=== PATIENT | female | born 1960 | race African-American/Black ===

== ENCOUNTER 2023-12-03 13:04 | Outpatient (OUT) | payer OTHER, SELFPAY ==
--- NOTE | 2023-12-03 | XR_ITS ---
The [address] [address] Patient Name: MARCOS GARCIA MRN: [id number] date: 1960 Sex: F Assigned Patient Location: Current Patient Location: Accession/Order Number: [id number] Exam Date: 12/03/2023 13:04 Report Date: 12/03/2023 14:42 At the request of: ADI MILLER Procedure: XR foot NASH min 3V EXAMINATION: XR foot NASH min 3V HISTORY: BILATERAL FOOT PAIN COMPARISON: No relevant comparison available. FINDINGS: RIGHT FINDINGS: BONES: No acute fracture or dislocation. Severe hallux valgus. Lateral subluxation of the second toe, overlapping the third toe. Persistent flexion stenosis. Mild plantar enthesopathic spurring of the calcaneus . First metatarsal-phalangeal joint osteoarthritis SOFT TISSUES: Negative. No visible soft tissue swelling. OTHER: Negative. LEFT FINDINGS: BONES: No acute fracture or dislocation. Severe hallux valgus. Persistent flexion of the toes. Mild plantar enthesopathic spurring of the calcaneus. First metatarsal-phalangeal joint osteoarthritis SOFT TISSUES: Negative. No visible soft tissue swelling. OTHER: Negative. XR/XR foot NASH min 3V IMPRESSION: Severe bilateral hallux valgus with first metatarsal-phalangeal joint osteoarthritis Lateral subluxation of the right second toe overlapping the third toe Electronically authenticated by: ELIEZER PENA Date: 12/03/2023 14:42
== END 2023-12-03 13:05 | disposition home or self-care (01) ==
PROVIDERS: Visit Provider Podiatrist Foot & Ankle Surgery
DX: M79.672 Pain in left foot (principal); M79.671 Pain in right foot; M20.12 Hallux valgus (acquired), left foot; M20.11 Hallux valgus (acquired), right foot; S93.101A Unspecified subluxation of right toe(s), initial encounter
CPT/HCPCS: 73630

== ENCOUNTER 2023-12-11 13:44 | Outpatient (OUT) | payer OTHER, SELFPAY ==
--- NOTE | 2023-12-11 13:45 | VEIN_ITS ---
The [address] [address] Patient Name: MARCOS GARCIA MRN: [id number] date: 1960 Sex: F Assigned Patient Location: Current Patient Location: Accession/Order Number: [id number] Exam Date: 12/11/2023 13:45 Report Date: 12/15/2023 07:09 At the request of: ADI MILLER Procedure: VC SEGMENTAL PRESSURES EXAM: VC SEGMENTAL PRESSURES HISTORY: R09.89 Indication: Claudication, right leg pain COMPARISON: None. FINDINGS: Segmental pressures presented as follows (right, left) in mmHg. Brachial: 135, 141 Upper thigh: 181, 170 Lower thigh: 179, 168 Calf: 169, 175 DPA: 143, 130 CHILD CARE COOK: 146, 144 1st Toe: 173, 179 MELYSSA: 1.04, 1.02 TBI: 1.23, 1.27 The ABIs are Normal The TBI's are normal PVR waveforms: Right leg: Thigh: Normal Above knee: Normal Below knee: Normal Right ankle: Normal Left leg: Thigh: Normal Above knee: Normal Below knee: Normal Right ankle: Normal VEIN/VC SEGMENTAL PRESSURES IMPRESSION: Normal exam Electronically authenticated by: ELIEZER PENA Date: 12/15/2023 07:09
== END 2023-12-11 13:45 | disposition home or self-care (01) ==
LOC: VC 13:44
PROVIDERS: Visit Provider Podiatrist Foot & Ankle Surgery
DX: I73.9 Peripheral vascular disease, unspecified (principal); R09.89 Other specified symptoms and signs involving the circulatory and respiratory systems
CPT/HCPCS: 93923

== ENCOUNTER 2023-12-24 08:45 | Outpatient (OUT) | payer OTHER, SELFPAY ==
--- NOTE | 2023-12-24 08:55 | ECG_ITS ---
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
--- NOTE | 2023-12-24 09:48 | PM.PRESUREVA ---
History of Present Illness History of Present Illness Chief complaint: hallux valgus right foot with hammer toes Narrative: Patient presents for preadmission testing accompanied by a friend. The patient states she has a long history of bilateral foot issues, the right is more severe than the left. She states she has several corns and calluses and warts on her feet as well as a deformity of her toes and a bunion. She states that she has tried different shoes, [id number] pain medication, and decreasing her activities with no relief of her symptoms. The patient states she did have a TIA in 2008 and experiences some left-sided weakness, although states there is no new numbness, tingling, or weakness that she has noticed. Review of Systems ROS Narrative REVIEW OF SYSTEMS: Negative except as stated in HPI, ten or more systems reviewed. Constitutional: No fever, chills, weakness ENT: No sore throat or epistaxis Cardiovascular: No edema, chest pain, palpitations, or activity intolerance Respiratory: No shortness of breath, cough, or wheezing Gastrointestinal: No abdominal pain, constipation, diarrhea, or vomiting Genitourinary: No dysuria or hematuria Neurological: No new numbness, tingling, weakness, or headache Psychiatric: No mood changes [facility] Medical History (Updated 12/24/23 @ 09:46 by Joanna Clifton NP) Dysarthria ?R47.1 - Dysarthria and anarthria (ICD-10) Alcohol use ?Z78.9 - Other specified health status (ICD-10) Arthritis ?M19.90 - Unspecified osteoarthritis, unspecified site (ICD-10) Back pain ?M54.9 - Dorsalgia, unspecified (ICD-10) Anemia ?D64.9 - Anemia, unspecified (ICD-10) Depression ?F32.A - Depression, unspecified (ICD-10) Left-sided weakness ?R53.1 - Weakness (ICD-10) Transient ischemic attack (2008) ?G45.9 - Transient cerebral ischemic attack, unspecified (ICD-10) Heartburn ?R12 - Heartburn (ICD-10) Hypercholesterolemia ?E78.00 - Pure hypercholesterolemia, unspecified (ICD-10) Hypertension ?I10 - Essential (primary) hypertension (ICD-10) Foot pain ?M79.673 - Pain in unspecified foot (ICD-10) Peripheral vascular disease ?I73.9 - Peripheral vascular disease, unspecified (ICD-10) Dislocation of metatarsophalangeal joint of right great toe ?S93.121A - Dislocation of metatarsophalangeal joint of right great toe, initial encounter (ICD-10) Toe contracture ?M20.5X9 - Other deformities of toe(s) (acquired), unspecified foot (ICD-10) 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 ?M25.871 - Other specified joint disorders, right ankle and foot (ICD-10) Hammertoe ?M20.40 - Other hammer toe(s) (acquired), unspecified foot (ICD-10) Hallux valgus ?M20.10 - Hallux valgus (acquired), unspecified foot (ICD-10) Surgical History (Updated 12/24/23 @ 09:19 by Joanna Clifton NP) History of colonoscopy ?Z98.890 - Other specified postprocedural states (ICD-10) Family History (Updated 12/24/23 @ 09:19 by Joanna Clifton NP) Other Dementia Family history of aneurysm Family history of hypertension Family history of myocardial infarction Family history of stroke Social History (Updated 12/24/23 @ 09:11 by Joanna Clifton NP) Within the past year, how often did you have a drink containing alcohol: 4 or more times a week Within the past year, how many standard drinks containing alcohol did you have on a typical day: 3 or 4 Smoking status: Current every day smoker What tobacco products do you use: cigarettes Cigarettes per day: 15 Years smoked: 45 Smoking pack-years: 33.75 Non-prescribed substance use: cannabis (any form) Highest level of school completed/degree received: high school graduate Meds Home Medications and Allergies Home Medications ?Medication ?Instructions ?Recorded ?Confirmed ?Type atorvastatin 20 mg tablet 20 mg PO DAILY 12/24/23 12/24/23 History ergocalciferol (vitamin D2) 1,250 1,250 mcg PO QWEEK 12/24/23 12/24/23 History mcg (50,000 unit) capsule labetalol 200 mg tablet 400 mg PO DAILY 12/24/23 12/24/23 History Allergies Allergy/AdvReac Type Severity Reaction Status Date / Time No Known Drug Allergies Allergy Verified 12/24/23 09:08 Exam Narrative Exam Narrative: Constitutional: Awake, alert, comfortable, well-appearing, nontoxic, interactive, vital signs as charted Head: Normocephalic, atraumatic Neck: Supple, normal appearance, normal range of motion, no meningeal signs, no lymphadenopathy Respiratory: No respiratory distress, breath sounds clear Cardiovascular: Regular rate and rhythm, strong and regular heart tones Musculoskeletal: Normal gait, no swelling or edema; obvious right hallux valgus and lesser toe contractures, skin lesions noted on the plantar aspect of the right forefoot, overlying the first MTP joint, and at the base of the fifth metatarsal; no active drainage or erythema Skin: No rashes or induration, no lesions, except as noted, only visible skin inspected Neuro: Normal sensation, left hand grasp slightly weaker than right, left leg strength slightly weaker than right against resistance testing, notable dysarthria, Psychiatric: Oriented ?3, normal affect Assessment and Plan Assessment and Plan (1) Hallux valgus: (2) Hammertoe: (3) 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 Rodriguez January 08, 2024.
[2023-12-24 10:03] LABS: Basophils Percent Auto 0.7 % (0.2-2.0); Eosinophils Absolute Auto 0.2 10^3/uL (0.0-0.7); Eosinophils Percent Auto 3.4 % (0.9-7.0); Hematocrit 36.2 % (36.0-48.0); Hemoglobin 11.9 g/dL (12.0-16.0); Immature Granulocytes Abs Auto 0.01 10^3/uL (0.00-0.03); Immature Granulocytes Pct Auto 0.2 % (0.0-0.5); Lymphocytes Absolute Auto 2.2 10^3/uL (1.2-3.8); Lymphocytes Percent Auto 49.7 % (20.5-60.0); Mean Corpuscular HGB Conc 32.9 g/dL (29.9-35.2); Mean Corpuscular Hemoglobin 32.2 pg (26.7-34.0); Mean Corpuscular Volume 98.1 fL (81.0-99.0); Mean Platelet Volume 9.5 fL (9.5-13.5); Monocytes Absolute Auto 0.4 10^3/uL (0.3-0.8); Monocytes Percent Auto 8.2 % (1.7-12.0); Neutrophils Absolute Auto 1.7 10^3/uL (1.4-6.5); Neutrophils Percent Auto 37.8 % (43.0-75.0); Platelet Count 205 10^3/uL (150-450); Red Blood Count 3.69 10^6/uL (4.20-5.40); Red Cell Distribution Width 12.1 % (11.0-15.0); White Blood Count 4.4 10^3/uL (4.0-11.0)
[2023-12-24 10:15] LABS: Anion Gap 11.8; BUN Creatinine Ratio 25.8; Calcium 9.3 mg/dL (8.5-10.1); Carbon Dioxide 28.7 mmol/L (21.0-32.0); Chloride 105 mmol/L (98-107); Estimated GFR (African America >60 (>=60); Estimated GFR (Non-African Ame >60 (>=60); Glucose 68 mg/dL (74-106); Potassium 3.5 mmol/L (3.5-5.1); Sodium 142 mmol/L (136-145)
== END 2023-12-24 08:46 | disposition home or self-care (01) ==
LOC: PST 08:48
PROVIDERS: Visit Provider Podiatrist Foot & Ankle Surgery
DX: Z01.810 Encounter for preprocedural cardiovascular examination (principal); M20.11 Hallux valgus (acquired), right foot; Z01.812 Encounter for preprocedural laboratory examination; M20.41 Other hammer toe(s) (acquired), right foot
CPT/HCPCS: 28899; 36415; 80048; 85025; 93005; G0463

== ENCOUNTER 2023-12-30 09:02 | Outpatient (RCR) | payer OTHER, SELFPAY | END 2024-04-06 23:59 | disposition home or self-care (01) | LOC: PT 09:02 | PROVIDERS: Visit Provider Podiatrist Foot & Ankle Surgery | DX: M20.41 Other hammer toe(s) (acquired), right foot (principal); M20.11 Hallux valgus (acquired), right foot | CPT/HCPCS: 97116; 97161 ==

== ENCOUNTER 2024-01-08 06:04 | Day surgery (SDC) | payer OTHER, SELFPAY ==
[2023-12-24 09:38] VITALS: BP 146/93; PULSE 68; TEMP 36.3; O2SAT 97; BMI 20.1
[2024-01-08] VITALS (10 sets, daily range): BP systolic 148–159; BP diastolic 93–103; PULSE 64–69; TEMP 36.3–36.7; O2SAT 98–100; BMI 19.9
--- NOTE | 2024-01-08 | FL_ITS ---
[address] [address] Patient Name: MARCOS GARCIA MRN: [id number] date: 1960 Sex: F Assigned Patient [facility] Current Patient Location: [facility] Accession/Order Number: [id number] Exam Date: 01/08/2024 11:52 Report Date: 01/13/2024 09:36 At the request of: ADI MILLER Procedure: FL fluoroscopy <1hr NON-READ EXAM: FL fluoroscopy <1hr NON-READ HISTORY: TECHNIQUE: FINDINGS: Please see Operative Report. Electronically authenticated by: RADIOLOGIST NO Date: 01/13/2024 09:36
--- OUTSIDE RECORDS SUMMARY | 2024-01-08 06:08 | XMS_ITS | CCD ---
Author Organization [facility] Inform ion Partnership [facility] Care Team Providers Care Consultant Technology Name Role Phone Rosanne Falcon E Primary Care Provider [facility], Services Primary Care Provider [phone] Terrie MOVIE OPERATOR-C Rosanne Liu Attending Provider MD Philip Taveras Attending Provider [phone] [facility] Services Primary Care Provider Spajimic, MOVIE OPERATOR-C Rosanne E Attending Provider [facility] Services Primary Care Provider Spasic, MOVIE OPERATOR-C Rosanne E Attending Provider Spasic, MOVIE OPERATOR-C Rosanne E Attending Provider Spasic, Rosanne E Admitting Unavailable Spasic, Rosanne E Attending Unavailable Spasic, Rosanne E Admitting Unavailable Spasic, Rosanne E Attending Unavailable NO FAMILY, PHYSICIAN Primary Care Unavailable Spasic, Rosanne E Admitting Unavailable Spasic, Rosanne E Attending Unavailable [facility], Services Primary Care U navailable Spasic, Rosanne E Admitting Unavailable Spasic, Rosanne E Attending Unavailable [facility], Services Primary Care U navailable Spasic, Rosanne E Admitting Unavailable Spasic, Rosanne E Attending Unavailable [facility], Services Primary Care Unavaila ble Medications Current Medications Medication Drug Class(es) Dates Sig (Normalized) Sig (Original) atorvastatin 20 mg oral tablet (8 sources) HMG-CoA Reductase Inhibitor Start: 02-20-2021 take 20 mg by mouth once daily Atorvastatin Active 20 MG PO Daily February 20, 2021 1:00am Comment on above: Take 20 mg by mouth once daily. diclofenac sodium 0.01 mg/mg topical gel (7 sources) Nonsteroidal Anti-inflammatory Drug Start: 12-05-2021 Diclofenac Sodium Active 1 EACH TOPICAL As Directed December 05, 2021 12:00am diclofenac (VOLT AREN) 1 % topical gel Apply to affected area four times daily. 0 Active Comment on above: Apply to affected ar ea four times daily. ergocalciferol 1.25 mg oral capsule (4 sources) Provitamin D2 Compound Start: 01-10-20 take 1250 ug by mouth every week Ergocalciferol (Vitamin D2) Active 1250 MCG PO every week January 09, 2022 12:00am takes on Mondays labetalol hydrochloride 200 mg oral tablet (8 sources) beta-Adrenergic Graciela Start: 08-03-19 take 400 mg by mouth twice daily Labetalol Active 400 MG PO Twice daily August 02, 2017 12:00am take 1 tablet by mouth twice uyen ly labetalol (TRANDATE) 200 mg tablet Take 200 mg by mouth twice daily. 0 Active Comment on above: Take 200 mg by mouth twice daily. Completed/Discontinued Medications Medication Drug Class(es) Dates Sig (Normalized) Sig (Original) amoxicillin 875 mg / clavulanate 125 mg oral tablet (7 sources) Penicillin-class Antibacterial Start: 08-02-2017 End: 12-05-2017 take 1 tablet by mouth twice daily Amoxicillin-Pot Clavulanate (Augmentin) 875-125 mg Tablet Discontinued 875 MG PO Twice daily August 02, 2017 12:00am December 05, 2017 12:18pm cholecalciferol 0.125 mg oral tablet (7 sources) Vitamin D Start: 12-05-2021 End: 01-09-2022 take 1 tablet by mouth once daily Cholecalciferol (Vitamin D3) (Vitamin D3) 125 mcg (5,000 unit) Tablet Discontinued 125 MCG PO Daily December 05, 2021 12:00am January 09, 2022 1:49pm take 1 tablet by mouth every wee k cholecalciferol (VITAMIN D-3) 5,000 unit tab Take 5,000 Units by mouth one time a week. 0 Active Comment on above: Take 5,000 Units by mouth one time a week. cyclobenzaprine hydrochloride 5 mg oral tablet (8 sources) Muscle Relaxant Start: 12-06-19 End: 12-06-19 take 5 mg by mouth once daily Cyclobenzaprine Discontinued 5 MG PO Daily December 05, 2017 12:00am December 05, 2021 1:48pm cyclobenzaprine HCl (CYCLOBENZAPRINE ORAL) Take 10 mg by mouth as directed. 0 Active Comment on above: Take 10 mg by mouth as directed. erythromycin 0.005 mg/mg ophthalmic ointment (1 source) Macrolide, Macrolide Antimicrobial erythromycin (ROMYCI N) 5 mg/gram (0.5 %) ophthalmic ointment four times daily. 0 Active Comment on above: four times daily. gentamicin 0.003 mg/mg ophthalmic ointment (1 source) gentamicin (GENT AK) 0.3 % (3 mg/gram) ophthalmic ointment Use in eyes twice daily. 0 Active Comment on above: Use in eyes twice da mackenzie. hydroCHLOROthiazide 12.5 mg oral tablet (7 sources) Thiazide Diuretic Start: 2017 End: 2017 take 12.5 mg by mouth once daily Hydrochlorothiazide Discontinued 12.5 MG PO Daily August 02, 2017 12:00am December 05, 2017 12:18pm ibuprofen 400 mg oral tablet (8 sources) Nonsteroidal Anti-inflammatory Drug Start: 2017 End: 2021 take 400 mg by mouth three times daily Ibuprofen Discontinued 400 MG PO Three times daily August 02, 2017 12:00am December 05, 2021 1:47pm take 1 tablet by zuleika th every six hours as needed ibuprofen (MOTRIN) 400 mg tablet Take 40 0 mg by mouth every 6 hours as needed. 0 Active Comment on above: Take 400 mg by mouth every 6 hours as needed. ondansetron 4 mg disintegrating oral tablet (7 sources) Serotonin-3 Receptor Antagonist Start: 8 End: 2 take 1 tablet by mouth every four hours Ondansetron (Zofran Odt) 4 mg Tablet,Disintegratin g Discontinued 4 MG PO Q4H August 02, 2017 12:00am December 05, 2021 1:47pm administer first dose 30 minutes before start of emetogenic chemotherapy Problems Problem Classification Problem Date Documented Da te Episodic/Chronic Essential hypertension (2 sources) Essential (primary) hypertension; Translations: [Essential (primary) hypertension] Onset: 01-16-2023 Chronic Nutritional deficiencies (1 source) Vitamin D deficiency, unspecified; Translations: [Vitamin D deficiency, unspecified] Onset: 07-31-2023 Chronic Other screening for suspected conditions (not mental disorders or infectious disease) (7 sources) Patient encounter status; Translations: [Encounter for screening for malignant neoplasm of colon] 12-05-2017 Episodic Pneumonia (except that caused by tuberculosis or sexually transmitted disease) (7 sources) Pneumonia; Translations: [Pneumonia, unspecified organism] 08-02-2017 Episodic Unclassified (1 source) Encounter for screening mammogram for malignant neoplasm of breast; Translations: [Encounter for screening mammogram for malignant neoplasm of breast] Onset: 04-11-2023 Unclassified (1 source) Otorrhea, left ear; Translations: [Otorrhea, left ear] Onset: 01-28-2023 Results Test Name Value Interpretation Reference Range Facility Complete Blood Count Auto Di ffon 01-02-2024 Basophils (Bld) [#/Vol] 0.1 10*3/uL Normal 0.0-0.2 [facility] Comment on above: Result Comment: PERF ORMED BY: [place] [id number] PATHOLOGIST HAT FORMING MACHINE FEEDER TRINI PINON M.D. Performed By: #### T SH3 wRFLX, [id number], DIFF CBC, CMP #### [facility] [address] Basophils/100 WBC (Bld) 1.5 % Normal . T amanda [facility] Comment on above: Performed By: #### T SH3 wRFLX, [id number], DIFF CBC, CMP #### [facility] [address] [place] [address] [place] Eosinophils (Bld) [#/Vol] 0.1 10*3/uL Normal 0.0-0.45 [facility] Comment on above: Performed By: #### T SH3 wRFLX, [id number], DIFF CBC, CMP #### [facility] [address] [place] [address] [place] Eosinophils/100 WBC (Bld) 2.8 % Normal . [facility] Comment on above: Performed By: #### T SH3 wRFLX, [id number], DIFF CBC, CMP #### [address] Erythrocyte distribution width (RBC) [Ratio] 13.8 % Normal 11.9-15.3 [facility] Comment on above: Performed By: #### T SH3 wRFLX, [id number], DIFF CBC, CMP #### [address] Hematocrit (Bld) [Volume fraction] 38.8 % Normal 34.0-46.4 [facility] Comment on above: Performed By: #### T SH3 wRFLX, [id number], DIFF CBC, CMP #### [address] Hemoglobin (Bld) [Mass/Vol] 13.0 g/dL Normal 11.8-15.4 [facility] Comment on above: Performed By: #### T SH3 wRFLX, [id number], DIFF CBC, CMP #### [address] Lymphocytes (Bld) [#/Vol] 2.1 10*3/uL Normal 1.00-4.8 [facility] Comment on above: Performed By: #### T SH3 wRFLX, [id number], DIFF CBC, CMP #### [address] Lymphocytes/100 WBC (Bld) 49.0 % Normal . [facility] Comment on above: Performed By: #### T SH3 wRFLX, [id number], DIFF CBC, CMP #### [address] MCH (RBC) [Entitic mass] 32.4 pg Normal 24.7-34.3 [facility] Comment on above: Performed By: #### T SH3 wRFLX, [id number], DIFF CBC, CMP #### [address] MCV (RBC) [Entitic vol] 96.5 fL Normal 80-100 [facility] Comment on above: Performed By: #### T SH3 wRFLX, [id number], DIFF CBC, CMP #### [address] Mean Corpuscular HGB Conc 33.6 g/dL Normal 32.0-35.0 [facility] Comment on above: Performed By: #### T SH3 wRFLX, [id number], DIFF CBC, CMP #### [address] Monocytes (Bld) [#/Vol] 0.2 10*3/uL Normal 0.0-0.8 [facility] Comment on above: Performed By: #### T SH3 wRFLX, [id number], DIFF CBC, CMP #### [address] Monocytes/100 WBC (Bld) 4.7 % Normal . T amanda [facility] Comment on above: Performed By: #### T SH3 wRFLX, [id number], DIFF CBC, CMP #### [address] Neutrophils (Bld) [#/Vol] 1.8 10*3/uL Normal 1.8-7.7 [facility] Comment on above: Performed By: #### T SH3 wRFLX, [id number], DIFF CBC, CMP #### [address] Neutrophils/100 WBC (Bld) 42.0 % Normal . [facility] Comment on above: Performed By: #### T SH3 wRFLX, [id number], DIFF CBC, CMP #### [address] NRBC% 0.2 /100{WBC} Normal 0-0.5 [facility] Comment on above: Performed By: #### T SH3 wRFLX, [id number], DIFF CBC, CMP #### [address] Platelet mean volume (Bld) [Entitic vol] 8.6 fL Normal 6.3-10.7 [facility] Comment on above: Performed By: #### T SH3 wRFLX, [id number], DIFF CBC, CMP #### [address] Platelets (Bld) [#/Vol] 241 10*3/uL Normal 150-450 [facility] Comment on above: Performed By: #### T SH3 wRFLX, [id number], DIFF CBC, CMP #### [address] RBC (Bld) [#/Vol] 4.02 10*6/uL Normal 3.60-5.00 [facility] Comment on above: Performed By: #### T SH3 wRFLX, [id number], DIFF CBC, CMP #### [address] WBC (Bld) [#/Vol] 4.3 10*3/uL Normal 3.8-11.6 [facility] Comment on above: Performed By: #### T SH3 wRFLX, [id number], DIFF CBC, CMP #### [address] Comprehensive Metabolic Pane harriet 01-02-2024 Albumin [Mass/Vol] 4.1 g/dL Normal 3.5-5.7 [facility] Comment on above: Performed By: #### T SH3 wRFLX, [id number], DIFF CBC, CMP #### [address] Albumin/Globulin [Mass ratio] 1.4 {ratio} Normal [facility] Comment on above: Performed By: #### T SH3 wRFLX, [id number], DIFF CBC, CMP #### [address] ALP [Catalytic activity/Vol] 100 U/L Normal 34-104 [facility] Comment on above: Performed By: #### T SH3 wRFLX, [id number], DIFF CBC, CMP #### [address] ALT [Catalytic activity/Vol] 13 U/L Normal 7-52 [facility] Comment on above: Performed By: #### T SH3 wRFLX, [id number], DIFF CBC, CMP #### [address] Anion gap [Moles/Vol] 7.4 mmol/L Normal 6.0-15.0 [facility] Comment on above: Performed By: #### T SH3 wRFLX, [id number], DIFF CBC, CMP #### [address] AST [Catalytic activity/Vol] 15 U/L Normal 13-39 [facility] Comment on above: Performed By: #### T SH3 wRFLX, [id number], DIFF CBC, CMP #### [address] Bilirubin [Mass/Vol] 0.7 mg/dL Normal 0.3-1.0 [facility] Comment on above: Performed By: #### T SH3 wRFLX, [id number], DIFF CBC, CMP #### [address] Calcium [Mass/Vol] 9.9 mg/dL Normal 8.6-10.3 [facility] Comment on above: Performed By: #### T SH3 wRFLX, [id number], DIFF CBC, CMP #### [place] [address] [place] Chloride [Moles/Vol] 105 mmol/L Normal 98-107 [facility] Comment on above: Performed By: #### T SH3 wRFLX, [id number], DIFF CBC, CMP #### [place] [address] [place] CO2 [Moles/Vol] 32.3 mmol/L High 21.0-31.0 [facility] Comment on above: Performed By: #### T SH3 wRFLX, [id number], DIFF CBC, CMP #### [place] [address] [place] Creatinine [Mass/Vol] 0.75 mg/dL Normal 0.60-1.20 [facility] Comment on above: Performed By: #### T SH3 wRFLX, [id number], DIFF CBC, CMP #### [facility] [address] [place] [address] [place] GFR/1.73 sq M.predicted MDRD (S/P/Bld) [Vol rate/Area] mL/min/{1.73_m2} Normal [facility] Comment on above: Performed By: #### T SH3 wRFLX, [id number], DIFF CBC, CMP #### [facility] [address] [place] [address] [place] Globulin (S) [Mass/Vol] 3.0 g/dL Normal [facility] Comment on above: Performed By: #### T SH3 wRFLX, [id number], DIFF CBC, CMP #### [facility] [address] Glucose [Mass/Vol] 81 mg/dL Normal 70-100 [facility] Comment on above: Result Comment: [facility] [place] Glucose Reference Range is dependent on time and content of last meal. Glucose of more than 200 mg/dL in a nonstressed, ambulatory subject supports the diagnosis of Diabetes Mellitus. ADA recommended reference range Performed By: #### T SH3 wRFLX, [id number], DIFF CBC, CMP #### [facility] [address] Potassium [Moles/Vol] 3.7 mmol/L Normal 3.5-5.1 [facility] Comment on above: Performed By: #### T SH3 wRFLX, [id number], DIFF CBC, CMP #### [facility] [address] [place] [address] [place] Protein [Mass/Vol] 7.1 g/dL Normal 6.4-8.9 [facility] Comment on above: Performed By: #### T SH3 wRFLX, [id number], DIFF CBC, CMP #### [facility] [address] [place] [address] [place] Sodium [Moles/Vol] 141 mmol/L Normal 136-145 [facility] Comment on above: Performed By: #### T SH3 wRFLX, [id number], DIFF CBC, CMP #### [facility] [address] Urea nitrogen [Mass/Vol] 19 mg/dL Normal 7-25 [facility] Comment on above: Performed By: #### T SH3 wRFLX, [id number], DIFF CBC, CMP #### [facility] [address] Lipid Panelon 01-02-2024 Cholesterol [Mass/Vol] 155 mg/dL Normal 140-200 [facility] Comment on above: Result Comment: Chol less than 200 mg/dl low risk Chol 201-239 mg/dl borderline risk Chol 240 mg/dl and greater high risk Performed By: #### T SH3 wRFLX, [id number], DIFF CBC, CMP #### [facility] [address] Cholesterol in HDL [Mass/Vol] 75 mg/dL Normal 23-92 [facility] Comment on above: Result Comment: HDL CHOL ATP-III CLASSIFICATION Cardiovascular Risk HDL > or equal to 60 mg/dL LOW HDL < 40 mg/dL HIGH Performed By: #### T SH3 wRFLX, [id number], DIFF CBC, CMP #### [facility] [address] Cholesterol.total/Choles terol in HDL [Mass ratio] 2.1 {ratio} Normal <5.0 [facility] Comment on above: Performed By: #### T SH3 wRFLX, [id number], DIFF CBC, CMP #### [facility] [address] [place] [id number] [facility] LDL Cholesterol,Calculated 69 mg/dL Normal 0-100 [facility] Comment on above: Result Comment: LDL ATP III CLASSIFICATION LDL less than 100 mg/dL Optimal LDL 100-129 mg/dL Near or above optimal LDL 130-159 mg/dL Borderline high LDL 160-189 mg/dL High LDL greater than 189 mg/dL Very high Performed By: #### T SH3 wRFLX, [id number], DIFF CBC, CMP #### [address] Triglyceride w/Reflex 55 mg/dL Normal 0-149 [facility] Comment on above: Result Comment: TRIG ATP III CLASSIFICATION TRIG less than 150 mg/dL Normal TRIG 150-199 mg/dL Borderline high TRIG 200-500 mg/dL High TRIG greater than 500 mg/dL Very high Standard traceable to the Center for Disease Conrtrol and Prevention (CDC) test method. Performed By: #### T SH3 wRFLX, [id number], DIFF CBC, CMP #### [address] VLDL CHOLESTEROL 11 mg/dL Normal [facility] Comment on above: Performed By: #### T SH3 wRFLX, [id number], DIFF CBC, CMP #### [address] Thyroid Stim Hormone w/Rflxo n 01-02-2024 Thyroid Stim Hormone w/Rflx 0.69 u[iU]/mL Normal 0.45-5.33 [facility] Comment on above: Performed By: #### T SH3 wRFLX, [id number], DIFF CBC, CMP #### [address] Vitamin D 25 Hydroxy Totalon 01-02-2024 Vitamin D 25 Hydroxy Total 52.7 ng/mL Normal 30-100 [facility] Comment on above: Result Comment: PARAS MIN D STATUS 25(OH)VITAMIN D RANGE (ng/mL) Deficient <20 Insufficient 20 to <30 Sufficient 30 to 100 Reference: Helen MF,Vaishali NC, Arturo FARRIS, et al. Evaluation,treatment, and prevention of vitamin D deficiency; an Endocrine Society clinical practice guideline. JCEM. 2010; 96(7):1911-30. PERFORMED BY: [place] [address] PATHOLOGIST HAT FORMING MACHINE FEEDER TRINI PINON M.D. Performed By: #### T SH3 wRFLX, [id number], DIFF CBC, CMP #### [place] [address] [place] Alanine aminotransferase [En zymatic activity/volume] in Serum or PlasmaOrdered By: Rosanne Falcon on 07-31-2023 ALT [Catalytic activity/Vol] 14 U/L Normal 7-52 [facility] Comment on above: Order Comment: Reaso n for Exam Hypertension Reason for Exam Vitamin D deficiency, unspecified Performed By: #### T SH3 wRFLX, CBC, LIPID, [id number], CMP #### [facility] [address] [place] [address] [place] Albumin [Mass/volume] in Ser um or Plasma by Bromocresol green (BCG) dye binding methoOrdered By: Rosanne Falcon on 07-31-2023 Albumin BCG dye [Mass/Vol] 3.9 g/dL 3.5-5.7 [facility] Alkaline phosphatase [Enzyma tic activity/volume] in Serum or PlasmaOrdered By: Rosanne Falcon on 07-31-2023 ALP [Catalytic activity/Vol] 82 U/L Normal 34-104 [facility] Comment on above: Order Comment: Reaso n for Exam Hypertension Reason for Exam Vitamin D deficiency, unspecified Performed By: #### T SH3 wRFLX, CBC, LIPID, [id number], CMP #### [facility] [address] [place] [id number] [place] Aspartate aminotransferase [ Enzymatic activity/volume] in Serum or PlasmaOrdered By: Rosanne Falcon on 07-31-2023 AST [Catalytic activity/Vol] 16 U/L Normal 13-39 [facility] Comment on above: Order Comment: Reaso n for Exam Hypertension Reason for Exam Vitamin D deficiency, unspecified Performed By: #### T SH3 wRFLX, CBC, LIPID, [id number], CMP #### [facility] [address] [place] [address] [place] Automated basophil %Ordered By: Rosanne Falcon on 07-31-2023 Basophils/100 WBC (Bld) 0.6 % Normal . [facility] Comment on above: Order Comment: Reaso n for Exam Hypertension Performed By: #### T SH3 wRFLX, CBC, LIPID, [id number], CMP #### [facility] [address] [place] [id number] [place] Automated basophil countOrde red By: Rosanne Falcon on 07-31-2023 Basophils (Bld) [#/Vol] 0.0 10*3/uL Normal 0.0-0.2 [facility] Comment on above: Order Comment: Reaso n for Exam Hypertension Result Comment: PERF ORMED BY: [place] [address] PATHOLOGIST HAT FORMING MACHINE FEEDER TRINI PINON M.D. Performed By: #### T SH3 wRFLX, CBC, LIPID, [id number], CMP #### [facility] [address] [place] [address] Automated blood monocyte cou ntOrdered By: Rosanne Falcon on 07-31-2023 Monocytes (Bld) [#/Vol] 0.3 10*3/uL Normal 0.0-0.8 [facility] Comment on above: Order Comment: Reaso n for Exam Hypertension Performed By: #### T SH3 wRFLX, CBC, LIPID, [id number], CMP #### [facility] [address] [place] [address] Automated eosinophil %Ordere d By: Rosanne Falcon on 07-31-2023 Eosinophils/100 WBC (Bld) 2.6 % Normal . [facility] Comment on above: Order Comment: Reaso n for Exam Hypertension Performed By: #### T SH3 wRFLX, CBC, LIPID, [id number], CMP #### [facility] [address] [place] [address] Automated eosinophil countOr dered By: Rosanne Falcon on 07-31-2023 Eosinophils (Bld) [#/Vol] 0.1 10*3/uL Normal 0.0-0.45 [facility] Comment on above: Order Comment: Reaso n for Exam Hypertension Performed By: #### T SH3 wRFLX, CBC, LIPID, [id number], CMP #### [facility] [address] [place] [address] [place] Automated monocyte %Ordered By: Rosanne Curtisc on 07-31-2023 Monocytes/100 WBC (Bld) 5.8 % Normal . [facility] Comment on above: Order Comment: Reaso n for Exam Hypertension Performed By: #### T SH3 wRFLX, CBC, LIPID, [id number], CMP #### [facility] [address] [place] [id number] [facility] Automated neutrophil %Ordere d By: Rosanne Falcon on 07-31-2023 Neutrophils/100 WBC (Bld) 46.3 % Normal . [facility] Comment on above: Order Comment: Reaso n for Exam Hypertension Performed By: #### T SH3 wRFLX, CBC, LIPID, [id number], CMP #### [facility] [address] [place] [id number] [facility] Bilirubin.total [Mass/volume ] in Serum or PlasmaOrdered By: Rosanne Falcon on 07-31-2023 Bilirubin [Mass/Vol] 0.4 mg/dL Normal 0.3-1.0 [facility] Comment on above: Order Comment: Reaso n for Exam Hypertension Reason for Exam Vitamin D deficiency, unspecified Performed By: #### T SH3 wRFLX, CBC, LIPID, [id number], CMP #### [facility] [address] [place] [id number] [facility] Calcium [Mass/volume] in Ser um or PlasmaOrdered By: Rosanne Falcon on 07-31-2023 Calcium [Mass/Vol] 9.8 mg/dL Normal 8.6-10.3 [facility] Comment on above: Order Comment: Reaso n for Exam Hypertension Reason for Exam Vitamin D deficiency, unspecified Performed By: #### T SH3 wRFLX, CBC, LIPID, [id number], CMP #### [facility] [address] [place] [id number] [facility] Carbon dioxide, total [Moles /volume] in Serum or PlasmaOrdered By: Rosanne Falcon on 07-31-2023 CO2 [Moles/Vol] 31.7 mmol/L High 21.0-31.0 [facility] Comment on above: Order Comment: Reaso n for Exam Hypertension Reason for Exam Vitamin D deficiency, unspecified Performed By: #### T SH3 wRFLX, CBC, LIPID, [id number], CMP #### [facility] [address] [place] [address] [place] Chloride [Moles/volume] in [place] or PlasmaOrdered By: Rosanne Falcon on 07-31-2023 Chloride [Moles/Vol] 103 mmol/L Normal 98-107 [facility] Comment on above: Order Comment: Reaso n for Exam Hypertension Reason for Exam Vitamin D deficiency, unspecified Performed By: #### T SH3 wRFLX, CBC, LIPID, [id number], CMP #### [facility] [address] [place] [address] [place] Cholesterol [Mass/volume] in Serum or PlasmaOrdered By: Rosanne Falcon on 07-31-2023 Cholesterol [Mass/Vol] 124 mg/dL Low 140-200 [facility] Comment on above: Chol less than 200 m g/dl low riskChol 201-239 mg/dl borderline riskChol 240 mg/dl and greater high risk Order Comment: Reaso n for Exam Hypertension Reason for Exam Vitamin D deficiency, unspecified Result Comment: Chol less than 200 mg/dl low risk Chol 201-239 mg/dl borderline risk Chol 240 mg/dl and greater high risk Performed By: #### T SH3 wRFLX, CBC, LIPID, [id number], CMP #### [facility] [address] [place] [address] [place] Cholesterol in LDL Calc [Mas s/Vol]Ordered By: Rosanne Falcon on 07-31-2023 Cholesterol in LDL [Mass/Vol] 63 mg/dL 0-100 [facility] Comment on above: LDL ATP III CLASSIFI CATIONLDL less than 100 mg/dL OptimalLDL 100-129 mg/dL Near or above optimalLDL 130-159 mg/dL Borderline highLDL 160-189 mg/dL HighLDL greater than 189 mg/dL Very high Cholesterol in VLDL Calc [Ma ss/Vol]Ordered By: Rosanne Falcon on 07-31-2023 Cholesterol in VLDL [Mass/Vol] 7 mg/dL [facility] Complete Blood Count Auto Di ffon 07-31-2023 Mean Corpuscular HGB Conc 34.3 g/dL Normal 32.0-35.0 [facility] Comment on above: Order Comment: Reaso n for Exam Hypertension Performed By: #### T SH3 wRFLX, CBC, LIPID, [id number], CMP #### [facility] [address] [place] [address] NRBC% 0.2 /100{WBC} Normal 0-0.5 [facility] Comment on above: Order Comment: Reaso n for Exam Hypertension Performed By: #### T SH3 wRFLX, CBC, LIPID, [id number], CMP #### [facility] [address] [place] [address] Comprehensive Metabolic Pane harriet 07-31-2023 Albumin [Mass/Vol] 3.9 g/dL Normal 3.5-5.7 [facility] Comment on above: Order Comment: Reaso n for Exam Hypertension Reason for Exam Vitamin D deficiency, unspecified Performed By: #### T SH3 wRFLX, CBC, LIPID, [id number], CMP #### [address] GFR/1.73 sq M.predicted MDRD (S/P/Bld) [Vol rate/Area] mL/min/{1.73_m2} Normal [facility] Comment on above: Order Comment: Reaso n for Exam Hypertension Reason for Exam Vitamin D deficiency, unspecified Performed By: #### T SH3 wRFLX, CBC, LIPID, [id number], CMP #### [address] Creatinine [Mass/volume] in Serum or PlasmaOrdered By: Rosanne Falcon on 07-31-2023 Creatinine [Mass/Vol] 0.74 mg/dL Normal 0.60-1.20 [facility] Comment on above: Order Comment: Reaso n for Exam Hypertension Reason for Exam Vitamin D deficiency, unspecified Performed By: #### T SH3 wRFLX, CBC, LIPID, [id number], CMP #### [facility] [address] [place] [address] Erythrocyte distribution wid th [Ratio] by Automated countOrdered By: Rosanne Falcon on 07-31-2023 Erythrocyte distribution width (RBC) [Ratio] 12.9 % Normal 11.9-15.3 [facility] Comment on above: Order Comment: Reaso n for Exam Hypertension Performed By: #### T SH3 wRFLX, CBC, LIPID, [id number], CMP #### [facility] [address] [id number] [place] Erythrocytes [#/volume] in B lood by Automated countOrdered By: Rosanne Falcon on 07-31-2023 RBC (Bld) [#/Vol] 3.75 10*6/uL Normal 3.60-5.00 [facility] Comment on above: Order Comment: Reaso n for Exam Hypertension Performed By: #### T SH3 wRFLX, CBC, LIPID, [id number], CMP #### [facility] [address] [id number] [place] Glucose [Mass/volume] in Ser um or PlasmaOrdered By: Rosanne Falcon on 07-31-2023 Glucose [Mass/Vol] 87 mg/dL Normal 70-100 [facility] Comment on above: ADA recommended refe rence rangeRandom Glucose Reference Range is dependent on time and content of last meal. Glucose of more than 200 mg/dL in a nonstressed, ambulatory subject supports the diagnosis of Diabetes Mellitus. Order Comment: Reaso n for Exam Hypertension Reason for Exam Vitamin D deficiency, unspecified Result Comment: [place] om Glucose Reference Range is dependent on time and content of last meal. Glucose of more than 200 mg/dL in a nonstressed, ambulatory subject supports the diagnosis of Diabetes Mellitus. ADA recommended reference range Performed By: #### T SH3 wRFLX, CBC, LIPID, [id number], CMP #### [facility] [address] [id number] [place] Hematocrit [Volume Fraction] of Blood by Automated countOrdered By: Rosanne Falcon on 07-31-2023 Hematocrit (Bld) [Volume fraction] 36.3 % Normal 34.0-46.4 [facility] Comment on above: Order Comment: Reaso n for Exam Hypertension Performed By: #### T SH3 wRFLX, CBC, LIPID, [id number], CMP #### [facility] [address] [id number] [place] Hemoglobin [Mass/volume] in BloodOrdered By: Rosanne Falcon on 07-31-2023 Hemoglobin (Bld) [Mass/Vol] 12.5 g/dL Normal 11.8-15.4 [facility] Comment on above: Order Comment: Reaso n for Exam Hypertension Performed By: #### T SH3 wRFLX, CBC, LIPID, [id number], CMP #### [facility] [address] Leukocytes [#/volume] correc [place] for nucleated erythrocytes in Blood by Automated counOrdered By: Rosanne Falcon on 07-31-2023 WBC corrected for nucl RBC Auto (Bld) [#/Vol] 4.4 10*3/uL 3.8-11.6 [facility] Leukocytes [#/volume] in Blo od by Automated countOrdered By: Rosanne Falcon on 07-31-2023 WBC (Bld) [#/Vol] 4.4 10*3/uL Normal 3.8-11.6 [facility] Comment on above: Order Comment: Reaso n for Exam Hypertension Performed By: #### T SH3 wRFLX, CBC, LIPID, [id number], CMP #### [facility] [address] [id number] [facility] Lipid Panelon 07-31-2023 LDL Cholesterol,Calculated 63 mg/dL Normal 0-100 [facility] Comment on above: Order Comment: Reaso n for Exam Hypertension Reason for Exam Vitamin D deficiency, unspecified Result Comment: LDL ATP III CLASSIFICATION LDL less than 100 mg/dL Optimal LDL 100-129 mg/dL Near or above optimal LDL 130-159 mg/dL Borderline high LDL 160-189 mg/dL High LDL greater than 189 mg/dL Very high Performed By: #### T SH3 wRFLX, CBC, LIPID, [id number], CMP #### [facility] [address] [id number] [facility] Triglyceride w/Reflex 39 mg/dL Normal 0-149 [facility] Comment on above: Order Comment: Reaso n for Exam Hypertension Reason for Exam Vitamin D deficiency, unspecified Result Comment: TRIG ATP III CLASSIFICATION TRIG less than 150 mg/dL Normal TRIG 150-199 mg/dL Borderline high TRIG 200-500 mg/dL High TRIG greater than 500 mg/dL Very high Standard traceable to the Center for Disease Conrtrol and Prevention (CDC) test method. Performed By: #### T SH3 wRFLX, CBC, LIPID, [id number], CMP #### [facility] [address] VLDL CHOLESTEROL 7 mg/dL Normal [facility] Comment on above: Order Comment: Reaso n for Exam Hypertension Reason for Exam Vitamin D deficiency, unspecified Performed By: #### T SH3 wRFLX, CBC, LIPID, [id number], CMP #### [facility] [address] Lymphocytes [#/volume] in Bl ood by Automated countOrdered By: Rosanne Falcon on 07-31-2023 Lymphocytes (Bld) [#/Vol] 1.9 10*3/uL Normal 1.00-4.8 [facility] Comment on above: Order Comment: Reaso n for Exam Hypertension Performed By: #### T SH3 wRFLX, CBC, LIPID, [id number], CMP #### [address] Lymphocytes/100 leukocytes i n Blood by Automated countOrdered By: Rosanne Falcon on 07-31-2023 Lymphocytes/100 WBC (Bld) 44.7 % Normal . [facility] Comment on above: Order Comment: Reaso n for Exam Hypertension Performed By: #### T SH3 wRFLX, CBC, LIPID, [id number], CMP #### [facility] [address] MCH [Entitic mass] by Automa [place] countOrdered By: Rosanne Falcon on 07-31-2023 MCH (RBC) [Entitic mass] 33.3 pg Normal 24.7-34.3 [facility] Comment on above: Order Comment: Reaso n for Exam Hypertension Performed By: #### T SH3 wRFLX, CBC, LIPID, [id number], CMP #### [address] MCHC Auto (RBC) [Mass/Vol]Or dered By: Rosanne Falcon on 07-31-2023 MCHC (RBC) [Mass/Vol] 34.3 g/dL 32.0-35.0 [facility] MCV [Entitic volume] by Auto mated countOrdered By: Rosanne Falcon on 07-31-2023 MCV (RBC) [Entitic vol] 96.9 fL Normal 80-100 [facility] Comment on above: Order Comment: Reaso n for Exam Hypertension Performed By: #### T SH3 wRFLX, CBC, LIPID, [id number], CMP #### [facility] [address] Neutrophils [#/volume] in Bl ood by Automated countOrdered By: Rosanne Falcon on 07-31-2023 Neutrophils (Bld) [#/Vol] 2.0 10*3/uL Normal 1.8-7.7 [facility] Comment on above: Order Comment: Reaso n for Exam Hypertension Performed By: #### T SH3 wRFLX, CBC, LIPID, [id number], CMP #### [facility] [address] No Panel InformationOrdered By: Rosanne Falcon on 07-31-2023 Estimated GFR (CKD-EPI) > 60.0 mL/Min [facility] Creatinine Clearance (Chem N/A [facility] Nucleated erythrocytes [Pres ence] in Blood by Automated countOrdered By: Rosanne Falcon on 07-31-2023 Nucleated RBC Auto Ql (Bld) 0.2 /100{WBC} 0-0.5 [facility] Platelet mean volume [Entiti c volume] in Blood by Automated countOrdered By: Rosanne Falcon on 07-31-2023 Platelet mean volume (Bld) [Entitic vol] 8.5 fL Normal 6.3-10.7 [facility] Comment on above: Order Comment: Reaso n for Exam Hypertension Performed By: #### T SH3 wRFLX, CBC, LIPID, [id number], CMP #### [facility] [address] [place] [address] [place] Platelets [#/volume] in Bloo d by Automated countOrdered By: Rosanne Falcon on 07-31-2023 Platelets (Bld) [#/Vol] 228 10*3/uL Normal 150-450 [facility] Comment on above: Order Comment: Reaso n for Exam Hypertension Performed By: #### T SH3 wRFLX, CBC, LIPID, [id number], CMP #### [facility] [address] [id number] [facility] Potassium [Moles/volume] in Serum or PlasmaOrdered By: Rosanne Falcon on 07-31-2023 Potassium [Moles/Vol] 4.2 mmol/L Normal 3.5-5.1 [facility] Comment on above: Order Comment: Reaso n for Exam Hypertension Reason for Exam Vitamin D deficiency, unspecified Performed By: #### T SH3 wRFLX, CBC, LIPID, [id number], CMP #### [facility] [address] [place] [address] [place] Protein [Mass/volume] in Ser um or PlasmaOrdered By: Rosanne Falcon on 07-31-2023 Protein [Mass/Vol] 6.8 g/dL Normal 6.4-8.9 [facility] Comment on above: Order Comment: Reaso n for Exam Hypertension Reason for Exam Vitamin D deficiency, unspecified Performed By: #### T SH3 wRFLX, CBC, LIPID, [id number], CMP #### [facility] [address] [id number] [facility] Serum globulin measurement b y calculation (mass/volume)Ordered By: Rosanne Falcon on 07-31-2023 Globulin (S) [Mass/Vol] 2.9 g/dL Normal [facility] Comment on above: Order Comment: Reaso n for Exam Hypertension Reason for Exam Vitamin D deficiency, unspecified Performed By: #### T SH3 wRFLX, CBC, LIPID, [id number], CMP #### [facility] [address] [place] [address] [place] Serum or plasma albumin/glob ulin mass ratioOrdered By: Rosanne Falcon on 07-31-2023 Albumin/Globulin [Mass ratio] 1.3 {ratio} Normal [facility] Comment on above: Order Comment: Reaso n for Exam Hypertension Reason for Exam Vitamin D deficiency, unspecified Performed By: #### T SH3 wRFLX, CBC, LIPID, [id number], CMP #### [facility] [address] Serum or plasma anion gap de terminationOrdered By: Rosanne Falcon on 07-31-2023 Anion gap [Moles/Vol] 10.5 mmol/L Normal 6.0-15.0 [facility] Comment on above: Order Comment: Reaso n for Exam Hypertension Reason for Exam Vitamin D deficiency, unspecified Performed By: #### T SH3 wRFLX, CBC, LIPID, [id number], CMP #### [facility] [address] Serum or plasma high density lipoprotein (HDL) cholesterol measurementOrdered By: Rosanne Falcon on 07-31-2023 Cholesterol in HDL [Mass/Vol] 53 mg/dL Normal 23-92 [facility] Comment on above: HDL CHOL ATP-III CLA SSIFICATION Cardiovascular RiskHDL > or equal to 60 mg/dL LOWHDL < 40 mg/dL HIGH Order Comment: Reaso n for Exam Hypertension Reason for Exam Vitamin D deficiency, unspecified Result Comment: HDL CHOL ATP-III CLASSIFICATION Cardiovascular Risk HDL > or equal to 60 mg/dL LOW HDL < 40 mg/dL HIGH Performed By: #### T SH3 wRFLX, CBC, LIPID, [id number], CMP #### [facility] [address] Serum or plasma total choles terol/high density lipoprotein (HDL) cholesterol mass ratOrdered By: Rosanne Falcon on 07-31-2023 Cholesterol.total/Choles terol in HDL [Mass ratio] 2.3 {ratio} Normal <5.0 [facility] Comment on above: Order Comment: Reaso n for Exam Hypertension Reason for Exam Vitamin D deficiency, unspecified Performed By: #### T SH3 wRFLX, CBC, LIPID, [id number], CMP #### [facility] [address] Sodium [Moles/volume] in Ser um or PlasmaOrdered By: Rosanne Falcon on 07-31-2023 Sodium [Moles/Vol] 141 mmol/L Normal 136-145 [facility] Comment on above: Order Comment: Reaso n for Exam Hypertension Reason for Exam Vitamin D deficiency, unspecified Performed By: #### T SH3 wRFLX, CBC, LIPID, [id number], CMP #### [facility] [address] Thyroid Stim Hormone w/Rflxo n 07-31-2023 Thyroid Stim Hormone w/Rflx 0.74 u[iU]/mL Normal 0.45-5.33 [facility] Comment on above: Order Comment: Reaso n for Exam Hypertension Reason for Exam Vitamin D deficiency, unspecified Performed By: #### T SH3 wRFLX, CBC, LIPID, [id number], CMP #### [facility] [address] Thyrotropin [Units/volume] i n Serum or PlasmaOrdered By: Rosanne Falcon on 07-31-2023 TSH Qn 0.74 m[IU]/L 0.45-5.33 [facility] Triglyceride [Mass/volume] i n Serum or PlasmaOrdered By: Rosanne Falcon on 07-31-2023 Triglyceride [Mass/Vol] 39 mg/dL 0-149 [facility] Comment on above: TRIG ATP III CLASSIF ICATIONTRIG less than 150 mg/dL NormalTRIG 150-199 mg/dL Borderline highTRIG 200-500 mg/dL High TRIG greater than 500 mg/dL Very highStandard traceable to the Center for Disease Conrtrol and Prevention (CDC) test method. Urea nitrogen [Mass/volume] in Serum or PlasmaOrdered By: Rosanne Falcon on 07-31-2023 Urea nitrogen [Mass/Vol] 17 mg/dL Normal 7-25 [facility] Comment on above: Order Comment: Reaso n for Exam Hypertension Reason for Exam Vitamin D deficiency, unspecified Performed By: #### T SH3 wRFLX, CBC, LIPID, [id number], CMP #### [facility] [address] [id number] [facility] Vitamin D 25 Hydroxy Totalon 07-31-2023 Vitamin D 25 Hydroxy Total 69.7 ng/mL Normal 30-100 [facility] Comment on above: Order Comment: Reaso n for Exam Hypertension Reason for Exam Vitamin D deficiency, unspecified Result Comment: PARAS MIN D STATUS 25(OH)VITAMIN D RANGE (ng/mL) Deficient <20 Insufficient 20 to <30 Sufficient 30 to 100 Reference: Vaishali Riddle, Arturo FARRIS, et al. Evaluation,treatment, and prevention of vitamin D deficiency; an Endocrine Society clinical practice guideline. JCEM. 2010; 96(7):1911-30. PERFORMED BY: [place] [address] PATHOLOGIST H[employer] MACHINE FEEDER TRINI PINON M.D. Performed By: #### T SH3 wRFLX, [id number], DIFF CBC, CMP #### [address] Vitamin D+Metabolites [Mass/ volume] in Serum or PlasmaOrdered By: Rosanne Falcon on 07-31-2023 Vitamin D+Metabolites [Mass/Vol] 69.7 ng/mL 30-100 [facility] Comment on above: VITAMIN D STATUS 25( [place])VITAMIN D RANGE (ng/mL) Deficient <20 Insufficient 20 to <30Sufficient 30 to 100Reference: Vaishali Riddle, Arturo FARRIS, et al. Evaluation,treatment, and prevention of vitamin D deficiency; an Endocrine Society clinical practice guideline. JCEM. 2010; 96(7):1911-30. MM screening mammo BI w/CADo n 04-11-2023 MM screening mammo BI w/CAD [facility] [place] [address] [place], [place] [id number] Mammography Report Signed Patient: Radha Patterson MR#: [id number] : 1960 Acct:[id number] Age/Sex: 62 / F ADM Date: 04/11/23 Loc: MD Room: Type: [facility] Attending Dr: Rosanne ZAFAR Copies to: [facility] CHARISMA Hilton Ordering Provider: CHARISMA Hilton Date of Service: 04/11/23 MM/MM screening mammo BI w/CAD: Screening mammogram for breast cancer CLINICAL DATA: Screening for malignancy. BILATERAL SCREENING MAMMOGRAMS - FULL FIELD DIGITAL WITH TOMOSYNTHESIS AND CAD Tomosynthesis craniocaudal and mediolateral oblique views of both breasts were obtained using low- dose digital technique. Comparison is made to prior studies from December 18, 2017 through April 12, 2022. This examination was reviewed with the aid of CAD. There are scattered fibroglandular densities, with similar asymmetry. Benign calcifications are present. A biopsy marking clip is visualized in the lateral retroareolar region on the left. There are no definite developing masses, typically malignant calcifications or architectural distortion. There has been no significant interval change. MM/MM screening mammo BI w/CAD IMPRESSION: NO MAMMOGRAPHIC EVIDENCE OF MALIGNANCY. ROUTINE FOLLOW-UP IS RECOMMENDED IN ONE YEAR. RESULT CODE: 2 Benign Findings(s) DENSITY CODE: 2 (approximately 25-50% glandular) FOLLOW UP: 1YR The false-negative rate of mammography is approximately 10-percent. Management of a palpable abnormality must be based on clinical grounds. Patient was entered into a reminder system with a target due date for the next mammogram. Impression dictated by: Sisi Smith M.D.04/11/2023 2:22 PM Dictation Location: [facility] Transcribed By: [facility] 04/11/23 1422 Dictated By: Sisi Smith MD 04/11/23 1416 Signed By: 04/11/23 1422 Normal [facility] Superficial Wound Cultureon 01-28-2023 Superficial Wound Culture Reason for Exam Drainage from ear, left Ear, Right No Growth 2 Days PERFORMED BY: [place] [address] PATHOLOGIST HAT FORM[employer] MACHINE FEEDER TRINI PINON M.D. Normal [facility] Comment on above: Performed By: #### C USUP #### [address] Alanine aminotransferase [En zymatic activity/volume] in Serum or PlasmaOrdered By: Rosanne Falcon on 01-16-2023 ALT [Catalytic activity/Vol] 28 U/L Normal [facility] Comment on above: Order Comment: Reaso n for Exam Hypertension Reason for Exam Vitamin D deficiency, unspecified Performed By: #### T SH3 wRFLX, [id number], DIFF CBC, CMP #### [facility] [address] Albumin [Mass/volume] in Ser um or Plasma by Bromocresol green (BCG) dye binding methoOrdered By: Rosanne Falcon on 01-16-2023 Albumin BCG dye [Mass/Vol] 4.3 g/dL 3.5-5.7 [facility] Alkaline phosphatase [Enzyma tic activity/volume] in Serum or PlasmaOrdered By: Rosanne Falcon on 01-16-2023 ALP [Catalytic activity/Vol] 88 U/L Normal 34-104 [facility] Comment on above: Order Comment: Reaso n for Exam Hypertension Reason for Exam Vitamin D deficiency, unspecified Performed By: #### T SH3 wRFLX, [id number], DIFF CBC, CMP #### [facility] [address] [place] [address] [place] Aspartate aminotransferase [ Enzymatic activity/volume] in Serum or PlasmaOrdered By: Rosanne Falcon on 01-16-2023 AST [Catalytic activity/Vol] 19 U/L Normal 13-39 [facility] Comment on above: Order Comment: Reaso n for Exam Hypertension Reason for Exam Vitamin D deficiency, unspecified Performed By: #### T SH3 wRFLX, [id number], DIFF CBC, CMP #### [facility] [address] [place] [address] [place] Basophils Auto (Bld) [#/Vol] Ordered By: Rosanne Falcon on 01-16-2023 Basophils (Bld) [#/Vol] N/A [facility] Basophils/100 WBC Auto (Bld) Ordered By: Rosanne Falcon on 01-16-2023 Basophils/100 WBC (Bld) N/A [facility] Basophils/100 leukocytes in Blood by Manual countOrdered By: Rosanne Falcon on 01-16-2023 Basophils/100 WBC (Bld) 3 % High 0-2 [facility] Comment on above: Order Comment: Reaso n for Exam Hypertension Performed By: #### T SH3 wRFLX, [id number], DIFF CBC, CMP #### [facility] [address] [place] [address] [place] Bilirubin.total [Mass/volume ] in Serum or PlasmaOrdered By: Rosanne Falcon on 01-16-2023 Bilirubin [Mass/Vol] 0.6 mg/dL Normal 0.3-1.0 [facility] Comment on above: Order Comment: Reaso n for Exam Hypertension Reason for Exam Vitamin D deficiency, unspecified Performed By: #### T SH3 wRFLX, [id number], DIFF CBC, CMP #### [facility] [address] [place] [address] [place] Calcium [Mass/volume] in Ser um or PlasmaOrdered By: Rosanne Falcon on 01-16-2023 Calcium [Mass/Vol] 9.5 mg/dL Normal 8.6-10.3 [facility] Comment on above: Order Comment: Reaso n for Exam Hypertension Reason for Exam Vitamin D deficiency, unspecified Performed By: #### T SH3 wRFLX, [id number], DIFF CBC, CMP #### [facility] [address] [place] [address] [place] Carbon dioxide, total [Moles /volume] in Serum or PlasmaOrdered By: Rosanne Falcon on 01-16-2023 CO2 [Moles/Vol] 27.6 mmol/L Normal 21.0-31.0 [facility] Comment on above: Order Comment: Reaso n for Exam Hypertension Reason for Exam Vitamin D deficiency, unspecified Performed By: #### T SH3 wRFLX, [id number], DIFF CBC, CMP #### [facility] [address] [place] [address] [place] Chloride [Moles/volume] in [place] or PlasmaOrdered By: Rosanne Falcon on 01-16-2023 Chloride [Moles/Vol] 102 mmol/L Normal 98-107 [facility] Comment on above: Order Comment: Reaso n for Exam Hypertension Reason for Exam Vitamin D deficiency, unspecified Performed By: #### T SH3 wRFLX, [id number], DIFF CBC, CMP #### [facility] [address] [id number] [facility] Comprehensive Metabolic Pane harriet 01-16-2023 Albumin [Mass/Vol] 4.3 g/dL Normal 3.5-5.7 [facility] Comment on above: Order Comment: Reaso n for Exam Hypertension Reason for Exam Vitamin D deficiency, unspecified Performed By: #### T SH3 wRFLX, [id number], DIFF CBC, CMP #### [facility] [address] [id number] [place] GFR/1.73 sq M.predicted MDRD (S/P/Bld) [Vol rate/Area] mL/min/{1.73_m2} Normal [facility] Comment on above: Order Comment: Reaso n for Exam Hypertension Reason for Exam Vitamin D deficiency, unspecified Performed By: #### T SH3 wRFLX, [id number], DIFF CBC, CMP #### [facility] [address] [id number] [facility] Creatinine [Mass/volume] in Serum or PlasmaOrdered By: Rosanne Falcon on 01-16-2023 Creatinine [Mass/Vol] 0.95 mg/dL Normal 0.60-1.20 [facility] Comment on above: Order Comment: Reaso n for Exam Hypertension Reason for Exam Vitamin D deficiency, unspecified Performed By: #### T SH3 wRFLX, [id number], DIFF CBC, CMP #### [facility] [address] [id number] [place] Diff and CBCon 01-16-2023 Eosinophils % (Auto) Normal . [facility] Comment on above: Order Comment: Reaso n for Exam Hypertension Result Comment: Abso lute eosinophilia is commonly due to reactive causes, such as allergic reactions, drug therapy, or infections. Eosinophilia may also be due to malignancies including chronic myeloproliferative disorders. If eosinophilia remains persistent and unexplained for greater than 3 months, recommend additional hematologic work-up/hematology consultation, and/or FISH studies for PDGFRA, PDGFRB, and FGFR1 translocations as clinically indicated. Performed By: #### T SH3 wRFLX, [id number], DIFF CBC, CMP #### [facility] [address] [id number] [place] Mean Corpuscular HGB Conc 33.9 g/dL Normal 32.0-35.0 [facility] Comment on above: Order Comment: Reaso n for Exam Hypertension Performed By: #### T SH3 wRFLX, [id number], DIFF CBC, CMP #### [facility] [address] [place] [address] [place] Platelet Estimate Normal Normal Normal [facility] Comment on above: Order Comment: Reaso n for Exam Hypertension Performed By: #### T SH3 wRFLX, [id number], DIFF CBC, CMP #### [facility] [address] Platelet Morphology Normal Normal Normal [facility] Comment on above: Order Comment: Reaso n for Exam Hypertension Result Comment: PERF ORMED BY: [place] [id number] PATHOLOGIST HAT FORMING MACHINE FEEDER TRINI PINON M.D. Performed By: #### T SH3 wRFLX, [id number], DIFF CBC, CMP #### [facility] [address] Reactive Lymphocytes 3 % Normal 0-12 [facility] Comment on above: Order Comment: Reaso n for Exam Hypertension Performed By: #### T SH3 wRFLX, [id number], DIFF CBC, CMP #### [facility] [address] [place] [id number] [place] Eosinophils Auto (Bld) [#/Vo l]Ordered By: Rosanne Falcon on 01-16-2023 Eosinophils (Bld) [#/Vol] N/A [facility] Eosinophils/100 WBC Auto (Bl d)Ordered By: Rosanne Falcon on 01-16-2023 Eosinophils/100 WBC (Bld) See comment . [facility] Comment on above: Absolute eosinophili a is commonly due to reactive causes, such as allergic reactions, drug therapy, or infections. Eosinophilia may also be due to malignancies including chronic myeloproliferative disorders. If eosinophilia remains persistent and unexplained for greater than 3 months, recommend additional hematologic work-up/hematology consultation, and/or FISH studies for PDGFRA, PDGFRB, and FGFR1 translocations as clinically indicated. Eosinophils/100 leukocytes i n Blood by Manual countOrdered By: Rosanne Falcon on 01-16-2023 Eosinophils/100 WBC (Bld) 5 % High 1-3 [facility] Comment on above: Order Comment: Reaso n for Exam Hypertension Performed By: #### T SH3 wRFLX, [id number], DIFF CBC, CMP #### [facility] [address] Erythrocyte distribution wid th [Ratio] by Automated countOrdered By: Rosanne Falcon on 01-16-2023 Erythrocyte distribution width (RBC) [Ratio] 13.1 % Normal 11.9-15.3 [facility] Comment on above: Order Comment: Reaso n for Exam Hypertension Performed By: #### T SH3 wRFLX, [id number], DIFF CBC, CMP #### [facility] [address] [place] [address] [place] Erythrocytes [#/volume] in B lood by Automated countOrdered By: Rosanne Falcon on 01-16-2023 RBC (Bld) [#/Vol] 3.82 10*6/uL Normal 3.60-5.00 [facility] Comment on above: Order Comment: Reaso n for Exam Hypertension Performed By: #### T SH3 wRFLX, [id number], DIFF CBC, CMP #### [facility] [address] Glucose [Mass/volume] in Ser um or PlasmaOrdered By: Rosanne Falcon on 01-16-2023 Glucose [Mass/Vol] 93 mg/dL Normal 70-100 [facility] Comment on above: ADA recommended refe rence rangeRandom Glucose Reference Range is dependent on time and content of last meal. Glucose of more than 200 mg/dL in a nonstressed, ambulatory subject supports the diagnosis of Diabetes Mellitus. Order Comment: Reaso n for Exam Hypertension Reason for Exam Vitamin D deficiency, unspecified Result Comment: [place] om Glucose Reference Range is dependent on time and content of last meal. Glucose of more than 200 mg/dL in a nonstressed, ambulatory subject supports the diagnosis of Diabetes Mellitus. ADA recommended reference range Performed By: #### T SH3 wRFLX, [id number], DIFF CBC, CMP #### [facility] [address] Hematocrit [Volume Fraction] of Blood by Automated countOrdered By: Rosanne Falcon on 01-16-2023 Hematocrit (Bld) [Volume fraction] 37.6 % Normal 34.0-46.4 [facility] Comment on above: Order Comment: Reaso n for Exam Hypertension Performed By: #### T SH3 wRFLX, [id number], DIFF CBC, CMP #### [facility] [address] Hemoglobin [Mass/volume] in BloodOrdered By: Rosanne Falcon on 01-16-2023 Hemoglobin (Bld) [Mass/Vol] 12.8 g/dL Normal 11.8-15.4 [facility] Comment on above: Order Comment: Reaso n for Exam Hypertension Performed By: #### T SH3 wRFLX, [id number], DIFF CBC, CMP #### [facility] [address] Leukocytes [#/volume] correc [place] for nucleated erythrocytes in Blood by Automated counOrdered By: Rosanne Falcon on 01-16-2023 WBC corrected for nucl RBC Auto (Bld) [#/Vol] 3.4 10*3/uL 3.8-11.6 [facility] Leukocytes [#/volume] in Blo od by Automated countOrdered By: Rosanne Falcon on 01-16-2023 WBC (Bld) [#/Vol] 3.4 10*3/uL Low 3.8-11.6 [facility] Comment on above: Order Comment: Reaso n for Exam Hypertension Performed By: #### T SH3 wRFLX, [id number], DIFF CBC, CMP #### [facility] [address] [place] [address] [place] Lymphocytes Auto (Bld) [#/Vo l]Ordered By: Rosanne Curtisc on 01-16-2023 Lymphocytes (Bld) [#/Vol] N/A [facility] Lymphocytes/100 WBC Auto (Bl d)Ordered By: Rosanne Curtisc on 01-16-2023 Lymphocytes/100 WBC (Bld) N/A [facility] Lymphocytes/100 leukocytes i n Blood by Manual countOrdered By: Rosanne Falcon on 01-16-2023 Lymphocytes/100 WBC (Bld) 49 % High 18-42 [facility] Comment on above: Order Comment: Reaso n for Exam Hypertension Performed By: #### T SH3 wRFLX, [id number], DIFF CBC, CMP #### [facility] [address] MCH [Entitic mass] by Automa [place] countOrdered By: Rosanne Falcon on 01-16-2023 MCH (RBC) [Entitic mass] 33.4 pg Normal 24.7-34.3 [facility] Comment on above: Order Comment: Reaso n for Exam Hypertension Performed By: #### T SH3 wRFLX, [id number], DIFF CBC, CMP #### [facility] [address] MCHC Auto (RBC) [Mass/Vol]Or dered By: Rosanne Falcon on 01-16-2023 MCHC (RBC) [Mass/Vol] 33.9 g/dL 32.0-35.0 [facility] MCV [Entitic volume] by Auto mated countOrdered By: Rosanne Falcon on 01-16-2023 MCV (RBC) [Entitic vol] 98.5 fL Normal 80-100 [facility] Comment on above: Order Comment: Reaso n for Exam Hypertension Performed By: #### T SH3 wRFLX, [id number], DIFF CBC, CMP #### [facility] [address] Manual blood segmented neutr ophils/100 leukocytesOrdered By: Rosanne Falcon on 01-16-2023 Segmented neutrophils/100 WBC (Bld) 37 % Low 50-70 [facility] Comment on above: Order Comment: Reaso n for Exam Hypertension Performed By: #### T SH3 wRFLX, [id number], DIFF CBC, CMP #### [facility] [address] Monocytes Auto (Bld) [#/Vol] Ordered By: Rosanne Falcon on 01-16-2023 Monocytes (Bld) [#/Vol] N/A [facility] Monocytes/100 WBC Auto (Bld) Ordered By: Rosanne Falcon on 01-16-2023 Monocytes/100 WBC (Bld) N/A [facility] Monocytes/100 leukocytes in Blood by Manual countOrdered By: Rosanne Falcon on 01-16-2023 Monocytes/100 WBC (Bld) 3 % Normal 2-11 [facility] Comment on above: Order Comment: Reaso n for Exam Hypertension Performed By: #### T SH3 wRFLX, [id number], DIFF CBC, CMP #### [facility] [address] Neutrophils Auto (Bld) [#/Vo l]Ordered By: Rosanne Falcon on 01-16-2023 Neutrophils (Bld) [#/Vol] N/A [facility] Neutrophils/100 WBC Auto (Bl d)Ordered By: Rosanne Falcon on 01-16-2023 Neutrophils/100 WBC (Bld) N/A [facility] No Panel InformationOrdered By: Rosanne Falcon on 01-16-2023 Estimated GFR (CKD-EPI) > 60.0 mL/Min [facility] Creatinine Clearance (Chem N/A [facility] Nucleated erythrocytes [Pres ence] in Blood by Automated countOrdered By: Rosanne Falcon on 01-16-2023 Nucleated RBC Auto Ql (Bld) N/A [facility] Platelet adequacy [Presence] in Blood by Light microscopyOrdered By: Rosanne Falcon on 01-16-2023 Platelets LM Ql (Bld) Normal Normal [facility] Platelet mean volume [Entiti c volume] in Blood by Automated countOrdered By: Rosanne Falcon on 01-16-2023 Platelet mean volume (Bld) [Entitic vol] 8.7 fL Normal 6.3-10.7 [facility] Comment on above: Order Comment: Reaso n for Exam Hypertension Performed By: #### T SH3 wRFLX, [id number], DIFF CBC, CMP #### [facility] [address] [place] [id number] [facility] Platelet morphology finding [Identifier] in BloodOrdered By: Rosanne Falcon on 01-16-2023 Platelet morphology finding Nom (Bld) Normal Normal [facility] Platelets [#/volume] in Bloo d by Automated countOrdered By: Rosanne Falcon on 01-16-2023 Platelets (Bld) [#/Vol] 180 10*3/uL Normal 150-450 [facility] Comment on above: Order Comment: Reaso n for Exam Hypertension Performed By: #### T SH3 wRFLX, [id number], DIFF CBC, CMP #### [facility] [address] [place] [address] [place] Potassium [Moles/volume] in Serum or PlasmaOrdered By: Rosanne Falcon on 01-16-2023 Potassium [Moles/Vol] 4.3 mmol/L Normal 3.5-5.1 [facility] Comment on above: Order Comment: Reaso n for Exam Hypertension Reason for Exam Vitamin D deficiency, unspecified Performed By: #### T SH3 wRFLX, [id number], DIFF CBC, CMP #### [facility] [address] [place] [id number] [place] Protein [Mass/volume] in Ser um or PlasmaOrdered By: Rosanne Falcon on 01-16-2023 Protein [Mass/Vol] 7.4 g/dL Normal 6.4-8.9 [facility] Comment on above: Order Comment: Reaso n for Exam Hypertension Reason for Exam Vitamin D deficiency, unspecified Performed By: #### T SH3 wRFLX, [id number], DIFF CBC, CMP #### [facility] [address] [place] [address] [place] RBC morphologyOrdered By: Kayleen Falcon on 01-16-2023 RBC morphology finding Nom (Bld) Normal Normal Normal [facility] Comment on above: Order Comment: Reaso n for Exam Hypertension Performed By: #### T SH3 wRFLX, [id number], DIFF CBC, CMP #### [facility] [address] [place] [id number] [place] Serum globulin measurement b y calculation (mass/volume)Ordered By: Rosanne Falcon on 01-16-2023 Globulin (S) [Mass/Vol] 3.1 g/dL Normal [facility] Comment on above: Order Comment: Reaso n for Exam Hypertension Reason for Exam Vitamin D deficiency, unspecified Performed By: #### T SH3 wRFLX, [id number], DIFF CBC, CMP #### [facility] [address] Serum or plasma albumin/glob ulin mass ratioOrdered By: Rosanne Falcon on 01-16-2023 Albumin/Globulin [Mass ratio] 1.4 {ratio} Normal [facility] Comment on above: Order Comment: Reaso n for Exam Hypertension Reason for Exam Vitamin D deficiency, unspecified Performed By: #### T SH3 wRFLX, [id number], DIFF CBC, CMP #### [facility] [address] Serum or plasma anion gap de terminationOrdered By: Rosanne Falcon on 01-16-2023 Anion gap [Moles/Vol] 11.7 mmol/L Normal 6.0-15.0 [facility] Comment on above: Order Comment: Reaso n for Exam Hypertension Reason for Exam Vitamin D deficiency, unspecified Performed By: #### T SH3 wRFLX, [id number], DIFF CBC, CMP #### [facility] [address] [place] [address] Sodium [Moles/volume] in Ser um or PlasmaOrdered By: Rosanne Falcon on 01-16-2023 Sodium [Moles/Vol] 137 mmol/L Normal 136-145 [facility] Comment on above: Order Comment: Reaso n for Exam Hypertension Reason for Exam Vitamin D deficiency, unspecified Performed By: #### T SH3 wRFLX, [id number], DIFF CBC, CMP #### [facility] [address] Thyroid Stim Hormone w/Rflxo n 01-16-2023 Thyroid Stim Hormone w/Rflx 3.01 u[iU]/mL Normal 0.45-5.33 [facility] Comment on above: Order Comment: Reaso n for Exam Hypertension Reason for Exam Vitamin D deficiency, unspecified Performed By: #### T SH3 wRFLX, [id number], DIFF CBC, CMP #### [facility] [address] [place] [id number] [facility] Thyrotropin [Units/volume] i n Serum or PlasmaOrdered By: Rosanne Falcon on 01-16-2023 TSH Qn 3.01 m[IU]/L 0.45-5.33 [facility] Urea nitrogen [Mass/volume] in Serum or PlasmaOrdered By: Rosanne Falcon on 01-16-2023 Urea nitrogen [Mass/Vol] 12 mg/dL Normal 7-25 [facility] Comment on above: Order Comment: Reaso n for Exam Hypertension Reason for Exam Vitamin D deficiency, unspecified Performed By: #### T SH3 wRFLX, [id number], DIFF CBC, CMP #### [facility] [address] [place] [address] [place] Variant lymphocytes/100 WBC Manual cnt (Bld)Ordered By: Rosanne Falcon on 01-16-2023 Variant lymphocytes/100 WBC (Bld) 3 % 0-12 [facility] Vitamin D 25 Hydroxy Totalon 01-16-2023 Vitamin D 25 Hydroxy Total 32.5 ng/mL Normal 30-100 [facility] Comment on above: Order Comment: Reaso n for Exam Hypertension Reason for Exam Vitamin D deficiency, unspecified Result Comment: PARAS MIN D STATUS 25([place])VITAMIN D RANGE (ng/mL) Deficient <20 Insufficient 20 to <30 Sufficient 30 to 100 Reference: Helen MF,Vaishali NC, Arturo FARRIS, et al. Evaluation,treatment, and prevention of vitamin D deficiency; an Endocrine Society clinical practice guideline. JCEM. 2010; 96(7):1911-30. PERFORMED BY: [place] [address] PATHOLOGIST HAT FORMING MACHINE FEEDER TRINI PINON M.D. Performed By: #### T SH3 wRFLX, [id number], DIFF CBC, CMP #### [facility] [address] [place] [id number] [facility] Vitamin D+Metabolites [Mass/ volume] in Serum or PlasmaOrdered By: Rosanne Falcon on 01-16-2023 Vitamin D+Metabolites [Mass/Vol] 32.5 ng/mL 30-100 [facility] Comment on above: VITAMIN D STATUS 25( [place])VITAMIN D RANGE (ng/mL) Deficient <20 Insufficient 20 to <30Sufficient 30 to 100Reference: Helen MF,Vaishali NC, Arturo FARRIS, et al. Evaluation,treatment, and prevention of vitamin D deficiency; an Endocrine Society clinical practice guideline. JCEM. 2010; 96(7):1911-30. Albumin [Mass/volume] in Ser um or PlasmaOrdered By: Rosanne Falcon on 05-14-2022 Albumin [Mass/Vol] 3.8 g/dL 3.2-5.5 [facility] Basophils Auto (Bld) [#/Vol] Ordered By: Rosanne Falcon on 05-14-2022 Basophils (Bld) [#/Vol] 0.0 10*3/uL 0.0-0.2 [facility] Basophils/100 WBC Auto (Bld) Ordered By: Rosanne Falcon on 05-14-2022 Basophils/100 WBC (Bld) 0.8 % . [facility] CT biopsyOrdered By: Rosanne moore on 05-14-2022 Transferrin [Mass/Vol] 216 mg/dL 180-380 [facility] Creatinine and Glomerular fi ltration rate.predicted panel (S/P/Bld)Ordered By: Rosanne Falcon on 05-14-2022 Creatinine [Mass/Vol] 0.82 mg/dL 0.44-1.03 [facility] Eosinophils Auto (Bld) [#/Vo l]Ordered By: Rosanne Falcon on 05-14-2022 Eosinophils (Bld) [#/Vol] 0.2 10*3/uL 0.0-0.45 [facility] Eosinophils/100 WBC Auto (Bl d)Ordered By: Rosanne Falcon on 05-14-2022 Eosinophils/100 WBC (Bld) 4.0 % . [facility] Erythrocyte distribution wid th Auto (RBC) [Ratio]Ordered By: Rosanne Falcon on 05-14-2022 Erythrocyte distribution width (RBC) [Ratio] 12.9 % 11.9-15.3 [facility] Estimated glomerular filtrat ion rate (GFR) non- AmericanOrdered By: Rosanne Falcon on 05-14-2022 GFR/1.73 sq M.predicted among non-blacks MDRD (S/P/Bld) [Vol rate/Area] > 60 mL/Min [facility] Globulin Calc (S) [Mass/Vol] Ordered By: Rosanne Falocn on 05-14-2022 Globulin (S) [Mass/Vol] 3.4 g/dL [facility] Hematocrit Auto (Bld) [Volum e fraction]Ordered By: Rosanne Falcon on 05-14-2022 Hematocrit (Bld) [Volume fraction] 37.1 % 34.0-46.4 [facility] Hemoglobin [Mass/volume] in BloodOrdered By: Rosanne Falcon on 05-14-2022 Hemoglobin (Bld) [Mass/Vol] 12.5 g/dL 11.8-15.4 [facility] Iron [Mass/volume] in Serum or PlasmaOrdered By: Rosanne Falcon on 05-14-2022 Iron [Mass/Vol] 79 ug/dL 40-150 [facility] Iron binding capacity [Mass/ volume] in Serum or PlasmaOrdered By: Rosanne Falcon on 05-14-2022 Iron binding capacity [Mass/Vol] 302 ug/dL 255-450 [facility] Iron saturation [Mass Fracti on] in Serum or PlasmaOrdered By: Rosanne Falcon on 05-14-2022 Iron saturation [Mass fraction] 26.2 % 20-50 [facility] Leukocytes [#/volume] correc [place] for nucleated erythrocytes in Blood by Automated counOrdered By: Rosanne Falcon on 05-14-2022 WBC corrected for nucl RBC Auto (Bld) [#/Vol] 4.4 10*3/uL 3.8-11.6 [facility] Lymphocytes Auto (Bld) [#/Vo l]Ordered By: Rosanne Falcon on 05-14-2022 Lymphocytes (Bld) [#/Vol] 2.2 10*3/uL 1.00-4.8 [facility] Lymphocytes/100 WBC Auto (Bl d)Ordered By: Rosanne Falcon on 05-14-2022 Lymphocytes/100 WBC (Bld) 49.3 % . [facility] MCH Auto (RBC) [Entitic mass ]Ordered By: Rosanne Falcon on 05-14-2022 MCH (RBC) [Entitic mass] 33.0 pg 24.7-34.3 [facility] MCHC Auto (RBC) [Mass/Vol]Or dered By: Rosanne Falcon on 05-14-2022 MCHC (RBC) [Mass/Vol] 33.6 g/dL 32.0-35.0 [facility] MCV Auto (RBC) [Entitic vol] Ordered By: Rosanne Falcon on 05-14-2022 MCV (RBC) [Entitic vol] 98.2 fL 80-100 [facility] Monocytes Auto (Bld) [#/Vol] Ordered By: Rosanne Falcon on 05-14-2022 Monocytes (Bld) [#/Vol] 0.3 10*3/uL 0.0-0.8 [facility] Monocytes/100 WBC Auto (Bld) Ordered By: Rosanne Falcon on 05-14-2022 Monocytes/100 WBC (Bld) 7.0 % . [facility] Neutrophils Auto (Bld) [#/Vo l]Ordered By: Rosanne Falcon on 05-14-2022 Neutrophils (Bld) [#/Vol] 1.7 10*3/uL 1.8-7.7 [facility] Neutrophils/100 WBC Auto (Bl d)Ordered By: Rosanne Falcon on 05-14-2022 Neutrophils/100 WBC (Bld) 38.9 % . [facility] No Panel InformationOrdered By: Rosanne Falcon on 05-14-2022 25-Hydroxy Vitamin D Total 74.8 ng/mL 30-100 [facility] Comment on above: VITAMIN D STATUS 25( [place])VITAMIN D RANGE (ng/mL) Deficient <20 Insufficient 20 to <30Sufficient 30 to 100Reference: Helen MF,Vaishali GRIGGS, Arturo FARRIS, et al. Evaluation,treatment, and prevention of vitamin D deficiency; an Endocrine Society clinical practice guideline. JCEM. 2010; 96(7):1911-30. Estimated GFR () > 60 mL/Min [facility] Comment on above: GFR estimated refere nce range: According to KDOQI guidelines, <60 ml/min/1.73m2 is sufficient to diagnose a patient with chronic kidney disease. Pharmacy Creatinine Clearance (Chem N/A [facility] Nucleated erythrocytes [Pres ence] in Blood by Automated countOrdered By: Rosanne Falcon on 05-14-2022 Nucleated RBC Auto Ql (Bld) 0.1 /100{WBC} 0-0.5 [facility] Platelet mean volume Auto (B ld) [Entitic vol]Ordered By: Rosanne Falcon on 05-14-2022 Platelet mean volume (Bld) [Entitic vol] 8.2 fL 6.3-10.7 [facility] Platelets Auto (Bld) [#/Vol] Ordered By: Rosanne Falcon on 05-14-2022 Platelets (Bld) [#/Vol] 231 10*3/uL 150-450 [facility] Protein [Mass/volume] in Ser um or PlasmaOrdered By: Rosanne Falcon on 05-14-2022 Protein [Mass/Vol] 7.2 g/dL 6.1-7.9 [facility] RBC Auto (Bld) [#/Vol]Ordere d By: Rosanne Falcon on 05-14-2022 RBC (Bld) [#/Vol] 3.78 10*6/uL 3.60-5.00 [facility] Serum or plasma alanine andersen otransferase measurement without P-5'-P (enzymatic activiOrdered By: Rosanne Falcon on 05-14-2022 ALT No additional P-5'-P [Catalytic activity/Vol] 15 U/L 10-60 [facility] Serum or plasma albumin/glob ulin mass ratioOrdered By: Rosanne Falcon on 05-14-2022 Albumin/Globulin [Mass ratio] 1.1 {ratio} [facility] Serum or plasma alkaline lori sphatase measurement (enzymatic activity/volume)Ordered By: Rosanne Falcon on 05-14-2022 ALP [Catalytic activity/Vol] 78 U/L 32-92 [facility] Serum or plasma anion gap de terminationOrdered By: Rosanne Falcon on 05-14-2022 Anion gap [Moles/Vol] 10.6 mmol/L 6.0-15.0 [facility] Serum or plasma aspartate am inotransferase measurement (enzymatic activity/volume)Ordered By: Rosanne Falcon on 05-14-2022 AST [Catalytic activity/Vol] 19 U/L 10-42 [facility] Serum or plasma calcium tristian urement (mass/volume)Ordered By: Rosanne Falcon on 05-14-2022 Calcium [Mass/Vol] 9.9 mg/dL 8.2-10.2 [facility] Serum or plasma chloride ceferino surement (moles/volume)Ordered By: Rosanne Falcon on 05-14-2022 Chloride [Moles/Vol] 101 mmol/L 95-114 [facility] Serum or plasma glucose tristian urement (mass/volume)Ordered By: Rosanne Falcon on 05-14-2022 Glucose [Mass/Vol] 74 mg/dL 70-100 [facility] Comment on above: ADA recommended refe rence rangeRandom Glucose Reference Range is dependent on time and content of last meal. Glucose of more than 200 mg/dL in a nonstressed, ambulatory subject supports the diagnosis of Diabetes Mellitus. Serum or plasma potassium me asurement (moles/volume)Ordered By: Rosanne Falcon on 05-14-2022 Potassium [Moles/Vol] 3.7 mmol/L 3.5-5.1 [facility] Serum or plasma sodium measu rement (moles/volume)Ordered By: Rosanne Falcon on 05-14-2022 Sodium [Moles/Vol] 138 mmol/L 136-146 [facility] Serum or plasma total biliru bin measurement (mass/volume)Ordered By: Rosanne Falcon on 05-14-2022 Bilirubin [Mass/Vol] 0.5 mg/dL 0.3-1.2 [facility] Serum or plasma total carbon dioxide measurement (moles/volume)Ordered By: Rosanne Falcon on 05-14-2022 CO2 [Moles/Vol] 30.1 mmol/L 22.0-30.0 [facility] Serum or plasma urea nitroge n measurement (mass/volume)Ordered By: Rosanne Falcon on 05-14-2022 Urea nitrogen [Mass/Vol] 12 mg/dL 9-23 [facility] WBC Auto (Bld) [#/Vol]Ordere d By: Rosanne Falcon on 05-14-2022 WBC (Bld) [#/Vol] 4.4 10*3/uL 3.8-11.6 [facility] Amphetamine Screen Ql (U)Ord ered By: Philip Taveras on 01-09-2022 Amphetamines Ql (U) Negative Negative [facility] Barbiturates [Presence] in U rineOrdered By: Philip Taveras on 01-09-2022 Barbiturates Ql (U) Negative Negative [facility] Benzodiazepines [Presence] i n UrineOrdered By: Philip Taveras on 01-09-2022 Benzodiazepines Ql (U) Negative Negative [facility] Cannabinoids [Presence] in U rine by Screen methodOrdered By: Philip Taveras on 01-09-2022 Cannabinoids Screen Ql (U) Positive Negative [facility] Comment on above: These are unconfirme d results and should not be used for legal purposes. Drug Cut-Off Concentration: AMPH 1000 ng/mL PATRICE 200 ng/mL BRUNO 200 ng/mL COCM 300 ng/mL OP 300 ng/mL PCP 25 ng/mL THC 20 ng/mL Laboratory - Drug toxicology Ordered By: Philip Taveras on 01-09-2022 Opiates Ql (U) Negative Negative [facility] Phencyclidine Screen Ql (U)O rdered By: Philip Taveras on 01-09-2022 Phencyclidine Ql (U) Negative Negative [facility] Urine cocaine detectionOrder ed By: Philip Taveras on 01-09-2022 Cocaine Ql (U) Positive Negative [facility] COVID-19 SOFIAOrdered By: Kayleen Taveras on 01-07-2022 SARS-CoV+SARS-CoV-2 (COVID-19) Ag IA.rapid Ql (Resp) Negative Negative [facility] Comment on above: This is a duplicate [place] SARS Antigen (CHRISTINA) result to be used for statistical tracking purpose only. No Panel InformationOrdered By: Philip Taveras on 01-07-2022 SARS Antigen (LFIA) [facility] COVID-19 Positive/NegativeOr dered By: Philip Taveras on 12-04-2021 SARS-CoV-2 (COVID-19) N gene RICKY+probe Ql (Resp) Negative Negative [facility] Comment on above: Testing for SARS-CoV -2 by RT-PCR This test was developed and its performance characteristics determined by [employer] ([employer]) and validated at the [facility]. This test has not been FDA cleared or approved. This test has been authorized by FDA under an Emergency Use Authorization (EUA). This test has been validated in accordance with the FDA's Guidance Document (Policy for Diagnostics Testing in Laboratories Certified to Perform High Complexity Testing under CLIA prior to Emergency Use Authorization for Coronavirus Disease-2019 during the Public Health Emergency) issued on July 08, 2019. This test is only authorized for the duration of time the declaration that circumstances exist justifying the authorization of the emergency use of in vitro diagnostic tests for detection of SARS-CoV-2 virus and/or diagnosis of COVID-19 infection under section 564(b)(1) of the Act, 21 U.S.C. 360bbb-3(b)(1), unless the authorization is terminated or revoked sooner. Testing for SARS-CoV -2 by RT-PCRThis test was developed and its performance characteristics determined by [employer] ([employer]) and validated at the [facility]. This test has not been FDA cleared or approved. This test has been authorized by FDA under an Emergency Use Authorization (EUA). This test has been validated in accordance with the FDA's Guidance Document (Policy for Diagnostics Testing in Laboratories Certified to Perform High Complexity Testing under CLIA prior to Emergency Use Authorization for Coronavirus Disease-2019 during the Public Health Emergency) issued on July 08, 2019. This test is only authorized for the duration of time the declaration that circumstances exist justifying the authorization of the emergency use of in vitro diagnostic tests for detection of SARS-CoV-2 virus and/or diagnosis of COVID-19 infection under section 564(b)(1) of the Act, 21 U.S.C. 360bbb-3(b)(1), unless the authorization is terminated or revoked sooner. Albumin [Mass/volume] in Ser um or PlasmaOrdered By: Rosanne Falcon on 10-26-2021 Albumin [Mass/Vol] 3.7 g/dL 3.2-5.5 [facility] Basophils Auto (Bld) [#/Vol] Ordered By: Rosanne Falcon on 10-26-2021 Basophils (Bld) [#/Vol] 0.0 10*3/uL 0.0-0.2 [facility] Basophils/100 WBC Auto (Bld) Ordered By: Rosanne Falcon on 10-26-2021 Basophils/100 WBC (Bld) 0.6 % . [facility] Blood acanthocytes detection by light microscopyOrdered By: Rosanne Falcon on 10-26-2021 Acanthocytes LM Ql (Bld) Few [facility] Blood hemoglobin measurement (mass/volume)Ordered By: Rosanne Falcon on 10-26-2021 Hemoglobin (Bld) [Mass/Vol] 13.5 g/dL 11.8-15.4 [facility] Blood leukocytes automated c ount (number/volume)Ordered By: Rosanne Falcon on 10-26-2021 WBC (Bld) [#/Vol] 4.4 10*3/uL 4.5-11.0 [facility] CT biopsyOrdered By: Rosanne moore on 10-26-2021 Transferrin [Mass/Vol] 234 mg/dL 180-380 [facility] Cholesterol [Mass/volume] in Serum or PlasmaOrdered By: Rosanne Falcon on 10-26-2021 Cholesterol [Mass/Vol] 152 mg/dL 140-200 [facility] Comment on above: Chol less than 200 m g/dl low risk Chol 201-239 mg/dl borderline risk Chol 240 mg/dl and greater high risk Chol less than 200 m g/dl low riskChol 201-239 mg/dl borderline riskChol 240 mg/dl and greater high risk Cholesterol in LDL Calc [Mas s/Vol]Ordered By: Rosanne Falcon on 10-26-2021 Cholesterol in LDL [Mass/Vol] 73 mg/dL 0-100 [facility] Comment on above: LDL ATP III CLASSIFI CATION LDL less than 100 mg/dL Optimal LDL 100-129 mg/dL Near or above optimal LDL 130-159 mg/dL Borderline high LDL 160-189 mg/dL High LDL greater than 189 mg/dL Very high LDL ATP III CLASSIFI CATIONLDL less than 100 mg/dL OptimalLDL 100-129 mg/dL Near or above optimalLDL 130-159 mg/dL Borderline highLDL 160-189 mg/dL HighLDL greater than 189 mg/dL Very high Cholesterol in VLDL Calc [Ma ss/Vol]Ordered By: Rosanne Falcon on 10-26-2021 Cholesterol in VLDL [Mass/Vol] 8 mg/dL [facility] Creatine kinase [Enzymatic a ctivity/volume] in Serum or PlasmaOrdered By: Rosanne Falcon on 10-26-2021 CK [Catalytic activity/Vol] 111 U/L 22 [facility] Creatinine and Glomerular fi ltration rate.predicted panel (S/P/Bld)Ordered By: Rosanne Falcon on 10-26-2021 Creatinine [Mass/Vol] 0.86 mg/dL 0.44-1.03 [facility] Eosinophils Auto (Bld) [#/Vo l]Ordered By: Rosanne Falcon on 10-26-2021 Eosinophils (Bld) [#/Vol] 0.2 10*3/uL 0.0-0.45 [facility] Eosinophils/100 WBC Auto (Bl d)Ordered By: Rosanne Falcon on 10-26-2021 Eosinophils/100 WBC (Bld) 3.7 % . [facility] Erythrocyte distribution wid th Auto (RBC) [Ratio]Ordered By: Rosanne Falcon on 10-26-2021 Erythrocyte distribution width (RBC) [Ratio] 13.1 % 11.9-15.3 [facility] Estimated glomerular filtrat ion rate (GFR) non- AmericanOrdered By: Rosanne Falcon on 10-26-2021 GFR/1.73 sq M.predicted among non-blacks MDRD (S/P/Bld) [Vol rate/Area] > 60 mL/Min [facility] Globulin Calc (S) [Mass/Vol] Ordered By: Rosanne Falcon on 10-26-2021 Globulin (S) [Mass/Vol] 3.0 g/dL [facility] Glucose mean value [Mass/vol ume] in Blood Estimated from glycated hemoglobinOrdered By: Rosanne Falcon on 10-26-2021 Average glucose Estimated from glycated hemoglobin (Bld) [Mass/Vol] 105 mg/dL [facility] HIV 1 and HIV-2 antibody ass ay with HIV-1 p24 antigen detectionOrdered By: Rosanne Falcon on 10-26-2021 HIV 1+2 Ab+HIV1 p24 Ag IA Ql Non-Reactive Non Reactive [facility] Comment on above: HIV Negative HIV-1/HIV-2 antibodies and HIV-1 p24 antigen were NOT detected. There is no laboratory evidence of HIV infection. Performed at: [facility] [place] [address] [place] Gat[employer]r: Lopze Mcwilliams PhD, Phone: [phone] HIV NegativeHIV-1/HI V-2 antibodies and HIV-1 p24 antigen were NOTdetected. There is no laboratory evidence of HIV infection.Performed at: [facility] [employer] [id number] Director: Lopez Mcwilliams PhD, Phone: [phone] Hematocrit Auto (Bld) [Volum e fraction]Ordered By: Rosanne Falcon on 10-26-2021 Hematocrit (Bld) [Volume fraction] 39.8 % 34.0-46.4 [facility] Hemoglobin A1c percentageOrd ered By: Rosanne Falcon on 10-26-2021 HbA1c (Bld) [Mass fraction] 5.3 % 4.3-5.6 [facility] Comment on above: Increased risk for d iabetes: 5.7 - 6.4 diabetes: >6.4 glycemic control for adults with diabetes: <7.0 Increased risk for d iabetes: 5.7 - 6.4diabetes: >6.4glycemic control for adults with diabetes: <7.0 Hepatitis B virus surface Ag [Presence] in Serum or Plasma by ImmunoassayOrdered By: Rosanne Falcon on 10-26-2021 HBV surface Ag IA Ql Negative Negative [facility] Hepatitis C virus RNA [Units /volume] (viral load) in Serum or Plasma by RICKY with probOrdered By: Rosanne Falcon on 10-26-2021 HCV RNA RICKY+probe Qn N/A [facility] Hepatitis C virus RNA [log u nits/volume] (viral load) in Serum or Plasma by RICKY withOrdered By: Rosanne Falcon on 10-26-2021 HCV RNA RICKY+probe [Log units/Vol] N/A [facility] Iron [Mass/volume] in Serum or PlasmaOrdered By: Rosanne Falcon on 10-26-2021 Iron [Mass/Vol] 63 ug/dL 40-150 [facility] Iron binding capacity [Mass/ volume] in Serum or PlasmaOrdered By: Rosanne Falcon on 10-26-2021 Iron binding capacity [Mass/Vol] 328 ug/dL 255-450 [facility] Iron saturation [Mass Fracti on] in Serum or PlasmaOrdered By: Rosanne Falcon on 10-26-2021 Iron saturation [Mass fraction] 19.0 % 20-50 [facility] Laboratory - Hematology and Cell countsOrdered By: Rosanne Falcon on 10-26-2021 Nucleated RBC/100 WBC (Bld) [Ratio] 0.2 % 0-0.5 [facility] Lymphocytes Auto (Bld) [#/Vo l]Ordered By: Rosanne Falcon on 10-26-2021 Lymphocytes (Bld) [#/Vol] 3.0 10*3/uL 1.00-4.8 [facility] Lymphocytes/100 WBC Auto (Bl d)Ordered By: Rosanne Falcon on 10-26-2021 Lymphocytes/100 WBC (Bld) 66.6 % . [facility] MCH Auto (RBC) [Entitic mass ]Ordered By: Rosanne Falcon on 10-26-2021 MCH (RBC) [Entitic mass] 33.6 pg 24.7-34.3 [facility] MCHC Auto (RBC) [Mass/Vol]Or dered By: Rosanne Falcon on 10-26-2021 MCHC (RBC) [Mass/Vol] 34.0 g/dL 32.0-35.0 [facility] MCV Auto (RBC) [Entitic vol] Ordered By: Rosanne Falcon on 10-26-2021 MCV (RBC) [Entitic vol] 98.8 fL 80-100 [facility] Monocytes Auto (Bld) [#/Vol] Ordered By: Rosanne Falcon on 10-26-2021 Monocytes (Bld) [#/Vol] 0.2 10*3/uL 0.0-0.8 [facility] Monocytes/100 WBC Auto (Bld) Ordered By: Rosanne Falcon on 10-26-2021 Monocytes/100 WBC (Bld) 4.6 % . [facility] Neutrophils Auto (Bld) [#/Vo l]Ordered By: Rosanne Falcon on 10-26-2021 Neutrophils (Bld) [#/Vol] 1.1 10*3/uL 1.8-7.7 [facility] Neutrophils/100 WBC Auto (Bl d)Ordered By: Rosanne Falcon on 10-26-2021 Neutrophils/100 WBC (Bld) 24.5 % . [facility] No Panel InformationOrdered By: Rosanne Falcon on 10-26-2021 25-Hydroxy Vitamin D Total 58.9 ng/mL 30-100 [facility] Comment on above: VITAMIN D STATUS 25( [place])VITAMIN D RANGE (ng/mL) Deficient <20 Insufficient 20 to <30 Sufficient 30 to 100 Reference: Vaishali Riddle, Arturo FARRIS, et al. Evaluation,treatment, and prevention of vitamin D deficiency; an Endocrine Society clinical practice guideline. JCEM. 2010; 96(7):1911-30. VITAMIN D STATUS 25( [place])VITAMIN D RANGE (ng/mL) Deficient <20 Insufficient 20 to <30Sufficient 30 to 100Reference: Vaishali Riddle, Arturo FARRIS, et al. Evaluation,treatment, and prevention of vitamin D deficiency; an Endocrine Society clinical practice guideline. JCEM. 2010; 96(7):1911-30. Estimated GFR () > 60 mL/Min [facility] Comment on above: GFR estimated refere nce range: According to KDOQI guidelines, <60 ml/min/1.73m2 is sufficient to diagnose a patient with chronic kidney disease. Hepatitis A IgM Antibody Negative Negative [facility] Hepatitis B Core IgM Antibody Negative Negative [facility] Hepatitis C Interpretation See comment . [facility] Comment on above: Negative Not infected with HCV, unless recent infection is suspected or other evidence exists to indicate HCV infection. Performed at: [employer] [id number] [employer] Gat[employer]r: Lopez Mcwilliams PhD, Phone: [phone] NegativeNot infected with HCV, unless recent infection issuspected or other evidence exists to indicate HCVinfection.Performed at: [employer] [id number] Director: Lopez Mcwilliams PhD, Phone: [phone] Hepatitis C RNA Quantitative N/A [facility] Creatinine Clearance (Chem N/A [facility] Platelet Estimate Normal Normal [facility] Platelet Morphology Comment Normal Normal [facility] Platelet mean volume Auto (B ld) [Entitic vol]Ordered By: Rosanne Falcon on 10-26-2021 Platelet mean volume (Bld) [Entitic vol] 8.6 fL 6.3-10.7 [facility] Platelets Auto (Bld) [#/Vol] Ordered By: Rosanne Falcon on 10-26-2021 Platelets (Bld) [#/Vol] 230 10*3/uL 150-450 [facility] Protein [Mass/volume] in Ser um or PlasmaOrdered By: Rosanne Falcon on 10-26-2021 Protein [Mass/Vol] 6.7 g/dL 6.1-7.9 [facility] RBC Auto (Bld) [#/Vol]Ordere d By: Rosanne Falcon on 10-26-2021 RBC (Bld) [#/Vol] 4.03 10*6/uL 3.60-5.00 [facility] RBC morphologyOrdered By: Kayleen Falcon on 07-22-2022 RBC morphology finding Nom (Bld) Normal [facility] Serum or plasma C reactive p rotein measurement (mass/volume)Ordered By: Rosanne Falcon on 10-26-2021 CRP [Mass/Vol] 0.6 mg/dL 0.0-1.0 [facility] Serum or plasma alanine andersen otransferase measurement without P-5'-P (enzymatic activiOrdered By: Rosanne Falcon on 10-26-2021 ALT No additional P-5'-P [Catalytic activity/Vol] 15 U/L 10-60 [facility] Serum or plasma albumin/glob ulin mass ratioOrdered By: Rosanne Falcon on 10-26-2021 Albumin/Globulin [Mass ratio] 1.2 {ratio} [facility] Serum or plasma alkaline lori sphatase measurement (enzymatic activity/volume)Ordered By: Rosanne Falcon on 10-26-2021 ALP [Catalytic activity/Vol] 63 U/L 32-92 [facility] Serum or plasma aspartate am inotransferase measurement (enzymatic activity/volume)Ordered By: Rosanne Falcon on 10-26-2021 AST [Catalytic activity/Vol] 18 U/L 10-42 [facility] Serum or plasma calcium tristian urement (mass/volume)Ordered By: Rosanne Falcon on 10-26-2021 Calcium [Mass/Vol] 10.2 mg/dL 8.2-10.2 [facility] Serum or plasma chloride ceferino surement (moles/volume)Ordered By: Rosanne Falcon on 10-26-2021 Chloride [Moles/Vol] 100 mmol/L 95-114 [facility] Serum or plasma glucose tristian urement (mass/volume)Ordered By: Rosanne Falcon on 10-26-2021 Glucose [Mass/Vol] 103 mg/dL 70-100 [facility] Comment on above: ADA recommended refe rence range Random Glucose Reference Range is dependent on time and content of last meal. Glucose of more than 200 mg/dL in a nonstressed, ambulatory subject supports the diagnosis of Diabetes Mellitus. ADA recommended refe rence rangeRandom Glucose Reference Range is dependent on time and content of last meal. Glucose of more than 200 mg/dL in a nonstressed, ambulatory subject supports the diagnosis of Diabetes Mellitus. Serum or plasma hepatitis C virus antibody signal/cutoff ratio by immunoassay (relatiOrdered By: Rosanne Falcon on 10-26-2021 HCV Ab Signal/Cutoff IA [Rel units/Vol] <0.1 s/co ratio 0.0-0.9 [facility] Serum or plasma high density lipoprotein (HDL) cholesterol measurementOrdered By: Rosanne Falcon on 10-26-2021 Cholesterol in HDL [Mass/Vol] 71 mg/dL 35-85 [facility] Comment on above: HDL CHOL ATP-III CLA SSIFICATION Cardiovascular Risk HDL > or equal to 60 mg/dL LOW HDL < 40 mg/dL HIGH HDL CHOL ATP-III CLA SSIFICATION Cardiovascular RiskHDL > or equal to 60 mg/dL LOWHDL < 40 mg/dL HIGH Serum or plasma potassium me asurement (moles/volume)Ordered By: Rosanne Falcon on 10-26-2021 Potassium [Moles/Vol] 3.9 mmol/L 3.5-5.1 [facility] Serum or plasma prealbumin m easurement (mass/volume)Ordered By: Rosanne Falcon on 10-26-2021 Prealbumin [Mass/Vol] 20.0 mg/dL 18.0-38.0 [facility] Serum or plasma sodium measu rement (moles/volume)Ordered By: Rosanne Falcon on 10-26-2021 Sodium [Moles/Vol] 138 mmol/L 136-146 [facility] Serum or plasma total biliru bin measurement (mass/volume)Ordered By: Rosanne Falcon on 10-26-2021 Bilirubin [Mass/Vol] 0.8 mg/dL 0.3-1.2 [facility] Serum or plasma total carbon dioxide measurement (moles/volume)Ordered By: Rosanne Falcon on 10-26-2021 CO2 [Moles/Vol] 28.0 mmol/L 22.0-30.0 [facility] Serum or plasma total choles terol/high density lipoprotein (HDL) cholesterol mass ratOrdered By: Rosanne Falcon on 10-26-2021 Cholesterol.total/Choles terol in HDL [Mass ratio] 2.1 {ratio} <5.0 [facility] Serum or plasma urea nitroge n measurement (mass/volume)Ordered By: Rosanne Falcon on 10-26-2021 Urea nitrogen [Mass/Vol] 13 mg/dL 9- [facility] TSH DL <= 0.005 mIU/L QnOrde red By: Rosanne Falcon on 10-26-2021 TSH Qn 1.12 m[IU]/L 0.45-5.33 [facility] Thyroxine (T4) free [Mass/vo lume] in Serum or PlasmaOrdered By: Rosanne Falcon on 10-26-2021 Free T4 [Mass/Vol] 1.06 ng/dL 0.61-1.12 [facility] Triglyceride [Mass/volume] i n Serum or PlasmaOrdered By: Rosanne Falcon on 10-26-2021 Triglyceride [Mass/Vol] 42 mg/dL 35-149 [facility] Comment on above: TRIG ATP III CLASSIF ICATION TRIG less than 150 mg/dL Normal TRIG 150-199 mg/dL Borderline high TRIG 200-500 mg/dL High TRIG greater than 500 mg/dL Very high Standard traceable to the Center for Disease Conrtrol and Prevention (CDC) test method. TRIG ATP III CLASSIF ICATIONTRIG less than 150 mg/dL NormalTRIG 150-199 mg/dL Borderline highTRIG 200-500 mg/dL High TRIG greater than 500 mg/dL Very highStandard traceable to the Center for Disease Conrtrol and Prevention (CDC) test method. Urine culture routineOrdered By: Rosanne Falcon on 10-25-2021 Bacteria identified Cx Nom (U) Escherichia coli [facility] Amphetamine Screen Ql (U)Ord ered By: Rosanne Falcon on 10-23-2021 Amphetamines Ql (U) Negative Negative [facility] Barbiturates [Presence] in U rineOrdered By: Rosanne Falcon on 10-23-2021 Barbiturates Ql (U) Negative Negative [facility] Benzodiazepines [Presence] i n UrineOrdered By: Rosanne Falcon on 10-23-2021 Benzodiazepines Ql (U) Negative [facility] Cannabinoids [Presence] in U rine by Screen methodOrdered By: Rosanne Falcon on 10-23-2021 Cannabinoids Screen Ql (U) Positive Negative [facility] Comment on above: These are unconfirme d results and should not be used for legal purposes. Drug Cut-Off Concentration: AMPH 1000 ng/mL PATRICE 200 ng/mL BRUNO 200 ng/mL COCM 300 ng/mL OP 300 ng/mL PCP 25 ng/mL THC 20 ng/mL These are unconfirme d results and should not be used for legal purposes. Drug Cut-Off Concentration: AMPH 1000 ng/mL PATRICE 200 ng/mL BRUNO 200 ng/mL COCM 300 ng/mL OP 300 ng/mL PCP 25 ng/mL THC 20 ng/mL Laboratory - Drug toxicology Ordered By: Rosanne Falcon on 10-23-2021 Opiates Ql (U) Negative Negative [facility] Phencyclidine Screen Ql (U)O rdered By: Rosanne Falcon on 10-23-2021 Phencyclidine Ql (U) Negative Negative [facility] Urine cocaine detectionOrder ed By: Rosanne Falcon on 10-23-2021 Cocaine Ql (U) Positive Negative [facility] CNOVSPon 04-17-2021 CNOVSP Visit (SP) Office ([place]) RADHA PATTERSON ([id number]) 1960 F Date Time Provider Department 04/17/21 11:00 AM MARCELLO GONZALEZ During your visit today, we recorded the following information about you: Temperature Pulse Respiration Blood pressure 97.2 degrees 73/minute 16/minute 115/83 Weight Height 61.1 kg 1.729 m Marcello Gonzalez MD 04/17/2021 11:43 AM Signed PATIENT NAME: Radha Patterson CLINIC NO.: [id number] ATTENDING PHYSICIAN: Marcello Gonzalez MD DATE OF SERVICE: April 17, 2021 Deadeya Falcon, [facility] thank you for referring Miss Radha Patterson for an opinion regarding leukopenia. CHIEF COMPLAINT: I am not sure what is going on HPI: Radha Patterson is a 60 year old year old female with PMH sig for HTN,elevated lipids, Arthritis and also CVA 2009 referred here for leukopenia. She states that she was always told that she has low counts. Denies any h/o repeated infections and or any autoimmune diseases. She denies any abdominal pain and or diarrhea. She also denies any urinary symptoms, She does have 2-4 vodka drinks a week, but denies any h/o liver disease, Current Outpatient Medications Medication Sig - cyclobenzaprine HCl (CYCLOBENZAPRINE ORAL) Take 10 mg by mouth as directed. - atorvastatin (LIPITOR) 20 mg tablet Take 20 mg by mouth once daily. - cholecalciferol (VITAMIN D-3) 5,000 unit tab Take 5,000 Units by mouth one time a week. - ibuprofen (MOTRIN) 400 mg tablet Take 400 mg by mouth every 6 hours as needed. - gentamicin (GENTAK) 0.3 % (3 mg/gram) ophthalmic ointment Use in eyes twice daily. - erythromycin (ROMYCIN) 5 mg/gram (0.5 %) ophthalmic ointment four times daily. - diclofenac (VOLTAREN) 1 % topical gel Apply to affected area four times daily. - labetalol (TRANDATE) 200 mg tablet Take 200 mg by mouth twice daily. No current facility-administered medications for this visit. ALLERGIES No Known Allergies PAST MEDICAL HISTORY Diagnosis Date - Arthritis - CVA (cerebral vascular accident) (HCC) - Dyslipidemia - Hyperlipidemia - Hypertension - Leukopenia - Stroke (HCC) - Vitamin D deficiency No past surgical history on file. FAMILY HISTORY Problem Relation Age of Onset - Heart disease Father - Hypertension Father Social History Tobacco Use - Smoking status: Current Every Day Smoker Types: Cigarettes - Smokeless tobacco: Never Used Substance Use Topics - Alcohol use: Yes - Drug use: Yes Types: Cocaine REVIEW OF SYSTEMS GENERAL: No weight loss, malaise or fevers. No night sweats. HEENT: Negative for headaches, No changes in hearing or vision, no nose bleeds or other nasal problems. RESPIRATORY: Negative for cough, wheezing and shortness of breath CARDIOVASCULAR: Negative for chest pain, leg swelling and palpitations GI: Negative for abdominal discomfort, blood in stools or black stools and change in bowel habits : Negative for dysuria, frequency and incontinence MUSCULOSKELETAL: Negative for joint pain or swelling, back pain, and muscle pain. SKIN: Negative for lesions, rash, and itching. HEMATOLOGY/LYMPHOLOGY Negative for prolonged bleeding, bruising easily, and swollen nodes. NEURO: Negative for numbness or tingling of hands/feet. No weakness. PHYSICAL EXAMINATION: BP 115/83 Pulse 73 Temp 36.2 ?C (97.2 ?F) (Temporal) Resp 16 Ht 172.9 cm (5' 8.07 ) Wt 61.1 kg (134 lb 12.8 oz) SpO2 97% BMI 20.45 kg/m? Wt 61.1 kg (134 lb 12.8 oz) BMI 20.45 kg/m2 Last 3 Encounter Wt Readings: Date: Wt: 04/17/2021 61.1 kg (134 lb 12.8 oz) General appearance:ECOG PERFORMANCE STATUS: 0- Fully active, able to carry on all pre-disease performance w/o restriction. Patient in NAD. Skin: Skin color, texture, turgor normal. No rashes or lesions. Eyes: Anicteric sclera. Pupils are equally round and reactive to light. Extraocular movements are intact. Breast: No palpable breast masses. No nipple change or discharge. Lymph Nodes: No cervical, supraclavicular, axillary or inguinal adenopathy. Oropharynx: Lips, mucosa, and tongue normal. Back: No pain to percussion. Negative SLR test Lungs clear to auscultation, No wheezing or rhonchi Heart: RRR without murmur, gallop, or rubs. Abdomen soft, non-tender. No masses, organomegaly Extremities: No deformities. No edema Neuro: Gait and speech normal. Reflexes normal and symmetric. Muscular strength intact. Sensation grossly intact. Rectal: Deferred : Deferred LABS: No results found for: GLUC, K, NA, CHLOR, CO2, CREAT, BUN, ANION, CA, TPROT, ALB, TBILI, ALKPHOS, AST, ALT No results found for: WBC, RBC, HB, HCT, MCV, MCH, MCHC, RDWCV, PLT, MPV, MPV, NEUT, ABSNEUT, LYMPHP, ABSLYMPH, MONOP, ABSMONO, EOSINP, ABSEOSIN, BASOP, ABSBASO PATH: IMAGING: ASSESSMENT AND PLAN: Radha Patterson is a 60 year old year old female PMH HTN, CVA 2009 and elevated lipid w (more content not included)... Normal [facility] Vital Signs Date Time Vital Sign Value Performing Clinician Faci lity 01-09-2022 12:59-0400 Body height 175.26 cm Services [employer] Work Phone: [facility] 01-09-2022 12:59-0400 Body temperature 98 [degF] Services [facility] [employer] Work Phone: [facility] 01-09-2022 12:59-0400 Body weight 58.96 kg Services [facility] Work Phone: [facility] 01-09-2022 12:59-0400 Diastolic blood pressure 104 mm[Hg] Services [facility] Work Phone: [facility] 01-09-2022 12:59-0400 Heart rate 61 /min Services [facility] [employer] Work Phone: [facility] 01-09-2022 12:59-0400 Respiratory rate 16 /min Services [facility] Work Phone: [facility] 01-09-2022 12:59-0400 SaO2% (BldA) [Mass fraction] 99 % Services [facility] Work Phone: [facility] 01-09-2022 12:59-0400 Systolic blood pressure 148 mm[Hg] Services [facility] Work Phone: [facility] Encounters Encounter Date Encounter Type Care Provider Facility Start: 01-02-2024 End: 01-02-2024 ambulatory Rosanne E Spasic Facility:[facility] Start: 07-31-2023 End: 07-31-2023 ambulatory Rosanne E Spasic [facility] Work Phone: Start: 07-31-2023 End: 07-31-2023 Departed Referred 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 Start: 01-16-2023 End: 01-16-2023 ambulatory Rosanne E Spasic Facility:[facility] Start: 01-16-2023 End: 01-16-2023 Departed Referred Services [facility] Work Phone: [facility] Start: 05-14-2022 End: 05-14-2022 ambulatory Services [facility] Work Phone: [facility] Work Phone: Start: 05-14-2022 End: 05-14-2022 Departed Referred Services [facility] Work Phone: [facility] Start: 04-12-2022 End: 04-12-2022 Patient encounter procedure [facility]: Start: 01-09-2022 End: 01-09-2022 Admission to same day surgery center [facility] Start: 01-09-2022 End: 01-09-2022 ambulatory Services [facility] Work Phone: [facility] Work Phone: Start: 01-07-2022 End: 01-07-2022 ambulatory Services [facility] Work Phone: [facility] Work Phone: Start: 01-07-2022 End: 01-07-2022 Patient encounter procedure Services [facility] Work Phone: [facility] Start: 12-04-2021 End: 12-04-2021 Patient encounter procedure Services [facility] Work Phone: [facility] Start: 10-26-2021 End: 10-26-2021 Departed Referred Services [facility] Start: 10-23-2021 End: 10-23-2021 Departed Referred Services [facility] Work Phone: [facility] Services Start: 04-16-2021 Chart abstracting Marcello luis MD Work Phone: Hematology/Oncology Procedures Date Procedure Procedure Detail Performing Clinician Start: 04-12-2022 Screening mammograph y of bilateral breasts Services [facility] Work Phone: SARS Antigen (LFIA) Services [facility] Work Phone: Urine culture Services [facility] Work Phone: Plan of Treatment Date Care Activity Detail Author Start: 01-28-2023 Superficial Wound Culture Superficial Wound Culture [facility] Start: 01-09-2022 [facility] Start: 01-09-2022 Colonoscopy DH Colonoscopy Diagnostic (Not Applicable) [facility] Start: 12-06-2020 Influenza vaccination INFLUENZA (#1) [facility] Start: 2009 SHINGRIX VACCINE (1 of 2) SHINGRIX VACCINE (1 of 2) [facility] Start: 2004 COLOGUARD (FIT-DNA) COLOGUARD (FIT-DNA) [facility] Start: 2004 Colonoscopy COLONOSCOPY [facility] Start: 2004 COLORECTAL CANCER SCREENING COLORECTAL CANCER SCREENING [facility] Start: [address] COLONOGRAPHY [facility] Start: 2004 DIABETES SCREEN DIABETES SCREEN [facility] Start: 2004 FECAL OCCULT BLOOD FECAL OCCULT BLOOD [facility] Start: 2004 LIPID SCREEN LIPID SCREEN [facility] Start: 2004 SIGMOIDOSCOPY SIGMOIDOSCOPY [facility] Start: 1999 Mammography MAMMOGRAM [facility] Start: 1989 HPV TESTING HPV TESTING [facility] Start: 1980 PAP TESTING PAP TESTING [facility] Start: 1978 Urine microalbumin profile DTAP,TDAP,TD (1 - Tdap) [facility] Start: 1977 HEPATITIS C SCREENING HEPATITIS C SCREENING [facility] Start: 1977 HIV SCREENING HIV SCREENING [facility] Start: 1971 Adult depression screening assessment DEPRESSION SCREENING [facility] Start: 1964 COVID-19 VACCINE (1) [facility] Atopobium vaginae DN A [Presence] in Vaginal fluid by RICKY with probe detection [facility] Bacteria identified in Unspecified specimen by Aerobe culture [facility] Bacterial vaginosis associated bacterium 2 DNA [Presence] in Vaginal fluid by RICKY with probe detection [facility] Chlamydia trachomati s rRNA [Presence] in Cervix by RICKY with probe detection [facility] Hepatitis A virus antibody, IgM type [facility] Work Phone: Hepatitis B core ant ibody measurement, IgM type [facility] Work Phone: Hepatitis B virus correa rface Ag [Presence] in Serum or Plasma by Immunoassay [facility] Work Phone: Hepatitis C virus Ab Signal/Cutoff in Serum or Plasma by Immunoassay [facility] Work Phone: Hepatitis C virus RN A [log units/volume] (viral load) in Serum or Plasma by RICKY with probe detection [facility] Work Phone: Hepatitis C virus RN A [Units/volume] (viral load) in Serum or Plasma by RICKY with probe detection [facility] Work Phone: HIV 1+2 Ab+HIV1 p24 Ag [Presence] in Serum or Plasma by Immunoassay [facility] Work Phone: Human papilloma viru s 16+18+31+33+35+39+45+51+5 2+56+58+59+66+68 DNA [Presence] in Cervix by Probe with signal amplification [facility] Human papilloma viru s 16+18+31+33+35+39+45+51+5 2+56+58+59+68 DNA [Presence] in Cervix by Probe with signal amplification [facility] Megasphaera sp type 1 DNA [Presence] in Vaginal fluid by RICKY with probe detection [facility] Neisseria gonorrhoea e rRNA [Presence] in Cervix by RICKY with probe [facility] Payers Date Payer Category Payer Medicaid [id number] 2023 Self-pay [id number] 2017 Medicaid [place] [id number] 2017-Present [phone] [address] [place] [address] Medicaid [id number] Unknown [id number] Unknown [id number] Unknown [id number] Unknown [id number] Unknown [id number] Social History Date Type Detail Facility Start: [facility]-16-2021 [facility] Start: 04-16-2021 Alcohol intake Current drinke r of alcohol (finding) [facility] Start: 1960 Sex Assigned At Not on file [facility] Start: 08-02-2017 Tobacco smoking stat [facility] Current some day smoker [facility] Start: 1960 Sex Assigned At Female F [facility] Start: 01-09-2022 End: 01-09-2022 Tobacco smoking status [facility]IS Smoker (finding) [facility] Goals Date Patient Goal Desired Activity /State Progress note 04-17-2021 Note Date & Type Note Facility 04-17-2021 Note HNO ID: [id number] Author: Marcello Gonzalez MD Service: ? Author Type: Physician Type: Progress Notes Filed: 04/17/2021 11:43 AM Note Text: PATIENT NAME: Rdaha Patterson CLINIC NO.: [id number] ATTENDING PHYSICIAN: Marcello Gonzalez MD DATE OF SERVICE: April 17, [address] Rosanne Falcon, [facility] thank you for referring Miss Radha Patterson for an opinion regarding leukopenia. CHIEF COMPLAINT: I am not sure what is going on HPI: Radha Patterson is a 60 year old year old female with PMH sig for HTN,elevated lipids, Arthritis and also CVA 2009 referred here for leukopenia. She states that she was always told that she has low counts. Denies any h/o repeated infections and or any autoimmune diseases. She denies any abdominal pain and or diarrhea. She also denies any urinary symptoms, She does have 2-4 vodka drinks a week, but denies any h/o liver disease, Current Outpatient Medications Medication Sig - cyclobenzaprine HCl (CYCLOBENZAPRINE ORAL) Take 10 mg by mouth as directed. - atorvastatin (LIPITOR) 20 mg tablet Take 20 mg by mouth once daily. - cholecalciferol (VITAMIN D-3) 5,000 unit tab Take 5,000 Units by mouth one time a week. - ibuprofen (MOTRIN) 400 mg tablet Take 400 mg by mouth every 6 hours as needed. - gentamicin (GENTAK) 0.3 % (3 mg/gram) ophthalmic ointment Use in eyes twice daily. - erythromycin (ROMYCIN) 5 mg/gram (0.5 %) ophthalmic ointment four times daily. - diclofenac (VOLTAREN) 1 % topical gel Apply to affected area four times daily. - labetalol (TRANDATE) 200 mg tablet Take 200 mg by mouth twice daily. No current facility-administered medications for this visit. ALLERGIES No Known Allergies PAST MEDICAL HISTORY Diagnosis Date - Arthritis - CVA (cerebral vascular accident) (HCC) - Dyslipidemia - Hyperlipidemia - Hypertension - Leukopenia - Stroke (HCC) - Vitamin D deficiency No past surgical history on file. FAMILY HISTORY Problem Relation Age of Onset - Heart disease Father - Hypertension Father Social History Tobacco Use - Smoking status: Current Every Day Smoker Types: Cigarettes - Smokeless tobacco: Never Used Substance Use Topics - Alcohol use: Yes - Drug use: Yes Types: Cocaine REVIEW OF SYSTEMS GENERAL: No weight loss, malaise or fevers. No night sweats. HEENT: Negative for headaches, No changes in hearing or vision, no nose bleeds or other nasal problems. RESPIRATORY: Negative for cough, wheezing and shortness of breath CARDIOVASCULAR: Negative for chest pain, leg swelling and palpitations GI: Negative for abdominal discomfort, blood in stools or black stools and change in bowel habits : Negative for dysuria, frequency and incontinence MUSCULOSKELETAL: Negative for joint pain or swelling, back pain, and muscle pain. SKIN: Negative for lesions, rash, and itching. HEMATOLOGY/LYMPHOLOGY Negative for prolonged bleeding, bruising easily, and swollen nodes. NEURO: Negative for numbness or tingling of hands/feet. No weakness. PHYSICAL EXAMINATION: BP 115/83 Pulse 73 Temp 36.2 ?C (97.2 ?F) (Temporal) Resp 16 Ht 172.9 cm (5' 8.07 ) Wt 61.1 kg (134 lb 12.8 oz) SpO2 97% BMI 20.45 kg/m? Wt 61.1 kg (134 lb 12.8 oz) BMI 20.45 kg/m2 Last 3 Encounter Wt Readings: Date: Wt: 04/17/2021 61.1 kg (134 lb 12.8 oz) General appearance:ECOG PERFORMANCE STATUS: 0- Fully active, able to carry on all pre-disease performance w/o restriction. Patient in NAD. Skin: Skin color, texture, turgor normal. No rashes or lesions. Eyes: Anicteric sclera. Pupils are equally round and reactive to light. Extraocular movements are intact. Breast: No palpable breast masses. No nipple change or discharge. Lymph Nodes: No cervical, supraclavicular, axillary or inguinal adenopathy. Oropharynx: Lips, mucosa, and tongue normal. Back: No pain to percussion. Negative SLR test Lungs clear to auscultation, No wheezing or rhonchi Heart: RRR without murmur, gallop, or rubs. Abdomen soft, non-tender. No masses, organomegaly Extremities: No deformities. No edema Neuro: Gait and speech normal. Reflexes normal and symmetric. Muscular strength intact. Sensation grossly intact. Rectal: Deferred : Deferred LABS: No results found for: GLUC, K, NA, CHLOR, CO2, CREAT, BUN, ANION, CA, TPROT, ALB, TBILI, ALKPHOS, AST, ALT No results found for: WBC, RBC, HB, HCT, MCV, MCH, MCHC, RDWCV, PLT, MPV, MPV, NEUT, ABSNEUT, LYMPHP, ABSLYMPH, MONOP, ABSMONO, EOSINP, ABSEOSIN, BASOP, ABSBASO PATH: IMAGING: ASSESSMENT AND PLAN: Radha Patterson is a 60 year old year old female PMH HTN, CVA 2008 and elevated lipid with leukopenia and mild neutropenia. She has no splenomegaly and remainder of her CBC is within normal limits. 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 I would suggest Hep C screening if not already done as well. She can see us on a prn basis Dear Dr. Vásquez (more content not included)... [facility] Evaluation note Note Date & Type Note Facility Evaluation note No assessment information [facility] Work Phone: Summary Purpose Family History No Family History Records Found Relationship Condition Age at Onset Recorded Date/T agusto father Heart disease Unknown father Hypertension Unknown Advance Directives No Advanced Directives Records Found Advance Directive Response Recorded Date/ Time Advance Directives No May 6:02pm Advance Directive Response Recorded Date/ Time Advance Directives No May 5:02pm Chief Complaint and Reason for Visit Chief Complaint R63.4 R82.90 Chief Complaint R63.4 R82.90 R63.4 M19.90 I10 E55.9 Hx Colon Polyps Chief Complaint R63.4 R82.90 R63.4 M19.90 I10 E55.9 Hx Colon Polyps Hx Colon Polyps Chief Complaint R63.4 R82.90 R63.4 M19.90 I10 E55.9 Hx Colon Polyps Hx Colon Polyps Hx Colon Polyps Chief Complaint Screening Chief Complaint E55.9 I10 Drainage from ear, left Chief Complaint Hypertension Vitamin D deficiency, unspecified Additional Source Comments Source Comments (unrecognize d section and content) In the event this informatio n is protected by the Federal Confidentiality of Alcohol and Drug Abuse Patient Records regulations: The Federal rules restrict any use of the information to criminally investigate or prosecute any alcohol or drug abuse patient.[facility] Care Teams (unrecognized sec tion and content) Team Status: Inactive Member Role Status Dates CHARISMA Hilton Attending Provider Active Team Status: Inactive Member Role Status Dates Services [facility] Primary Care Provider Active CHARISMA Hilton Attending Provider Active Consultant Technology Relationship Specialty Start Date End Date Rosanne Falcon [address] [place] [address] PCP - General Family Practice 04/11/21 Team Status: Active Member Role Status Dates Services Family [facility] Primary Care Provider Active Team Status: Inactive Member Role Status Dates Services [facility] Primary Care Provider Active Philip Taveras MD Attending Provider Active Team Status: Inactive Member Role Status Dates CHARISMA Hilton Attending Provider Active Start: July 31, 2023 End: July 31, 2023 INFORMATION SOURCE (unrecogn ized section and content) DATE CREATED AUTHOR 06/28/2021 [facility] DATE CREATED AUTHOR AUTHOR'S ORGANIZ ATION 01/04/2024 [facility] Goals (unrecognized section and content) Goals may be documented in a n alternate sectionGoals may be documented in an alternate sectionGoals may be documented in an alternate sectionGoals may be documented in an alternate sectionGoals may be documented in an alternate sectionGoals may be documented in an alternate section FOR RECORDS PERTAINING TO PATIENTS WHO ARE OR HAVE BEEN ENROLLED IN A CHEMICAL DEPENDENCY/SUBSTANCEABUSE PROGRAM, SOME INFORMATION MAY BE OMITTED. This clinical summary was aggregated from multiple sources. Caution should be exercised in using it in the provision of clinical care. This summary normalizes information from multiple sources, and as a consequence, information in this document may materially change the coding, format and clinical context of patient data. In addition, data may be omitted in some cases. CLINICAL DECISIONS SHOULD BE BASED ON THE PRIMARY CLINICAL RECORDS. [facility]. provides no warranty or guarantee of the accuracy or completeness of information in this document.
[2024-01-08 06:57] LABS: Basophils Percent Auto 0.7 % (0.2-2.0); Eosinophils Absolute Auto 0.1 10^3/uL (0.0-0.7); Eosinophils Percent Auto 3.2 % (0.9-7.0); Hemoglobin 12.3 g/dL (12.0-16.0); Lymphocytes Absolute Auto 2.3 10^3/uL (1.2-3.8); Mean Corpuscular HGB Conc 33.2 g/dL (29.9-35.2); Mean Corpuscular Hemoglobin 32.5 pg (26.7-34.0); Mean Corpuscular Volume 97.9 fL (81.0-99.0); Mean Platelet Volume 10.7 fL (9.5-13.5); Monocytes Absolute Auto 0.3 10^3/uL (0.3-0.8); Neutrophils Absolute Auto 1.6 10^3/uL (1.4-6.5); Neutrophils Percent Auto 37.1 % (43.0-75.0); Platelet Count 202 10^3/uL (150-450); Red Blood Count 3.78 10^6/uL (4.20-5.40); Red Cell Distribution Width 12.6 % (11.0-15.0); White Blood Count 4.3 10^3/uL (4.0-11.0)
[2024-01-08 07:01] LABS: Glucometer 59 mg/dL (74-106)
[2024-01-08] MEDS: LACTATED RINGER'S SOLUTION 1,000 ML 50 ML IV (07:01)
[2024-01-08] MEDS: DEXTROSE 50 %-WATER 25 GM/50 ML SYRINGE IV (07:29)
[2024-01-08 07:49] LABS: Glucometer 134 mg/dL (74-106)
[2024-01-08] MEDS: CEFAZOLIN SODIUM 2 GM/50 ML D5W PREMIX IV (07:49)
--- NOTE | 2024-01-08 08:03 | PC.NURSE ---
0735- Final timeout completed. Patient placed on monitor and 02 at 2l/min via nc. 0737- Patient positioned on left side. Right leg draped in sterile technique per Dr. Chow. 0740- Right popliteal block initiated. 0744- Right popliteal block completed. patient tolerated it well. See posted vital signs. Right leg propped in pillow. Patient remains on monitor and 02.
[2024-01-08 08:46] LABS: Glucometer 107 mg/dL (74-106)
--- NOTE | 2024-01-08 09:40 | P.ORON_ITS ---
Brief Operative Note Date of procedure: 01/08/24 Pre-op diagnosis general: Right valgus, predislocation syndrome second metatar jos phalangeal joint, second hammertoe and extensor tendon contracture Post-op diagnosis: same as pre-op Procedure: Procedure performed: Right first metatarsal phalangeal joint fusion, second metatarsal osteotomy, second toe PIPJ arthroplasty and extensor tendon lengthening, application of short leg splint Indication for procedure: Patient is a pleasant 63-year-old female with history of CVA who presented to me relating to longstanding deformity and pain associate with her right foot. Predominantly her pain has been plantar aspect of the second metatarsal head associated with the dislocated second toe which crosses over her great toe which would severely in valgus contracture. She also had contractures of toes 3 4 and 5. She attempted shoe modification, activity modification and OTC pain medicine without help and therefore wished to undergo surgical correction. I outlined the potential risks, benefits and goals and all her questions were answered to satisfaction Intraoperative findings: Severe valgus deformity of the great toe with prominence of the medial eminence. Bone quality was poor and consistent with osteopenia/osteoporosis. Skin was thin and atrophic. Dorsal dislocation of the second toe which is nonreducible. Very prominent second metatarsal head at the plantar aspect associated with thick callus. There is contracture at the second PIPJ and associated second extensor tendon. Due to the degree of deformity and concern of peripheral vascular disease decision was made to only correct the first and second toes during this procedure. In addition the second toe was not pinned due to high concern for adequate arterial supply. Procedure in detail: Patient was identified in pre op and consent was reviewed. Correct side and site were identified and marked. Regional anesthesia was performed by the anesthesia team. Pre-op antibiotics were started. Patient was brought to OR suite and place on table in a supine position. General anesthesia was administered. Calf tourniquet applied. Operative extremity was prepped and draped in usual sterile fashion. Formal time-out was performed and the foot/ankle were exsanguinated and tourniquet inflated. Incision created over dorsal aspect of the 1st MPJ. Bleeders coagulated. EHL protected throughout the procedure. Capsulotomy performed and McGlammry elevator inserted into 1st MPJ. Guide Pin place in 1st metatarsal head. Conical reamers used on 1st metatarsal head to remove cartilage and subchondral bone. Guide pin removed. Conical reamers used on proximal phalanx in a similar manner. 2.0 mm drill used to on each side of the joint. The site was irrigated. 1 cc of bone allograft was packed into the fusion site in the great toe was pinned in a reduced position with multiple guidepins and position was checked on fluoroscopy. A 3.[address] over the fusion site and temporarily fixed. Then pilot plant research technician holes were drilled for locking 3.5 mm screws which were measured and placed according to the manufactor's standard directions. Again position was checked under fluoroscopy as well as on the table. Temporary fixation was removed and additional screws were placed. A stab incision over the guide pin at the medial aspect of the hallux was used followed by blunt dissection with a hemostat. Proper screw length was determined A 3.5 mm cannulated headed screw was inserted. Again position was checked on the table and under fluoroscopy. The surgical site was irrigated with copious amounts of sterile saline. A dorsal incision over the 2nd digit and extended over the 2nd metatarsal was undertaken. They show sharp and blunt dissection gained access to the proximal phalanx head and middle phalanx base which was exposed and then removed with the sagittal saw. The extensor tendon transected at the level of the PIPJ and was reflected exposing the 2nd metatarsal phalangeal joint. A McGlammry elevator was utilized to expose the 2nd metatarsal head and a sagittal saw was used to create an osteotomy parallel to the weightbearing surface of the foot. The metatarsal head was then translated proximally and temporarily fixated with a K wire and the elevator was removed. Position was checked under fluoroscopy followed by a 2.0 mm snap off screw which was placed from a dorsal plantar direction. A rongeur was used to remove the dorsal cortical shelf. Temporary fixation was removed. Surgical site was irrigated with copious amounts of sterile saline. Due to residual contracture at the PIPJ the capsule around the PIPJ was released sharply. The proximal phalanx head was then removed utilizing a sagittal saw and was passed the back table. Alignment of the second toe improved greatly however the extensor tendon was not able to be reapproximated therefore needed to be lengthened which is done so in a Z-type fashion taking the medial stump of the tendon and reapproximating it to the distal stump at the level of the PIPJ. Surgical site was irrigated and the tourniquet was deflated noting a sluggish return of capillary refill. Once the toes pinked up deep fascia was closed and the skin was closed in layers and decision was made to postpone any further procedure on this foot. A dry sterile dressing consisting of Xeroform on the incisions followed by 4 x 4 gauze, ABDs, and Kerlix were applied. Multiple layers of cast padding were then applied to ensure all bony prominences were well-padded. A plaster posterior splint was then applied which was held in place by Saud wraps. Capillary refill time to all digits was evaluated and had appropriate response. Postoperative plan: Discharge home under friend's care Nonweightbearing right lower extremity Prescriptions were sent to the pharmacy utilizing my office EMR Follow-up within 1 week in my office. Implants: Medline Anesthesia: regional and General-LMA Surgeon: Doiran Rodriguez Estimated blood loss (mL): 10 Pathology: none sent Condition: stable
--- NOTE | 2024-01-08 09:55 | XR_ITS ---
The [address] [address] Patient Name: MARCOS GARCIA MRN: [id number] date: 1960 Sex: F Assigned Patient Location: [facility] Current Patient Location: [facility] Accession/Order Number: [id number] Exam Date: 01/08/2024 10:15 Report Date: 01/09/2024 06:06 At the request of: ADI MILLRE Procedure: XR foot RT min 3V PROCEDURE: XR foot RT min 3V HISTORY: hallux valgus, 2nd hammertoe COMPARISON: XR foot bilateral 12/03/2023 FINDINGS: BONES:Mechanical fusion the first metatarsophalangeal joint via dorsal plate and screws. Single screw within second metatarsal head. Notably improved alignment of the toes. SOFT TISSUES:Mild dorsal soft tissue swelling. Images were obtained to cast material which limits evaluation. EFFUSION:None visible. OTHER: Negative. XR/XR foot RT min 3V IMPRESSION: 1. Surgical changes as detailed above. No appreciable acute abnormality. Electronically authenticated by: ANAIS BOND Date: 01/09/2024 06:06
[2024-01-08 10:04] LABS: Glucometer 87 mg/dL (74-106)
== END 2024-01-08 11:16 | disposition home or self-care (01) ==
PROVIDERS: Anesthesiology; Visit Provider Podiatrist Foot & Ankle Surgery
PROC: (CPT 1480; principal; 2024-01-08 07:30)
DX: M20.11 Hallux valgus (acquired), right foot (principal); M25.871 Other specified joint disorders, right ankle and foot; M20.41 Other hammer toe(s) (acquired), right foot; M20.5X2 Other deformities of toe(s) (acquired), left foot; E78.5 Hyperlipidemia, unspecified; I10 Essential (primary) hypertension; I73.9 Peripheral vascular disease, unspecified; Z86.73 Personal history of transient ischemic attack (TIA), and cerebral infarction without residual deficits; K21.9 Gastro-esophageal reflux disease without esophagitis; M19.90 Unspecified osteoarthritis, unspecified site; F32.A Depression, unspecified; F12.90 Cannabis use, unspecified, uncomplicated; F17.210 Nicotine dependence, cigarettes, uncomplicated
CPT/HCPCS: 28285; 28308; 28750; 36415; 64445; 73630; 76000; 82948; 85025; C1713; J0690; J1100; J1885; J2250; J2371; J2405; J2704; J2795; J3010

== ENCOUNTER 2024-01-28 11:59 | Outpatient (OUT) | payer OTHER, SELFPAY ==
--- NOTE | 2024-01-28 | XR_ITS ---
The [address] [address] Patient Name: MARCOS GARCIA MRN: [id number] date: 1960 Sex: F Assigned Patient Location: [facility] Current Patient Location: Accession/Order Number: [id number] Exam Date: 01/28/2024 12:02 Report Date: 02/01/2024 07:34 At the request of: ADI MILLER Procedure: XR foot RT min 3V PROCEDURE: XR foot RT min 3V HISTORY: RIGHT FOOT PAIN COMPARISON: XR foot right 01/08/2024 FINDINGS: BONES:Mechanical fusion of the first metatarsophalangeal joint via dorsal plate and screws. Single screw repair of head of second metatarsal. Resection of head of second proximal phalanx. SOFT TISSUES:Mild soft tissue swelling. Cast material has been removed. EFFUSION:None visible. OTHER: Negative. XR/XR foot RT min 3V IMPRESSION: 1. Stable surgical changes without evidence of hardware failure or change in alignment. Electronically authenticated by: ANAIS BOND Date: 02/01/2024 07:34
--- OUTSIDE RECORDS SUMMARY | 2024-01-28 12:12 | XMS_ITS | CCD ---
Author Organization [facility] Inform ion Partnership [facility] Care Team Providers Care Product Specialist Name Role Phone Rosanne Falcon Primary Care Provider [facility], Services Primary Care Provider [phone] Terrie HAND DRAWER IN HELPERPadminiC Rosanne Liu Attending Provider MD Philip Taveras Attending Provider [phone] [facility], Services Primary Care Provider Terrie HAND DRAWER IN HELPER-C Rosanne Liu Attending Provider [facility], Services Primary Care Provider Spasic, HAND DRAWER IN HELPER-C Rosanne E Attending Provider Spasic HAND DRAWER IN HELPER-C Rosanne E Attending Provider Spasic Rosanne E Attending Unavailable Spasic, Rosanne E Admitting Unavailable [facility], Services Primary Care Unavaila ble Spasic, Rosanne E Attending Unavailable Spasic, Rosanne E Admitting Unavailable Spasic, Rosanne E Attending Unavailable [facility], Services Primary Care U navailable Spasic, Rosanne E Admitting Unavailable Spasic, Rosanne E Attending Unavailable Spasic, Rosanne E Admitting Unavailable [facility], Services Primary Care U navailable Spasic, Rosanne E Attending Unavailable Spasic, Rosanne E Admitting Unavailable NO FAMILY, PHYSICIAN Primary Care Unavailable Medications Current Medications Medication Drug Class(es) Dates [...] unspecified; Translations: [Vitamin D deficiency, unspecified] Onset: 01-16-2023 Chronic Other screening for suspected conditions (not [...] (Bld) [#/Vol] 0.1 10*3/uL Normal 0.0-0.2 [facility] Comment on above: Result Comment: PERF ORMED BY: [place] [address] PATHOLOGIST GANG SUPERVISOR TRINI PINON M.D. Performed By: #### T SH3 wRFLX, [id number], DIFF CBC, CMP #### [facility] [address] Basophils/100 WBC (Bld) 1.5 % Normal . T amanda [facility] Comment on above: Performed By: #### T SH3 wRFLX, [id number], DIFF CBC, CMP #### [facility] [address] [place] [address] [place] Eosinophils (Bld) [#/Vol] 0.1 10*3/uL Normal 0.0-0.45 [facility] Comment on above: Performed By: #### T SH3 wRFLX, [id number], DIFF CBC, CMP #### [facility] [address] [place] [address] [place] Eosinophils/100 WBC (Bld) 2.8 % Normal . [facility] Comment on above: Performed By: #### T SH3 wRFLX, [id number], DIFF CBC, CMP #### [address] Erythrocyte distribution width (RBC) [Ratio] 13.8 % Normal 11.9-15.3 [facility] Comment on above: Performed By: #### T SH3 wRFLX, [id number], DIFF CBC, CMP #### [address] Hematocrit (Bld) [Volume fraction] 38.8 % Normal 34.0-46.4 [facility] Comment on above: Performed By: #### T SH3 wRFLX, [id number], DIFF CBC, CMP #### [address] Hemoglobin (Bld) [Mass/Vol] 13.0 g/dL Normal 11.8-15.4 [facility] Comment on above: Performed By: #### T SH3 wRFLX, [id number], DIFF CBC, CMP #### [address] Lymphocytes (Bld) [#/Vol] 2.1 10*3/uL Normal 1.00-4.8 [facility] Comment on above: Performed By: #### T SH3 wRFLX, [id number], DIFF CBC, CMP #### [address] Lymphocytes/100 WBC (Bld) 49.0 % Normal . [facility] Comment on above: Performed By: #### T SH3 wRFLX, [id number], DIFF CBC, CMP #### [address] MCH (RBC) [Entitic mass] 32.4 pg Normal 24.7-34.3 [facility] Comment on above: Performed By: #### T SH3 wRFLX, [id number], DIFF CBC, CMP #### [address] MCV (RBC) [Entitic vol] 96.5 fL Normal 80-100 T he [facility] Comment on above: Performed By: #### T SH3 wRFLX, [id number], DIFF CBC, CMP #### [address] Mean Corpuscular HGB Conc 33.6 g/dL Normal 32.0-35.0 [facility] Comment on above: Performed By: #### T SH3 wRFLX, [id number], DIFF CBC, CMP #### [address] Monocytes (Bld) [#/Vol] 0.2 10*3/uL Normal 0.0-0.8 [facility] Comment on above: Performed By: #### T SH3 wRFLX, [id number], DIFF CBC, CMP #### [address] Monocytes/100 WBC (Bld) 4.7 % Normal . T amanda [facility] Comment on above: Performed By: #### T SH3 wRFLX, [id number], DIFF CBC, CMP #### [address] Neutrophils (Bld) [#/Vol] 1.8 10*3/uL Normal 1.8-7.7 [facility] Comment on above: Performed By: #### T SH3 wRFLX, [id number], DIFF CBC, CMP #### [address] Neutrophils/100 WBC (Bld) 42.0 % Normal . [facility] Comment on above: Performed By: #### T SH3 wRFLX, [id number], DIFF CBC, CMP #### [address] NRBC% 0.2 /100{WBC} Normal 0-0.5 [facility] Comment on above: Performed By: #### T SH3 wRFLX, [id number], DIFF CBC, CMP #### [address] Platelet mean volume (Bld) [Entitic vol] 8.6 fL Normal 6.3-10.7 [facility] Comment on above: Performed By: #### T SH3 wRFLX, [id number], DIFF CBC, CMP #### [address] Platelets (Bld) [#/Vol] 241 10*3/uL Normal 150-450 [facility] Comment on above: Performed By: #### T SH3 wRFLX, [id number], DIFF CBC, CMP #### [address] RBC (Bld) [#/Vol] 4.02 10*6/uL Normal 3.60-5.00 [facility] Comment on above: Performed By: #### T SH3 wRFLX, [id number], DIFF CBC, CMP #### [address] WBC (Bld) [#/Vol] 4.3 10*3/uL Normal 3.8-11.6 [facility] Comment on above: Performed By: #### T SH3 wRFLX, [id number], DIFF CBC, CMP #### [address] Comprehensive Metabolic Pane harriet 01-02-2024 Albumin [Mass/Vol] 4.1 g/dL Normal 3.5-5.7 [facility] Comment on above: Performed By: #### T SH3 wRFLX, [id number], DIFF CBC, CMP #### [address] Albumin/Globulin [Mass ratio] 1.4 {ratio} Normal [facility] Comment on above: Performed By: #### T SH3 wRFLX, [id number], DIFF CBC, CMP #### [address] ALP [Catalytic activity/Vol] 100 U/L Normal 34-104 [facility] Comment on above: Performed By: #### T SH3 wRFLX, [id number], DIFF CBC, CMP #### [address] ALT [Catalytic activity/Vol] 13 U/L Normal 7-52 [facility] Comment on above: Performed By: #### T SH3 wRFLX, [id number], DIFF CBC, CMP #### [address] Anion gap [Moles/Vol] 7.4 mmol/L Normal 6.0-15.0 [facility] Comment on above: Performed By: #### T SH3 wRFLX, [id number], DIFF CBC, CMP #### [address] AST [Catalytic activity/Vol] 15 U/L Normal 13-39 [facility] Comment on above: Performed By: #### T SH3 wRFLX, [id number], DIFF CBC, CMP #### [address] Bilirubin [Mass/Vol] 0.7 mg/dL Normal 0.3-1.0 [facility] Comment on above: Performed By: #### T SH3 wRFLX, [id number], DIFF CBC, CMP #### [address] Calcium [Mass/Vol] 9.9 mg/dL Normal 8.6-10.3 [facility] Comment on above: Performed By: #### T SH3 wRFLX, [id number], DIFF CBC, CMP #### [place] [address] [place] Chloride [Moles/Vol] 105 mmol/L Normal 98-107 [facility] Comment on above: Performed By: #### T SH3 wRFLX, [id number], DIFF CBC, CMP #### [place] [address] [place] CO2 [Moles/Vol] 32.3 mmol/L High 21.0-31.0 [facility] Comment on above: Performed By: #### T SH3 wRFLX, [id number], DIFF CBC, CMP #### [place] [address] [place] Creatinine [Mass/Vol] 0.75 mg/dL Normal 0.60-1.20 [facility] Comment on above: Performed By: #### T SH3 wRFLX, [id number], DIFF CBC, CMP #### [facility] [address] [place] [address] [place] GFR/1.73 sq M.predicted MDRD (S/P/Bld) [Vol rate/Area] mL/min/{1.73_m2} Normal [facility] Comment on above: Performed By: #### T SH3 wRFLX, [id number], DIFF CBC, CMP #### [facility] [address] [place] [address] [place] Globulin (S) [Mass/Vol] 3.0 g/dL Normal [facility] Comment on above: Performed By: #### T SH3 wRFLX, [id number], DIFF CBC, CMP #### [facility] [address] Glucose [Mass/Vol] 81 mg/dL Normal 70-100 [facility] Comment on above: Result Comment: [facility] Glucose Reference Range is dependent on time and content of last meal. Glucose of more than 200 mg/dL in a nonstressed, ambulatory subject supports the diagnosis of Diabetes Mellitus. ADA recommended reference range Performed By: #### T SH3 wRFLX, [id number], DIFF CBC, CMP #### [facility] [address] Potassium [Moles/Vol] 3.7 mmol/L Normal 3.5-5.1 [facility] Comment on above: Performed By: #### T SH3 wRFLX, [id number], DIFF CBC, CMP #### [facility] [address] [place] [address] [place] Protein [Mass/Vol] 7.1 g/dL Normal 6.4-8.9 [facility] Comment on above: Performed By: #### T SH3 wRFLX, [id number], DIFF CBC, CMP #### [facility] [address] [place] [address] [place] Sodium [Moles/Vol] 141 mmol/L Normal 136-145 [facility] Comment on above: Performed By: #### T SH3 wRFLX, [id number], DIFF CBC, CMP #### [facility] [address] Urea nitrogen [Mass/Vol] 19 mg/dL Normal 7-25 [facility] Comment on above: Performed By: #### T SH3 wRFLX, [id number], DIFF CBC, CMP #### [facility] [address] Lipid Panelon 01-02-2024 Cholesterol [Mass/Vol] 155 mg/dL Normal 140-200 Th e [facility] Comment on above: Result Comment: Chol less than 200 mg/dl low risk Chol 201-239 mg/dl borderline risk Chol 240 mg/dl and greater high risk Performed By: #### T SH3 wRFLX, [id number], DIFF CBC, CMP #### [facility] [address] Cholesterol in HDL [Mass/Vol] 75 mg/dL Normal 23-92 [facility] Comment on above: Result Comment: HDL CHOL ATP-III CLASSIFICATION Cardiovascular Risk HDL > or equal to 60 mg/dL LOW HDL < 40 mg/dL HIGH Performed By: #### T SH3 wRFLX, [id number], DIFF CBC, CMP #### [facility] [address] Cholesterol.total/Choles terol in HDL [Mass ratio] 2.1 {ratio} Normal <5.0 [facility] Comment on above: Performed By: #### T SH3 wRFLX, [id number], DIFF CBC, CMP #### [facility] [address] [place] [id number] [facility] LDL Cholesterol,Calculated 69 mg/dL Normal 0-100 [facility] Comment on above: Result Comment: LDL ATP III CLASSIFICATION LDL less than 100 mg/dL Optimal LDL 100-129 mg/dL Near or above optimal LDL 130-159 mg/dL Borderline high LDL 160-189 mg/dL High LDL greater than 189 mg/dL Very high Performed By: #### T SH3 wRFLX, [id number], DIFF CBC, CMP #### [address] Triglyceride w/Reflex 55 mg/dL Normal 0-149 [facility] Comment on above: Result Comment: TRIG ATP III CLASSIFICATION TRIG less than 150 mg/dL Normal TRIG 150-199 mg/dL Borderline high TRIG 200-500 mg/dL High TRIG greater than 500 mg/dL Very high Standard traceable to the Center for Disease Conrtrol and Prevention (CDC) test method. Performed By: #### T SH3 wRFLX, [id number], DIFF CBC, CMP #### [address] VLDL CHOLESTEROL 11 mg/dL Normal [facility] Comment on above: Performed By: #### T SH3 wRFLX, [id number], DIFF CBC, CMP #### [address] Thyroid Stim Hormone w/Rflxo n 01-02-2024 Thyroid Stim Hormone w/Rflx 0.69 u[iU]/mL Normal 0.45-5.33 [facility] Comment on above: Performed By: #### T SH3 wRFLX, [id number], DIFF CBC, CMP #### [address] Vitamin D 25 Hydroxy Totalon 01-02-2024 Vitamin D 25 Hydroxy Total 52.7 ng/mL Normal 30-100 [facility] Comment on above: Result Comment: PARAS MIN D STATUS 25(OH)VITAMIN D RANGE (ng/mL) Deficient <20 Insufficient 20 to <30 Sufficient 30 to 100 Reference: Helen MF,Vaishali NC, Arturo FARRIS, et al. Evaluation,treatment, and prevention of vitamin D deficiency; an Endocrine Society clinical practice guideline. JCEM. 2010; 96(7):1911-30. PERFORMED BY: [place] [address] PATHOLOGIST GANG SUPERVISOR TRINI PINON M.D. Performed By: #### T SH3 wRFLX, [id number], DIFF CBC, CMP #### [place] [address] [place] Alanine aminotransferase [En zymatic activity/volume] in Serum or PlasmaOrdered By: Rosanne Falcon on 07-31-2023 ALT [Catalytic activity/Vol] 14 U/L Normal 7-52 [facility] Comment on above: Order Comment: Reaso n for Exam Hypertension Reason for Exam Vitamin D deficiency, unspecified Performed By: #### T SH3 wRFLX, CBC, LIPID, [id number], CMP #### [facility] [address] [place] [address] [place] Albumin [Mass/volume] in Ser um or Plasma by Bromocresol green (BCG) dye binding methoOrdered By: Rosanne Falcon on 07-31-2023 Albumin BCG dye [Mass/Vol] 3.9 g/dL 3.5-5.7 [facility] Alkaline phosphatase [Enzyma tic activity/volume] in Serum or PlasmaOrdered By: Rosanne Falcon on 07-31-2023 ALP [Catalytic activity/Vol] 82 U/L Normal 34-104 [facility] Comment on above: Order Comment: Reaso n for Exam Hypertension Reason for Exam Vitamin D deficiency, unspecified Performed By: #### T SH3 wRFLX, CBC, LIPID, [id number], CMP #### [facility] [address] [place] [id number] [place] Aspartate aminotransferase [ Enzymatic activity/volume] in Serum or PlasmaOrdered By: Rosanne Falcon on 07-31-2023 AST [Catalytic activity/Vol] 16 U/L Normal 13-39 [facility] Comment on above: Order Comment: Reaso n for Exam Hypertension Reason for Exam Vitamin D deficiency, unspecified Performed By: #### T SH3 wRFLX, CBC, LIPID, [id number], CMP #### [facility] [address] [place] [address] [place] Automated basophil %Ordered By: Rosanne Falcon on 07-31-2023 Basophils/100 WBC (Bld) 0.6 % Normal . [facility] Comment on above: Order Comment: Reaso n for Exam Hypertension Performed By: #### T SH3 wRFLX, CBC, LIPID, [id number], CMP #### [facility] [address] [place] [id number] [place] Automated basophil countOrde red By: Rosanne Falcon on 07-31-2023 Basophils (Bld) [#/Vol] 0.0 10*3/uL Normal 0.0-0.2 [facility] Comment on above: Order Comment: Reaso n for Exam Hypertension Result Comment: PERF ORMED BY: [place] [address] PATHOLOGIST GANG SUPERVISOR TRINI PINON M.D. Performed By: #### T SH3 wRFLX, CBC, LIPID, [id number], CMP #### [facility] [address] [place] [address] Automated blood monocyte cou ntOrdered By: Rosanne Falcon on 07-31-2023 Monocytes (Bld) [#/Vol] 0.3 10*3/uL Normal 0.0-0.8 [facility] Comment on above: Order Comment: Reaso n for Exam Hypertension Performed By: #### T SH3 wRFLX, CBC, LIPID, [id number], CMP #### [facility] [address] [place] [address] Automated eosinophil %Ordere d By: Rosanne Falcon on 07-31-2023 Eosinophils/100 WBC (Bld) 2.6 % Normal . [facility] Comment on above: Order Comment: Reaso n for Exam Hypertension Performed By: #### T SH3 wRFLX, CBC, LIPID, [id number], CMP #### [facility] [address] [place] [address] Automated eosinophil countOr dered By: Rosanne Falcon on 07-31-2023 Eosinophils (Bld) [#/Vol] 0.1 10*3/uL Normal 0.0-0.45 [facility] Comment on above: Order Comment: Reaso n for Exam Hypertension Performed By: #### T SH3 wRFLX, CBC, LIPID, [id number], CMP #### [facility] [address] [place] [address] [place] Automated monocyte %Ordered By: Rosanne Curtisc on 07-31-2023 Monocytes/100 WBC (Bld) 5.8 % Normal . [facility] Comment on above: Order Comment: Reaso n for Exam Hypertension Performed By: #### T SH3 wRFLX, CBC, LIPID, [id number], CMP #### [facility] [address] [place] [id number] [facility] Automated neutrophil %Ordere d By: Rosanne Falcon on 07-31-2023 Neutrophils/100 WBC (Bld) 46.3 % Normal . [facility] Comment on above: Order Comment: Reaso n for Exam Hypertension Performed By: #### T SH3 wRFLX, CBC, LIPID, [id number], CMP #### [facility] [address] [place] [id number] [facility] Bilirubin.total [Mass/volume ] in Serum or PlasmaOrdered By: Rosanne Falcon on 07-31-2023 Bilirubin [Mass/Vol] 0.4 mg/dL Normal 0.3-1.[address] [facility] Comment on above: Order Comment: Reaso n for Exam Hypertension Reason for Exam Vitamin D deficiency, unspecified Performed By: #### T SH3 wRFLX, CBC, LIPID, [id number], CMP #### [facility] [address] [place] [id number] [facility] Calcium [Mass/volume] in Ser um or PlasmaOrdered By: Rosanne Falcon on 07-31-2023 Calcium [Mass/Vol] 9.8 mg/dL Normal 8.6-10.3 [facility] Comment on above: Order Comment: Reaso n for Exam Hypertension Reason for Exam Vitamin D deficiency, unspecified Performed By: #### T SH3 wRFLX, CBC, LIPID, [id number], CMP #### [facility] [address] [place] [id number] [facility] Carbon dioxide, total [Moles /volume] in Serum or PlasmaOrdered By: Rosanne Falcon on 07-31-2023 CO2 [Moles/Vol] 31.7 mmol/L High 21.0-31.0 [facility] Comment on above: Order Comment: Reaso n for Exam Hypertension Reason for Exam Vitamin D deficiency, unspecified Performed By: #### T SH3 wRFLX, CBC, LIPID, [id number], CMP #### [facility] [address] [place] [address] [place] Chloride [Moles/volume] in S l[place] or PlasmaOrdered By: Rosanne Falcon on 07-31-2023 Chloride [Moles/Vol] 103 mmol/L Normal 98-[address] [facility] Comment on above: Order Comment: Reaso n for Exam Hypertension Reason for Exam Vitamin D deficiency, unspecified Performed By: #### T SH3 wRFLX, CBC, LIPID, [id number], CMP #### [facility] [address] [place] [address] [place] Cholesterol [Mass/volume] in Serum or PlasmaOrdered By: Rosanne Falcon on 07-31-2023 Cholesterol [Mass/Vol] 124 mg/dL Low 140-200 [facility] Comment on above: Chol less than 200 [...] By: #### T SH3 wRFLX, CBC, LIPID, [id number], CMP #### [facility] [address] [place] [address] [place] Cholesterol in LDL Calc [Mas s/Vol]Ordered By: Rosanne Falcon on 07-31-2023 Cholesterol in LDL [Mass/Vol] 63 mg/dL 0-100 [facility] Comment on above: LDL ATP III CLASSIFI CATIONLDL less than 100 mg/dL OptimalLDL 100-129 mg/dL Near or above optimalLDL 130-159 mg/dL Borderline highLDL 160-189 mg/dL HighLDL greater than 189 mg/dL Very high Cholesterol in VLDL Calc [Ma ss/Vol]Ordered By: Rosanne Falcon on 07-31-2023 Cholesterol in VLDL [Mass/Vol] 7 mg/dL [facility] Complete Blood Count Auto Di ffon 07-31-2023 Mean Corpuscular HGB Conc 34.3 g/dL Normal 32.0-35.0 [facility] Comment on above: Order Comment: Reaso n for Exam Hypertension Performed By: #### T SH3 wRFLX, CBC, LIPID, [id number], CMP #### [facility] [address] [place] [address] NRBC% 0.2 /100{WBC} Normal 0-0.5 [facility] Comment on above: Order Comment: Reaso n for Exam Hypertension Performed By: #### T SH3 wRFLX, CBC, LIPID, [id number], CMP #### [facility] [address] [place] [address] Comprehensive Metabolic Pane harriet 07-31-2023 Albumin [Mass/Vol] 3.9 g/dL Normal 3.5-5.7 [facility] Comment on above: Order Comment: Reaso n for Exam Hypertension Reason for Exam Vitamin D deficiency, unspecified Performed By: #### T SH3 wRFLX, CBC, LIPID, [id number], CMP #### [address] GFR/1.73 sq M.predicted MDRD (S/P/Bld) [Vol rate/Area] mL/min/{1.73_m2} Normal [facility] Comment on above: Order Comment: Reaso n for Exam Hypertension Reason for Exam Vitamin D deficiency, unspecified Performed By: #### T SH3 wRFLX, CBC, LIPID, [id number], CMP #### [address] Creatinine [Mass/volume] in Serum or PlasmaOrdered By: Rosanne Falcon on 07-31-2023 Creatinine [Mass/Vol] 0.74 mg/dL Normal 0.60-1.[address] [facility] Comment on above: Order Comment: Reaso n for Exam Hypertension Reason for Exam Vitamin D deficiency, unspecified Performed By: #### T SH3 wRFLX, CBC, LIPID, [id number], CMP #### [facility] [address] [place] [address] Erythrocyte distribution wid th [Ratio] by Automated countOrdered By: Rosanne Falcon on 07-31-2023 Erythrocyte distribution width (RBC) [Ratio] 12.9 % Normal 11.9-15.3 [facility] Comment on above: Order Comment: Reaso n for Exam Hypertension Performed By: #### T SH3 wRFLX, CBC, LIPID, [id number], CMP #### [facility] [address] [place] [id number] [place] Erythrocytes [#/volume] in B lood by Automated countOrdered By: Rosanne Falcon on 07-31-2023 RBC (Bld) [#/Vol] 3.75 10*6/uL Normal 3.60-5.00 [facility] Comment on above: Order Comment: Reaso n for Exam Hypertension Performed By: #### T SH3 wRFLX, CBC, LIPID, [id number], CMP #### [facility] [address] [place] [id number] [place] Glucose [Mass/volume] in Ser um or PlasmaOrdered By: Rosanne Falcon on 07-31-2023 Glucose [Mass/Vol] 87 mg/dL Normal 70-100 [facility] Comment on above: ADA recommended refe rence rangeRandom Glucose Reference Range is dependent on time and content of last meal. Glucose of more than 200 mg/dL in a nonstressed, ambulatory subject supports the diagnosis of Diabetes Mellitus. Order Comment: Reaso n for Exam Hypertension Reason for Exam Vitamin D deficiency, unspecified Result Comment: [place] [facility] Glucose Reference Range is dependent on time and content of last meal. Glucose of more than 200 mg/dL in a nonstressed, ambulatory subject supports the diagnosis of Diabetes Mellitus. ADA recommended reference range Performed By: #### T SH3 wRFLX, CBC, LIPID, [id number], CMP #### [facility] [address] [place] [id number] [place] Hematocrit [Volume Fraction] of Blood by Automated countOrdered By: Rosanne Falcon on 07-31-2023 Hematocrit (Bld) [Volume fraction] 36.3 % Normal 34.0-46.4 [facility] Comment on above: Order Comment: Reaso n for Exam Hypertension Performed By: #### T SH3 wRFLX, CBC, LIPID, [id number], CMP #### [facility] [address] [place] [id number] [place] Hemoglobin [Mass/volume] in BloodOrdered By: Rosanne Falcon on 07-31-2023 Hemoglobin (Bld) [Mass/Vol] 12.5 g/dL Normal 11.8-15.4 [facility] Comment on above: Order Comment: Reaso n for Exam Hypertension Performed By: #### T SH3 wRFLX, CBC, LIPID, [id number], CMP #### [facility] [address] Leukocytes [#/volume] correc [place] for nucleated erythrocytes in Blood by Automated counOrdered By: Rosanne Falcon on 07-31-2023 WBC corrected for nucl RBC Auto (Bld) [#/Vol] 4.4 10*3/uL 3.8-11.6 [facility] Leukocytes [#/volume] in Blo od by Automated countOrdered By: Rosanne Falcon on 07-31-2023 WBC (Bld) [#/Vol] 4.4 10*3/uL Normal 3.8-11.6 [facility] Comment on above: Order Comment: Reaso n for Exam Hypertension Performed By: #### T SH3 wRFLX, CBC, LIPID, [id number], CMP #### [facility] [address] [place] [id number] [facility] Lipid Panelon 07-31-2023 LDL Cholesterol,Calculated 63 mg/dL Normal 0-100 [facility] Comment on above: Order Comment: Reaso n for Exam Hypertension Reason for Exam Vitamin D deficiency, unspecified Result Comment: LDL ATP III CLASSIFICATION LDL less than 100 mg/dL Optimal LDL 100-129 mg/dL Near or above optimal LDL 130-159 mg/dL Borderline high LDL 160-189 mg/dL High LDL greater than 189 mg/dL Very high Performed By: #### T SH3 wRFLX, CBC, LIPID, [id number], CMP #### [facility] [address] [place] [id number] [facility] Triglyceride w/Reflex 39 mg/dL Normal 0-149 [facility] Comment on above: Order [...] By: #### T SH3 wRFLX, CBC, LIPID, [id number], CMP #### [facility] [address] VLDL CHOLESTEROL 7 mg/dL Normal [facility] Comment on above: Order Comment: Reaso n for Exam Hypertension Reason for Exam Vitamin D deficiency, unspecified Performed By: #### T SH3 wRFLX, CBC, LIPID, [id number], CMP #### [facility] [address] Lymphocytes [#/volume] in Bl ood by Automated countOrdered By: Rosanne Falcon on 07-31-2023 Lymphocytes (Bld) [#/Vol] 1.9 10*3/uL Normal 1.00-4.8 [facility] Comment on above: Order Comment: Reaso n for Exam Hypertension Performed By: #### T SH3 wRFLX, CBC, LIPID, [id number], CMP #### [address] Lymphocytes/100 leukocytes i n Blood by Automated countOrdered By: Rosanne Falcon on 07-31-2023 Lymphocytes/100 WBC (Bld) 44.7 % Normal . [facility] Comment on above: Order Comment: Reaso n for Exam Hypertension Performed By: #### T SH3 wRFLX, CBC, LIPID, [id number], CMP #### [facility] [address] MCH [Entitic mass] by Automa [place] countOrdered By: Rosanne Falcon on 07-31-2023 MCH (RBC) [Entitic mass] 33.3 pg Normal 24.7-34.3 [facility] Comment on above: Order Comment: Reaso n for Exam Hypertension Performed By: #### T SH3 wRFLX, CBC, LIPID, [id number], CMP #### [address] MCHC Auto (RBC) [Mass/Vol]Or dered By: Rosanne Falcon on 07-31-2023 MCHC (RBC) [Mass/Vol] 34.3 g/dL 32.0-35.[address] [facility] MCV [Entitic volume] by Auto mated countOrdered By: Rosanne Falcon on 07-31-2023 MCV (RBC) [Entitic vol] 96.9 fL Normal 80-100 [facility] Comment on above: Order Comment: Reaso n for Exam Hypertension Performed By: #### T SH3 wRFLX, CBC, LIPID, [id number], CMP #### [facility] [address] Neutrophils [#/volume] in Bl ood by Automated countOrdered By: Rosanne Falcon on 07-31-2023 Neutrophils (Bld) [#/Vol] 2.0 10*3/uL Normal 1.8-7.7 [facility] Comment on above: Order Comment: Reaso n for Exam Hypertension Performed By: #### T SH3 wRFLX, CBC, LIPID, [id number], CMP #### [facility] [address] No Panel InformationOrdered By: Rosanne Falcon on 07-31-2023 Estimated GFR (CKD-EPI) > 60.0 mL/Min [facility] Creatinine Clearance (Chem N/A [facility] Nucleated erythrocytes [Pres ence] in Blood by Automated countOrdered By: Rosanne Falcon on 07-31-2023 Nucleated RBC Auto Ql (Bld) 0.2 /100{WBC} 0-0.5 [facility] Platelet mean volume [Entiti c volume] in Blood by Automated countOrdered By: Rosanne Falcon on 07-31-2023 Platelet mean volume (Bld) [Entitic vol] 8.5 fL Normal 6.3-10.7 [facility] Comment on above: Order Comment: Reaso n for Exam Hypertension Performed By: #### T SH3 wRFLX, CBC, LIPID, [id number], CMP #### [facility] [address] [place] [address] [place] Platelets [#/volume] in Bloo d by Automated countOrdered By: Rosanne Falcon on 07-31-2023 Platelets (Bld) [#/Vol] 228 10*3/uL Normal 150-450 [facility] Comment on above: Order Comment: Reaso n for Exam Hypertension Performed By: #### T SH3 wRFLX, CBC, LIPID, [id number], CMP #### [facility] [address] [place] [id number] [facility] Potassium [Moles/volume] in Serum or PlasmaOrdered By: Rosanne Falcon on 07-31-2023 Potassium [Moles/Vol] 4.2 mmol/L Normal 3.5-5.[address] [facility] Comment on above: Order Comment: Reaso n for Exam Hypertension Reason for Exam Vitamin D deficiency, unspecified Performed By: #### T SH3 wRFLX, CBC, LIPID, [id number], CMP #### [facility] [address] [place] [address] [place] Protein [Mass/volume] in Ser um or PlasmaOrdered By: Rosanne Falcon on 07-31-2023 Protein [Mass/Vol] 6.8 g/dL Normal 6.4-8.9 [facility] Comment on above: Order Comment: Reaso n for Exam Hypertension Reason for Exam Vitamin D deficiency, unspecified Performed By: #### T SH3 wRFLX, CBC, LIPID, [id number], CMP #### [facility] [address] [place] [id number] [facility] Serum globulin measurement b y calculation (mass/volume)Ordered By: Rosanne Falcon on 07-31-2023 Globulin (S) [Mass/Vol] 2.9 g/dL Normal [facility] Comment on above: Order Comment: Reaso n for Exam Hypertension Reason for Exam Vitamin D deficiency, unspecified Performed By: #### T SH3 wRFLX, CBC, LIPID, [id number], CMP #### [facility] [address] [place] [address] [place] Serum or plasma albumin/glob ulin mass ratioOrdered By: Rosanne Falcon on 07-31-2023 Albumin/Globulin [Mass ratio] 1.3 {ratio} Normal [facility] Comment on above: Order Comment: Reaso n for Exam Hypertension Reason for Exam Vitamin D deficiency, unspecified Performed By: #### T SH3 wRFLX, CBC, LIPID, [id number], CMP #### [facility] [address] Serum or plasma anion gap de terminationOrdered By: Rosanne Falocn on 07-31-2023 Anion gap [Moles/Vol] 10.5 mmol/L Normal 6.0-15.0 [facility] Comment on above: Order Comment: Reaso n for Exam Hypertension Reason for Exam Vitamin D deficiency, unspecified Performed By: #### T SH3 wRFLX, CBC, LIPID, [id number], CMP #### [facility] [address] Serum or plasma high density lipoprotein (HDL) cholesterol measurementOrdered By: Rosanne Falcon on 07-31-2023 Cholesterol in HDL [Mass/Vol] 53 mg/dL Normal 23-92 [facility] Comment on above: HDL CHOL ATP-III [...] By: #### T SH3 wRFLX, CBC, LIPID, [id number], CMP #### [facility] [address] Serum or plasma total choles terol/high density lipoprotein (HDL) cholesterol mass ratOrdered By: Rosanne Falcon on 07-31-2023 Cholesterol.total/Choles terol in HDL [Mass ratio] 2.3 {ratio} Normal <5.0 [facility] Comment on above: Order Comment: Reaso n for Exam Hypertension Reason for Exam Vitamin D deficiency, unspecified Performed By: #### T SH3 wRFLX, CBC, LIPID, [id number], CMP #### [facility] [address] Sodium [Moles/volume] in Ser um or PlasmaOrdered By: Rosanne Falcon on 07-31-2023 Sodium [Moles/Vol] 141 mmol/L Normal 136-145 [facility] Comment on above: Order Comment: Reaso n for Exam Hypertension Reason for Exam Vitamin D deficiency, unspecified Performed By: #### T SH3 wRFLX, CBC, LIPID, [id number], CMP #### [facility] [address] Thyroid Stim Hormone w/Rflxo n 07-31-2023 Thyroid Stim Hormone w/Rflx 0.74 u[iU]/mL Normal 0.45-5.33 [facility] Comment on above: Order Comment: Reaso n for Exam Hypertension Reason for Exam Vitamin D deficiency, unspecified Performed By: #### T SH3 wRFLX, CBC, LIPID, [id number], CMP #### [facility] [address] Thyrotropin [Units/volume] i n Serum or PlasmaOrdered By: Rosanne Falcon on 07-31-2023 TSH Qn 0.74 m[IU]/L 0.45-5.33 [facility] Triglyceride [Mass/volume] i n Serum or PlasmaOrdered By: Rosanne Falcon on 07-31-2023 Triglyceride [Mass/Vol] 39 mg/dL 0-149 [facility] Comment on above: TRIG ATP III CLASSIF ICATIONTRIG less than 150 mg/dL NormalTRIG 150-199 mg/dL Borderline highTRIG 200-500 mg/dL High TRIG greater than 500 mg/dL Very highStandard traceable to the Center for Disease Conrtrol and Prevention (CDC) test method. Urea nitrogen [Mass/volume] in Serum or PlasmaOrdered By: Rosanne Falcon on 07-31-2023 Urea nitrogen [Mass/Vol] 17 mg/dL Normal 7-25 [facility] Comment on above: Order Comment: Reaso n for Exam Hypertension Reason for Exam Vitamin D deficiency, unspecified Performed By: #### T SH3 wRFLX, CBC, LIPID, [id number], CMP #### [facility] [address] [place] [id number] [facility] Vitamin D 25 Hydroxy Totalon 07-31-2023 Vitamin D 25 Hydroxy Total 69.7 ng/mL Normal 30-100 [facility] Comment on above: Order [...] practice guideline. JCEM. 2010; 96(7):1911-30. PERFORMED BY: [place] [address] PATHOLOGIST GANG SUPERVISOR TRINI PINON M.D. Performed By: #### T SH3 wRFLX, [id number], DIFF CBC, CMP #### [address] Vitamin D+Metabolites [Mass/ volume] in Serum or PlasmaOrdered By: Rosanne Falcon on 07-31-2023 Vitamin D+Metabolites [Mass/Vol] 69.7 ng/mL 30-100 [facility] Comment on above: VITAMIN D STATUS 25( [place])VITAMIN D RANGE (ng/mL) Deficient <20 Insufficient 20 to <30Sufficient 30 to 100Reference: Vaishali Riddle, Arturo FARRIS, et al. Evaluation,treatment, and prevention of vitamin D deficiency; an Endocrine Society clinical practice guideline. JCEM. 2010; 96(7):1911-30. MM screening mammo BI w/CADo n 04-11-2023 MM screening mammo BI w/CAD [facility] Main [place] [address] [place], [place] [id number] Mammography Report Signed Patient: Radha Patterson MR#: [id number] : 1960 Acct:[id number] Age/Sex: 62 / F ADM Date: 04/11/23 Loc: [place] Room: Type: [facility] Attending Dr: Rosanne ZAFAR Copies to: [facility] CHARISMA Hilton Ordering Provider: CHARISMA Hilton [...] Sisi Smith M.D.04/11/2023 2:22 PM Dictation Location: [facility] Transcribed By: [facility] 04/11/23 1422 Dictated By: Sisi Smith MD 04/11/23 1416 Signed By: 04/11/23 1422 Normal [facility] Superficial Wound Cultureon 01-28-2023 Superficial Wound Culture Reason for Exam Drainage from ear, left Ear, Right No Growth 2 Days PERFORMED BY: [place] [address] PATHOLOGIST GANG SUPERVISOR TRINI PINON M.D. Normal [facility] Comment on above: Performed By: #### C USUP #### [address] Alanine aminotransferase [En zymatic activity/volume] in Serum or PlasmaOrdered By: Rosanne Falcon on 01-16-2023 ALT [Catalytic activity/Vol] 28 U/L Normal [facility] Comment on above: Order Comment: Reaso n for Exam Hypertension Reason for Exam Vitamin D deficiency, unspecified Performed By: #### T SH3 wRFLX, [id number], DIFF CBC, CMP #### [facility] [address] Albumin [Mass/volume] in Ser um or Plasma by Bromocresol green (BCG) dye binding methoOrdered By: Rosanne Falcon on 01-16-2023 Albumin BCG dye [Mass/Vol] 4.3 g/dL 3.5-5.7 [facility] Alkaline phosphatase [Enzyma tic activity/volume] in Serum or PlasmaOrdered By: Rosanne Falcon on 01-16-2023 ALP [Catalytic activity/Vol] 88 U/L Normal 34-104 [facility] Comment on above: Order Comment: Reaso n for Exam Hypertension Reason for Exam Vitamin D deficiency, unspecified Performed By: #### T SH3 wRFLX, [id number], DIFF CBC, CMP #### [facility] [address] [place] [address] [place] Aspartate aminotransferase [ Enzymatic activity/volume] in Serum or PlasmaOrdered By: Rosanne Falcon on 01-16-2023 AST [Catalytic activity/Vol] 19 U/L Normal 13-39 [facility] Comment on above: Order Comment: Reaso n for Exam Hypertension Reason for Exam Vitamin D deficiency, unspecified Performed By: #### T SH3 wRFLX, [id number], DIFF CBC, CMP #### [facility] [address] [place] [address] [place] Basophils Auto (Bld) [#/Vol] Ordered By: Rosanne Falcon on 01-16-2023 Basophils (Bld) [#/Vol] N/A F [facility] Basophils/100 WBC Auto (Bld) Ordered By: Rosanne Falcon on 01-16-2023 Basophils/100 WBC (Bld) N/A F [facility] Basophils/100 leukocytes in Blood by Manual countOrdered By: Rosanne Falcon on 01-16-2023 Basophils/100 WBC (Bld) 3 % High 0-2 F [facility] Comment on above: Order Comment: Reaso n for Exam Hypertension Performed By: #### T SH3 wRFLX, [id number], DIFF CBC, CMP #### [facility] [address] [place] [address] [place] Bilirubin.total [Mass/volume ] in Serum or PlasmaOrdered By: Rosanne Falcon on 01-16-2023 Bilirubin [Mass/Vol] 0.6 mg/dL Normal 0.3-1.[address] [facility] Comment on above: Order Comment: Reaso n for Exam Hypertension Reason for Exam Vitamin D deficiency, unspecified Performed By: #### T SH3 wRFLX, [id number], DIFF CBC, CMP #### [facility] [address] [place] [address] [place] Calcium [Mass/volume] in Ser um or PlasmaOrdered By: Rosanne Falcon on 01-16-2023 Calcium [Mass/Vol] 9.5 mg/dL Normal 8.6-10.3 [facility] Comment on above: Order Comment: Reaso n for Exam Hypertension Reason for Exam Vitamin D deficiency, unspecified Performed By: #### T SH3 wRFLX, [id number], DIFF CBC, CMP #### [facility] [address] [place] [address] [place] Carbon dioxide, total [Moles /volume] in Serum or PlasmaOrdered By: Rosanne Falcon on 01-16-2023 CO2 [Moles/Vol] 27.6 mmol/L Normal 21.0-31.0 [facility] Comment on above: Order Comment: Reaso n for Exam Hypertension Reason for Exam Vitamin D deficiency, unspecified Performed By: #### T SH3 wRFLX, [id number], DIFF CBC, CMP #### [facility] [address] [place] [address] [place] Chloride [Moles/volume] in [place] or PlasmaOrdered By: Rosanne Falcon on 01-16-2023 Chloride [Moles/Vol] 102 mmol/L Normal 98-[address] [facility] Comment on above: Order Comment: Reaso n for Exam Hypertension Reason for Exam Vitamin D deficiency, unspecified Performed By: #### T SH3 wRFLX, [id number], DIFF CBC, CMP #### [facility] [address] [place] [id number] [facility] Comprehensive Metabolic Pane harriet 01-16-2023 Albumin [Mass/Vol] 4.3 g/dL Normal 3.5-5.7 [facility] Comment on above: Order Comment: Reaso n for Exam Hypertension Reason for Exam Vitamin D deficiency, unspecified Performed By: #### T SH3 wRFLX, [id number], DIFF CBC, CMP #### [facility] [address] [place] [id number] [place] GFR/1.73 sq M.predicted MDRD (S/P/Bld) [Vol rate/Area] mL/min/{1.73_m2} Normal [facility] Comment on above: Order Comment: Reaso n for Exam Hypertension Reason for Exam Vitamin D deficiency, unspecified Performed By: #### T SH3 wRFLX, [id number], DIFF CBC, CMP #### [facility] [address] [place] [id number] [facility] Creatinine [Mass/volume] in Serum or PlasmaOrdered By: Rosanne Falcon on 01-16-2023 Creatinine [Mass/Vol] 0.95 mg/dL Normal 0.60-1.[address] [facility] Comment on above: Order Comment: Reaso n for Exam Hypertension Reason for Exam Vitamin D deficiency, unspecified Performed By: #### T SH3 wRFLX, [id number], DIFF CBC, CMP #### [facility] [address] [place] [id number] [place] Diff and CBCon 01-16-2023 Eosinophils % (Auto) Normal . [facility] Comment on above: Order [...] indicated. Performed By: #### T SH3 wRFLX, [id number], DIFF CBC, CMP #### [facility] [address] [place] [id number] [place] Mean Corpuscular HGB Conc 33.9 g/dL Normal 32.0-35.0 [facility] Comment on above: Order Comment: Reaso n for Exam Hypertension Performed By: #### T SH3 wRFLX, [id number], DIFF CBC, CMP #### [facility] [address] [place] [address] [place] Platelet Estimate Normal Normal Normal [facility] Comment on above: Order Comment: Reaso n for Exam Hypertension Performed By: #### T SH3 wRFLX, [id number], DIFF CBC, CMP #### [facility] [address] Platelet Morphology Normal Normal Normal [facility] Comment on above: Order Comment: Reaso n for Exam Hypertension Result Comment: PERF ORMED BY: [place] [address] PATHOLOGIST GANG SUPERVISOR TRINI PINON M.D. Performed By: #### T SH3 wRFLX, [id number], DIFF CBC, CMP #### [facility] [address] Reactive Lymphocytes 3 % Normal 0-12 [facility] Comment on above: Order Comment: Reaso n for Exam Hypertension Performed By: #### T SH3 wRFLX, [id number], DIFF CBC, CMP #### [facility] [address] [place] [id number] [place] Eosinophils Auto (Bld) [#/Vo l]Ordered By: Rosanne Falcon on 01-16-2023 Eosinophils (Bld) [#/Vol] N/A [facility] Eosinophils/100 WBC Auto (Bl d)Ordered By: Rosanne Falcon on 01-16-2023 Eosinophils/100 WBC (Bld) See comment . [facility] Comment on above: Absolute eosinophili a [...] Eosinophils/100 WBC (Bld) 5 % High 1-3 [facility] Comment on above: Order Comment: Reaso n for Exam Hypertension Performed By: #### T SH3 wRFLX, [id number], DIFF CBC, CMP #### [facility] [address] Erythrocyte distribution wid th [Ratio] by Automated countOrdered By: Rosanne Falcon on 01-16-2023 Erythrocyte distribution width (RBC) [Ratio] 13.1 % Normal 11.9-15.3 [facility] Comment on above: Order Comment: Reaso n for Exam Hypertension Performed By: #### T SH3 wRFLX, [id number], DIFF CBC, CMP #### [facility] [address] [place] [address] [place] Erythrocytes [#/volume] in B lood by Automated countOrdered By: Rosanne Falcon on 01-16-2023 RBC (Bld) [#/Vol] 3.82 10*6/uL Normal 3.60-5.00 [facility] Comment on above: Order Comment: Reaso n for Exam Hypertension Performed By: #### T SH3 wRFLX, [id number], DIFF CBC, CMP #### [facility] [address] Glucose [Mass/volume] in Ser um or PlasmaOrdered By: Rosanne Falcon on 01-16-2023 Glucose [Mass/Vol] 93 mg/dL Normal 70-100 [facility] Comment on above: ADA recommended refe rence rangeRandom Glucose Reference Range is dependent on time and content of last meal. Glucose of more than 200 mg/dL in a nonstressed, ambulatory subject supports the diagnosis of Diabetes Mellitus. Order Comment: Reaso n for Exam Hypertension Reason for Exam Vitamin D deficiency, unspecified Result Comment: [place] om Glucose Reference Range is dependent on time and content of last meal. Glucose of more than 200 mg/dL in a nonstressed, ambulatory subject supports the diagnosis of Diabetes Mellitus. ADA recommended reference range Performed By: #### T SH3 wRFLX, [id number], DIFF CBC, CMP #### [facility] [address] Hematocrit [Volume Fraction] of Blood by Automated countOrdered By: Rosanne Falcon on 01-16-2023 Hematocrit (Bld) [Volume fraction] 37.6 % Normal 34.0-46.4 [facility] Comment on above: Order Comment: Reaso n for Exam Hypertension Performed By: #### T SH3 wRFLX, [id number], DIFF CBC, CMP #### [facility] [address] Hemoglobin [Mass/volume] in BloodOrdered By: Rosanne Falcon on 01-16-2023 Hemoglobin (Bld) [Mass/Vol] 12.8 g/dL Normal 11.8-15.4 [facility] Comment on above: Order Comment: Reaso n for Exam Hypertension Performed By: #### T SH3 wRFLX, [id number], DIFF CBC, CMP #### [facility] [address] Leukocytes [#/volume] correc [place] for nucleated erythrocytes in Blood by Automated counOrdered By: Rosanne Falcon on 01-16-2023 WBC corrected for nucl RBC Auto (Bld) [#/Vol] 3.4 10*3/uL 3.8-11.6 [facility] Leukocytes [#/volume] in Blo od by Automated countOrdered By: Rosanne Falcon on 01-16-2023 WBC (Bld) [#/Vol] 3.4 10*3/uL Low 3.8-11.6 [facility] Comment on above: Order Comment: Reaso n for Exam Hypertension Performed By: #### T SH3 wRFLX, [id number], DIFF CBC, CMP #### [facility] [address] [place] [address] [place] Lymphocytes Auto (Bld) [#/Vo l]Ordered By: Rosanne Curtisc on 01-16-2023 Lymphocytes (Bld) [#/Vol] N/A [facility] Lymphocytes/100 WBC Auto (Bl d)Ordered By: Rosanne Curtisc on 01-16-2023 Lymphocytes/100 WBC (Bld) N/A [facility] Lymphocytes/100 leukocytes i n Blood by Manual countOrdered By: Rosanne Falcon on 01-16-2023 Lymphocytes/100 WBC (Bld) 49 % High 18-42 [facility] Comment on above: Order Comment: Reaso n for Exam Hypertension Performed By: #### T SH3 wRFLX, [id number], DIFF CBC, CMP #### [facility] [address] MCH [Entitic mass] by Automa [place] countOrdered By: Rosanne Falcon on 01-16-2023 MCH (RBC) [Entitic mass] 33.4 pg Normal 24.7-34.3 [facility] Comment on above: Order Comment: Reaso n for Exam Hypertension Performed By: #### T SH3 wRFLX, [id number], DIFF CBC, CMP #### [facility] [address] MCHC Auto (RBC) [Mass/Vol]Or dered By: Rosanne Falcon on 01-16-2023 MCHC (RBC) [Mass/Vol] 33.9 g/dL 32.0-35.[address] [facility] MCV [Entitic volume] by Auto mated countOrdered By: Rosanne Falcon on 01-16-2023 MCV (RBC) [Entitic vol] 98.5 fL Normal 80-100 [facility] Comment on above: Order Comment: Reaso n for Exam Hypertension Performed By: #### T SH3 wRFLX, [id number], DIFF CBC, CMP #### [facility] [address] Manual blood segmented neutr ophils/100 leukocytesOrdered By: Rosanne Falcon on 01-16-2023 Segmented neutrophils/100 WBC (Bld) 37 % Low 50-70 [facility] Comment on above: Order Comment: Reaso n for Exam Hypertension Performed By: #### T SH3 wRFLX, [id number], DIFF CBC, CMP #### [facility] [address] Monocytes Auto (Bld) [#/Vol] Ordered By: Rosanne Falcon on 01-16-2023 Monocytes (Bld) [#/Vol] N/A [facility] Monocytes/100 WBC Auto (Bld) Ordered By: oRsanne Falcon on 01-16-2023 Monocytes/100 WBC (Bld) N/A [facility] Monocytes/100 leukocytes in Blood by Manual countOrdered By: Rosanne Falcon on 01-16-2023 Monocytes/100 WBC (Bld) 3 % Normal 2-11 [facility] Comment on above: Order Comment: Reaso n for Exam Hypertension Performed By: #### T SH3 wRFLX, [id number], DIFF CBC, CMP #### [facility] [address] Neutrophils Auto (Bld) [#/Vo l]Ordered By: Rosanne Falcon on 01-16-2023 Neutrophils (Bld) [#/Vol] N/A [facility] Neutrophils/100 WBC Auto (Bl d)Ordered By: Rosanne Falcon on 01-16-2023 Neutrophils/100 WBC (Bld) N/A [facility] No Panel InformationOrdered By: Rosanne Falcon on 01-16-2023 Estimated GFR (CKD-EPI) > 60.0 mL/Min [facility] Creatinine Clearance (Chem N/A [facility] Nucleated erythrocytes [Pres ence] in Blood by Automated countOrdered By: Rosanne Falcon on 01-16-2023 Nucleated RBC Auto Ql (Bld) N/A [facility] Platelet adequacy [Presence] in Blood by Light microscopyOrdered By: Rosanne Falcon on 01-16-2023 Platelets LM Ql (Bld) Normal Normal [facility] Platelet mean volume [Entiti c volume] in Blood by Automated countOrdered By: Rosanne Falcon on 01-16-2023 Platelet mean volume (Bld) [Entitic vol] 8.7 fL Normal 6.3-10.7 [facility] Comment on above: Order Comment: Reaso n for Exam Hypertension Performed By: #### T SH3 wRFLX, [id number], DIFF CBC, CMP #### [facility] [address] [id number] [facility] Platelet morphology finding [Identifier] in BloodOrdered By: Rosanne Falcon on 01-16-2023 Platelet morphology finding Nom (Bld) Normal Normal [facility] Platelets [#/volume] in Bloo d by Automated countOrdered By: Rosanne Falcon on 01-16-2023 Platelets (Bld) [#/Vol] 180 10*3/uL Normal 150-450 [facility] Comment on above: Order Comment: Reaso n for Exam Hypertension Performed By: #### T SH3 wRFLX, [id number], DIFF CBC, CMP #### [facility] [address] [place] [address] [place] Potassium [Moles/volume] in Serum or PlasmaOrdered By: Rosanne Falcon on 01-16-2023 Potassium [Moles/Vol] 4.3 mmol/L Normal 3.5-5.[address] [facility] Comment on above: Order Comment: Reaso n for Exam Hypertension Reason for Exam Vitamin D deficiency, unspecified Performed By: #### T SH3 wRFLX, [id number], DIFF CBC, CMP #### [facility] [address] [id number] [place] Protein [Mass/volume] in Ser um or PlasmaOrdered By: Rosanne Falcon on 01-16-2023 Protein [Mass/Vol] 7.4 g/dL Normal 6.4-8.9 [facility] Comment on above: Order Comment: Reaso n for Exam Hypertension Reason for Exam Vitamin D deficiency, unspecified Performed By: #### T SH3 wRFLX, [id number], DIFF CBC, CMP #### [facility] [address] [place] [address] [place] RBC morphologyOrdered By: Kayleen Falcon on 01-16-2023 RBC morphology finding Nom (Bld) Normal Normal Normal [facility] Comment on above: Order Comment: Reaso n for Exam Hypertension Performed By: #### T SH3 wRFLX, [id number], DIFF CBC, CMP #### [facility] [address] [id number] [place] Serum globulin measurement b y calculation (mass/volume)Ordered By: Rosanne Falcon on 01-16-2023 Globulin (S) [Mass/Vol] 3.1 g/dL Normal [facility] Comment on above: Order Comment: Reaso n for Exam Hypertension Reason for Exam Vitamin D deficiency, unspecified Performed By: #### T SH3 wRFLX, [id number], DIFF CBC, CMP #### [facility] [address] Serum or plasma albumin/glob ulin mass ratioOrdered By: Rosanne Falcon on 01-16-2023 Albumin/Globulin [Mass ratio] 1.4 {ratio} Normal [facility] Comment on above: Order Comment: Reaso n for Exam Hypertension Reason for Exam Vitamin D deficiency, unspecified Performed By: #### T SH3 wRFLX, [id number], DIFF CBC, CMP #### [facility] [address] Serum or plasma anion gap de terminationOrdered By: Rosanne Falcon on 01-16-2023 Anion gap [Moles/Vol] 11.7 mmol/L Normal 6.0-15.0 [facility] Comment on above: Order Comment: Reaso n for Exam Hypertension Reason for Exam Vitamin D deficiency, unspecified Performed By: #### T SH3 wRFLX, [id number], DIFF CBC, CMP #### [facility] [address] [place] [address] Sodium [Moles/volume] in Ser um or PlasmaOrdered By: Rosanne Falcon on 01-16-2023 Sodium [Moles/Vol] 137 mmol/L Normal 136-145 [facility] Comment on above: Order Comment: Reaso n for Exam Hypertension Reason for Exam Vitamin D deficiency, unspecified Performed By: #### T SH3 wRFLX, [id number], DIFF CBC, CMP #### [facility] [address] Thyroid Stim Hormone w/Rflxo n 01-16-2023 Thyroid Stim Hormone w/Rflx 3.01 u[iU]/mL Normal 0.45-5.33 [facility] Comment on above: Order Comment: Reaso n for Exam Hypertension Reason for Exam Vitamin D deficiency, unspecified Performed By: #### T SH3 wRFLX, [id number], DIFF CBC, CMP #### [facility] [address] [id number] [facility] Thyrotropin [Units/volume] i n Serum or PlasmaOrdered By: Rosanne Falcon on 01-16-2023 TSH Qn 3.01 m[IU]/L 0.45-5.33 [facility] Urea nitrogen [Mass/volume] in Serum or PlasmaOrdered By: Rosanne Falcon on 01-16-2023 Urea nitrogen [Mass/Vol] 12 mg/dL Normal 7-25 [facility] Comment on above: Order Comment: Reaso n for Exam Hypertension Reason for Exam Vitamin D deficiency, unspecified Performed By: #### T SH3 wRFLX, [id number], DIFF CBC, CMP #### [facility] [address] [place] [address] [place] Variant lymphocytes/100 WBC Manual cnt (Bld)Ordered By: Rosanne Falcon on 01-16-2023 Variant lymphocytes/100 WBC (Bld) 3 % 0-12 [facility] Vitamin D 25 Hydroxy Totalon 01-16-2023 Vitamin D 25 Hydroxy Total 32.5 ng/mL Normal 30-100 [facility] Comment on above: Order [...] practice guideline. JCEM. 2010; 96(7):1911-30. PERFORMED BY: [place] [address] PATHOLOGIST [employer]PER[employer] TRINI PINON M.D. Performed By: #### T SH3 wRFLX, [id number], DIFF CBC, CMP #### [facility] [address] [id number] [facility] Vitamin D+Metabolites [Mass/ volume] in Serum or PlasmaOrdered By: Rosanne Falcon on 01-16-2023 Vitamin D+Metabolites [Mass/Vol] 32.5 ng/mL 30-100 [facility] Comment on above: VITAMIN D STATUS 25( [place])VITAMIN D RANGE (ng/mL) Deficient <20 Insufficient 20 to <30Sufficient 30 to 100Reference: Helen MF,Vaishali NC, Arturo FARRIS, et al. Evaluation,treatment, and prevention of vitamin D deficiency; an Endocrine Society clinical practice guideline. JCEM. 2010; 96(7):1911-30. Albumin [Mass/volume] in Ser um or PlasmaOrdered By: Rosanne Falcon on 05-14-2022 Albumin [Mass/Vol] 3.8 g/dL 3.2-5.5 [facility] Basophils Auto (Bld) [#/Vol] Ordered By: Rosanne Falcon on 05-14-2022 Basophils (Bld) [#/Vol] 0.0 10*3/uL 0.0-0.2 [facility] Basophils/100 WBC Auto (Bld) Ordered By: Rosanne Falcon on 05-14-2022 Basophils/100 WBC (Bld) 0.8 % . F [facility] CT biopsyOrdered By: Rosanne moore on 05-14-2022 Transferrin [Mass/Vol] 216 mg/dL 180-380 [facility] Creatinine and Glomerular fi ltration rate.predicted panel (S/P/Bld)Ordered By: Rosanne Falcon on 05-14-2022 Creatinine [Mass/Vol] 0.82 mg/dL 0.44-1.[address] [facility] Eosinophils Auto (Bld) [#/Vo l]Ordered By: Rosanne Falcon on 05-14-2022 Eosinophils (Bld) [#/Vol] 0.2 10*3/uL 0.0-0.45 [facility] Eosinophils/100 WBC Auto (Bl d)Ordered By: Rosanne Falcon on 05-14-2022 Eosinophils/100 WBC (Bld) 4.0 % . [facility] Erythrocyte distribution wid th Auto (RBC) [Ratio]Ordered By: Rosanne Falcon on 05-14-2022 Erythrocyte distribution width (RBC) [Ratio] 12.9 % 11.9-15.3 [facility] Estimated glomerular filtrat ion rate (GFR) non- AmericanOrdered By: Rosanne Falcon on 05-14-2022 GFR/1.73 sq M.predicted among non-blacks MDRD (S/P/Bld) [Vol rate/Area] > 60 mL/Min [facility] Globulin Calc (S) [Mass/Vol] Ordered By: Rosanne Falcon on 05-14-2022 Globulin (S) [Mass/Vol] 3.4 g/dL F [facility] Hematocrit Auto (Bld) [Volum e fraction]Ordered By: Rosanne Falcon on 05-14-2022 Hematocrit (Bld) [Volume fraction] 37.1 % 34.0-46.4 [facility] Hemoglobin [Mass/volume] in BloodOrdered By: Rosanne Falcon on 05-14-2022 Hemoglobin (Bld) [Mass/Vol] 12.5 g/dL 11.8-15.4 [facility] Iron [Mass/volume] in Serum or PlasmaOrdered By: Rosanne Falcon on 05-14-2022 Iron [Mass/Vol] 79 ug/dL 40-150 [facility] Iron binding capacity [Mass/ volume] in Serum or PlasmaOrdered By: Rosanne Falcon on 05-14-2022 Iron binding capacity [Mass/Vol] 302 ug/dL 255-450 [facility] Iron saturation [Mass Fracti on] in Serum or PlasmaOrdered By: Rosanne Falcon on 05-14-2022 Iron saturation [Mass fraction] 26.2 % 20-50 [facility] Leukocytes [#/volume] correc [place] for nucleated erythrocytes in Blood by Automated counOrdered By: Rosanne Falcon on 05-14-2022 WBC corrected for nucl RBC Auto (Bld) [#/Vol] 4.4 10*3/uL 3.8-11.6 [facility] Lymphocytes Auto (Bld) [#/Vo l]Ordered By: Rosanne Falcon on 05-14-2022 Lymphocytes (Bld) [#/Vol] 2.2 10*3/uL 1.00-4.8 [facility] Lymphocytes/100 WBC Auto (Bl d)Ordered By: Rosanne Falcon on 05-14-2022 Lymphocytes/100 WBC (Bld) 49.3 % . [facility] MCH Auto (RBC) [Entitic mass ]Ordered By: Rosanne Falcon on 05-14-2022 MCH (RBC) [Entitic mass] 33.0 pg 24.7-34.3 [facility] MCHC Auto (RBC) [Mass/Vol]Or dered By: Rosanne Falcon on 05-14-2022 MCHC (RBC) [Mass/Vol] 33.6 g/dL 32.0-35.0 [facility] MCV Auto (RBC) [Entitic vol] Ordered By: Rosanne Falcon on 05-14-2022 MCV (RBC) [Entitic vol] 98.2 fL 80-100 F [facility] Monocytes Auto (Bld) [#/Vol] Ordered By: Rosanne Falcon on 05-14-2022 Monocytes (Bld) [#/Vol] 0.3 10*3/uL 0.0-0.8 [facility] Monocytes/100 WBC Auto (Bld) Ordered By: Rosanne Falcon on 05-14-2022 Monocytes/100 WBC (Bld) 7.0 % . F [facility] Neutrophils Auto (Bld) [#/Vo l]Ordered By: Rosanne Falcon on 05-14-2022 Neutrophils (Bld) [#/Vol] 1.7 10*3/uL 1.8-7.7 [facility] Neutrophils/100 WBC Auto (Bl d)Ordered By: Rosanne Falcon on 05-14-2022 Neutrophils/100 WBC (Bld) 38.9 % . [facility] No Panel InformationOrdered By: Rosanne Falcon on 05-14-2022 25-Hydroxy Vitamin D Total 74.8 ng/mL 30-100 [facility] Comment on above: VITAMIN D STATUS 25( [place])VITAMIN D RANGE (ng/mL) Deficient <20 Insufficient 20 to <30Sufficient 30 to 100Reference: Helen MF,Vaishali GRIGGS, Arturo FARRIS, et al. Evaluation,treatment, and prevention of vitamin D deficiency; an Endocrine Society clinical practice guideline. JCEM. 2010; 96(7):1911-30. Estimated GFR () > 60 mL/Min [facility] Comment on above: GFR estimated refere nce range: According to KDOQI guidelines, <60 ml/min/1.73m2 is sufficient to diagnose a patient with chronic kidney disease. Pharmacy Creatinine Clearance (Chem N/A [facility] Nucleated erythrocytes [Pres ence] in Blood by Automated countOrdered By: Rosanne Falcon on 05-14-2022 Nucleated RBC Auto Ql (Bld) 0.1 /100{WBC} 0-0.5 [facility] Platelet mean volume Auto (B ld) [Entitic vol]Ordered By: Rosanne Falcon on 05-14-2022 Platelet mean volume (Bld) [Entitic vol] 8.2 fL 6.3-10.7 [facility] Platelets Auto (Bld) [#/Vol] Ordered By: Rosanne Falcon on 05-14-2022 Platelets (Bld) [#/Vol] 231 10*3/uL 150-450 [facility] Protein [Mass/volume] in Ser um or PlasmaOrdered By: Rosanne Falcon on 05-14-2022 Protein [Mass/Vol] 7.2 g/dL 6.1-7.9 [facility] RBC Auto (Bld) [#/Vol]Ordere d By: Rosanne Falcon on 05-14-2022 RBC (Bld) [#/Vol] 3.78 10*6/uL 3.60-5.00 [facility] Serum or plasma alanine andersen otransferase measurement without P-5'-P (enzymatic activiOrdered By: Rosanne Falcon on 05-14-2022 ALT No additional P-5'-P [Catalytic activity/Vol] 15 U/L 10-60 [facility] Serum or plasma albumin/glob ulin mass ratioOrdered By: Rosanne Falcon on 05-14-2022 Albumin/Globulin [Mass ratio] 1.1 {ratio} [facility] Serum or plasma alkaline lori sphatase measurement (enzymatic activity/volume)Ordered By: Rosanne Falcon on 05-14-2022 ALP [Catalytic activity/Vol] 78 U/L 32-92 [facility] Serum or plasma anion gap de terminationOrdered By: Rosanne Falcon on 05-14-2022 Anion gap [Moles/Vol] 10.6 mmol/L 6.0-15.0 [facility] Serum or plasma aspartate am inotransferase measurement (enzymatic activity/volume)Ordered By: Rosanne Falcon on 05-14-2022 AST [Catalytic activity/Vol] 19 U/L 10-42 [facility] Serum or plasma calcium tristian urement (mass/volume)Ordered By: Rosanne Falcon on 05-14-2022 Calcium [Mass/Vol] 9.9 mg/dL 8.2-10.2 [facility] Serum or plasma chloride ceferino surement (moles/volume)Ordered By: Rosanne Falcon on 05-14-2022 Chloride [Moles/Vol] 101 mmol/L 95-[address] [facility] Serum or plasma glucose tristian urement (mass/volume)Ordered By: Rosanne Falcon on 05-14-2022 Glucose [Mass/Vol] 74 mg/dL 70-100 [facility] Comment on above: ADA recommended refe rence rangeRandom Glucose Reference Range is dependent on time and content of last meal. Glucose of more than 200 mg/dL in a nonstressed, ambulatory subject supports the diagnosis of Diabetes Mellitus. Serum or plasma potassium me asurement (moles/volume)Ordered By: Rosanne Falcon on 05-14-2022 Potassium [Moles/Vol] 3.7 mmol/L 3.5-5.[address] [facility] Serum or plasma sodium measu rement (moles/volume)Ordered By: Rosanne Falcon on 05-14-2022 Sodium [Moles/Vol] 138 mmol/L 136-146 [facility] Serum or plasma total biliru bin measurement (mass/volume)Ordered By: Rosanne Falcon on 05-14-2022 Bilirubin [Mass/Vol] 0.5 mg/dL 0.3-1.[address] [facility] Serum or plasma total carbon dioxide measurement (moles/volume)Ordered By: Rosanne Falcon on 05-14-2022 CO2 [Moles/Vol] 30.1 mmol/L 22.0-30.0 [facility] Serum or plasma urea nitroge n measurement (mass/volume)Ordered By: Rosanne Falcon on 05-14-2022 Urea nitrogen [Mass/Vol] 12 mg/dL 9-23 [facility] WBC Auto (Bld) [#/Vol]Ordere d By: Rosanne Falcon on 05-14-2022 WBC (Bld) [#/Vol] 4.4 10*3/uL 3.8-11.6 [facility] Amphetamine Screen Ql (U)Ord ered By: Philip Taveras on 01-09-2022 Amphetamines Ql (U) Negative Negative [facility] Barbiturates [Presence] in U rineOrdered By: Philip Taveras on 01-09-2022 Barbiturates Ql (U) Negative Negative [facility] Benzodiazepines [Presence] i n UrineOrdered By: Philip Taveras on 01-09-2022 Benzodiazepines Ql (U) Negative Negative [facility] Cannabinoids [Presence] in U rine by Screen methodOrdered By: Philip Taveras on 01-09-2022 Cannabinoids Screen Ql (U) Positive Negative [facility] Comment on above: These are unconfirme d results and should not be used for legal purposes. Drug Cut-Off Concentration: AMPH 1000 ng/mL PATRICE 200 ng/mL BRUNO 200 ng/mL COCM 300 ng/mL OP 300 ng/mL PCP 25 ng/mL THC 20 ng/mL Laboratory - Drug toxicology Ordered By: Philip Taveras on 01-09-2022 Opiates Ql (U) Negative Negative [facility] Phencyclidine Screen Ql (U)O rdered By: Philip Taveras on 01-09-2022 Phencyclidine Ql (U) Negative Negative [facility] Urine cocaine detectionOrder ed By: Philip Taveras on 01-09-2022 Cocaine Ql (U) Positive Negative [facility] COVID-19 SOFIAOrdered By: Kayleen Taveras on 01-07-2022 SARS-CoV+SARS-CoV-2 (COVID-19) Ag IA.rapid Ql (Resp) Negative Negative [facility] Comment on above: This is a duplicate Joy SARS Antigen (CHRISTINA) result to be used for statistical tracking purpose only. No Panel InformationOrdered By: Philip Taveras on 01-07-2022 SARS Antigen (LFIA) [facility] COVID-19 Positive/NegativeOr dered By: Philip Taveras on 12-04-2021 SARS-CoV-2 (COVID-19) N gene RICKY+probe Ql (Resp) Negative Negative [facility] Comment on above: Testing for SARS-CoV -2 by RT-PCR This test was developed and its performance characteristics determined by [employer] ([employer]) and validated at the [facility]. This test has not been FDA [...] developed and its performance characteristics determined by [employer] (BD) and validated at the [facility]. This test has not been FDA [...] on 10-26-2021 Albumin [Mass/Vol] 3.7 g/dL 3.2-5.5 [facility] Basophils Auto (Bld) [#/Vol] Ordered By: Rosanne Falcon on 10-26-2021 Basophils (Bld) [#/Vol] 0.0 10*3/uL 0.0-0.2 [facility] Basophils/100 WBC Auto (Bld) Ordered By: Rosanne Falcon on 10-26-2021 Basophils/100 WBC (Bld) 0.6 % . F [facility] Blood acanthocytes detection by light microscopyOrdered By: Rosanne Falcon on 10-26-2021 Acanthocytes LM Ql (Bld) Few [facility] Blood hemoglobin measurement (mass/volume)Ordered By: Rosanne Falcon on 10-26-2021 Hemoglobin (Bld) [Mass/Vol] 13.5 g/dL 11.8-15.4 [facility] Blood leukocytes automated c ount (number/volume)Ordered By: Rosanne Falcon on 10-26-2021 WBC (Bld) [#/Vol] 4.4 10*3/uL 4.5-11.[address] [facility] [address] biopsyOrdered By: Rosanne moore on 10-26-2021 Transferrin [Mass/Vol] 234 mg/dL 180-380 [facility] Cholesterol [Mass/volume] in Serum or PlasmaOrdered By: Rosanne Falcon on 10-26-2021 Cholesterol [Mass/Vol] 152 mg/dL 140-200 [facility] Comment on above: Chol less than 200 m g/dl low risk Chol 201-239 mg/dl borderline risk Chol 240 mg/dl and greater high risk Chol less than 200 m g/dl low riskChol 201-239 mg/dl borderline riskChol 240 mg/dl and greater high risk Cholesterol in LDL Calc [Mas s/Vol]Ordered By: Rosanne Falcon on 10-26-2021 Cholesterol in LDL [Mass/Vol] 73 mg/dL 0-100 [facility] Comment on above: LDL ATP III [...] 10-26-2021 Cholesterol in VLDL [Mass/Vol] 8 mg/dL [facility] Creatine kinase [Enzymatic a ctivity/volume] in Serum or PlasmaOrdered By: Rosanne Falcon on 10-26-2021 CK [Catalytic activity/Vol] 111 U/L 22 [facility] Creatinine and Glomerular fi ltration rate.predicted panel (S/P/Bld)Ordered By: Rosanne Falcon on 10-26-2021 Creatinine [Mass/Vol] 0.86 mg/dL 0.44-1.[address] [facility] Eosinophils Auto (Bld) [#/Vo l]Ordered By: Rosanne Falcon on 10-26-2021 Eosinophils (Bld) [#/Vol] 0.2 10*3/uL 0.0-0.45 [facility] Eosinophils/100 WBC Auto (Bl d)Ordered By: Rosanne Falcon on 10-26-2021 Eosinophils/100 WBC (Bld) 3.7 % . [facility] Erythrocyte distribution wid th Auto (RBC) [Ratio]Ordered By: Rosanne Falcon on 10-26-2021 Erythrocyte distribution width (RBC) [Ratio] 13.1 % 11.9-15.3 [facility] Estimated glomerular filtrat ion rate (GFR) non- AmericanOrdered By: Rosanne Falcon on 10-26-2021 GFR/1.73 sq M.predicted among non-blacks MDRD (S/P/Bld) [Vol rate/Area] > 60 mL/Min [facility] Globulin Calc (S) [Mass/Vol] Ordered By: Rosanne Falcon on 10-26-2021 Globulin (S) [Mass/Vol] 3.0 g/dL F [facility] Glucose mean value [Mass/vol ume] in Blood Estimated from glycated hemoglobinOrdered By: Rosanne Falcon on 10-26-2021 Average glucose Estimated from glycated hemoglobin (Bld) [Mass/Vol] 105 mg/dL [facility] HIV 1 and HIV-2 antibody ass ay with HIV-1 p24 antigen detectionOrdered By: Rosanne Falcon on 10-26-2021 HIV 1+2 Ab+HIV1 p24 Ag IA Ql Non-Reactive Non Reactive [facility] Comment on above: HIV Negative HIV-1/HIV-2 antibodies and HIV-1 p24 antigen were NOT detected. There is no laboratory evidence of HIV infection. Performed at: [facility] [place] [address] Medical Secretary Teacher: Lopez Mcwilliams PhD, Phone: [phone] HIV NegativeHIV-1/HI V-2 antibodies and HIV-1 p24 antigen were NOTdetected. There is no laboratory evidence of HIV infection.Performed at: [facility] [address] [id number] Director: Lopez Mcwilliams PhD, Phone: [phone] Hematocrit Auto (Bld) [Volum e fraction]Ordered By: Rosanne Falcon on 10-26-2021 Hematocrit (Bld) [Volume fraction] 39.8 % 34.0-46.4 [facility] Hemoglobin A1c percentageOrd ered By: Rosanne Falcon on 10-26-2021 HbA1c (Bld) [Mass fraction] 5.3 % 4.3-5.6 [facility] Comment on above: Increased risk for d iabetes: 5.7 - 6.4 diabetes: >6.4 glycemic control for adults with diabetes: <7.0 Increased risk for d iabetes: 5.7 - 6.4diabetes: >6.4glycemic control for adults with diabetes: <7.0 Hepatitis B virus surface Ag [Presence] in Serum or Plasma by ImmunoassayOrdered By: Rosanne Falcon on 10-26-2021 HBV surface Ag IA Ql Negative Negative [facility] Hepatitis C virus RNA [Units /volume] (viral load) in Serum or Plasma by RICKY with probOrdered By: Rosanne Falcon on 10-26-2021 HCV RNA RICKY+probe Qn N/A [facility] Hepatitis C virus RNA [log u nits/volume] (viral load) in Serum or Plasma by RICKY withOrdered By: Rosanne Falcon on 10-26-2021 HCV RNA RICKY+probe [Log units/Vol] N/A [facility] Iron [Mass/volume] in Serum or PlasmaOrdered By: Rosanne Falcon on 10-26-2021 Iron [Mass/Vol] 63 ug/dL 40-150 [facility] Iron binding capacity [Mass/ volume] in Serum or PlasmaOrdered By: Rosanne Falcon on 10-26-2021 Iron binding capacity [Mass/Vol] 328 ug/dL 255-450 [facility] Iron saturation [Mass Fracti on] in Serum or PlasmaOrdered By: Rosanne Falcon on 10-26-2021 Iron saturation [Mass fraction] 19.0 % 20-50 [facility] Laboratory - Hematology and Cell countsOrdered By: Rosanne Falcon on 10-26-2021 Nucleated RBC/100 WBC (Bld) [Ratio] 0.2 % 0-0.5 [facility] Lymphocytes Auto (Bld) [#/Vo l]Ordered By: Rosanne Falcon on 10-26-2021 Lymphocytes (Bld) [#/Vol] 3.0 10*3/uL 1.00-4.8 [facility] Lymphocytes/100 WBC Auto (Bl d)Ordered By: Rosanne Falcon on 10-26-2021 Lymphocytes/100 WBC (Bld) 66.6 % . [facility] MCH Auto (RBC) [Entitic mass ]Ordered By: Rosanne Falcon on 10-26-2021 MCH (RBC) [Entitic mass] 33.6 pg 24.7-34.3 [facility] MCHC Auto (RBC) [Mass/Vol]Or dered By: Rosanne Falcon on 10-26-2021 MCHC (RBC) [Mass/Vol] 34.0 g/dL 32.0-35.[address] [facility] MCV Auto (RBC) [Entitic vol] Ordered By: Rosanne Falcon on 10-26-2021 MCV (RBC) [Entitic vol] 98.8 fL 80-100 F [facility] Monocytes Auto (Bld) [#/Vol] Ordered By: Rosanne Falcon on 10-26-2021 Monocytes (Bld) [#/Vol] 0.2 10*3/uL 0.0-0.8 [facility] Monocytes/100 WBC Auto (Bld) Ordered By: Rosanne Falcon on 10-26-2021 Monocytes/100 WBC (Bld) 4.6 % . F [facility] Neutrophils Auto (Bld) [#/Vo l]Ordered By: Rosanne Falcon on 10-26-2021 Neutrophils (Bld) [#/Vol] 1.1 10*3/uL 1.8-7.7 [facility] Neutrophils/100 WBC Auto (Bl d)Ordered By: Rosanne Falcon on 10-26-2021 Neutrophils/100 WBC (Bld) 24.5 % . [facility] No Panel InformationOrdered By: Rosanne Falcon on 10-26-2021 25-Hydroxy Vitamin D Total 58.9 ng/mL 30-100 [facility] Comment on above: VITAMIN D STATUS [...] 96(7):1911-30. Estimated GFR () > 60 mL/Min [facility] Comment on above: GFR estimated refere nce range: According to KDOQI guidelines, <60 ml/min/1.73m2 is sufficient to diagnose a patient with chronic kidney disease. Hepatitis A IgM Antibody Negative Negative [facility] Hepatitis B Core IgM Antibody Negative Negative [facility] Hepatitis C Interpretation See comment . [facility] Comment on above: Negative Not infected with HCV, unless recent infection is suspected or other evidence exists to indicate HCV infection. Performed at: [facility] [id number] Medical Secretary Teacher: Lopez Mcwilliams PhD, Phone: [phone] NegativeNot infected with HCV, unless recent infection issuspected or other evidence exists to indicate HCVinfection.Performed at: [facility] [id number] Director: Lopez Mcwilliams PhD, Phone: [phone] Hepatitis C RNA Quantitative N/A [facility] Creatinine Clearance (Chem N/A [facility] Platelet Estimate Normal Normal [facility] Platelet Morphology Comment Normal Normal [facility] Platelet mean volume Auto (B ld) [Entitic vol]Ordered By: Rosanne Falcon on 10-26-2021 Platelet mean volume (Bld) [Entitic vol] 8.6 fL 6.3-10.7 [facility] Platelets Auto (Bld) [#/Vol] Ordered By: Rosanne Falcon on 10-26-2021 Platelets (Bld) [#/Vol] 230 10*3/uL 150-450 [facility] Protein [Mass/volume] in Ser um or PlasmaOrdered By: Rosanne Falcon on 10-26-2021 Protein [Mass/Vol] 6.7 g/dL 6.1-7.9 [facility] RBC Auto (Bld) [#/Vol]Ordere d By: Rosanne Falcon on 10-26-2021 RBC (Bld) [#/Vol] 4.03 10*6/uL 3.60-5.00 [facility] RBC morphologyOrdered By: Kayleen Falcon on 07-22-2022 RBC morphology finding Nom (Bld) Normal [facility] Serum or plasma C reactive p rotein measurement (mass/volume)Ordered By: Rosanne Falcon on 10-26-2021 CRP [Mass/Vol] 0.6 mg/dL 0.0-1.0 [facility] Serum or plasma alanine andersen otransferase measurement without P-5'-P (enzymatic activiOrdered By: Rosanne Falcon on 10-26-2021 ALT No additional P-5'-P [Catalytic activity/Vol] 15 U/L 10-60 [facility] Serum or plasma albumin/glob ulin mass ratioOrdered By: Rosanne Falcon on 10-26-2021 Albumin/Globulin [Mass ratio] 1.2 {ratio} [facility] Serum or plasma alkaline lori sphatase measurement (enzymatic activity/volume)Ordered By: Rosanne Falcon on 10-26-2021 ALP [Catalytic activity/Vol] 63 U/L 32-92 [facility] Serum or plasma aspartate am inotransferase measurement (enzymatic activity/volume)Ordered By: Rosanne Falcon on 10-26-2021 AST [Catalytic activity/Vol] 18 U/L 10-42 [facility] Serum or plasma calcium tristian urement (mass/volume)Ordered By: Rosanne Falcon on 10-26-2021 Calcium [Mass/Vol] 10.2 mg/dL 8.2-10.2 [facility] Serum or plasma chloride ceferino surement (moles/volume)Ordered By: Rosanne Falcon on 10-26-2021 Chloride [Moles/Vol] 100 mmol/L 95-[address] [facility] Serum or plasma glucose tristian urement (mass/volume)Ordered By: Rosanne Falcon on 10-26-2021 Glucose [Mass/Vol] 103 mg/dL 70-100 [facility] Comment on above: ADA recommended refe rence [...] IA [Rel units/Vol] <0.1 s/co ratio 0.0-0.9 [facility] Serum or plasma high density lipoprotein (HDL) cholesterol measurementOrdered By: Rosanne Falcon on 10-26-2021 Cholesterol in HDL [Mass/Vol] 71 mg/dL 35-85 [facility] Comment on above: HDL CHOL ATP-III CLA SSIFICATION Cardiovascular Risk HDL > or equal to 60 mg/dL LOW HDL < 40 mg/dL HIGH HDL CHOL ATP-III CLA SSIFICATION Cardiovascular RiskHDL > or equal to 60 mg/dL LOWHDL < 40 mg/dL HIGH Serum or plasma potassium me asurement (moles/volume)Ordered By: Rosanne Falcon on 10-26-2021 Potassium [Moles/Vol] 3.9 mmol/L 3.5-5.[address] [facility] Serum or plasma prealbumin m easurement (mass/volume)Ordered By: Rosanne Falcon on 10-26-2021 Prealbumin [Mass/Vol] 20.0 mg/dL 18.0-38.[address] [facility] Serum or plasma sodium measu rement (moles/volume)Ordered By: Rosanne Falcon on 10-26-2021 Sodium [Moles/Vol] 138 mmol/L 136-146 [facility] Serum or plasma total biliru bin measurement (mass/volume)Ordered By: Rosanne Falcon on 10-26-2021 Bilirubin [Mass/Vol] 0.8 mg/dL 0.3-1.[address] [facility] Serum or plasma total carbon dioxide measurement (moles/volume)Ordered By: Rosanne Falcon on 10-26-2021 CO2 [Moles/Vol] 28.0 mmol/L 22.0-30.0 [facility] Serum or plasma total choles terol/high density lipoprotein (HDL) cholesterol mass ratOrdered By: Rosanne Falcon on 10-26-2021 Cholesterol.total/Choles terol in HDL [Mass ratio] 2.1 {ratio} <5.0 [facility] Serum or plasma urea nitroge n measurement (mass/volume)Ordered By: Rosanne Falcon on 10-26-2021 Urea nitrogen [Mass/Vol] 13 mg/dL 9- [facility] TSH DL <= 0.005 mIU/L QnOrde red By: Rosanne Falcon on 10-26-2021 TSH Qn 1.12 m[IU]/L 0.45-5.33 [facility] Thyroxine (T4) free [Mass/vo lume] in Serum or PlasmaOrdered By: Rosanne Falcon on 10-26-2021 Free T4 [Mass/Vol] 1.06 ng/dL 0.61-1.12 [facility] Triglyceride [Mass/volume] i n Serum or PlasmaOrdered By: Rosanne Falcon on 10-26-2021 Triglyceride [Mass/Vol] 42 mg/dL 35-149 [facility] Comment on above: TRIG ATP III [...] Bacteria identified Cx Nom (U) Escherichia coli [facility] Amphetamine Screen Ql (U)Ord ered By: Rosanne Falcon on 10-23-2021 Amphetamines Ql (U) Negative Negative [facility] Barbiturates [Presence] in U rineOrdered By: Rosanne Falcon on 10-23-2021 Barbiturates Ql (U) Negative Negative [facility] Benzodiazepines [Presence] i n UrineOrdered By: Rosanne Falcon on 10-23-2021 Benzodiazepines Ql (U) Negative [facility] Cannabinoids [Presence] in U rine by Screen methodOrdered By: Rosanne Falcon on 10-23-2021 Cannabinoids Screen Ql (U) Positive Negative [facility] Comment on above: These are unconfirme [...] on 10-23-2021 Opiates Ql (U) Negative Negative [facility] Phencyclidine Screen Ql (U)O rdered By: Rosanne Falcon on 10-23-2021 Phencyclidine Ql (U) Negative Negative [facility] Urine cocaine detectionOrder ed By: Rosanne Falcon on 10-23-2021 Cocaine Ql (U) Positive Negative [facility] CNOVSPon 04-17-2021 CNOVSP Visit (SP) Office ([place]) RADHA PATTERSON ([id number]) 1960 F Date Time Provider Department 04/17/21 11:00 AM MARCELLO GONZALEZ During your visit today, we recorded the following information about you: Temperature Pulse Respiration Blood pressure 97.2 degrees 73/minute 16/minute 115/83 Weight Height 61.1 kg 1.729 m Marcello Gonzalez MD 04/17/2021 11:43 AM Signed PATIENT NAME: Radha Patterson CLINIC NO.: [id number] ATTENDING PHYSICIAN: Marcello Gonzalez MD DATE OF SERVICE: April 17, 2021 Deadeya Falcon, [facility] thank you for referring Miss Radha Patterson [...] lipid w (more content not included)... Normal [facility] Vital Signs Date Time Vital Sign Value Performing Clinician Faci lity 01-09-2022 12:59-0400 Body height 175.26 cm Services [facility] Work Phone: [facility] 01-09-2022 12:59-0400 Body temperature 98 [degF] Services [facility] Work Phone: [facility] 01-09-2022 12:59-0400 Body weight 58.96 kg Services [facility] Work Phone: [facility] 01-09-2022 12:59-0400 Diastolic blood pressure 104 mm[Hg] Services [facility] Work Phone: [facility] 01-09-2022 12:59-0400 Heart rate 61 /min Services [facility] Work Phone: [facility] 01-09-2022 12:59-0400 Respiratory rate 16 /min Services [facility] Work Phone: [facility] 01-09-2022 12:59-0400 SaO2% (BldA) [Mass fraction] 99 % Services [facility] Work Phone: [facility] 01-09-2022 12:59-0400 Systolic blood pressure 148 mm[Hg] Services [facility] Work Phone: [facility] Encounters Encounter Date Encounter Type Care Provider Facility Start: 01-02-2024 End: 01-02-2024 ambulatory Rosanne E Spasic Facility:[facility] Start: 07-31-2023 End: 07-31-2023 ambulatory Rosanne E Spasic [facility] Work Phone: Start: 07-31-2023 End: 07-31-2023 Departed Referred [employer] Rosanne Falcon Work Phone: [facility] Start: 04-11-2023 End: 04-11-2023 ambulatory Rosanne E Spasic Facility:[facility] Start: 01-28-2023 End: 01-28-2023 ambulatory [facility] Phone: [facility] Work Phone: Start: 01-28-2023 End: 01-28-2023 Departed Referred [facility] Work Phone: [facility] Start: 01-16-2023 End: 01-16-2023 ambulatory [facility] Facility:[facility] Start: 01-16-2023 End: 01-16-2023 Departed Referred [facility] Work Phone: [facility] Start: 05-14-2022 End: 05-14-2022 ambulatory [facility] Work Phone: [facility] Work Phone: Start: 05-14-2022 End: 05-14-2022 Departed Referred [facility] Work Phone: [facility] Start: 04-12-2022 End: 04-12-2022 [facility] encounter [facility]: Start: 01-09-2022 End: 01-09-2022 Admission to same day surgery center [facility] Start: 01-09-2022 End: 01-09-2022 ambulatory [facility] Work Phone: [facility] Work Phone: Start: 01-07-2022 End: 01-07-2022 ambulatory [facility] Work Phone: [facility] Work Phone: Start: 01-07-2022 End: 01-07-2022 Patient encounter procedure [facility] Work Phone: [facility] Start: 12-04-2021 End: 12-04-2021 Patient encounter procedure [facility] Work Phone: [facility] Start: 10-26-2021 End: 10-26-2021 Departed Referred Services [facility] Work Phone: [facility] Start: 10-23-2021 End: 10-23-2021 Departed Referred [facility] Work Phone: [facility] Start: 04-16-2021 Chart abstracting Marcello luis MD Work Phone: Hematology/Oncology Procedures Date Procedure Procedure Detail Performing Clinician Start: 04-12-2022 Screening mammograph y of bilateral breasts [facility] Work Phone: SARS Antigen (LFIA) [facility] Work Phone: Urine culture [facility] Work Phone: Plan of Treatment Date Care Activity Detail Author Start: 01-28-2023 Superficial Wound Culture Superficial Wound Culture [facility] Start: 01-09-2022 [facility] Start: 01-09-2022 Colonoscopy DH Colonoscopy Diagnostic (Not Applicable) [facility] Start: 12-06-2020 Influenza vaccination INFLUENZA (#1) [facility] Start: 2009 SHINGRIX VACCINE (1 of 2) SHINGRIX VACCINE (1 of 2) [facility] Start: 2004 COLOGUARD (FIT-DNA) COLOGUARD (FIT-DNA) [facility] Start: 2004 Colonoscopy COLONOSCOPY [facility] Start: 2004 COLORECTAL CANCER SCREENING COLORECTAL CANCER SCREENING [facility] Start: [address] COLONOGRAPHY [facility] Start: 2004 DIABETES SCREEN DIABETES SCREEN [facility] Start: 2004 FECAL OCCULT BLOOD FECAL OCCULT BLOOD [facility] Start: 2004 LIPID SCREEN LIPID SCREEN [facility] Start: 2004 SIGMOIDOSCOPY SIGMOIDOSCOPY [facility] Start: 1999 Mammography MAMMOGRAM [facility] Start: 1989 HPV TESTING HPV TESTING [facility] Start: 1980 PAP TESTING PAP TESTING [facility] Start: 1978 Urine microalbumin profile DTAP,TDAP,TD (1 - Tdap) [facility] Start: 1977 HEPATITIS C SCREENING HEPATITIS C SCREENING [facility] Start: 1977 HIV SCREENING HIV SCREENING [facility] Start: 1971 Adult depression screening assessment DEPRESSION SCREENING [facility] Start: 1964 COVID-19 VACCINE (1) [facility] Atopobium vaginae DN A [Presence] in Vaginal fluid by RICKY with probe detection [facility] Bacteria identified in Unspecified specimen by Aerobe culture [facility] Bacterial vaginosis associated bacterium 2 DNA [Presence] in Vaginal fluid by RICKY with probe detection [facility] Chlamydia trachomati s rRNA [Presence] in Cervix by RICKY with probe detection [facility] Hepatitis A virus antibody, IgM type [facility] Work Phone: Hepatitis B core ant ibody measurement, IgM type [facility] Work Phone: Hepatitis B virus correa rface Ag [Presence] in Serum or Plasma by Immunoassay [facility] Work Phone: Hepatitis C virus Ab Signal/Cutoff in Serum or Plasma by Immunoassay [facility] Work Phone: Hepatitis C virus RN A [log units/volume] (viral load) in Serum or Plasma by RICKY with probe detection [facility] Work Phone: Hepatitis C virus RN A [Units/volume] (viral load) in Serum or Plasma by RICKY with probe detection [facility] Work Phone: HIV 1+2 Ab+HIV1 p24 Ag [Presence] in Serum or Plasma by Immunoassay [facility] Work Phone: Human papilloma viru s 16+18+31+33+35+39+45+51+5 2+56+58+59+66+68 DNA [Presence] in Cervix by Probe with signal amplification [facility] Human papilloma viru s 16+18+31+33+35+39+45+51+5 2+56+58+59+68 DNA [Presence] in Cervix by Probe with signal amplification [facility] Megasphaera sp type 1 DNA [Presence] in Vaginal fluid by RICKY with probe detection [facility] Neisseria gonorrhoea e rRNA [Presence] in Cervix by RICKY with probe detection [facility] Payers Date Payer Category Payer Medicaid [id number] 2023 Self-pay [id number] 2017 Medicaid [place] [employer] [id number] 2017-Present [phone] [address] [place], [place] [address] Medicaid [id number] Unknown [id number] Unknown [id number] Unknown [id number] Unknown [id number] Unknown [id number] Social History Date Type Detail Facility Start: [facility] Start: 04-16-2021 Alcohol intake Current drinke r of alcohol (finding) [facility] Start: 1960 Sex Assigned At Not on file [facility] Start: 08-02-2017 Tobacco smoking stat [facility] Current some day smoker [facility] Start: 1960 Sex Assigned At Female F [facility] Start: 01-09-2022 End: 01-09-2022 Tobacco smoking status [facility] Smoker (finding) [facility] Goals Date Patient Goal Desired Activity /State Progress note 04-17-2021 Note Date & Type Note Facility 04-17-2021 Note HNO ID: [id number] Author: Marcello Gonzalez MD Service: ? Author Type: Physician Type: Progress Notes Filed: 04/17/2021 11:43 AM Note Text: PATIENT NAME: Radha Patterson CLINIC NO.: [id number] ATTENDING PHYSICIAN: Marcello Gonzalez MD DATE OF SERVICE: April 17, [address] Rosanne Falcon, [facility] thank you for referring Miss Radha Patterson [...] Dear Dr. Vásquez (more content not included)... [facility] Evaluation note Note Date & Type Note Facility Evaluation note No assessment information [facility] Work Phone: Summary Purpose Family [...] or prosecute any alcohol or drug abuse patient.[facility] Care Teams (unrecognized sec tion and content) Team Status: Inactive Member Role Status Dates CHARISMA Hilton Attending Provider Active Team Status: Inactive Member Role Status Dates Services [facility] Primary Care Provider Active CHARISMA Hilton Attending Provider Active Product Specialist Relationship Specialty Start Date End Date Rosanne Falcon [address] [facility] [place] [address] PCP - General Family Practice 04/11/21 Team Status: Active Member Role Status Dates Services [facility] Primary Care Provider Active Team Status: Inactive Member Role Status Dates Services [facility] Primary Care Provider Active Philip Taveras MD Attending Provider Active Team Status: Inactive Member Role Status Dates CHARISMA Hilton Attending Provider Active Start: July 31, 2023 End: July 31, 2023 INFORMATION SOURCE (unrecogn ized section and content) DATE CREATED AUTHOR 06/28/2021 [facility] DATE CREATED AUTHOR AUTHOR'S ORGANIZ ATION 01/13/2024 [facility] Goals (unrecognized section and content) [...] BE BASED ON THE PRIMARY CLINICAL RECORDS. [facility] [employer] [facility]. provides no warranty or guarantee of the accuracy or completeness of information in this document.
== END 2024-01-28 12:00 | disposition home or self-care (01) ==
LOC: RAD 12:00
PROVIDERS: Visit Provider Podiatrist Foot & Ankle Surgery
DX: M79.671 Pain in right foot (principal); M24.674 Ankylosis, right foot; Z98.890 Other specified postprocedural states
CPT/HCPCS: 73630

== ENCOUNTER 2024-02-24 11:39 | Outpatient (OUT) | payer OTHER, SELFPAY ==
--- NOTE | 2024-02-24 | XR_ITS ---
The [address] [address] Patient Name: MARCOS GARCIA MRN: [id number] date: 1960 Sex: F Assigned Patient Location: Current Patient Location: Accession/Order Number: [id number] Exam Date: 02/24/2024 11:40 Report Date: 02/26/2024 06:23 At the request of: ADI MILLER Procedure: XR foot RT min 3V PROCEDURE: XR foot RT min 3V HISTORY: RIGHT FOOT PAIN COMPARISON: XR foot right 01/28/2024 FINDINGS: BONES:Mechanical fusion the first metatarsophalangeal joint. Single screw within head of second metatarsal. Resection of head of second proximal phalanx. No fracture, dislocation, bone lesion. SOFT TISSUES:Mild dorsal soft tissue swelling. EFFUSION:None visible. OTHER: Negative. XR/XR foot RT min 3V IMPRESSION: 1. Stable surgical changes without evidence of hardware failure or change in alignment. 2. No appreciable acute abnormality. Electronically authenticated by: ANAIS BOND Date: 02/26/2024 06:23
== END 2024-02-24 11:40 | disposition home or self-care (01) ==
LOC: EC 11:39
PROVIDERS: Visit Provider Podiatrist Foot & Ankle Surgery
DX: M79.671 Pain in right foot (principal); M24.674 Ankylosis, right foot
CPT/HCPCS: 73630

== ENCOUNTER 2024-04-08 13:22 | Outpatient (OUT) | payer OTHER, SELFPAY ==
--- NOTE | 2024-04-08 | XR_ITS ---
The [address] [address] Patient Name: MARCOS GARCIA MRN: [id number] date: 1960 Sex: F Assigned Patient Location: Current Patient Location: Accession/Order Number: [id number] Exam Date: 04/08/2024 13:25 Report Date: 04/09/2024 07:38 At the request of: DAVION VELASQUEZ Procedure: XR foot RT min 3V PROCEDURE: XR foot RT min 3V COMPARISON: 02/24/2024 HISTORY: RIGHT FOOT PAIN FINDINGS: BONES:No acute fracture or dislocation. Stable metatarsal-phalangeal joint fusion with a dorsal plate and screws, no significant bone formation or bony bridging. Osteotomy and screw placement at of the second metatarsal. SOFT TISSUES:Negative. No visible soft tissue swelling. EFFUSION:None visible. OTHER: Negative. XR/XR foot RT min 3V IMPRESSION: Stable postsurgical changes. Electronically authenticated by: ELIEZER PENA Date: 04/09/2024 07:38
--- OUTSIDE RECORDS SUMMARY | 2024-04-08 13:43 | XMS_ITS | CCD ---
Author Organization [facility] Inform ion Partnership [facility] Care Team Providers Care Wage And Hour Investigator Name Role Phone Rosanne Falcon Primary Care Provider [facility], Services Primary Care Provider Terrie ELECTRICAL TECH/PROJECT MANAGERPadminiC Rosanne Liu Attending Provider MD Philip Taveras Attending Provider [facility], [facility] Primary Care Provider Terrie ELECTRICAL TECH/PROJECT MANAGER-C Rosanne Liu Attending Provider [facility], Services Primary Care Provider Spasic, ELECTRICAL TECH/PROJECT MANAGER-C Rosanne E Attending Provider Spasic ELECTRICAL TECH/PROJECT MANAGER-C Rosanne E Attending Provider Spasic Rosanne E Attending Unavailable Spasic, Rosanne E Admitting Unavailable [facility], Services Primary Care Unavaila ble [...] (Bld) [#/Vol] 0.1 10*3/uL Normal 0.0-0.2 [facility] Comment on above: Result Comment: PERF ORMED BY: [place] [address] PATHOLOGIST MECHATRONICS ENGINEER TRINI PINON M.D. Performed By: #### T SH3 wRFLX, [id number], DIFF CBC, CMP #### [facility] [address] Basophils/100 WBC (Bld) 1.5 % Normal . T amanda [facility] Comment on above: Performed By: #### T SH3 wRFLX, [id number], DIFF CBC, CMP #### [facility] [address] [place] [address] [place] Eosinophils (Bld) [#/Vol] 0.1 10*3/uL Normal 0.0-0.45 [facility] Comment on above: Performed By: #### T SH3 wRFLX, [id number], DIFF CBC, CMP #### [facility] [address] [place] [address] [place] Eosinophils/100 WBC (Bld) 2.8 % Normal . [facility] Comment on above: Performed By: #### T SH3 wRFLX, [id number], DIFF CBC, CMP #### [address] Erythrocyte distribution width (RBC) [Ratio] 13.8 % Normal 11.9-15.3 [facility] Comment on above: Performed By: #### T SH3 wRFLX, [id number], DIFF CBC, CMP #### [address] Hematocrit (Bld) [Volume fraction] 38.8 % Normal 34.0-46.4 [facility] Comment on above: Performed By: #### T SH3 wRFLX, [id number], DIFF CBC, CMP #### [address] Hemoglobin (Bld) [Mass/Vol] 13.0 g/dL Normal 11.8-15.4 [facility] Comment on above: Performed By: #### T SH3 wRFLX, [id number], DIFF CBC, CMP #### [address] Lymphocytes (Bld) [#/Vol] 2.1 10*3/uL Normal 1.00-4.8 [facility] Comment on above: Performed By: #### T SH3 wRFLX, [id number], DIFF CBC, CMP #### [address] Lymphocytes/100 WBC (Bld) 49.0 % Normal . [facility] Comment on above: Performed By: #### T SH3 wRFLX, [id number], DIFF CBC, CMP #### [address] MCH (RBC) [Entitic mass] 32.4 pg Normal 24.7-34.3 [facility] Comment on above: Performed By: #### T SH3 wRFLX, [id number], DIFF CBC, CMP #### [address] MCV (RBC) [Entitic vol] 96.5 fL Normal 80-100 T he [facility] Comment on above: Performed By: #### T SH3 wRFLX, [id number], DIFF CBC, CMP #### [address] Mean Corpuscular HGB Conc 33.6 g/dL Normal 32.0-35.0 [facility] Comment on above: Performed By: #### T SH3 wRFLX, [id number], DIFF CBC, CMP #### [address] Monocytes (Bld) [#/Vol] 0.2 10*3/uL Normal 0.0-0.8 [facility] Comment on above: Performed By: #### T SH3 wRFLX, [id number], DIFF CBC, CMP #### [address] Monocytes/100 WBC (Bld) 4.7 % Normal . T amanda [facility] Comment on above: Performed By: #### T SH3 wRFLX, [id number], DIFF CBC, CMP #### [address] Neutrophils (Bld) [#/Vol] 1.8 10*3/uL Normal 1.8-7.7 [facility] Comment on above: Performed By: #### T SH3 wRFLX, [id number], DIFF CBC, CMP #### [address] Neutrophils/100 WBC (Bld) 42.0 % Normal . [facility] Comment on above: Performed By: #### T SH3 wRFLX, [id number], DIFF CBC, CMP #### [address] NRBC% 0.2 /100{WBC} Normal 0-0.5 [facility] Comment on above: Performed By: #### T SH3 wRFLX, [id number], DIFF CBC, CMP #### [address] Platelet mean volume (Bld) [Entitic vol] 8.6 fL Normal 6.3-10.7 [facility] Comment on above: Performed By: #### T SH3 wRFLX, [id number], DIFF CBC, CMP #### [address] Platelets (Bld) [#/Vol] 241 10*3/uL Normal 150-450 [facility] Comment on above: Performed By: #### T SH3 wRFLX, [id number], DIFF CBC, CMP #### [address] RBC (Bld) [#/Vol] 4.02 10*6/uL Normal 3.60-5.00 [facility] Comment on above: Performed By: #### T SH3 wRFLX, [id number], DIFF CBC, CMP #### [address] WBC (Bld) [#/Vol] 4.3 10*3/uL Normal 3.8-11.6 [facility] Comment on above: Performed By: #### T SH3 wRFLX, [id number], DIFF CBC, CMP #### [address] Comprehensive Metabolic Pane harriet 01-02-2024 Albumin [Mass/Vol] 4.1 g/dL Normal 3.5-5.7 [facility] Comment on above: Performed By: #### T SH3 wRFLX, [id number], DIFF CBC, CMP #### [address] Albumin/Globulin [Mass ratio] 1.4 {ratio} Normal [facility] Comment on above: Performed By: #### T SH3 wRFLX, [id number], DIFF CBC, CMP #### [address] ALP [Catalytic activity/Vol] 100 U/L Normal 34-104 [facility] Comment on above: Performed By: #### T SH3 wRFLX, [id number], DIFF CBC, CMP #### [address] ALT [Catalytic activity/Vol] 13 U/L Normal 7-52 [facility] Comment on above: Performed By: #### T SH3 wRFLX, [id number], DIFF CBC, CMP #### [address] Anion gap [Moles/Vol] 7.4 mmol/L Normal 6.0-15.0 [facility] Comment on above: Performed By: #### T SH3 wRFLX, [id number], DIFF CBC, CMP #### [address] AST [Catalytic activity/Vol] 15 U/L Normal 13-39 [facility] Comment on above: Performed By: #### T SH3 wRFLX, [id number], DIFF CBC, CMP #### [address] Bilirubin [Mass/Vol] 0.7 mg/dL Normal 0.3-1.0 [facility] Comment on above: Performed By: #### T SH3 wRFLX, [id number], DIFF CBC, CMP #### [address] Calcium [Mass/Vol] 9.9 mg/dL Normal 8.6-10.3 [facility] Comment on above: Performed By: #### T SH3 wRFLX, [id number], DIFF CBC, CMP #### [place] [address] [place] Chloride [Moles/Vol] 105 mmol/L Normal 98-107 [facility] Comment on above: Performed By: #### T SH3 wRFLX, [id number], DIFF CBC, CMP #### [place] [address] [place] CO2 [Moles/Vol] 32.3 mmol/L High 21.0-31.0 [facility] Comment on above: Performed By: #### T SH3 wRFLX, [id number], DIFF CBC, CMP #### [place] [address] [place] Creatinine [Mass/Vol] 0.75 mg/dL Normal 0.60-1.20 [facility] Comment on above: Performed By: #### T SH3 wRFLX, [id number], DIFF CBC, CMP #### [facility] [address] [place] [address] [place] GFR/1.73 sq M.predicted MDRD (S/P/Bld) [Vol rate/Area] mL/min/{1.73_m2} Normal [facility] Comment on above: Performed By: #### T SH3 wRFLX, [id number], DIFF CBC, CMP #### [facility] [address] [place] [address] [place] Globulin (S) [Mass/Vol] 3.0 g/dL Normal T [facility] Comment on above: Performed By: #### T SH3 wRFLX, [id number], DIFF CBC, CMP #### [facility] [address] Glucose [Mass/Vol] 81 mg/dL Normal 70-100 [facility] Comment on above: Result Comment: [facility] Glucose Reference Range is dependent on time and content of last meal. Glucose of more than 200 mg/dL in a nonstressed, ambulatory subject supports the diagnosis of Diabetes Mellitus. ADA recommended reference range Performed By: #### T SH3 wRFLX, [id number], DIFF CBC, CMP #### [facility] [address] Potassium [Moles/Vol] 3.7 mmol/L Normal 3.5-5.1 [facility] Comment on above: Performed By: #### T SH3 wRFLX, [id number], DIFF CBC, CMP #### [facility] [address] [place] [address] [place] Protein [Mass/Vol] 7.1 g/dL Normal 6.4-8.9 [facility] Comment on above: Performed By: #### T SH3 wRFLX, [id number], DIFF CBC, CMP #### [facility] [address] [place] [address] [place] Sodium [Moles/Vol] 141 mmol/L Normal 136-145 [facility] Comment on above: Performed By: #### T SH3 wRFLX, [id number], DIFF CBC, CMP #### [facility] [address] Urea nitrogen [Mass/Vol] 19 mg/dL Normal 7-25 [facility] Comment on above: Performed By: #### T SH3 wRFLX, [id number], DIFF CBC, CMP #### [facility] [address] Lipid Panelon 01-02-2024 Cholesterol [Mass/Vol] 155 mg/dL Normal 140-200 Th e [facility] Comment on above: Result Comment: Chol less than 200 mg/dl low risk Chol 201-239 mg/dl borderline risk Chol 240 mg/dl and greater high risk Performed By: #### T SH3 wRFLX, [id number], DIFF CBC, CMP #### [facility] [address] Cholesterol in HDL [Mass/Vol] 75 mg/dL Normal 23-92 [facility] Comment on above: Result Comment: HDL CHOL ATP-III CLASSIFICATION Cardiovascular Risk HDL > or equal to 60 mg/dL LOW HDL < 40 mg/dL HIGH Performed By: #### T SH3 wRFLX, [id number], DIFF CBC, CMP #### [facility] [address] Cholesterol.total/Choles terol in HDL [Mass ratio] 2.1 {ratio} Normal <5.0 [facility] Comment on above: Performed By: #### T SH3 wRFLX, [id number], DIFF CBC, CMP #### [facility] [address] [place] [id number] [facility] LDL Cholesterol,Calculated 69 mg/dL Normal 0-100 [facility] Comment on above: Result Comment: LDL ATP III CLASSIFICATION LDL less than 100 mg/dL Optimal LDL 100-129 mg/dL Near or above optimal LDL 130-159 mg/dL Borderline high LDL 160-189 mg/dL High LDL greater than 189 mg/dL Very high Performed By: #### T SH3 wRFLX, [id number], DIFF CBC, CMP #### [address] Triglyceride w/Reflex 55 mg/dL Normal 0-149 [facility] Comment on above: Result Comment: TRIG ATP III CLASSIFICATION TRIG less than 150 mg/dL Normal TRIG 150-199 mg/dL Borderline high TRIG 200-500 mg/dL High TRIG greater than 500 mg/dL Very high Standard traceable to the Center for Disease Conrtrol and Prevention (CDC) test method. Performed By: #### T SH3 wRFLX, [id number], DIFF CBC, CMP #### [address] VLDL CHOLESTEROL 11 mg/dL Normal [facility] Comment on above: Performed By: #### T SH3 wRFLX, [id number], DIFF CBC, CMP #### [address] Thyroid Stim Hormone w/Rflxo n 01-02-2024 Thyroid Stim Hormone w/Rflx 0.69 u[iU]/mL Normal 0.45-5.33 [facility] Comment on above: Performed By: #### T SH3 wRFLX, [id number], DIFF CBC, CMP #### [address] Vitamin D 25 Hydroxy Totalon 01-02-2024 Vitamin D 25 Hydroxy Total 52.7 ng/mL Normal 30-100 [facility] Comment on above: Result Comment: PARAS MIN D STATUS 25(OH)VITAMIN D RANGE (ng/mL) Deficient <20 Insufficient 20 to <30 Sufficient 30 to 100 Reference: Helen MF,Vaishali NC, Arturo FARRIS, et al. Evaluation,treatment, and prevention of vitamin D deficiency; an Endocrine Society clinical practice guideline. JCEM. 2010; 96(7):1911-30. PERFORMED BY: [place] [address] PATHOLOGIST MECHATRONICS ENGINEER TRINI PINON M.D. Performed By: #### T SH3 wRFLX, [id number], DIFF CBC, CMP #### [place] [address] [place] Alanine aminotransferase [En zymatic activity/volume] in Serum or PlasmaOrdered By: Rosanne Falcon on 07-31-2023 ALT [Catalytic activity/Vol] 14 U/L Normal 7-52 [facility] Comment on above: Order Comment: Reaso n for Exam Hypertension Reason for Exam Vitamin D deficiency, unspecified Performed By: #### T SH3 wRFLX, CBC, LIPID, [id number], CMP #### [facility] [address] [place] [address] [place] Albumin [Mass/volume] in Ser um or Plasma by Bromocresol green (BCG) dye binding methoOrdered By: Rosanne Falcon on 07-31-2023 Albumin BCG dye [Mass/Vol] 3.9 g/dL 3.5-5.7 [facility] Alkaline phosphatase [Enzyma tic activity/volume] in Serum or PlasmaOrdered By: Rosanne Falcon on 07-31-2023 ALP [Catalytic activity/Vol] 82 U/L Normal 34-104 [facility] Comment on above: Order Comment: Reaso n for Exam Hypertension Reason for Exam Vitamin D deficiency, unspecified Performed By: #### T SH3 wRFLX, CBC, LIPID, [id number], CMP #### [facility] [address] [place] [id number] [place] Aspartate aminotransferase [ Enzymatic activity/volume] in Serum or PlasmaOrdered By: Rosanne Falcon on 07-31-2023 AST [Catalytic activity/Vol] 16 U/L Normal 13-39 [facility] Comment on above: Order Comment: Reaso n for Exam Hypertension Reason for Exam Vitamin D deficiency, unspecified Performed By: #### T SH3 wRFLX, CBC, LIPID, [id number], CMP #### [facility] [address] [place] [address] [place] Automated basophil %Ordered By: Rosanne Falcon on 07-31-2023 Basophils/100 WBC (Bld) 0.6 % Normal . [facility] Comment on above: Order Comment: Reaso n for Exam Hypertension Performed By: #### T SH3 wRFLX, CBC, LIPID, [id number], CMP #### [facility] [address] [place] [id number] [place] Automated basophil countOrde red By: Rosanne Falcon on 07-31-2023 Basophils (Bld) [#/Vol] 0.0 10*3/uL Normal 0.0-0.2 [facility] Comment on above: Order Comment: Reaso n for Exam Hypertension Result Comment: PERF ORMED BY: [place] [address] PATHOLOGIST MECHATRONICS ENGINEER TRINI PINON M.D. Performed By: #### T SH3 wRFLX, CBC, LIPID, [id number], CMP #### [facility] [address] [place] [address] Automated blood monocyte cou ntOrdered By: Rosanne Falcon on 07-31-2023 Monocytes (Bld) [#/Vol] 0.3 10*3/uL Normal 0.0-0.8 [facility] Comment on above: Order Comment: Reaso n for Exam Hypertension Performed By: #### T SH3 wRFLX, CBC, LIPID, [id number], CMP #### [facility] [address] [place] [address] Automated eosinophil %Ordere d By: Rosanne Falcon on 07-31-2023 Eosinophils/100 WBC (Bld) 2.6 % Normal . [facility] Comment on above: Order Comment: Reaso n for Exam Hypertension Performed By: #### T SH3 wRFLX, CBC, LIPID, [id number], CMP #### [facility] [address] [place] [address] Automated eosinophil countOr dered By: Rosanne Falcon on 07-31-2023 Eosinophils (Bld) [#/Vol] 0.1 10*3/uL Normal 0.0-0.45 [facility] Comment on above: Order Comment: Reaso n for Exam Hypertension Performed By: #### T SH3 wRFLX, CBC, LIPID, [id number], CMP #### [facility] [address] [place] [address] [place] Automated monocyte %Ordered By: Rosanne Curtisc on 07-31-2023 Monocytes/100 WBC (Bld) 5.8 % Normal . [facility] Comment on above: Order Comment: Reaso n for Exam Hypertension Performed By: #### T SH3 wRFLX, CBC, LIPID, [id number], CMP #### [facility] [address] [place] [id number] [facility] Automated neutrophil %Ordere d By: Rosanne Falcon on 07-31-2023 Neutrophils/100 WBC (Bld) 46.3 % Normal . [facility] Comment on above: Order Comment: Reaso n for Exam Hypertension Performed By: #### T SH3 wRFLX, CBC, LIPID, [id number], CMP #### [facility] [address] [place] [id number] [facility] Bilirubin.total [Mass/volume ] in Serum or PlasmaOrdered By: Rosanne Falcon on 07-31-2023 Bilirubin [Mass/Vol] 0.4 mg/dL Normal 0.3-1.0 [facility] Comment on above: Order Comment: Reaso n for Exam Hypertension Reason for Exam Vitamin D deficiency, unspecified Performed By: #### T SH3 wRFLX, CBC, LIPID, [id number], CMP #### [facility] [address] [place] [id number] [facility] Calcium [Mass/volume] in Ser um or PlasmaOrdered By: Rosanne Falcon on 07-31-2023 Calcium [Mass/Vol] 9.8 mg/dL Normal 8.6-10.3 [facility] Comment on above: Order Comment: Reaso n for Exam Hypertension Reason for Exam Vitamin D deficiency, unspecified Performed By: #### T SH3 wRFLX, CBC, LIPID, [id number], CMP #### [facility] [address] [place] [id number] [facility] Carbon dioxide, total [Moles /volume] in Serum or PlasmaOrdered By: Rosanne Falcon on 07-31-2023 CO2 [Moles/Vol] 31.7 mmol/L High 21.0-31.0 [facility] Comment on above: Order Comment: Reaso n for Exam Hypertension Reason for Exam Vitamin D deficiency, unspecified Performed By: #### T SH3 wRFLX, CBC, LIPID, [id number], CMP #### [facility] [address] [place] [address] [place] Chloride [Moles/volume] in [place] or PlasmaOrdered By: Rosanne Falcon on 07-31-2023 Chloride [Moles/Vol] 103 mmol/L Normal 98-107 [facility] Comment on above: Order Comment: Reaso n for Exam Hypertension Reason for Exam Vitamin D deficiency, unspecified Performed By: #### T SH3 wRFLX, CBC, LIPID, [id number], CMP #### [facility] [address] [place] [address] [place] Cholesterol [Mass/volume] in Serum or PlasmaOrdered By: Rosanne Falcon on 07-31-2023 Cholesterol [Mass/Vol] 124 mg/dL Low 140-200 [facility] Comment on above: Chol less than [...] By: #### T SH3 wRFLX, CBC, LIPID, [id number], CMP #### [facility] [address] [place] [address] [place] Cholesterol in LDL Calc [Mas s/Vol]Ordered By: Rosanne Falcon on 07-31-2023 Cholesterol in LDL [Mass/Vol] 63 mg/dL 0-100 [facility] Comment on above: LDL ATP III CLASSIFI CATIONLDL less than 100 mg/dL OptimalLDL 100-129 mg/dL Near or above optimalLDL 130-159 mg/dL Borderline highLDL 160-189 mg/dL HighLDL greater than 189 mg/dL Very high Cholesterol in VLDL Calc [Ma ss/Vol]Ordered By: Rosanne Falcon on 07-31-2023 Cholesterol in VLDL [Mass/Vol] 7 mg/dL [facility] Complete Blood Count Auto Di ffon 07-31-2023 Mean Corpuscular HGB Conc 34.3 g/dL Normal 32.0-35.0 [facility] Comment on above: Order Comment: Reaso n for Exam Hypertension Performed By: #### T SH3 wRFLX, CBC, LIPID, [id number], CMP #### [facility] [address] [place] [address] NRBC% 0.2 /100{WBC} Normal 0-0.5 [facility] Comment on above: Order Comment: Reaso n for Exam Hypertension Performed By: #### T SH3 wRFLX, CBC, LIPID, [id number], CMP #### [facility] [address] [place] [address] Comprehensive Metabolic Pane harriet 07-31-2023 Albumin [Mass/Vol] 3.9 g/dL Normal 3.5-5.7 [facility] Comment on above: Order Comment: Reaso n for Exam Hypertension Reason for Exam Vitamin D deficiency, unspecified Performed By: #### T SH3 wRFLX, CBC, LIPID, [id number], CMP #### [address] GFR/1.73 sq M.predicted MDRD (S/P/Bld) [Vol rate/Area] mL/min/{1.73_m2} Normal [facility] Comment on above: Order Comment: Reaso n for Exam Hypertension Reason for Exam Vitamin D deficiency, unspecified Performed By: #### T SH3 wRFLX, CBC, LIPID, [id number], CMP #### [address] Creatinine [Mass/volume] in Serum or PlasmaOrdered By: Rosanne Falcon on 07-31-2023 Creatinine [Mass/Vol] 0.74 mg/dL Normal 0.60-1.20 [facility] Comment on above: Order Comment: Reaso n for Exam Hypertension Reason for Exam Vitamin D deficiency, unspecified Performed By: #### T SH3 wRFLX, CBC, LIPID, [id number], CMP #### [facility] [address] [place] [address] Erythrocyte distribution wid th [Ratio] by Automated countOrdered By: Rosanne Falcon on 07-31-2023 Erythrocyte distribution width (RBC) [Ratio] 12.9 % Normal 11.9-15.3 [facility] Comment on above: Order Comment: Reaso n for Exam Hypertension Performed By: #### T SH3 wRFLX, CBC, LIPID, [id number], CMP #### [facility] [address] [place] [id number] [place] Erythrocytes [#/volume] in B lood by Automated countOrdered By: Rosanne Falcon on 07-31-2023 RBC (Bld) [#/Vol] 3.75 10*6/uL Normal 3.60-5.00 [facility] Comment on above: Order Comment: Reaso n for Exam Hypertension Performed By: #### T SH3 wRFLX, CBC, LIPID, [id number], CMP #### [facility] [address] [place] [id number] [place] Glucose [Mass/volume] in Ser um or PlasmaOrdered By: Rosanne Falcon on 07-31-2023 Glucose [Mass/Vol] 87 mg/dL Normal 70-100 [facility] Comment on above: ADA recommended refe rence rangeRandom Glucose Reference Range is dependent on time and content of last meal. Glucose of more than 200 mg/dL in a nonstressed, ambulatory subject supports the diagnosis of Diabetes Mellitus. Order Comment: Reaso n for Exam Hypertension Reason for Exam Vitamin D deficiency, unspecified Result Comment: [place] [facility] Glucose Reference Range is dependent on time and content of last meal. Glucose of more than 200 mg/dL in a nonstressed, ambulatory subject supports the diagnosis of Diabetes Mellitus. ADA recommended reference range Performed By: #### T SH3 wRFLX, CBC, LIPID, [id number], CMP #### [facility] [address] [place] [id number] [place] Hematocrit [Volume Fraction] of Blood by Automated countOrdered By: Rosanne Falcon on 07-31-2023 Hematocrit (Bld) [Volume fraction] 36.3 % Normal 34.0-46.4 [facility] Comment on above: Order Comment: Reaso n for Exam Hypertension Performed By: #### T SH3 wRFLX, CBC, LIPID, [id number], CMP #### [facility] [address] [place] [phone] [place] Hemoglobin [Mass/volume] in BloodOrdered By: Rosanne Falcon on 07-31-2023 Hemoglobin (Bld) [Mass/Vol] 12.5 g/dL Normal 11.8-15.4 [facility] Comment on above: Order Comment: Reaso n for Exam Hypertension Performed By: #### T SH3 wRFLX, CBC, LIPID, [id number], CMP #### [facility] [address] Leukocytes [#/volume] correc [place] for nucleated erythrocytes in Blood by Automated counOrdered By: Rosanne Falcon on 07-31-2023 WBC corrected for nucl RBC Auto (Bld) [#/Vol] 4.4 10*3/uL 3.8-11.6 [facility] Leukocytes [#/volume] in Blo od by Automated countOrdered By: Rosanne Falcon on 07-31-2023 WBC (Bld) [#/Vol] 4.4 10*3/uL Normal 3.8-11.6 [facility] Comment on above: Order Comment: Reaso n for Exam Hypertension Performed By: #### T SH3 wRFLX, CBC, LIPID, [id number], CMP #### [facility] [address] [place] [id number] [facility] Lipid Panelon 07-31-2023 LDL Cholesterol,Calculated 63 mg/dL Normal 0-100 [facility] Comment on above: [...] By: #### T SH3 wRFLX, CBC, LIPID, [id number], CMP #### [facility] [address] [place] [id number] [facility] Triglyceride w/Reflex 39 mg/dL Normal 0-149 [facility] Comment on above: [...] By: #### T SH3 wRFLX, CBC, LIPID, [id number], CMP #### [facility] [address] VLDL CHOLESTEROL 7 mg/dL Normal [facility] Comment on above: Order Comment: Reaso n for Exam Hypertension Reason for Exam Vitamin D deficiency, unspecified Performed By: #### T SH3 wRFLX, CBC, LIPID, [id number], CMP #### [facility] [address] Lymphocytes [#/volume] in Bl ood by Automated countOrdered By: Rosanne Falcon on 07-31-2023 Lymphocytes (Bld) [#/Vol] 1.9 10*3/uL Normal 1.00-4.8 [facility] Comment on above: Order Comment: Reaso n for Exam Hypertension Performed By: #### T SH3 wRFLX, CBC, LIPID, [id number], CMP #### [address] Lymphocytes/100 leukocytes i n Blood by Automated countOrdered By: Rosanne Falcon on 07-31-2023 Lymphocytes/100 WBC (Bld) 44.7 % Normal . [facility] Comment on above: Order Comment: Reaso n for Exam Hypertension Performed By: #### T SH3 wRFLX, CBC, LIPID, [id number], CMP #### [facility] [address] MCH [Entitic mass] by [place] countOrdered By: Rosanne Falcon on 07-31-2023 MCH (RBC) [Entitic mass] 33.3 pg Normal 24.7-34.3 [facility] Comment on above: Order Comment: Reaso n for Exam Hypertension Performed By: #### T SH3 wRFLX, CBC, LIPID, [id number], CMP #### [address] MCHC Auto (RBC) [Mass/Vol]Or dered By: Rosanne Falcon on 07-31-2023 MCHC (RBC) [Mass/Vol] 34.3 g/dL 32.0-35.0 [facility] MCV [Entitic volume] by Auto mated countOrdered By: Rosanne Falcon on 07-31-2023 MCV (RBC) [Entitic vol] 96.9 fL Normal 80-100 [facility] Comment on above: Order Comment: Reaso n for Exam Hypertension Performed By: #### T SH3 wRFLX, CBC, LIPID, [id number], CMP #### [facility] [address] Neutrophils [#/volume] in Bl ood by Automated countOrdered By: Rosanne Falcon on 07-31-2023 Neutrophils (Bld) [#/Vol] 2.0 10*3/uL Normal 1.8-7.7 [facility] Comment on above: Order Comment: Reaso n for Exam Hypertension Performed By: #### T SH3 wRFLX, CBC, LIPID, [id number], CMP #### [facility] [address] No Panel InformationOrdered By: Rosanne Falcon on 07-31-2023 Estimated GFR (CKD-EPI) > 60.0 mL/Min [facility] Creatinine Clearance (Chem N/A [facility] Nucleated erythrocytes [Pres ence] in Blood by Automated countOrdered By: Rosanne Falcon on 07-31-2023 Nucleated RBC Auto Ql (Bld) 0.2 /100{WBC} 0-0.5 [facility] Platelet mean volume [Entiti c volume] in Blood by Automated countOrdered By: Rosanne Falcon on 07-31-2023 Platelet mean volume (Bld) [Entitic vol] 8.5 fL Normal 6.3-10.7 [facility] Comment on above: Order Comment: Reaso n for Exam Hypertension Performed By: #### T SH3 wRFLX, CBC, LIPID, [id number], CMP #### [facility] [address] [place] [address] [place] Platelets [#/volume] in Bloo d by Automated countOrdered By: Rosanne Falcon on 07-31-2023 Platelets (Bld) [#/Vol] 228 10*3/uL Normal 150-450 [facility] Comment on above: Order Comment: Reaso n for Exam Hypertension Performed By: #### T SH3 wRFLX, CBC, LIPID, [id number], CMP #### [facility] [address] [place] [id number] [facility] Potassium [Moles/volume] in Serum or PlasmaOrdered By: Rosanne Falcon on 07-31-2023 Potassium [Moles/Vol] 4.2 mmol/L Normal 3.5-5.1 [facility] Comment on above: Order Comment: Reaso n for Exam Hypertension Reason for Exam Vitamin D deficiency, unspecified Performed By: #### T SH3 wRFLX, CBC, LIPID, [id number], CMP #### [facility] [address] [place] [address] [place] Protein [Mass/volume] in Ser um or PlasmaOrdered By: Rosanne Falcon on 07-31-2023 Protein [Mass/Vol] 6.8 g/dL Normal 6.4-8.9 [facility] Comment on above: Order Comment: Reaso n for Exam Hypertension Reason for Exam Vitamin D deficiency, unspecified Performed By: #### T SH3 wRFLX, CBC, LIPID, [id number], CMP #### [facility] [address] [place] [id number] [facility] Serum globulin measurement b y calculation (mass/volume)Ordered By: Rosanne Falcon on 07-31-2023 Globulin (S) [Mass/Vol] 2.9 g/dL Normal [facility] Comment on above: Order Comment: Reaso n for Exam Hypertension Reason for Exam Vitamin D deficiency, unspecified Performed By: #### T SH3 wRFLX, CBC, LIPID, [id number], CMP #### [facility] [address] [place] [address] [place] Serum or plasma albumin/glob ulin mass ratioOrdered By: Rosanne Falcon on 07-31-2023 Albumin/Globulin [Mass ratio] 1.3 {ratio} Normal [facility] Comment on above: Order Comment: Reaso n for Exam Hypertension Reason for Exam Vitamin D deficiency, unspecified Performed By: #### T SH3 wRFLX, CBC, LIPID, [id number], CMP #### [facility] [address] Serum or plasma anion gap de terminationOrdered By: Rosanne Falcon on 07-31-2023 Anion gap [Moles/Vol] 10.5 mmol/L Normal 6.0-15.0 [facility] Comment on above: Order Comment: Reaso n for Exam Hypertension Reason for Exam Vitamin D deficiency, unspecified Performed By: #### T SH3 wRFLX, CBC, LIPID, [id number], CMP #### [facility] [address] Serum or plasma high density lipoprotein (HDL) cholesterol measurementOrdered By: Rosanne Falcon on 07-31-2023 Cholesterol in HDL [Mass/Vol] 53 mg/dL Normal 23-92 [facility] Comment on above: HDL CHOL ATP-III CLA [...] By: #### T SH3 wRFLX, CBC, LIPID, [id number], CMP #### [facility] [address] Serum or plasma total choles terol/high density lipoprotein (HDL) cholesterol mass ratOrdered By: Rosanne Falcon on 07-31-2023 Cholesterol.total/Choles terol in HDL [Mass ratio] 2.3 {ratio} Normal <5.0 [facility] Comment on above: Order Comment: Reaso n for Exam Hypertension Reason for Exam Vitamin D deficiency, unspecified Performed By: #### T SH3 wRFLX, CBC, LIPID, [id number], CMP #### [facility] [address] Sodium [Moles/volume] in Ser um or PlasmaOrdered By: Rosanne Falcon on 07-31-2023 Sodium [Moles/Vol] 141 mmol/L Normal 136-145 [facility] Comment on above: Order Comment: Reaso n for Exam Hypertension Reason for Exam Vitamin D deficiency, unspecified Performed By: #### T SH3 wRFLX, CBC, LIPID, [id number], CMP #### [facility] [address] Thyroid Stim Hormone w/Rflxo n 07-31-2023 Thyroid Stim Hormone w/Rflx 0.74 u[iU]/mL Normal 0.45-5.33 [facility] Comment on above: Order Comment: Reaso n for Exam Hypertension Reason for Exam Vitamin D deficiency, unspecified Performed By: #### T SH3 wRFLX, CBC, LIPID, [id number], CMP #### [facility] [address] Thyrotropin [Units/volume] i n Serum or PlasmaOrdered By: Rosanne Falcon on 07-31-2023 TSH Qn 0.74 m[IU]/L 0.45-5.33 [facility] Triglyceride [Mass/volume] i n Serum or PlasmaOrdered By: Rosanne Falcon on 07-31-2023 Triglyceride [Mass/Vol] 39 mg/dL 0-149 [facility] Comment on above: TRIG ATP III CLASSIF ICATIONTRIG less than 150 mg/dL NormalTRIG 150-199 mg/dL Borderline highTRIG 200-500 mg/dL High TRIG greater than 500 mg/dL Very highStandard traceable to the Center for Disease Conrtrol and Prevention (CDC) test method. Urea nitrogen [Mass/volume] in Serum or PlasmaOrdered By: Rosanne Falcon on 07-31-2023 Urea nitrogen [Mass/Vol] 17 mg/dL Normal 7-25 [facility] Comment on above: Order Comment: Reaso n for Exam Hypertension Reason for Exam Vitamin D deficiency, unspecified Performed By: #### T SH3 wRFLX, CBC, LIPID, [id number], CMP #### [facility] [address] [place] [id number] [facility] Vitamin D 25 Hydroxy Totalon 07-31-2023 Vitamin D 25 Hydroxy Total 69.7 ng/mL Normal 30-100 [facility] Comment on above: [...] practice guideline. JCEM. 2010; 96(7):1911-30. PERFORMED BY: [place] [address] PATHOLOGIST MECHATRONICS ENGINEER TRINI PINON M.D. Performed By: #### T SH3 wRFLX, [id number], DIFF CBC, CMP #### [address] Vitamin D+Metabolites [Mass/ volume] in Serum or PlasmaOrdered By: Rosanne Falcon on 07-31-2023 Vitamin D+Metabolites [Mass/Vol] 69.7 ng/mL 30-100 [facility] Comment on above: VITAMIN D STATUS 25( [place])VITAMIN D RANGE (ng/mL) Deficient <20 Insufficient 20 to <30Sufficient 30 to 100Reference: Vaishali Riddle, Arturo FARRIS, et al. Evaluation,treatment, and prevention of vitamin D deficiency; an Endocrine Society clinical practice guideline. JCEM. 2010; 96(7):1911-30. MM screening mammo BI w/CADo n 04-11-2023 MM screening mammo BI w/CAD [facility] [place] [address] [place], [place] [id number] Mammography Report Signed Patient: Radha Patterson MR#: [id number] : 1960 Acct:[id number] Age/Sex: 62 / F ADM Date: 04/11/23 Loc: [place] Room: Type: [facility] Attending Dr: Rosanne ZAFAR Copies to: [facility] CHARISMA Hilton Ordering Provider: CHARISMA Hilton [...] Sisi Smith M.D.04/11/2023 2:22 PM Dictation Location: [facility] Transcribed By: [facility] 04/11/23 1422 Dictated By: Sisi Smith MD 04/11/23 1416 Signed By: 04/11/23 1422 Normal [facility] Superficial Wound Cultureon 01-28-2023 Superficial Wound Culture Reason for Exam Drainage from ear, left Ear, Right No Growth 2 Days PERFORMED BY: [place] [address] PATHOLOGIST MECHATRONICS ENGINEER TRINI PINON M.D. Normal [facility] Comment on above: Performed By: #### C USUP #### [address] Alanine aminotransferase [En zymatic activity/volume] in Serum or PlasmaOrdered By: Rosanne Falcon on 01-16-2023 ALT [Catalytic activity/Vol] 28 U/L Normal [facility] Comment on above: Order Comment: Reaso n for Exam Hypertension Reason for Exam Vitamin D deficiency, unspecified Performed By: #### T SH3 wRFLX, [id number], DIFF CBC, CMP #### [facility] [address] Albumin [Mass/volume] in Ser um or Plasma by Bromocresol green (BCG) dye binding methoOrdered By: Rosanne Falcon on 01-16-2023 Albumin BCG dye [Mass/Vol] 4.3 g/dL 3.5-5.7 [facility] Alkaline phosphatase [Enzyma tic activity/volume] in Serum or PlasmaOrdered By: Rosanne Falcon on 01-16-2023 ALP [Catalytic activity/Vol] 88 U/L Normal 34-104 [facility] Comment on above: Order Comment: Reaso n for Exam Hypertension Reason for Exam Vitamin D deficiency, unspecified Performed By: #### T SH3 wRFLX, [id number], DIFF CBC, CMP #### [facility] [address] [place] [address] [place] Aspartate aminotransferase [ Enzymatic activity/volume] in Serum or PlasmaOrdered By: Rosanne Falcon on 01-16-2023 AST [Catalytic activity/Vol] 19 U/L Normal 13-39 [facility] Comment on above: Order Comment: Reaso n for Exam Hypertension Reason for Exam Vitamin D deficiency, unspecified Performed By: #### T SH3 wRFLX, [id number], DIFF CBC, CMP #### [facility] [address] [place] [address] [place] Basophils Auto (Bld) [#/Vol] Ordered By: Rosanne Falcon on 01-16-2023 Basophils (Bld) [#/Vol] N/A [facility] Basophils/100 WBC Auto (Bld) Ordered By: Rosanne Falcon on 01-16-2023 Basophils/100 WBC (Bld) N/A [facility] Basophils/100 leukocytes in Blood by Manual countOrdered By: Rosanne Falcon on 01-16-2023 Basophils/100 WBC (Bld) 3 % High 0-2 [facility] Comment on above: Order Comment: Reaso n for Exam Hypertension Performed By: #### T SH3 wRFLX, [id number], DIFF CBC, CMP #### [facility] [address] [place] [address] [place] Bilirubin.total [Mass/volume ] in Serum or PlasmaOrdered By: Rosanne Falcon on 01-16-2023 Bilirubin [Mass/Vol] 0.6 mg/dL Normal 0.3-1.0 [facility] Comment on above: Order Comment: Reaso n for Exam Hypertension Reason for Exam Vitamin D deficiency, unspecified Performed By: #### T SH3 wRFLX, [id number], DIFF CBC, CMP #### [facility] [address] [place] [address] [place] Calcium [Mass/volume] in Ser um or PlasmaOrdered By: Rosanne Falcon on 01-16-2023 Calcium [Mass/Vol] 9.5 mg/dL Normal 8.6-10.3 [facility] Comment on above: Order Comment: Reaso n for Exam Hypertension Reason for Exam Vitamin D deficiency, unspecified Performed By: #### T SH3 wRFLX, [id number], DIFF CBC, CMP #### [facility] [address] [place] [address] [place] Carbon dioxide, total [Moles /volume] in Serum or PlasmaOrdered By: Rosanne Falcon on 01-16-2023 CO2 [Moles/Vol] 27.6 mmol/L Normal 21.0-31.0 [facility] Comment on above: Order Comment: Reaso n for Exam Hypertension Reason for Exam Vitamin D deficiency, unspecified Performed By: #### T SH3 wRFLX, [id number], DIFF CBC, CMP #### [facility] [address] [place] [address] [place] Chloride [Moles/volume] in [place] or PlasmaOrdered By: Rosanne Falcon on 01-16-2023 Chloride [Moles/Vol] 102 mmol/L Normal 98-107 [facility] Comment on above: Order Comment: Reaso n for Exam Hypertension Reason for Exam Vitamin D deficiency, unspecified Performed By: #### T SH3 wRFLX, [id number], DIFF CBC, CMP #### [facility] [address] [place] [id number] [facility] Comprehensive Metabolic Pane harriet 01-16-2023 Albumin [Mass/Vol] 4.3 g/dL Normal 3.5-5.7 [facility] Comment on above: Order Comment: Reaso n for Exam Hypertension Reason for Exam Vitamin D deficiency, unspecified Performed By: #### T SH3 wRFLX, [id number], DIFF CBC, CMP #### [facility] [address] [place] [phone] [place] GFR/1.73 sq M.predicted MDRD (S/P/Bld) [Vol rate/Area] mL/min/{1.73_m2} Normal [facility] Comment on above: Order Comment: Reaso n for Exam Hypertension Reason for Exam Vitamin D deficiency, unspecified Performed By: #### T SH3 wRFLX, [id number], DIFF CBC, CMP #### [facility] [address] [place] [id number] [facility] Creatinine [Mass/volume] in Serum or PlasmaOrdered By: Rosanne Falcon on 01-16-2023 Creatinine [Mass/Vol] 0.95 mg/dL Normal 0.60-1.20 [facility] Comment on above: Order Comment: Reaso n for Exam Hypertension Reason for Exam Vitamin D deficiency, unspecified Performed By: #### T SH3 wRFLX, [id number], DIFF CBC, CMP #### [facility] [address] [place] [id number] [place] Diff and CBCon 01-16-2023 Eosinophils % (Auto) Normal . [facility] Comment on above: [...] indicated. Performed By: #### T SH3 wRFLX, [id number], DIFF CBC, CMP #### [facility] [address] [place] [phone] [place] Mean Corpuscular HGB Conc 33.9 g/dL Normal 32.0-35.0 [facility] Comment on above: Order Comment: Reaso n for Exam Hypertension Performed By: #### T SH3 wRFLX, [id number], DIFF CBC, CMP #### [facility] [address] [place] [address] [place] Platelet Estimate Normal Normal Normal [facility] Comment on above: Order Comment: Reaso n for Exam Hypertension Performed By: #### T SH3 wRFLX, [id number], DIFF CBC, CMP #### [facility] [address] Platelet Morphology Normal Normal Normal [facility] Comment on above: Order Comment: Reaso n for Exam Hypertension Result Comment: PERF ORMED BY: [place] [address] PATHOLOGIST MECHATRONICS ENGINEER TRINI PINON M.D. Performed By: #### T SH3 wRFLX, [id number], DIFF CBC, CMP #### [facility] [address] Reactive Lymphocytes 3 % Normal 0-12 [facility] Comment on above: Order Comment: Reaso n for Exam Hypertension Performed By: #### T SH3 wRFLX, [id number], DIFF CBC, CMP #### [facility] [address] [place] [phone] [place] Eosinophils Auto (Bld) [#/Vo l]Ordered By: Rosanne Falcon on 01-16-2023 Eosinophils (Bld) [#/Vol] N/A [facility] Eosinophils/100 WBC Auto (Bl d)Ordered By: Rosanne Falcon on 01-16-2023 Eosinophils/100 WBC (Bld) See comment . [facility] Comment on above: Absolute eosinophili a is [...] Eosinophils/100 WBC (Bld) 5 % High 1-3 [facility] Comment on above: Order Comment: Reaso n for Exam Hypertension Performed By: #### T SH3 wRFLX, [id number], DIFF CBC, CMP #### [facility] [address] Erythrocyte distribution wid th [Ratio] by Automated countOrdered By: Rosanne Falcon on 01-16-2023 Erythrocyte distribution width (RBC) [Ratio] 13.1 % Normal 11.9-15.3 [facility] Comment on above: Order Comment: Reaso n for Exam Hypertension Performed By: #### T SH3 wRFLX, [id number], DIFF CBC, CMP #### [facility] [address] [place] [address] [place] Erythrocytes [#/volume] in B lood by Automated countOrdered By: Rosanne Falcon on 01-16-2023 RBC (Bld) [#/Vol] 3.82 10*6/uL Normal 3.60-5.00 [facility] Comment on above: Order Comment: Reaso n for Exam Hypertension Performed By: #### T SH3 wRFLX, [id number], DIFF CBC, CMP #### [facility] [address] Glucose [Mass/volume] in Ser um or PlasmaOrdered By: Rosanne Falcon on 01-16-2023 Glucose [Mass/Vol] 93 mg/dL Normal 70-100 [facility] Comment on above: ADA recommended refe rence rangeRandom Glucose Reference Range is dependent on time and content of last meal. Glucose of more than 200 mg/dL in a nonstressed, ambulatory subject supports the diagnosis of Diabetes Mellitus. Order Comment: Reaso n for Exam Hypertension Reason for Exam Vitamin D deficiency, unspecified Result Comment: [place] om Glucose Reference Range is dependent on time and content of last meal. Glucose of more than 200 mg/dL in a nonstressed, ambulatory subject supports the diagnosis of Diabetes Mellitus. ADA recommended reference range Performed By: #### T SH3 wRFLX, [id number], DIFF CBC, CMP #### [facility] [address] Hematocrit [Volume Fraction] of Blood by Automated countOrdered By: Rosanne Falcon on 01-16-2023 Hematocrit (Bld) [Volume fraction] 37.6 % Normal 34.0-46.4 [facility] Comment on above: Order Comment: Reaso n for Exam Hypertension Performed By: #### T SH3 wRFLX, [id number], DIFF CBC, CMP #### [facility] [address] Hemoglobin [Mass/volume] in BloodOrdered By: Rosanne Falcon on 01-16-2023 Hemoglobin (Bld) [Mass/Vol] 12.8 g/dL Normal 11.8-15.4 [facility] Comment on above: Order Comment: Reaso n for Exam Hypertension Performed By: #### T SH3 wRFLX, [id number], DIFF CBC, CMP #### [facility] [address] Leukocytes [#/volume] correc [place] for nucleated erythrocytes in Blood by Automated counOrdered By: Rosanne Falcon on 01-16-2023 WBC corrected for nucl RBC Auto (Bld) [#/Vol] 3.4 10*3/uL 3.8-11.6 [facility] Leukocytes [#/volume] in Blo od by Automated countOrdered By: Rosanne Falcon on 01-16-2023 WBC (Bld) [#/Vol] 3.4 10*3/uL Low 3.8-11.6 [facility] Comment on above: Order Comment: Reaso n for Exam Hypertension Performed By: #### T SH3 wRFLX, [id number], DIFF CBC, CMP #### [facility] [address] [place] [address] [place] Lymphocytes Auto (Bld) [#/Vo l]Ordered By: Rosanne Curtisc on 01-16-2023 Lymphocytes (Bld) [#/Vol] N/A [facility] Lymphocytes/100 WBC Auto (Bl d)Ordered By: Rosanne Curtisc on 01-16-2023 Lymphocytes/100 WBC (Bld) N/A [facility] Lymphocytes/100 leukocytes i n Blood by Manual countOrdered By: Rosanne Falcon on 01-16-2023 Lymphocytes/100 WBC (Bld) 49 % High 18-42 [facility] Comment on above: Order Comment: Reaso n for Exam Hypertension Performed By: #### T SH3 wRFLX, [id number], DIFF CBC, CMP #### [facility] [address] MCH [Entitic mass] by [place] countOrdered By: Rosanne Falcon on 01-16-2023 MCH (RBC) [Entitic mass] 33.4 pg Normal 24.7-34.3 [facility] Comment on above: Order Comment: Reaso n for Exam Hypertension Performed By: #### T SH3 wRFLX, [id number], DIFF CBC, CMP #### [facility] [address] MCHC Auto (RBC) [Mass/Vol]Or dered By: Rosanne Falcon on 01-16-2023 MCHC (RBC) [Mass/Vol] 33.9 g/dL 32.0-35.0 [facility] MCV [Entitic volume] by Auto mated countOrdered By: Rosanne Falcon on 01-16-2023 MCV (RBC) [Entitic vol] 98.5 fL Normal 80-100 [facility] Comment on above: Order Comment: Reaso n for Exam Hypertension Performed By: #### T SH3 wRFLX, [id number], DIFF CBC, CMP #### [facility] [address] Manual blood segmented neutr ophils/100 leukocytesOrdered By: Rosanne Falcon on 01-16-2023 Segmented neutrophils/100 WBC (Bld) 37 % Low 50-70 [facility] Comment on above: Order Comment: Reaso n for Exam Hypertension Performed By: #### T SH3 wRFLX, [id number], DIFF CBC, CMP #### [facility] [address] Monocytes Auto (Bld) [#/Vol] Ordered By: Rosanne Falcon on 01-16-2023 Monocytes (Bld) [#/Vol] N/A [facility] Monocytes/100 WBC Auto (Bld) Ordered By: Rosanne Falcon on 01-16-2023 Monocytes/100 WBC (Bld) N/A [facility] Monocytes/100 leukocytes in Blood by Manual countOrdered By: Rosanne Falcon on 01-16-2023 Monocytes/100 WBC (Bld) 3 % Normal 2-11 [facility] Comment on above: Order Comment: Reaso n for Exam Hypertension Performed By: #### T SH3 wRFLX, [id number], DIFF CBC, CMP #### [facility] [address] Neutrophils Auto (Bld) [#/Vo l]Ordered By: Rosanne Falcon on 01-16-2023 Neutrophils (Bld) [#/Vol] N/A [facility] Neutrophils/100 WBC Auto (Bl d)Ordered By: Rosanne Falcon on 01-16-2023 Neutrophils/100 WBC (Bld) N/A [facility] No Panel InformationOrdered By: Rosanne Falcon on 01-16-2023 Estimated GFR (CKD-EPI) > 60.0 mL/Min [facility] Creatinine Clearance (Chem N/A [facility] Nucleated erythrocytes [Pres ence] in Blood by Automated countOrdered By: Rosanne Falcon on 01-16-2023 Nucleated RBC Auto Ql (Bld) N/A [facility] Platelet adequacy [Presence] in Blood by Light microscopyOrdered By: Rosanne Falcon on 01-16-2023 Platelets LM Ql (Bld) Normal Normal [facility] Platelet mean volume [Entiti c volume] in Blood by Automated countOrdered By: Rosanne Falcon on 01-16-2023 Platelet mean volume (Bld) [Entitic vol] 8.7 fL Normal 6.3-10.7 [facility] Comment on above: Order Comment: Reaso n for Exam Hypertension Performed By: #### T SH3 wRFLX, [id number], DIFF CBC, CMP #### [facility] [address] [place] [id number] [facility] Platelet morphology finding [Identifier] in BloodOrdered By: Rosanne Falcon on 01-16-2023 Platelet morphology finding Nom (Bld) Normal Normal [facility] Platelets [#/volume] in Bloo d by Automated countOrdered By: Rosanne Falcon on 01-16-2023 Platelets (Bld) [#/Vol] 180 10*3/uL Normal 150-450 [facility] Comment on above: Order Comment: Reaso n for Exam Hypertension Performed By: #### T SH3 wRFLX, [id number], DIFF CBC, CMP #### [facility] [address] [place] [address] [place] Potassium [Moles/volume] in Serum or PlasmaOrdered By: Rosanne Falcon on 01-16-2023 Potassium [Moles/Vol] 4.3 mmol/L Normal 3.5-5.1 [facility] Comment on above: Order Comment: Reaso n for Exam Hypertension Reason for Exam Vitamin D deficiency, unspecified Performed By: #### T SH3 wRFLX, [id number], DIFF CBC, CMP #### [facility] [address] [place] [id number] [place] Protein [Mass/volume] in Ser um or PlasmaOrdered By: Rosanne Falcon on 01-16-2023 Protein [Mass/Vol] 7.4 g/dL Normal 6.4-8.9 [facility] Comment on above: Order Comment: Reaso n for Exam Hypertension Reason for Exam Vitamin D deficiency, unspecified Performed By: #### T SH3 wRFLX, [id number], DIFF CBC, CMP #### [facility] [address] [place] [address] [place] RBC morphologyOrdered By: Kayleen Falcon on 01-16-2023 RBC morphology finding Nom (Bld) Normal Normal Normal [facility] Comment on above: Order Comment: Reaso n for Exam Hypertension Performed By: #### T SH3 wRFLX, [id number], DIFF CBC, CMP #### [facility] [address] [id number] [place] Serum globulin measurement b y calculation (mass/volume)Ordered By: Rosanne Falcon on 01-16-2023 Globulin (S) [Mass/Vol] 3.1 g/dL Normal [facility] Comment on above: Order Comment: Reaso n for Exam Hypertension Reason for Exam Vitamin D deficiency, unspecified Performed By: #### T SH3 wRFLX, [id number], DIFF CBC, CMP #### [facility] [address] Serum or plasma albumin/glob ulin mass ratioOrdered By: Rosanne Falcon on 01-16-2023 Albumin/Globulin [Mass ratio] 1.4 {ratio} Normal [facility] Comment on above: Order Comment: Reaso n for Exam Hypertension Reason for Exam Vitamin D deficiency, unspecified Performed By: #### T SH3 wRFLX, [id number], DIFF CBC, CMP #### [facility] [address] Serum or plasma anion gap de terminationOrdered By: Rosanne Falcon on 01-16-2023 Anion gap [Moles/Vol] 11.7 mmol/L Normal 6.0-15.0 [facility] Comment on above: Order Comment: Reaso n for Exam Hypertension Reason for Exam Vitamin D deficiency, unspecified Performed By: #### T SH3 wRFLX, [id number], DIFF CBC, CMP #### [facility] [address] [place] [address] Sodium [Moles/volume] in Ser um or PlasmaOrdered By: Rosanne Falcon on 01-16-2023 Sodium [Moles/Vol] 137 mmol/L Normal 136-145 [facility] Comment on above: Order Comment: Reaso n for Exam Hypertension Reason for Exam Vitamin D deficiency, unspecified Performed By: #### T SH3 wRFLX, [id number], DIFF CBC, CMP #### [facility] [address] Thyroid Stim Hormone w/Rflxo n 01-16-2023 Thyroid Stim Hormone w/Rflx 3.01 u[iU]/mL Normal 0.45-5.33 [facility] Comment on above: Order Comment: Reaso n for Exam Hypertension Reason for Exam Vitamin D deficiency, unspecified Performed By: #### T SH3 wRFLX, [id number], DIFF CBC, CMP #### [facility] [address] [id number] [facility] Thyrotropin [Units/volume] i n Serum or PlasmaOrdered By: Rosanne Falcon on 01-16-2023 TSH Qn 3.01 m[IU]/L 0.45-5.33 [facility] Urea nitrogen [Mass/volume] in Serum or PlasmaOrdered By: Rosanne Falcon on 01-16-2023 Urea nitrogen [Mass/Vol] 12 mg/dL Normal 7-25 [facility] Comment on above: Order Comment: Reaso n for Exam Hypertension Reason for Exam Vitamin D deficiency, unspecified Performed By: #### T SH3 wRFLX, [id number], DIFF CBC, CMP #### [facility] [address] [place] [address] [place] Variant lymphocytes/100 WBC Manual cnt (Bld)Ordered By: Rosanne Falcon on 01-16-2023 Variant lymphocytes/100 WBC (Bld) 3 % 0-12 [facility] Vitamin D 25 Hydroxy Totalon 01-16-2023 Vitamin D 25 Hydroxy Total 32.5 ng/mL Normal 30-100 [facility] Comment on above: [...] practice guideline. JCEM. 2010; 96(7):1911-30. PERFORMED BY: [place] [address] PATHOLOGIST MECHATRONICS ENGINEER TRINI PINON M.D. Performed By: #### T SH3 wRFLX, [id number], DIFF CBC, CMP #### [facility] [address] [id number] [facility] Vitamin D+Metabolites [Mass/ volume] in Serum or PlasmaOrdered By: Rosanne Falcon on 01-16-2023 Vitamin D+Metabolites [Mass/Vol] 32.5 ng/mL 30-100 [facility] Comment on above: VITAMIN D STATUS 25( [place])VITAMIN D RANGE (ng/mL) Deficient <20 Insufficient 20 to <30Sufficient 30 to 100Reference: Helen MF,Vaishali NC, Arturo FARRIS, et al. Evaluation,treatment, and prevention of vitamin D deficiency; an Endocrine Society clinical practice guideline. JCEM. 2010; 96(7):1911-30. Albumin [Mass/volume] in Ser um or PlasmaOrdered By: Rosanne Falcon on 05-14-2022 Albumin [Mass/Vol] 3.8 g/dL 3.2-5.5 [facility] Basophils Auto (Bld) [#/Vol] Ordered By: Rosanne Falcon on 05-14-2022 Basophils (Bld) [#/Vol] 0.0 10*3/uL 0.0-0.2 [facility] Basophils/100 WBC Auto (Bld) Ordered By: Rosanne Falcon on 05-14-2022 Basophils/100 WBC (Bld) 0.8 % . [facility] biopsyOrdered By: Rosanne moore on 05-14-2022 Transferrin [Mass/Vol] 216 mg/dL 180-380 [facility] Creatinine and Glomerular fi ltration rate.predicted panel (S/P/Bld)Ordered By: Rosanne Falcon on 05-14-2022 Creatinine [Mass/Vol] 0.82 mg/dL 0.44-1.03 [facility] Eosinophils Auto (Bld) [#/Vo l]Ordered By: Rosanne Falcon on 05-14-2022 Eosinophils (Bld) [#/Vol] 0.2 10*3/uL 0.0-0.45 [facility] Eosinophils/100 WBC Auto (Bl d)Ordered By: Rosanne Falcon on 05-14-2022 Eosinophils/100 WBC (Bld) 4.0 % . [facility] Erythrocyte distribution wid th Auto (RBC) [Ratio]Ordered By: Rosanne Falcon on 05-14-2022 Erythrocyte distribution width (RBC) [Ratio] 12.9 % 11.9-15.3 [facility] Estimated glomerular filtrat ion rate (GFR) non- AmericanOrdered By: Rosanne Falcon on 05-14-2022 GFR/1.73 sq M.predicted among non-blacks MDRD (S/P/Bld) [Vol rate/Area] > 60 mL/Min [facility] Globulin Calc (S) [Mass/Vol] Ordered By: Rosanne Falcon on 05-14-2022 Globulin (S) [Mass/Vol] 3.4 g/dL [facility] Hematocrit Auto (Bld) [Volum e fraction]Ordered By: Rosanne Falcon on 05-14-2022 Hematocrit (Bld) [Volume fraction] 37.1 % 34.0-46.4 [facility] Hemoglobin [Mass/volume] in BloodOrdered By: Rosanne Falcon on 05-14-2022 Hemoglobin (Bld) [Mass/Vol] 12.5 g/dL 11.8-15.4 [facility] Iron [Mass/volume] in Serum or PlasmaOrdered By: Rosanne Falcon on 05-14-2022 Iron [Mass/Vol] 79 ug/dL 40-150 [facility] Iron binding capacity [Mass/ volume] in Serum or PlasmaOrdered By: Rosanne Falcon on 05-14-2022 Iron binding capacity [Mass/Vol] 302 ug/dL 255-450 [facility] Iron saturation [Mass Fracti on] in Serum or PlasmaOrdered By: Rosanne Falcon on 05-14-2022 Iron saturation [Mass fraction] 26.2 % 20-50 [facility] Leukocytes [#/volume] correc [place] for nucleated erythrocytes in Blood by Automated counOrdered By: Rosanne Falcon on 05-14-2022 WBC corrected for nucl RBC Auto (Bld) [#/Vol] 4.4 10*3/uL 3.8-11.6 [facility] Lymphocytes Auto (Bld) [#/Vo l]Ordered By: Rosanne Falcon on 05-14-2022 Lymphocytes (Bld) [#/Vol] 2.2 10*3/uL 1.00-4.8 [facility] Lymphocytes/100 WBC Auto (Bl d)Ordered By: Rosanne Falocn on 05-14-2022 Lymphocytes/100 WBC (Bld) 49.3 % . [facility] MCH Auto (RBC) [Entitic mass ]Ordered By: Rosanne Falcon on 05-14-2022 MCH (RBC) [Entitic mass] 33.0 pg 24.7-34.3 [facility] MCHC Auto (RBC) [Mass/Vol]Or dered By: Rosanne Falcon on 05-14-2022 MCHC (RBC) [Mass/Vol] 33.6 g/dL 32.0-35.0 [facility] MCV Auto (RBC) [Entitic vol] Ordered By: Rosanne Falcon on 05-14-2022 MCV (RBC) [Entitic vol] 98.2 fL 80-100 [facility] Monocytes Auto (Bld) [#/Vol] Ordered By: Rosanne Falcon on 05-14-2022 Monocytes (Bld) [#/Vol] 0.3 10*3/uL 0.0-0.8 [facility] Monocytes/100 WBC Auto (Bld) Ordered By: Rosanne Falcon on 05-14-2022 Monocytes/100 WBC (Bld) 7.0 % . [facility] Neutrophils Auto (Bld) [#/Vo l]Ordered By: Rosanne Falcon on 05-14-2022 Neutrophils (Bld) [#/Vol] 1.7 10*3/uL 1.8-7.7 [facility] Neutrophils/100 WBC Auto (Bl d)Ordered By: Rosanne Falcon on 05-14-2022 Neutrophils/100 WBC (Bld) 38.9 % . [facility] No Panel InformationOrdered By: Rosanne Falcon on 05-14-2022 25-Hydroxy Vitamin D Total 74.8 ng/mL 30-100 [facility] Comment on above: VITAMIN D STATUS 25( [place])VITAMIN D RANGE (ng/mL) Deficient <20 Insufficient 20 to <30Sufficient 30 to 100Reference: Helen MF,Vaishali GRIGGS, Arturo FARRIS, et al. Evaluation,treatment, and prevention of vitamin D deficiency; an Endocrine Society clinical practice guideline. JCEM. 2010; 96(7):1911-30. Estimated GFR () > 60 mL/Min [facility] Comment on above: GFR estimated refere nce range: According to KDOQI guidelines, <60 ml/min/1.73m2 is sufficient to diagnose a patient with chronic kidney disease. Pharmacy Creatinine Clearance (Chem N/A [facility] Nucleated erythrocytes [Pres ence] in Blood by Automated countOrdered By: Rosanne Falcon on 05-14-2022 Nucleated RBC Auto Ql (Bld) 0.1 /100{WBC} 0-0.5 [facility] Platelet mean volume Auto (B ld) [Entitic vol]Ordered By: Rosanne aFlcon on 05-14-2022 Platelet mean volume (Bld) [Entitic vol] 8.2 fL 6.3-10.7 [facility] Platelets Auto (Bld) [#/Vol] Ordered By: Rosanne Falcon on 05-14-2022 Platelets (Bld) [#/Vol] 231 10*3/uL 150-450 [facility] Protein [Mass/volume] in Ser um or PlasmaOrdered By: Rosanne Falcon on 05-14-2022 Protein [Mass/Vol] 7.2 g/dL 6.1-7.9 [facility] RBC Auto (Bld) [#/Vol]Ordere d By: Rosanne Falcon on 05-14-2022 RBC (Bld) [#/Vol] 3.78 10*6/uL 3.60-5.00 [facility] Serum or plasma alanine andersen otransferase measurement without P-5'-P (enzymatic activiOrdered By: Rosanne Falcon on 05-14-2022 ALT No additional P-5'-P [Catalytic activity/Vol] 15 U/L 10-60 [facility] Serum or plasma albumin/glob ulin mass ratioOrdered By: Rosanne Falcon on 05-14-2022 Albumin/Globulin [Mass ratio] 1.1 {ratio} [facility] Serum or plasma alkaline lori sphatase measurement (enzymatic activity/volume)Ordered By: Rosanne Falcon on 05-14-2022 ALP [Catalytic activity/Vol] 78 U/L 32-92 [facility] Serum or plasma anion gap de terminationOrdered By: Rosanne Falcon on 05-14-2022 Anion gap [Moles/Vol] 10.6 mmol/L 6.0-15.0 [facility] Serum or plasma aspartate am inotransferase measurement (enzymatic activity/volume)Ordered By: Rosanne Falcon on 05-14-2022 AST [Catalytic activity/Vol] 19 U/L 10-42 [facility] Serum or plasma calcium tristian urement (mass/volume)Ordered By: Rosanne Falcon on 05-14-2022 Calcium [Mass/Vol] 9.9 mg/dL 8.2-10.2 [facility] Serum or plasma chloride ceferino surement (moles/volume)Ordered By: Rosanne Falcon on 05-14-2022 Chloride [Moles/Vol] 101 mmol/L 95-114 [facility] Serum or plasma glucose tristian urement (mass/volume)Ordered By: Rosanne Falcon on 05-14-2022 Glucose [Mass/Vol] 74 mg/dL 70-100 [facility] Comment on above: ADA recommended refe rence rangeRandom Glucose Reference Range is dependent on time and content of last meal. Glucose of more than 200 mg/dL in a nonstressed, ambulatory subject supports the diagnosis of Diabetes Mellitus. Serum or plasma potassium me asurement (moles/volume)Ordered By: Rosanne Falcon on 05-14-2022 Potassium [Moles/Vol] 3.7 mmol/L 3.5-5.1 [facility] Serum or plasma sodium measu rement (moles/volume)Ordered By: Rosanne Falcon on 05-14-2022 Sodium [Moles/Vol] 138 mmol/L 136-146 [facility] Serum or plasma total biliru bin measurement (mass/volume)Ordered By: Rosanne Falcon on 05-14-2022 Bilirubin [Mass/Vol] 0.5 mg/dL 0.3-1.2 [facility] Serum or plasma total carbon dioxide measurement (moles/volume)Ordered By: Rosanne Falcon on 05-14-2022 CO2 [Moles/Vol] 30.1 mmol/L 22.0-30.0 [facility] Serum or plasma urea nitroge n measurement (mass/volume)Ordered By: Rosanne Falcon on 05-14-2022 Urea nitrogen [Mass/Vol] 12 mg/dL 9-23 [facility] WBC Auto (Bld) [#/Vol]Ordere d By: Rosanne Falcon on 05-14-2022 WBC (Bld) [#/Vol] 4.4 10*3/uL 3.8-11.6 [facility] Amphetamine Screen Ql (U)Ord ered By: Philip Taveras on 01-09-2022 Amphetamines Ql (U) Negative Negative [facility] Barbiturates [Presence] in U rineOrdered By: Philip Taveras on 01-09-2022 Barbiturates Ql (U) Negative Negative [facility] Benzodiazepines [Presence] i n UrineOrdered By: Philip Taveras on 01-09-2022 Benzodiazepines Ql (U) Negative Negative [facility] Cannabinoids [Presence] in U rine by Screen methodOrdered By: Philip Taveras on 01-09-2022 Cannabinoids Screen Ql (U) Positive Negative [facility] Comment on above: These are unconfirme d results and should not be used for legal purposes. Drug Cut-Off Concentration: AMPH 1000 ng/mL PATRICE 200 ng/mL BRUNO 200 ng/mL COCM 300 ng/mL OP 300 ng/mL PCP 25 ng/mL THC 20 ng/mL Laboratory - Drug toxicology Ordered By: Philip Taveras on 01-09-2022 Opiates Ql (U) Negative Negative [facility] Phencyclidine Screen Ql (U)O rdered By: Philip Taveras on 01-09-2022 Phencyclidine Ql (U) Negative Negative [facility] Urine cocaine detectionOrder ed By: Philip Taveras on 01-09-2022 Cocaine Ql (U) Positive Negative [facility] COVID-19 SOFIAOrdered By: Kayleen Taveras on 01-07-2022 SARS-CoV+SARS-CoV-2 (COVID-19) Ag IA.rapid Ql (Resp) Negative Negative [facility] Comment on above: This is a duplicate Joy SARS Antigen (CHRISTINA) result to be used for statistical tracking purpose only. No Panel InformationOrdered By: Philip Taveras on 01-07-2022 SARS Antigen (LFIA) [facility] COVID-19 Positive/NegativeOr dered By: Philip Taveras on 12-04-2021 SARS-CoV-2 (COVID-19) N gene RICKY+probe Ql (Resp) Negative Negative [facility] Comment on above: Testing for SARS-CoV -2 by RT-PCR This test was developed and its performance characteristics determined by [employer] and validated at the [facility]. This test has not been FDA cleared [...] developed and its performance characteristics determined by [employer] ([employer]) and validated at the [facility]. This test has not been FDA cleared [...] on 10-26-2021 Albumin [Mass/Vol] 3.7 g/dL 3.2-5.5 [facility] Basophils Auto (Bld) [#/Vol] Ordered By: Rosanne Falcon on 10-26-2021 Basophils (Bld) [#/Vol] 0.0 10*3/uL 0.0-0.2 [facility] Basophils/100 WBC Auto (Bld) Ordered By: Rosanne Falcon on 10-26-2021 Basophils/100 WBC (Bld) 0.6 % . [facility] Blood acanthocytes detection by light microscopyOrdered By: Rosanne Falcon on 10-26-2021 Acanthocytes LM Ql (Bld) Few [facility] Blood hemoglobin measurement (mass/volume)Ordered By: Rosanne Falcon on 10-26-2021 Hemoglobin (Bld) [Mass/Vol] 13.5 g/dL 11.8-15.4 [facility] Blood leukocytes automated c ount (number/volume)Ordered By: Rosanne Falcon on 10-26-2021 WBC (Bld) [#/Vol] 4.4 10*3/uL 4.5-11.[address] [facility] [address] biopsyOrdered By: Rosanne moore on 10-26-2021 Transferrin [Mass/Vol] 234 mg/dL 180-380 [facility] Cholesterol [Mass/volume] in Serum or PlasmaOrdered By: Rosanne Falcon on 10-26-2021 Cholesterol [Mass/Vol] 152 mg/dL 140-200 [facility] Comment on above: Chol less than 200 m g/dl low risk Chol 201-239 mg/dl borderline risk Chol 240 mg/dl and greater high risk Chol less than 200 m g/dl low riskChol 201-239 mg/dl borderline riskChol 240 mg/dl and greater high risk Cholesterol in LDL Calc [Mas s/Vol]Ordered By: Rosanen Falcon on 10-26-2021 Cholesterol in LDL [Mass/Vol] 73 mg/dL 0-100 [facility] Comment on above: LDL ATP III CLASSIFI [...] 10-26-2021 Cholesterol in VLDL [Mass/Vol] 8 mg/dL [facility] Creatine kinase [Enzymatic a ctivity/volume] in Serum or PlasmaOrdered By: Rosanne Falcon on 10-26-2021 CK [Catalytic activity/Vol] 111 U/L 22 [facility] Creatinine and Glomerular fi ltration rate.predicted panel (S/P/Bld)Ordered By: Rosanne Falcon on 10-26-2021 Creatinine [Mass/Vol] 0.86 mg/dL 0.44-1.03 [facility] Eosinophils Auto (Bld) [#/Vo l]Ordered By: Rosanne Falcon on 10-26-2021 Eosinophils (Bld) [#/Vol] 0.2 10*3/uL 0.0-0.45 [facility] Eosinophils/100 WBC Auto (Bl d)Ordered By: Rosanne Falcon on 10-26-2021 Eosinophils/100 WBC (Bld) 3.7 % . [facility] Erythrocyte distribution wid th Auto (RBC) [Ratio]Ordered By: Rosanne Falcon on 10-26-2021 Erythrocyte distribution width (RBC) [Ratio] 13.1 % 11.9-15.3 [facility] Estimated glomerular filtrat ion rate (GFR) non- AmericanOrdered By: Rosanne Falcon on 10-26-2021 GFR/1.73 sq M.predicted among non-blacks MDRD (S/P/Bld) [Vol rate/Area] > 60 mL/Min [facility] Globulin Calc (S) [Mass/Vol] Ordered By: Rosanne Falcon on 10-26-2021 Globulin (S) [Mass/Vol] 3.0 g/dL [facility] Glucose mean value [Mass/vol ume] in Blood Estimated from glycated hemoglobinOrdered By: Rosanne Falcon on 10-26-2021 Average glucose Estimated from glycated hemoglobin (Bld) [Mass/Vol] 105 mg/dL [facility] HIV 1 and HIV-2 antibody ass ay with HIV-1 p24 antigen detectionOrdered By: Rosanne Falcon on 10-26-2021 HIV 1+2 Ab+HIV1 p24 Ag IA Ql Non-Reactive Non Reactive [facility] Comment on above: HIV Negative HIV-1/HIV-2 antibodies and HIV-1 p24 antigen were NOT detected. There is no laboratory evidence of HIV infection. Performed at: [facility] [place] [address] [address] Clammer: Lopez Mcwilliams PhD, Phone: [phone] HIV NegativeHIV-1/HI V-2 antibodies and HIV-1 p24 antigen were NOTdetected. There is no laboratory evidence of HIV infection.Performed at: [facility] [employer] [id number] Director: Lopez Mcwilliams PhD, Phone: [phone] Hematocrit Auto (Bld) [Volum e fraction]Ordered By: Rosanne Falcon on 10-26-2021 Hematocrit (Bld) [Volume fraction] 39.8 % 34.0-46.4 [facility] Hemoglobin A1c percentageOrd ered By: Rosanne Falcon on 10-26-2021 HbA1c (Bld) [Mass fraction] 5.3 % 4.3-5.6 [facility] Comment on above: Increased risk for d iabetes: 5.7 - 6.4 diabetes: >6.4 glycemic control for adults with diabetes: <7.0 Increased risk for d iabetes: 5.7 - 6.4diabetes: >6.4glycemic control for adults with diabetes: <7.0 Hepatitis B virus surface Ag [Presence] in Serum or Plasma by ImmunoassayOrdered By: Rosanne Falcon on 10-26-2021 HBV surface Ag IA Ql Negative Negative [facility] Hepatitis C virus RNA [Units /volume] (viral load) in Serum or Plasma by RICKY with probOrdered By: Rosanne Falcon on 10-26-2021 HCV RNA RICKY+probe Qn N/A [facility] Hepatitis C virus RNA [log u nits/volume] (viral load) in Serum or Plasma by RICKY withOrdered By: Rosanne Falcon on 10-26-2021 HCV RNA RICKY+probe [Log units/Vol] N/A [facility] Iron [Mass/volume] in Serum or PlasmaOrdered By: Rosanne Falcon on 10-26-2021 Iron [Mass/Vol] 63 ug/dL 40-150 [facility] Iron binding capacity [Mass/ volume] in Serum or PlasmaOrdered By: Rosanne Falcon on 10-26-2021 Iron binding capacity [Mass/Vol] 328 ug/dL 255-450 [facility] Iron saturation [Mass Fracti on] in Serum or PlasmaOrdered By: Rosanne Falcon on 10-26-2021 Iron saturation [Mass fraction] 19.0 % 20-50 [facility] Laboratory - Hematology and Cell countsOrdered By: Rosanne Falcon on 10-26-2021 Nucleated RBC/100 WBC (Bld) [Ratio] 0.2 % 0-0.5 [facility] Lymphocytes Auto (Bld) [#/Vo l]Ordered By: Rosanne Falcon on 10-26-2021 Lymphocytes (Bld) [#/Vol] 3.0 10*3/uL 1.00-4.8 [facility] Lymphocytes/100 WBC Auto (Bl d)Ordered By: Rosanne Falcon on 10-26-2021 Lymphocytes/100 WBC (Bld) 66.6 % . [facility] MCH Auto (RBC) [Entitic mass ]Ordered By: Rosanne Falcon on 10-26-2021 MCH (RBC) [Entitic mass] 33.6 pg 24.7-34.3 [facility] MCHC Auto (RBC) [Mass/Vol]Or dered By: Rosanne Falcon on 10-26-2021 MCHC (RBC) [Mass/Vol] 34.0 g/dL 32.0-35.0 [facility] MCV Auto (RBC) [Entitic vol] Ordered By: Rosanne Falcon on 10-26-2021 MCV (RBC) [Entitic vol] 98.8 fL 80-100 [facility] Monocytes Auto (Bld) [#/Vol] Ordered By: Rosanne Falcon on 10-26-2021 Monocytes (Bld) [#/Vol] 0.2 10*3/uL 0.0-0.8 [facility] Monocytes/100 WBC Auto (Bld) Ordered By: Rosanne Falcon on 10-26-2021 Monocytes/100 WBC (Bld) 4.6 % . [facility] Neutrophils Auto (Bld) [#/Vo l]Ordered By: Rosanne Falcon on 10-26-2021 Neutrophils (Bld) [#/Vol] 1.1 10*3/uL 1.8-7.7 [facility] Neutrophils/100 WBC Auto (Bl d)Ordered By: Rosanne Falcon on 10-26-2021 Neutrophils/100 WBC (Bld) 24.5 % . [facility] No Panel InformationOrdered By: Rosanne Falcon on 10-26-2021 25-Hydroxy Vitamin D Total 58.9 ng/mL 30-100 [facility] Comment on above: VITAMIN D STATUS 25( [...] 96(7):1911-30. Estimated GFR () > 60 mL/Min [facility] Comment on above: GFR estimated refere nce range: According to KDOQI guidelines, <60 ml/min/1.73m2 is sufficient to diagnose a patient with chronic kidney disease. Hepatitis A IgM Antibody Negative Negative [facility] Hepatitis B Core IgM Antibody Negative Negative [facility] Hepatitis C Interpretation See comment . [facility] Comment on above: Negative Not infected with HCV, unless recent infection is suspected or other evidence exists to indicate HCV infection. Performed at: [facility] [id number] [place] Clammer: Lopez Mcwilliams PhD, Phone: [phone] NegativeNot infected with HCV, unless recent infection issuspected or other evidence exists to indicate HCVinfection.Performed at: [facility] [id number] Director: Lopez Mcwilliams PhD, Phone: [phone] Hepatitis C RNA Quantitative N/A [facility] Creatinine Clearance (Chem N/A [facility] Platelet Estimate Normal Normal [facility] Platelet Morphology Comment Normal Normal [facility] Platelet mean volume Auto (B ld) [Entitic vol]Ordered By: Rosanne Falcon on 10-26-2021 Platelet mean volume (Bld) [Entitic vol] 8.6 fL 6.3-10.7 [facility] Platelets Auto (Bld) [#/Vol] Ordered By: Rosanne Falcon on 10-26-2021 Platelets (Bld) [#/Vol] 230 10*3/uL 150-450 [facility] Protein [Mass/volume] in Ser um or PlasmaOrdered By: Rosanne Falcon on 10-26-2021 Protein [Mass/Vol] 6.7 g/dL 6.1-7.9 [facility] RBC Auto (Bld) [#/Vol]Ordere d By: Rosanne Falcon on 10-26-2021 RBC (Bld) [#/Vol] 4.03 10*6/uL 3.60-5.00 [facility] RBC morphologyOrdered By: Kayleen Falcon on 07-22-2022 RBC morphology finding Nom (Bld) Normal [facility] Serum or plasma C reactive p rotein measurement (mass/volume)Ordered By: Rosanne Falcon on 10-26-2021 CRP [Mass/Vol] 0.6 mg/dL 0.0-1.0 [facility] Serum or plasma alanine andersen otransferase measurement without P-5'-P (enzymatic activiOrdered By: Rosanne Falcon on 10-26-2021 ALT No additional P-5'-P [Catalytic activity/Vol] 15 U/L 10-60 [facility] Serum or plasma albumin/glob ulin mass ratioOrdered By: Rosanne Falcon on 10-26-2021 Albumin/Globulin [Mass ratio] 1.2 {ratio} [facility] Serum or plasma alkaline lori sphatase measurement (enzymatic activity/volume)Ordered By: Rosanne Falcon on 10-26-2021 ALP [Catalytic activity/Vol] 63 U/L 32-92 [facility] Serum or plasma aspartate am inotransferase measurement (enzymatic activity/volume)Ordered By: Rosanne Falcon on 10-26-2021 AST [Catalytic activity/Vol] 18 U/L 10-42 [facility] Serum or plasma calcium tristian urement (mass/volume)Ordered By: Rosanne Falcon on 10-26-2021 Calcium [Mass/Vol] 10.2 mg/dL 8.2-10.2 [facility] Serum or plasma chloride ceferino surement (moles/volume)Ordered By: Rosanne Falcon on 10-26-2021 Chloride [Moles/Vol] 100 mmol/L 95-114 [facility] Serum or plasma glucose tristian urement (mass/volume)Ordered By: Rosanne Falcon on 10-26-2021 Glucose [Mass/Vol] 103 mg/dL 70-100 [facility] Comment on above: ADA recommended [...] IA [Rel units/Vol] <0.1 s/co ratio 0.0-0.9 [facility] Serum or plasma high density lipoprotein (HDL) cholesterol measurementOrdered By: Rosanne Falcon on 10-26-2021 Cholesterol in HDL [Mass/Vol] 71 mg/dL 35-85 [facility] Comment on above: HDL CHOL ATP-III CLA SSIFICATION Cardiovascular Risk HDL > or equal to 60 mg/dL LOW HDL < 40 mg/dL HIGH HDL CHOL ATP-III CLA SSIFICATION Cardiovascular RiskHDL > or equal to 60 mg/dL LOWHDL < 40 mg/dL HIGH Serum or plasma potassium me asurement (moles/volume)Ordered By: Rosanne Falcon on 10-26-2021 Potassium [Moles/Vol] 3.9 mmol/L 3.5-5.1 [facility] Serum or plasma prealbumin m easurement (mass/volume)Ordered By: Rosanne Falcon on 10-26-2021 Prealbumin [Mass/Vol] 20.0 mg/dL 18.0-38.0 [facility] Serum or plasma sodium measu rement (moles/volume)Ordered By: Rosanne Falcon on 10-26-2021 Sodium [Moles/Vol] 138 mmol/L 136-146 [facility] Serum or plasma total biliru bin measurement (mass/volume)Ordered By: Rosanne Falcon on 10-26-2021 Bilirubin [Mass/Vol] 0.8 mg/dL 0.3-1.2 [facility] Serum or plasma total carbon dioxide measurement (moles/volume)Ordered By: Rosanne Falcon on 10-26-2021 CO2 [Moles/Vol] 28.0 mmol/L 22.0-30.0 [facility] Serum or plasma total choles terol/high density lipoprotein (HDL) cholesterol mass ratOrdered By: Rosanne Falcon on 10-26-2021 Cholesterol.total/Choles terol in HDL [Mass ratio] 2.1 {ratio} <5.0 [facility] Serum or plasma urea nitroge n measurement (mass/volume)Ordered By: Rosanne Falcon on 10-26-2021 Urea nitrogen [Mass/Vol] 13 mg/dL 9- [facility] TSH DL <= 0.005 mIU/L QnOrde red By: Rosanne Falcon on 10-26-2021 TSH Qn 1.12 m[IU]/L 0.45-5.33 [facility] Thyroxine (T4) free [Mass/vo lume] in Serum or PlasmaOrdered By: Rosanne Falcon on 10-26-2021 Free T4 [Mass/Vol] 1.06 ng/dL 0.61-1.12 [facility] Triglyceride [Mass/volume] i n Serum or PlasmaOrdered By: Rosanne Falcon on 10-26-2021 Triglyceride [Mass/Vol] 42 mg/dL 35-149 [facility] Comment on above: TRIG ATP III [...] Bacteria identified Cx Nom (U) Escherichia coli [facility] Amphetamine Screen Ql (U)Ord ered By: Rosanne Falcon on 10-23-2021 Amphetamines Ql (U) Negative Negative [facility] Barbiturates [Presence] in U rineOrdered By: Rosanne Falcon on 10-23-2021 Barbiturates Ql (U) Negative Negative [facility] Benzodiazepines [Presence] i n UrineOrdered By: Rosanne Falcon on 10-23-2021 Benzodiazepines Ql (U) Negative [facility] Cannabinoids [Presence] in U rine by Screen methodOrdered By: Rosanne Falcon on 10-23-2021 Cannabinoids Screen Ql (U) Positive Negative [facility] Comment on above: These are unconfirme d [...] on 10-23-2021 Opiates Ql (U) Negative Negative [facility] Phencyclidine Screen Ql (U)O rdered By: Rosanne Falcon on 10-23-2021 Phencyclidine Ql (U) Negative Negative [facility] Urine cocaine detectionOrder ed By: Rosanne Falcon on 10-23-2021 Cocaine Ql (U) Positive Negative [facility] CNOVSPon 04-17-2021 CNOVSP Visit (SP) Office ([place]) RADHA PATTERSON ([id number]) 1960 F Date Time Provider Department 04/17/21 11:00 AM MARCELLO GONZALEZ During your visit today, we recorded the following information about you: Temperature Pulse Respiration Blood pressure 97.2 degrees 73/minute 16/minute 115/83 Weight Height 61.1 kg 1.729 m Marcello Gonzalez MD 04/17/2021 11:43 AM Signed PATIENT NAME: Radha Patterson CLINIC NO.: [id number] ATTENDING PHYSICIAN: Marcello Gonzalez MD DATE OF SERVICE: April 17, 2021 Deadeya Falcon, [facility] thank you for referring Miss Radha [...] lipid w (more content not included)... Normal [facility] Vital Signs Date Time Vital Sign Value Performing Clinician Faci lity 01-09-2022 12:59-0400 Body height 175.26 cm Services [employer] Work Phone: [facility] 01-09-2022 12:59-0400 Body temperature 98 [degF] Services [facility] [employer] Work Phone: [facility] 01-09-2022 12:59-0400 Body weight 58.96 kg Services [facility] Work Phone: [facility] 01-09-2022 12:59-0400 Diastolic blood pressure 104 mm[Hg] Services [facility] Work Phone: [facility] 01-09-2022 12:59-0400 Heart rate 61 /min Services [facility] [employer] Work Phone: [facility] 01-09-2022 12:59-0400 Respiratory rate 16 /min Services [facility] Work Phone: [facility] 01-09-2022 12:59-0400 SaO2% (BldA) [Mass fraction] 99 % Services [facility] Work Phone: [facility] 01-09-2022 12:59-0400 Systolic blood pressure 148 mm[Hg] Services [facility] Work Phone: [facility] Encounters Encounter Date Encounter Type Care Provider Facility Start: 01-02-2024 End: 01-02-2024 ambulatory Rosanne E Spasic Facility:[facility] Start: 07-31-2023 End: 07-31-2023 ambulatory Rosanne E Spasic [facility] Work Phone: Start: 07-31-2023 End: 07-31-2023 Departed Referred [employer] Rosanne Falcon Work Phone: [facility] Start: 04-11-2023 End: 04-11-2023 ambulatory Rosanne E Spasic Facility:[facility] Start: 01-28-2023 End: 01-28-2023 ambulatory [facility] Work Phone: [facility] Work Phone: Start: 01-28-2023 End: 01-28-2023 Departed Referred Services [facility] Work Phone: [facility] Start: 01-16-2023 End: 01-16-2023 ambulatory Services [facility] Facility:[facility] Start: 01-16-2023 End: 01-16-2023 Departed Referred Services [facility] Work Phone: [facility] Start: 05-14-2022 End: 05-14-2022 ambulatory Services [facility] Work Phone: [facility] Work Phone: Start: 05-14-2022 End: 05-14-2022 Departed Referred Services [facility] Work Phone: [facility] Start: 04-12-2022 End: 04-12-2022 Patient encounter procedure Services [facility]: Start: 01-09-2022 End: 01-09-2022 Admission to same day surgery center Services [facility] Start: 01-09-2022 End: 01-09-2022 ambulatory Services [facility] Work Phone: [facility] Work Phone: Start: 01-07-2022 End: 01-07-2022 ambulatory Services [facility] Work Phone: [facility] Work Phone: Start: 01-07-2022 End: 01-07-2022 Patient encounter procedure Services [facility] Work Phone: [facility] Start: 12-04-2021 End: 12-04-2021 Patient encounter procedure Services [facility] Work Phone: [facility] Start: 10-26-2021 End: 10-26-2021 Departed Referred Services [facility] Work Phone: [facility] Start: 10-23-2021 End: 10-23-2021 Departed Referred Services [facility] Work Phone: [facility] Start: 04-16-2021 Chart abstracting Marcello luis MD Work Phone: Hematology/Oncology Procedures Date Procedure Procedure Detail Performing Clinician Start: 04-12-2022 Screening mammograph y of bilateral breasts Services [facility] Work Phone: SARS Antigen (LFIA) [facility] Work Phone: Urine culture [facility] Work Phone: Plan of Treatment Date Care Activity Detail Author Start: 01-28-2023 Superficial Wound Culture Superficial Wound Culture [facility] Start: 01-09-2022 [facility] Start: 01-09-2022 Colonoscopy DH Colonoscopy Diagnostic (Not Applicable) [facility] Start: 12-06-2020 Influenza vaccination INFLUENZA (#1) [facility] Start: 2009 SHINGRIX VACCINE (1 of 2) SHINGRIX VACCINE (1 of 2) [facility] Start: 2004 COLOGUARD (FIT-DNA) COLOGUARD (FIT-DNA) [facility] Start: 2004 Colonoscopy COLONOSCOPY [facility] Start: 2004 COLORECTAL CANCER SCREENING COLORECTAL CANCER SCREENING [facility] Start: [address] COLONOGRAPHY [facility] Start: 2004 DIABETES SCREEN DIABETES SCREEN [facility] Start: 2004 FECAL OCCULT BLOOD FECAL OCCULT BLOOD [facility] Start: 2004 LIPID SCREEN LIPID SCREEN [facility] Start: 2004 SIGMOIDOSCOPY SIGMOIDOSCOPY [facility] Start: 1999 Mammography MAMMOGRAM [facility] Start: 1989 HPV TESTING HPV TESTING [facility] Start: 1980 PAP TESTING PAP TESTING [facility] Start: 1978 Urine microalbumin profile DTAP,TDAP,TD (1 - Tdap) [facility] Start: 1977 HEPATITIS C SCREENING HEPATITIS C SCREENING [facility] Start: 1977 HIV SCREENING HIV SCREENING [facility] Start: 1971 Adult depression screening assessment DEPRESSION SCREENING [facility] Start: 1964 COVID-19 VACCINE (1) [facility] Atopobium vaginae DN A [Presence] in Vaginal fluid by RICKY with probe detection [facility] Bacteria identified in Unspecified specimen by Aerobe culture [facility] Bacterial vaginosis associated bacterium 2 DNA [Presence] in Vaginal fluid by RICKY with probe detection [facility] Chlamydia trachomati s rRNA [Presence] in Cervix by RICKY with probe detection [facility] Hepatitis A virus antibody, IgM type [facility] Work Phone: Hepatitis B core ant ibody measurement, IgM type [facility] Work Phone: Hepatitis B virus correa rface Ag [Presence] in Serum or Plasma by Immunoassay [facility] Work Phone: Hepatitis C virus Ab Signal/Cutoff in Serum or Plasma by Immunoassay [facility] Work Phone: Hepatitis C virus RN A [log units/volume] (viral load) in Serum or Plasma by RICKY with probe detection [facility] Work Phone: Hepatitis C virus RN A [Units/volume] (viral load) in Serum or Plasma by RICKY with probe detection [facility] Work Phone: HIV 1+2 Ab+HIV1 p24 Ag [Presence] in Serum or Plasma by Immunoassay [facility] Work Phone: Human papilloma viru s 16+18+31+33+35+39+45+51+5 2+56+58+59+66+68 DNA [Presence] in Cervix by Probe with signal amplification [facility] Human papilloma viru s 16+18+31+33+35+39+45+51+5 2+56+58+59+68 DNA [Presence] in Cervix by Probe with signal amplification [facility] Megasphaera sp type 1 DNA [Presence] in Vaginal fluid by RICKY with probe detection [facility] Neisseria gonorrhoea e rRNA [Presence] in Cervix by RICKY with probe [facility] Payers Date Payer Category Payer Medicaid [id number] 2023 Self-pay [id number] 2017 Medicaid [place] [employer] [id number] 2017-Present [phone] [address] [place], [place] [address] Medicaid [id number] Unknown [id number] Unknown [id number] Unknown [id number] Unknown [id number] Unknown [id number] Social History Date Type Detail Facility [facility]: [facility] Start: 04-16-2021 Alcohol intake Current drinke r of alcohol (finding) [facility] Start: 1960 Sex Assigned At Not on file [facility] Start: 08-02-2017 Tobacco smoking stat [facility] Current some day smoker [facility] Start: 1960 Sex Assigned At Female [facility] Start: 01-09-2022 End: 01-09-2022 Tobacco smoking status [facility] Smoker (finding) [facility] Goals Date Patient Goal Desired Activity /State Progress note 04-17-2021 Note Date & Type Note Facility 04-17-2021 Note HNO ID: [id number] Author: Marcello Gonzalez MD Service: ? Author Type: Physician Type: Progress Notes Filed: 04/17/2021 11:43 AM Note Text: PATIENT NAME: Radha Patterson CLINIC NO.: [id number] ATTENDING PHYSICIAN: Marcello Gonzalez MD DATE OF SERVICE: April 17, [address] Rosanne Falcon, [facility] thank you for referring Miss Radha [...] BASOP, ABSBASO PATH: IMAGING: ASSESSMENT AND PLAN: aRdha Patterson is a 60 year old year [...] Dear Dr. Vásquez (more content not included)... [facility] Evaluation note Note Date & Type Note Facility Evaluation note No assessment information [facility] Work Phone: Summary Purpose Family History [...] or prosecute any alcohol or drug abuse patient.[facility] Care Teams (unrecognized sec tion and content) Team Status: Inactive Member Role Status Dates CHARISMA Hilton Attending Provider Active Team Status: Inactive Member Role Status Dates Services [facility] Primary Care Provider Active CHARISMA Hilton Attending Provider Active [employer] Relationship Specialty Start Date End Date Rosanne Falcon [address] [facility] [place] [address] PCP - General Family Practice 04/11/21 Team Status: Active Member Role Status Dates Services Family [facility] Primary Care Provider Active Team Status: Inactive Member Role Status Dates Services [facility] Primary Care Provider Active Philip Taveras MD Attending Provider Active Team Status: Inactive Member Role Status Dates CHARISMA Hilton Attending Provider Active Start: July 31, 2023 End: July 31, 2023 INFORMATION SOURCE (unrecogn ized section and content) DATE CREATED AUTHOR 06/28/2021 [facility] DATE CREATED AUTHOR AUTHOR'S ORGANIZ ATION 01/13/2024 [facility] Goals (unrecognized section and content) [...] BE BASED ON THE PRIMARY CLINICAL RECORDS. [facility] [employer] [facility]. provides no warranty or guarantee of the accuracy or completeness of information in this document.
== END 2024-04-08 13:23 | disposition home or self-care (01) ==
LOC: EC 13:22
PROVIDERS: Visit Provider Physician Assistant
DX: M79.671 Pain in right foot (principal); M24.674 Ankylosis, right foot; Z98.890 Other specified postprocedural states
CPT/HCPCS: 73630

== ENCOUNTER 2024-05-26 07:48 | Outpatient (OUT) | payer MEDICAID, SELFPAY ==
--- OUTSIDE RECORDS SUMMARY | 2024-05-25 08:19 | XMS_ITS | CCD ---
Author Organization [facility] Inform ion Partnership [facility] Care Team Providers Care Director [employer] Name Role Phone Rosanne Falcon Primary Care Provider [facility], Services Primary Care Provider Terrie TUBE MAKING MACHINE OPERATORPadminiC Rosanne Liu Attending Provider MD Philip Taveras Attending Provider [facility] Primary Care Provider [phone] Terrie TUBE MAKING MACHINE OPERATOR-C Rosanne Liu Attending Provider [facility], Services Primary Care Provider Spasic, TUBE MAKING MACHINE OPERATOR-C Rosanne E Attending Provider Spasic TUBE MAKING MACHINE OPERATOR-C Rosanne E Attending Provider Spasic Rosanne E Attending Unavailable Spasic, Rosanne E Admitting Unavailable [facility], Services Primary Care Unavaila ble [...] (Bld) [#/Vol] 0.1 10*3/uL Normal 0.0-0.2 [facility] Comment on above: Result Comment: PERF ORMED BY: [place] [address] PATHOLOGIST RAILCAR MECHANIC TRINI PINON M.D. Performed By: #### T SH3 wRFLX, [id number], DIFF CBC, CMP #### [facility] [address] Basophils/100 WBC (Bld) 1.5 % Normal . T amanda [facility] Comment on above: Performed By: #### T SH3 wRFLX, [id number], DIFF CBC, CMP #### [facility] [address] [place] [address] [place] Eosinophils (Bld) [#/Vol] 0.1 10*3/uL Normal 0.0-0.45 [facility] Comment on above: Performed By: #### T SH3 wRFLX, [id number], DIFF CBC, CMP #### [facility] [address] [place] [address] [place] Eosinophils/100 WBC (Bld) 2.8 % Normal . [facility] Comment on above: Performed By: #### T SH3 wRFLX, [id number], DIFF CBC, CMP #### [address] Erythrocyte distribution width (RBC) [Ratio] 13.8 % Normal 11.9-15.3 [facility] Comment on above: Performed By: #### T SH3 wRFLX, [id number], DIFF CBC, CMP #### [address] Hematocrit (Bld) [Volume fraction] 38.8 % Normal 34.0-46.4 [facility] Comment on above: Performed By: #### T SH3 wRFLX, [id number], DIFF CBC, CMP #### [address] Hemoglobin (Bld) [Mass/Vol] 13.0 g/dL Normal 11.8-15.4 [facility] Comment on above: Performed By: #### T SH3 wRFLX, [id number], DIFF CBC, CMP #### [address] Lymphocytes (Bld) [#/Vol] 2.1 10*3/uL Normal 1.00-4.8 [facility] Comment on above: Performed By: #### T SH3 wRFLX, [id number], DIFF CBC, CMP #### [address] Lymphocytes/100 WBC (Bld) 49.0 % Normal . [facility] Comment on above: Performed By: #### T SH3 wRFLX, [id number], DIFF CBC, CMP #### [address] MCH (RBC) [Entitic mass] 32.4 pg Normal 24.7-34.3 [facility] Comment on above: Performed By: #### T SH3 wRFLX, [id number], DIFF CBC, CMP #### [address] MCV (RBC) [Entitic vol] 96.5 fL Normal 80-100 [facility] Comment on above: Performed By: #### T SH3 wRFLX, [id number], DIFF CBC, CMP #### [address] Mean Corpuscular HGB Conc 33.6 g/dL Normal 32.0-35.0 [facility] Comment on above: Performed By: #### T SH3 wRFLX, [id number], DIFF CBC, CMP #### [address] Monocytes (Bld) [#/Vol] 0.2 10*3/uL Normal 0.0-0.8 [facility] Comment on above: Performed By: #### T SH3 wRFLX, [id number], DIFF CBC, CMP #### [address] Monocytes/100 WBC (Bld) 4.7 % Normal . T amanda [facility] Comment on above: Performed By: #### T SH3 wRFLX, [id number], DIFF CBC, CMP #### [address] Neutrophils (Bld) [#/Vol] 1.8 10*3/uL Normal 1.8-7.7 [facility] Comment on above: Performed By: #### T SH3 wRFLX, [id number], DIFF CBC, CMP #### [address] Neutrophils/100 WBC (Bld) 42.0 % Normal . [facility] Comment on above: Performed By: #### T SH3 wRFLX, [id number], DIFF CBC, CMP #### [address] NRBC% 0.2 /100{WBC} Normal 0-0.5 [facility] Comment on above: Performed By: #### T SH3 wRFLX, [id number], DIFF CBC, CMP #### [address] Platelet mean volume (Bld) [Entitic vol] 8.6 fL Normal 6.3-10.7 [facility] Comment on above: Performed By: #### T SH3 wRFLX, [id number], DIFF CBC, CMP #### [address] Platelets (Bld) [#/Vol] 241 10*3/uL Normal 150-450 [facility] Comment on above: Performed By: #### T SH3 wRFLX, [id number], DIFF CBC, CMP #### [address] RBC (Bld) [#/Vol] 4.02 10*6/uL Normal 3.60-5.00 [facility] Comment on above: Performed By: #### T SH3 wRFLX, [id number], DIFF CBC, CMP #### [address] WBC (Bld) [#/Vol] 4.3 10*3/uL Normal 3.8-11.6 [facility] Comment on above: Performed By: #### T SH3 wRFLX, [id number], DIFF CBC, CMP #### [address] Comprehensive Metabolic Pane harriet 01-02-2024 Albumin [Mass/Vol] 4.1 g/dL Normal 3.5-5.7 [facility] Comment on above: Performed By: #### T SH3 wRFLX, [id number], DIFF CBC, CMP #### [address] Albumin/Globulin [Mass ratio] 1.4 {ratio} Normal [facility] Comment on above: Performed By: #### T SH3 wRFLX, [id number], DIFF CBC, CMP #### [address] ALP [Catalytic activity/Vol] 100 U/L Normal 34-104 [facility] Comment on above: Performed By: #### T SH3 wRFLX, [id number], DIFF CBC, CMP #### [address] ALT [Catalytic activity/Vol] 13 U/L Normal 7-52 [facility] Comment on above: Performed By: #### T SH3 wRFLX, [id number], DIFF CBC, CMP #### [address] Anion gap [Moles/Vol] 7.4 mmol/L Normal 6.0-15.0 [facility] Comment on above: Performed By: #### T SH3 wRFLX, [id number], DIFF CBC, CMP #### [address] AST [Catalytic activity/Vol] 15 U/L Normal 13-39 [facility] Comment on above: Performed By: #### T SH3 wRFLX, [id number], DIFF CBC, CMP #### [address] Bilirubin [Mass/Vol] 0.7 mg/dL Normal 0.3-1.0 [facility] Comment on above: Performed By: #### T SH3 wRFLX, [id number], DIFF CBC, CMP #### [address] Calcium [Mass/Vol] 9.9 mg/dL Normal 8.6-10.3 [facility] Comment on above: Performed By: #### T SH3 wRFLX, [id number], DIFF CBC, CMP #### [place] [address] [place] Chloride [Moles/Vol] 105 mmol/L Normal 98-107 [facility] Comment on above: Performed By: #### T SH3 wRFLX, [id number], DIFF CBC, CMP #### [place] [address] [place] CO2 [Moles/Vol] 32.3 mmol/L High 21.0-31.0 [facility] Comment on above: Performed By: #### T SH3 wRFLX, [id number], DIFF CBC, CMP #### [place] [address] [place] Creatinine [Mass/Vol] 0.75 mg/dL Normal 0.60-1.20 [facility] Comment on above: Performed By: #### T SH3 wRFLX, [id number], DIFF CBC, CMP #### [facility] [address] [place] [address] [place] GFR/1.73 sq M.predicted MDRD (S/P/Bld) [Vol rate/Area] mL/min/{1.73_m2} Normal [facility] Comment on above: Performed By: #### T SH3 wRFLX, [id number], DIFF CBC, CMP #### [facility] [address] [place] [address] [place] Globulin (S) [Mass/Vol] 3.0 g/dL Normal [facility] Comment on above: Performed By: #### T SH3 wRFLX, [id number], DIFF CBC, CMP #### [facility] [address] Glucose [Mass/Vol] 81 mg/dL Normal 70-100 [facility] Comment on above: Result Comment: [facility] Glucose Reference Range is dependent on time and content of last meal. Glucose of more than 200 mg/dL in a nonstressed, ambulatory subject supports the diagnosis of Diabetes Mellitus. ADA recommended reference range Performed By: #### T SH3 wRFLX, [id number], DIFF CBC, CMP #### [facility] [address] Potassium [Moles/Vol] 3.7 mmol/L Normal 3.5-5.1 [facility] Comment on above: Performed By: #### T SH3 wRFLX, [id number], DIFF CBC, CMP #### [facility] [address] [place] [address] [place] Protein [Mass/Vol] 7.1 g/dL Normal 6.4-8.9 [facility] Comment on above: Performed By: #### T SH3 wRFLX, [id number], DIFF CBC, CMP #### [facility] [address] [place] [address] [place] Sodium [Moles/Vol] 141 mmol/L Normal 136-145 [facility] Comment on above: Performed By: #### T SH3 wRFLX, [id number], DIFF CBC, CMP #### [facility] [address] Urea nitrogen [Mass/Vol] 19 mg/dL Normal 7-25 [facility] Comment on above: Performed By: #### T SH3 wRFLX, [id number], DIFF CBC, CMP #### [facility] [address] Lipid Panelon 01-02-2024 Cholesterol [Mass/Vol] 155 mg/dL Normal 140-200 [facility] Comment on above: Result Comment: Chol less than 200 mg/dl low risk Chol 201-239 mg/dl borderline risk Chol 240 mg/dl and greater high risk Performed By: #### T SH3 wRFLX, [id number], DIFF CBC, CMP #### [facility] [address] Cholesterol in HDL [Mass/Vol] 75 mg/dL Normal 23-92 [facility] Comment on above: Result Comment: HDL CHOL ATP-III CLASSIFICATION Cardiovascular Risk HDL > or equal to 60 mg/dL LOW HDL < 40 mg/dL HIGH Performed By: #### T SH3 wRFLX, [id number], DIFF CBC, CMP #### [facility] [address] Cholesterol.total/Choles terol in HDL [Mass ratio] 2.1 {ratio} Normal <5.0 [facility] Comment on above: Performed By: #### T SH3 wRFLX, [id number], DIFF CBC, CMP #### [facility] [address] [place] [id number] [facility] LDL Cholesterol,Calculated 69 mg/dL Normal 0-100 [facility] Comment on above: Result Comment: LDL ATP III CLASSIFICATION LDL less than 100 mg/dL Optimal LDL 100-129 mg/dL Near or above optimal LDL 130-159 mg/dL Borderline high LDL 160-189 mg/dL High LDL greater than 189 mg/dL Very high Performed By: #### T SH3 wRFLX, [id number], DIFF CBC, CMP #### [address] Triglyceride w/Reflex 55 mg/dL Normal 0-149 [facility] Comment on above: Result Comment: TRIG ATP III CLASSIFICATION TRIG less than 150 mg/dL Normal TRIG 150-199 mg/dL Borderline high TRIG 200-500 mg/dL High TRIG greater than 500 mg/dL Very high Standard traceable to the Center for Disease Conrtrol and Prevention (CDC) test method. Performed By: #### T SH3 wRFLX, [id number], DIFF CBC, CMP #### [address] VLDL CHOLESTEROL 11 mg/dL Normal [facility] Comment on above: Performed By: #### T SH3 wRFLX, [id number], DIFF CBC, CMP #### [address] Thyroid Stim Hormone w/Rflxo n 01-02-2024 Thyroid Stim Hormone w/Rflx 0.69 u[iU]/mL Normal 0.45-5.33 [facility] Comment on above: Performed By: #### T SH3 wRFLX, [id number], DIFF CBC, CMP #### [address] Vitamin D 25 Hydroxy Totalon 01-02-2024 Vitamin D 25 Hydroxy Total 52.7 ng/mL Normal 30-100 [facility] Comment on above: Result Comment: PARAS MIN D STATUS 25(OH)VITAMIN D RANGE (ng/mL) Deficient <20 Insufficient 20 to <30 Sufficient 30 to 100 Reference: Helen MF,Vaishali NC, Arturo FARRIS, et al. Evaluation,treatment, and prevention of vitamin D deficiency; an Endocrine Society clinical practice guideline. JCEM. 2010; 96(7):1911-30. PERFORMED BY: [place] [address] PATHOLOGIST RAILCAR MECHANIC TRINI PINON M.D. Performed By: #### T SH3 wRFLX, [id number], DIFF CBC, CMP #### [place] [address] [place] Alanine aminotransferase [En zymatic activity/volume] in Serum or PlasmaOrdered By: Rosanne Falcon on 07-31-2023 ALT [Catalytic activity/Vol] 14 U/L Normal 7-52 [facility] Comment on above: Order Comment: Reaso n for Exam Hypertension Reason for Exam Vitamin D deficiency, unspecified Performed By: #### T SH3 wRFLX, CBC, LIPID, [id number], CMP #### [facility] [address] [place] [address] [place] Albumin [Mass/volume] in Ser um or Plasma by Bromocresol green (BCG) dye binding methoOrdered By: Rosanne Falcon on 07-31-2023 Albumin BCG dye [Mass/Vol] 3.9 g/dL 3.5-5.7 [facility] Alkaline phosphatase [Enzyma tic activity/volume] in Serum or PlasmaOrdered By: Rosanne Falcon on 07-31-2023 ALP [Catalytic activity/Vol] 82 U/L Normal 34-104 [facility] Comment on above: Order Comment: Reaso n for Exam Hypertension Reason for Exam Vitamin D deficiency, unspecified Performed By: #### T SH3 wRFLX, CBC, LIPID, [id number], CMP #### [facility] [address] [place] [id number] [place] Aspartate aminotransferase [ Enzymatic activity/volume] in Serum or PlasmaOrdered By: Rosanne Falcon on 07-31-2023 AST [Catalytic activity/Vol] 16 U/L Normal 13-39 [facility] Comment on above: Order Comment: Reaso n for Exam Hypertension Reason for Exam Vitamin D deficiency, unspecified Performed By: #### T SH3 wRFLX, CBC, LIPID, [id number], CMP #### [facility] [address] [place] [address] [place] Automated basophil %Ordered By: Rosanne Falcon on 07-31-2023 Basophils/100 WBC (Bld) 0.6 % Normal . [facility] Comment on above: Order Comment: Reaso n for Exam Hypertension Performed By: #### T SH3 wRFLX, CBC, LIPID, [id number], CMP #### [facility] [address] [place] [id number] [place] Automated basophil countOrde red By: Rosanne Falcon on 07-31-2023 Basophils (Bld) [#/Vol] 0.0 10*3/uL Normal 0.0-0.2 [facility] Comment on above: Order Comment: Reaso n for Exam Hypertension Result Comment: PERF ORMED BY: [place] [address] PATHOLOGIST RAILCAR MECHANIC TRINI PINON M.D. Performed By: #### T SH3 wRFLX, CBC, LIPID, [id number], CMP #### [facility] [address] [place] [address] Automated blood monocyte cou ntOrdered By: Rosanne Falcon on 07-31-2023 Monocytes (Bld) [#/Vol] 0.3 10*3/uL Normal 0.0-0.8 [facility] Comment on above: Order Comment: Reaso n for Exam Hypertension Performed By: #### T SH3 wRFLX, CBC, LIPID, [id number], CMP #### [facility] [address] [place] [address] Automated eosinophil %Ordere d By: Rosanne Falcon on 07-31-2023 Eosinophils/100 WBC (Bld) 2.6 % Normal . [facility] Comment on above: Order Comment: Reaso n for Exam Hypertension Performed By: #### T SH3 wRFLX, CBC, LIPID, [id number], CMP #### [facility] [address] [place] [address] Automated eosinophil countOr dered By: Rosanne Falcon on 07-31-2023 Eosinophils (Bld) [#/Vol] 0.1 10*3/uL Normal 0.0-0.45 [facility] Comment on above: Order Comment: Reaso n for Exam Hypertension Performed By: #### T SH3 wRFLX, CBC, LIPID, [id number], CMP #### [facility] [address] [place] [address] [place] Automated monocyte %Ordered By: Rosanne Curtisc on 07-31-2023 Monocytes/100 WBC (Bld) 5.8 % Normal . [facility] Comment on above: Order Comment: Reaso n for Exam Hypertension Performed By: #### T SH3 wRFLX, CBC, LIPID, [id number], CMP #### [facility] [address] [place] [id number] [facility] Automated neutrophil %Ordere d By: Rsoanne Falcon on 07-31-2023 Neutrophils/100 WBC (Bld) 46.3 % Normal . [facility] Comment on above: Order Comment: Reaso n for Exam Hypertension Performed By: #### T SH3 wRFLX, CBC, LIPID, [id number], CMP #### [facility] [address] [place] [id number] [facility] Bilirubin.total [Mass/volume ] in Serum or PlasmaOrdered By: Rosanne Falcon on 07-31-2023 Bilirubin [Mass/Vol] 0.4 mg/dL Normal 0.3-1.0 [facility] Comment on above: Order Comment: Reaso n for Exam Hypertension Reason for Exam Vitamin D deficiency, unspecified Performed By: #### T SH3 wRFLX, CBC, LIPID, [id number], CMP #### [facility] [address] [place] [id number] [facility] Calcium [Mass/volume] in Ser um or PlasmaOrdered By: Rosanne Falcon on 07-31-2023 Calcium [Mass/Vol] 9.8 mg/dL Normal 8.6-10.3 [facility] Comment on above: Order Comment: Reaso n for Exam Hypertension Reason for Exam Vitamin D deficiency, unspecified Performed By: #### T SH3 wRFLX, CBC, LIPID, [id number], CMP #### [facility] [address] [place] [id number] [facility] Carbon dioxide, total [Moles /volume] in Serum or PlasmaOrdered By: Rosanne Falcon on 07-31-2023 CO2 [Moles/Vol] 31.7 mmol/L High 21.0-31.0 [facility] Comment on above: Order Comment: Reaso n for Exam Hypertension Reason for Exam Vitamin D deficiency, unspecified Performed By: #### T SH3 wRFLX, CBC, LIPID, [id number], CMP #### [facility] [address] [place] [address] [place] Chloride [Moles/volume] in [place] or PlasmaOrdered By: Rosanne Falcon on 07-31-2023 Chloride [Moles/Vol] 103 mmol/L Normal 98-107 [facility] Comment on above: Order Comment: Reaso n for Exam Hypertension Reason for Exam Vitamin D deficiency, unspecified Performed By: #### T SH3 wRFLX, CBC, LIPID, [id number], CMP #### [facility] [address] [place] [address] [place] Cholesterol [Mass/volume] in Serum or PlasmaOrdered By: Rosanne Falcon on 07-31-2023 Cholesterol [Mass/Vol] 124 mg/dL Low 140-200 [facility] Comment on above: Chol less than [...] By: #### T SH3 wRFLX, CBC, LIPID, [id number], CMP #### [facility] [address] [place] [address] [place] Cholesterol in LDL Calc [Mas s/Vol]Ordered By: Rosanne Falcon on 07-31-2023 Cholesterol in LDL [Mass/Vol] 63 mg/dL 0-100 [facility] Comment on above: LDL ATP III CLASSIFI CATIONLDL less than 100 mg/dL OptimalLDL 100-129 mg/dL Near or above optimalLDL 130-159 mg/dL Borderline highLDL 160-189 mg/dL HighLDL greater than 189 mg/dL Very high Cholesterol in VLDL Calc [Ma ss/Vol]Ordered By: Rosanne Falcon on 07-31-2023 Cholesterol in VLDL [Mass/Vol] 7 mg/dL [facility] Complete Blood Count Auto Di ffon 07-31-2023 Mean Corpuscular HGB Conc 34.3 g/dL Normal 32.0-35.0 [facility] Comment on above: Order Comment: Reaso n for Exam Hypertension Performed By: #### T SH3 wRFLX, CBC, LIPID, [id number], CMP #### [facility] [address] [place] [address] NRBC% 0.2 /100{WBC} Normal 0-0.5 [facility] Comment on above: Order Comment: Reaso n for Exam Hypertension Performed By: #### T SH3 wRFLX, CBC, LIPID, [id number], CMP #### [facility] [address] [place] [address] Comprehensive Metabolic Pane harriet 07-31-2023 Albumin [Mass/Vol] 3.9 g/dL Normal 3.5-5.7 [facility] Comment on above: Order Comment: Reaso n for Exam Hypertension Reason for Exam Vitamin D deficiency, unspecified Performed By: #### T SH3 wRFLX, CBC, LIPID, [id number], CMP #### [address] GFR/1.73 sq M.predicted MDRD (S/P/Bld) [Vol rate/Area] mL/min/{1.73_m2} Normal [facility] Comment on above: Order Comment: Reaso n for Exam Hypertension Reason for Exam Vitamin D deficiency, unspecified Performed By: #### T SH3 wRFLX, CBC, LIPID, [id number], CMP #### [address] Creatinine [Mass/volume] in Serum or PlasmaOrdered By: Rosanne Falcon on 07-31-2023 Creatinine [Mass/Vol] 0.74 mg/dL Normal 0.60-1.20 [facility] Comment on above: Order Comment: Reaso n for Exam Hypertension Reason for Exam Vitamin D deficiency, unspecified Performed By: #### T SH3 wRFLX, CBC, LIPID, [id number], CMP #### [facility] [address] [place] [address] Erythrocyte distribution wid th [Ratio] by Automated countOrdered By: Rosanne Falcon on 07-31-2023 Erythrocyte distribution width (RBC) [Ratio] 12.9 % Normal 11.9-15.3 [facility] Comment on above: Order Comment: Reaso n for Exam Hypertension Performed By: #### T SH3 wRFLX, CBC, LIPID, [id number], CMP #### [facility] [address] [place] [id number] [place] Erythrocytes [#/volume] in B lood by Automated countOrdered By: Rosanne Falcon on 07-31-2023 RBC (Bld) [#/Vol] 3.75 10*6/uL Normal 3.60-5.00 [facility] Comment on above: Order Comment: Reaso n for Exam Hypertension Performed By: #### T SH3 wRFLX, CBC, LIPID, [id number], CMP #### [facility] [address] [place] [id number] [place] Glucose [Mass/volume] in Ser um or PlasmaOrdered By: Rosanne Falcon on 07-31-2023 Glucose [Mass/Vol] 87 mg/dL Normal 70-100 [facility] Comment on above: ADA recommended refe rence rangeRandom Glucose Reference Range is dependent on time and content of last meal. Glucose of more than 200 mg/dL in a nonstressed, ambulatory subject supports the diagnosis of Diabetes Mellitus. Order Comment: Reaso n for Exam Hypertension Reason for Exam Vitamin D deficiency, unspecified Result Comment: [place] [facility] Glucose Reference Range is dependent on time and content of last meal. Glucose of more than 200 mg/dL in a nonstressed, ambulatory subject supports the diagnosis of Diabetes Mellitus. ADA recommended reference range Performed By: #### T SH3 wRFLX, CBC, LIPID, [id number], CMP #### [facility] [address] [place] [id number] [place] Hematocrit [Volume Fraction] of Blood by Automated countOrdered By: Rosanne Falcon on 07-31-2023 Hematocrit (Bld) [Volume fraction] 36.3 % Normal 34.0-46.4 [facility] Comment on above: Order Comment: Reaso n for Exam Hypertension Performed By: #### T SH3 wRFLX, CBC, LIPID, [id number], CMP #### [facility] [address] [place] [id number] [place] Hemoglobin [Mass/volume] in BloodOrdered By: Rosanne Falcon on 07-31-2023 Hemoglobin (Bld) [Mass/Vol] 12.5 g/dL Normal 11.8-15.4 [facility] Comment on above: Order Comment: Reaso n for Exam Hypertension Performed By: #### T SH3 wRFLX, CBC, LIPID, [id number], CMP #### [facility] [address] Leukocytes [#/volume] correc [place] for nucleated erythrocytes in Blood by Automated counOrdered By: Rosanne Falcon on 07-31-2023 WBC corrected for nucl RBC Auto (Bld) [#/Vol] 4.4 10*3/uL 3.8-11.6 [facility] Leukocytes [#/volume] in Blo od by Automated countOrdered By: Rosanne Falcon on 07-31-2023 WBC (Bld) [#/Vol] 4.4 10*3/uL Normal 3.8-11.6 [facility] Comment on above: Order Comment: Reaso n for Exam Hypertension Performed By: #### T SH3 wRFLX, CBC, LIPID, [id number], CMP #### [facility] [address] [place] [id number] [facility] Lipid Panelon 07-31-2023 LDL Cholesterol,Calculated 63 mg/dL Normal 0-100 [facility] Comment on above: Order Comment: Reaso n for Exam Hypertension Reason for Exam Vitamin D deficiency, unspecified Result Comment: LDL ATP III CLASSIFICATION LDL less than 100 mg/dL Optimal LDL 100-129 mg/dL Near or above optimal LDL 130-159 mg/dL Borderline high LDL 160-189 mg/dL High LDL greater than 189 mg/dL Very high Performed By: #### T SH3 wRFLX, CBC, LIPID, [id number], CMP #### [facility] [address] [place] [id number] [facility] Triglyceride w/Reflex 39 mg/dL Normal 0-149 [facility] Comment on above: Order Comment: [...] By: #### T SH3 wRFLX, CBC, LIPID, [id number], CMP #### [facility] [address] VLDL CHOLESTEROL 7 mg/dL Normal [facility] [facility] Comment on above: Order Comment: Reaso n for Exam Hypertension Reason for Exam Vitamin D deficiency, unspecified Performed By: #### T SH3 wRFLX, CBC, LIPID, [id number], CMP #### [facility] [address] Lymphocytes [#/volume] in Bl ood by Automated countOrdered By: Rosanne Falcon on 07-31-2023 Lymphocytes (Bld) [#/Vol] 1.9 10*3/uL Normal 1.00-4.8 [facility] Comment on above: Order Comment: Reaso n for Exam Hypertension Performed By: #### T SH3 wRFLX, CBC, LIPID, [id number], CMP #### [address] Lymphocytes/100 leukocytes i n Blood by Automated countOrdered By: Rosanne Falcon on 07-31-2023 Lymphocytes/100 WBC (Bld) 44.7 % Normal . [facility] Comment on above: Order Comment: Reaso n for Exam Hypertension Performed By: #### T SH3 wRFLX, CBC, LIPID, [id number], CMP #### [facility] [address] MCH [Entitic mass] by Automa mariposa countOrdered By: Rosanne Falcon on 07-31-2023 MCH (RBC) [Entitic mass] 33.3 pg Normal 24.7-34.3 [facility] Comment on above: Order Comment: Reaso n for Exam Hypertension Performed By: #### T SH3 wRFLX, CBC, LIPID, [id number], CMP #### [address] MCHC Auto (RBC) [Mass/Vol]Or dered By: Rosanne Falcon on 07-31-2023 MCHC (RBC) [Mass/Vol] 34.3 g/dL 32.0-35.0 [facility] MCV [Entitic volume] by Auto mated countOrdered By: Rosanne Falcon on 07-31-2023 MCV (RBC) [Entitic vol] 96.9 fL Normal 80-100 [facility] Comment on above: Order Comment: Reaso n for Exam Hypertension Performed By: #### T SH3 wRFLX, CBC, LIPID, [id number], CMP #### [facility] [address] Neutrophils [#/volume] in Bl ood by Automated countOrdered By: Rosanne Falcon on 07-31-2023 Neutrophils (Bld) [#/Vol] 2.0 10*3/uL Normal 1.8-7.7 [facility] Comment on above: Order Comment: Reaso n for Exam Hypertension Performed By: #### T SH3 wRFLX, CBC, LIPID, [id number], CMP #### [facility] [address] No Panel InformationOrdered By: Rosanne Falcon on 07-31-2023 Estimated GFR (CKD-EPI) > 60.0 mL/Min [facility] Creatinine Clearance (Chem N/A [facility] Nucleated erythrocytes [Pres ence] in Blood by Automated countOrdered By: Rosanne Falcon on 07-31-2023 Nucleated RBC Auto Ql (Bld) 0.2 /100{WBC} 0-0.5 [facility] Platelet mean volume [Entiti c volume] in Blood by Automated countOrdered By: Rosanne Falcon on 07-31-2023 Platelet mean volume (Bld) [Entitic vol] 8.5 fL Normal 6.3-10.7 [facility] Comment on above: Order Comment: Reaso n for Exam Hypertension Performed By: #### T SH3 wRFLX, CBC, LIPID, [id number], CMP #### [facility] [address] [place] [address] [place] Platelets [#/volume] in Bloo d by Automated countOrdered By: Rosanne Falcon on 07-31-2023 Platelets (Bld) [#/Vol] 228 10*3/uL Normal 150-450 [facility] Comment on above: Order Comment: Reaso n for Exam Hypertension Performed By: #### T SH3 wRFLX, CBC, LIPID, [id number], CMP #### [facility] [address] [place] [id number] [facility] Potassium [Moles/volume] in Serum or PlasmaOrdered By: Rosanne Falcon on 07-31-2023 Potassium [Moles/Vol] 4.2 mmol/L Normal 3.5-5.1 [facility] Comment on above: Order Comment: Reaso n for Exam Hypertension Reason for Exam Vitamin D deficiency, unspecified Performed By: #### T SH3 wRFLX, CBC, LIPID, [id number], CMP #### [facility] [address] [place] [address] [place] Protein [Mass/volume] in Ser um or PlasmaOrdered By: Rosanne Falcon on 07-31-2023 Protein [Mass/Vol] 6.8 g/dL Normal 6.4-8.9 [facility] Comment on above: Order Comment: Reaso n for Exam Hypertension Reason for Exam Vitamin D deficiency, unspecified Performed By: #### T SH3 wRFLX, CBC, LIPID, [id number], CMP #### [facility] [address] [place] [id number] [facility] Serum globulin measurement b y calculation (mass/volume)Ordered By: Rosanne Falcon on 07-31-2023 Globulin (S) [Mass/Vol] 2.9 g/dL Normal [facility] Comment on above: Order Comment: Reaso n for Exam Hypertension Reason for Exam Vitamin D deficiency, unspecified Performed By: #### T SH3 wRFLX, CBC, LIPID, [id number], CMP #### [facility] [address] [place] [address] [place] Serum or plasma albumin/glob ulin mass ratioOrdered By: Rosanne Falcon on 07-31-2023 Albumin/Globulin [Mass ratio] 1.3 {ratio} Normal [facility] Comment on above: Order Comment: Reaso n for Exam Hypertension Reason for Exam Vitamin D deficiency, unspecified Performed By: #### T SH3 wRFLX, CBC, LIPID, [id number], CMP #### [facility] [address] Serum or plasma anion gap de terminationOrdered By: Rosanne Falcon on 07-31-2023 Anion gap [Moles/Vol] 10.5 mmol/L Normal 6.0-15.0 [facility] Comment on above: Order Comment: Reaso n for Exam Hypertension Reason for Exam Vitamin D deficiency, unspecified Performed By: #### T SH3 wRFLX, CBC, LIPID, [id number], CMP #### [facility] [address] Serum or plasma high density lipoprotein (HDL) cholesterol measurementOrdered By: Rosanne Falcon on 07-31-2023 Cholesterol in HDL [Mass/Vol] 53 mg/dL Normal 23-92 [facility] Comment on above: HDL CHOL ATP-III CLA [...] By: #### T SH3 wRFLX, CBC, LIPID, [id number], CMP #### [facility] [address] Serum or plasma total choles terol/high density lipoprotein (HDL) cholesterol mass ratOrdered By: Rosanne Falcon on 07-31-2023 Cholesterol.total/Choles terol in HDL [Mass ratio] 2.3 {ratio} Normal <5.0 [facility] Comment on above: Order Comment: Reaso n for Exam Hypertension Reason for Exam Vitamin D deficiency, unspecified Performed By: #### T SH3 wRFLX, CBC, LIPID, [id number], CMP #### [facility] [address] Sodium [Moles/volume] in Ser um or PlasmaOrdered By: Rosanne Falcon on 07-31-2023 Sodium [Moles/Vol] 141 mmol/L Normal 136-145 [facility] Comment on above: Order Comment: Reaso n for Exam Hypertension Reason for Exam Vitamin D deficiency, unspecified Performed By: #### T SH3 wRFLX, CBC, LIPID, [id number], CMP #### [facility] [address] Thyroid Stim Hormone w/Rflxo n 07-31-2023 Thyroid Stim Hormone w/Rflx 0.74 u[iU]/mL Normal 0.45-5.33 [facility] Comment on above: Order Comment: Reaso n for Exam Hypertension Reason for Exam Vitamin D deficiency, unspecified Performed By: #### T SH3 wRFLX, CBC, LIPID, [id number], CMP #### [facility] [address] Thyrotropin [Units/volume] i n Serum or PlasmaOrdered By: Rosanne Falcon on 07-31-2023 TSH Qn 0.74 m[IU]/L 0.45-5.33 [facility] Triglyceride [Mass/volume] i n Serum or PlasmaOrdered By: Rosanne Falcon on 07-31-2023 Triglyceride [Mass/Vol] 39 mg/dL 0-149 [facility] Comment on above: TRIG ATP III CLASSIF ICATIONTRIG less than 150 mg/dL NormalTRIG 150-199 mg/dL Borderline highTRIG 200-500 mg/dL High TRIG greater than 500 mg/dL Very highStandard traceable to the Center for Disease Conrtrol and Prevention (CDC) test method. Urea nitrogen [Mass/volume] in Serum or PlasmaOrdered By: Rosanne Falcon on 07-31-2023 Urea nitrogen [Mass/Vol] 17 mg/dL Normal 7-25 [facility] Comment on above: Order Comment: Reaso n for Exam Hypertension Reason for Exam Vitamin D deficiency, unspecified Performed By: #### T SH3 wRFLX, CBC, LIPID, [id number], CMP #### [facility] [address] [place] [id number] [facility] Vitamin D 25 Hydroxy Totalon 07-31-2023 Vitamin D 25 Hydroxy Total 69.7 ng/mL Normal 30-100 [facility] Comment on above: Order Comment: [...] practice guideline. JCEM. 2010; 96(7):1911-30. PERFORMED BY: [place] [address] PATHOLOGIST [employer] TRINI PINON M.D. Performed By: #### T SH3 wRFLX, [id number], DIFF CBC, CMP #### [address] Vitamin D+Metabolites [Mass/ volume] in Serum or PlasmaOrdered By: Rosanne Falcon on 07-31-2023 Vitamin D+Metabolites [Mass/Vol] 69.7 ng/mL 30-100 [facility] Comment on above: VITAMIN D STATUS 25( [place])VITAMIN D RANGE (ng/mL) Deficient <20 Insufficient 20 to <30Sufficient 30 to 100Reference: Vaishali Riddle, Arturo FARRIS, et al. Evaluation,treatment, and prevention of vitamin D deficiency; an Endocrine Society clinical practice guideline. JCEM. 2010; 96(7):1911-30. MM screening mammo BI w/CADo n 04-11-2023 MM screening mammo BI w/CAD [facility] [place] [address] [place], [place] [id number] Mammography Report Signed Patient: Radha Patterson MR#: [id number] : 1960 Acct:[id number] Age/Sex: 62 / F ADM Date: 04/11/23 Loc: [place] Room: Type: [facility] Attending Dr: Rosanne ZAFAR Copies to: [facility] Senior CHARISMA Hilton Ordering Provider: CHARISMA Hilton [...] Sisi Smith M.D.04/11/2023 2:22 PM Dictation Location: [facility] Transcribed By: [facility] 04/11/23 1422 Dictated By: Sisi Smith MD 04/11/23 1416 Signed By: 04/11/23 1422 Normal [facility] Superficial Wound Cultureon 01-28-2023 Superficial Wound Culture Reason for Exam Drainage from ear, left Ear, Right No Growth 2 Days PERFORMED BY: [place] [address] PATHOLOGIST [employer] TRINI PINON M.D. Normal [facility] Comment on above: Performed By: #### C USUP #### [address] Alanine aminotransferase [En zymatic activity/volume] in Serum or PlasmaOrdered By: Rosanne Falcon on 01-16-2023 ALT [Catalytic activity/Vol] 28 U/L Normal [facility] Comment on above: Order Comment: Reaso n for Exam Hypertension Reason for Exam Vitamin D deficiency, unspecified Performed By: #### T SH3 wRFLX, [id number], DIFF CBC, CMP #### [facility] [address] Albumin [Mass/volume] in Ser um or Plasma by Bromocresol green (BCG) dye binding methoOrdered By: Rosanne Falcon on 01-16-2023 Albumin BCG dye [Mass/Vol] 4.3 g/dL 3.5-5.7 [facility] Alkaline phosphatase [Enzyma tic activity/volume] in Serum or PlasmaOrdered By: Rosanne Falcon on 01-16-2023 ALP [Catalytic activity/Vol] 88 U/L Normal 34-104 [facility] Comment on above: Order Comment: Reaso n for Exam Hypertension Reason for Exam Vitamin D deficiency, unspecified Performed By: #### T SH3 wRFLX, [id number], DIFF CBC, CMP #### [facility] [address] [place] [address] [place] Aspartate aminotransferase [ Enzymatic activity/volume] in Serum or PlasmaOrdered By: Rosanne Falcon on 01-16-2023 AST [Catalytic activity/Vol] 19 U/L Normal 13-39 [facility] Comment on above: Order Comment: Reaso n for Exam Hypertension Reason for Exam Vitamin D deficiency, unspecified Performed By: #### T SH3 wRFLX, [id number], DIFF CBC, CMP #### [facility] [address] [place] [address] [place] Basophils Auto (Bld) [#/Vol] Ordered By: Rosanne Falcon on 01-16-2023 Basophils (Bld) [#/Vol] N/A [facility] Basophils/100 WBC Auto (Bld) Ordered By: Rosanne Falcon on 01-16-2023 Basophils/100 WBC (Bld) N/A [facility] Basophils/100 leukocytes in Blood by Manual countOrdered By: Rosanne Falcon on 01-16-2023 Basophils/100 WBC (Bld) 3 % High 0-2 [facility] Comment on above: Order Comment: Reaso n for Exam Hypertension Performed By: #### T SH3 wRFLX, [id number], DIFF CBC, CMP #### [facility] [address] [place] [address] [place] Bilirubin.total [Mass/volume ] in Serum or PlasmaOrdered By: Rosanne Falcon on 01-16-2023 Bilirubin [Mass/Vol] 0.6 mg/dL Normal 0.3-1.0 [facility] Comment on above: Order Comment: Reaso n for Exam Hypertension Reason for Exam Vitamin D deficiency, unspecified Performed By: #### T SH3 wRFLX, [id number], DIFF CBC, CMP #### [facility] [address] [place] [address] [place] Calcium [Mass/volume] in Ser um or PlasmaOrdered By: Rosanne Falcon on 01-16-2023 Calcium [Mass/Vol] 9.5 mg/dL Normal 8.6-10.3 [facility] Comment on above: Order Comment: Reaso n for Exam Hypertension Reason for Exam Vitamin D deficiency, unspecified Performed By: #### T SH3 wRFLX, [id number], DIFF CBC, CMP #### [facility] [address] [place] [address] [place] Carbon dioxide, total [Moles /volume] in Serum or PlasmaOrdered By: Rosanne Falcon on 01-16-2023 CO2 [Moles/Vol] 27.6 mmol/L Normal 21.0-31.0 [facility] Comment on above: Order Comment: Reaso n for Exam Hypertension Reason for Exam Vitamin D deficiency, unspecified Performed By: #### T SH3 wRFLX, [id number], DIFF CBC, CMP #### [facility] [address] [place] [address] [place] Chloride [Moles/volume] in [place] or PlasmaOrdered By: Rosanne Falcon on 01-16-2023 Chloride [Moles/Vol] 102 mmol/L Normal 98-107 [facility] Comment on above: Order Comment: Reaso n for Exam Hypertension Reason for Exam Vitamin D deficiency, unspecified Performed By: #### T SH3 wRFLX, [id number], DIFF CBC, CMP #### [facility] [address] [place] [id number] [facility] Comprehensive Metabolic Pane harriet 01-16-2023 Albumin [Mass/Vol] 4.3 g/dL Normal 3.5-5.7 [facility] Comment on above: Order Comment: Reaso n for Exam Hypertension Reason for Exam Vitamin D deficiency, unspecified Performed By: #### T SH3 wRFLX, [id number], DIFF CBC, CMP #### [facility] [address] [place] [id number] [place] GFR/1.73 sq M.predicted MDRD (S/P/Bld) [Vol rate/Area] mL/min/{1.73_m2} Normal [facility] Comment on above: Order Comment: Reaso n for Exam Hypertension Reason for Exam Vitamin D deficiency, unspecified Performed By: #### T SH3 wRFLX, [id number], DIFF CBC, CMP #### [facility] [address] [place] [id number] [facility] Creatinine [Mass/volume] in Serum or PlasmaOrdered By: Rosanne Falcon on 01-16-2023 Creatinine [Mass/Vol] 0.95 mg/dL Normal 0.60-1.20 [facility] Comment on above: Order Comment: Reaso n for Exam Hypertension Reason for Exam Vitamin D deficiency, unspecified Performed By: #### T SH3 wRFLX, [id number], DIFF CBC, CMP #### [facility] [address] [place] [id number] [place] Diff and CBCon 01-16-2023 Eosinophils % (Auto) Normal . [facility] Comment on above: Order Comment: [...] indicated. Performed By: #### T SH3 wRFLX, [id number], DIFF CBC, CMP #### [facility] [address] [place] [id number] [place] Mean Corpuscular HGB Conc 33.9 g/dL Normal 32.0-35.0 [facility] Comment on above: Order Comment: Reaso n for Exam Hypertension Performed By: #### T SH3 wRFLX, [id number], DIFF CBC, CMP #### [facility] [address] [place] [address] [place] Platelet Estimate Normal Normal Normal [facility] Comment on above: Order Comment: Reaso n for Exam Hypertension Performed By: #### T SH3 wRFLX, [id number], DIFF CBC, CMP #### [facility] [address] Platelet Morphology Normal Normal Normal [facility] Comment on above: Order Comment: Reaso n for Exam Hypertension Result Comment: PERF ORMED BY: [place] [address] PATHOLOGIST [employer] TRINI PINON M.D. Performed By: #### T SH3 wRFLX, [id number], DIFF CBC, CMP #### [facility] [address] Reactive Lymphocytes 3 % Normal 0-12 [facility] Comment on above: Order Comment: Reaso n for Exam Hypertension Performed By: #### T SH3 wRFLX, [id number], DIFF CBC, CMP #### [facility] [address] [place] [id number] [place] Eosinophils Auto (Bld) [#/Vo l]Ordered By: Rosanne Falcon on 01-16-2023 Eosinophils (Bld) [#/Vol] N/A [facility] Eosinophils/100 WBC Auto (Bl d)Ordered By: Rosanne Falcon on 01-16-2023 Eosinophils/100 WBC (Bld) See comment . [facility] Comment on above: Absolute eosinophili a is [...] Eosinophils/100 WBC (Bld) 5 % High 1-3 [facility] Comment on above: Order Comment: Reaso n for Exam Hypertension Performed By: #### T SH3 wRFLX, [id number], DIFF CBC, CMP #### [facility] [address] Erythrocyte distribution wid th [Ratio] by Automated countOrdered By: Rosanne Falcon on 01-16-2023 Erythrocyte distribution width (RBC) [Ratio] 13.1 % Normal 11.9-15.3 [facility] Comment on above: Order Comment: Reaso n for Exam Hypertension Performed By: #### T SH3 wRFLX, [id number], DIFF CBC, CMP #### [facility] [address] [place] [address] [place] Erythrocytes [#/volume] in B lood by Automated countOrdered By: Rosanne Falcon on 01-16-2023 RBC (Bld) [#/Vol] 3.82 10*6/uL Normal 3.60-5.00 [facility] Comment on above: Order Comment: Reaso n for Exam Hypertension Performed By: #### T SH3 wRFLX, [id number], DIFF CBC, CMP #### [facility] [address] Glucose [Mass/volume] in Ser um or PlasmaOrdered By: Rosanne Falcon on 01-16-2023 Glucose [Mass/Vol] 93 mg/dL Normal 70-100 [facility] Comment on above: ADA recommended refe rence rangeRandom Glucose Reference Range is dependent on time and content of last meal. Glucose of more than 200 mg/dL in a nonstressed, ambulatory subject supports the diagnosis of Diabetes Mellitus. Order Comment: Reaso n for Exam Hypertension Reason for Exam Vitamin D deficiency, unspecified Result Comment: [place] om Glucose Reference Range is dependent on time and content of last meal. Glucose of more than 200 mg/dL in a nonstressed, ambulatory subject supports the diagnosis of Diabetes Mellitus. ADA recommended reference range Performed By: #### T SH3 wRFLX, [id number], DIFF CBC, CMP #### [facility] [address] Hematocrit [Volume Fraction] of Blood by Automated countOrdered By: Rosanne Falcon on 01-16-2023 Hematocrit (Bld) [Volume fraction] 37.6 % Normal 34.0-46.4 [facility] Comment on above: Order Comment: Reaso n for Exam Hypertension Performed By: #### T SH3 wRFLX, [id number], DIFF CBC, CMP #### [facility] [address] Hemoglobin [Mass/volume] in BloodOrdered By: Rosanne Falcon on 01-16-2023 Hemoglobin (Bld) [Mass/Vol] 12.8 g/dL Normal 11.8-15.4 [facility] Comment on above: Order Comment: Reaso n for Exam Hypertension Performed By: #### T SH3 wRFLX, [id number], DIFF CBC, CMP #### [facility] [address] Leukocytes [#/volume] correc [place] for nucleated erythrocytes in Blood by Automated counOrdered By: Rosanne Falcon on 01-16-2023 WBC corrected for nucl RBC Auto (Bld) [#/Vol] 3.4 10*3/uL 3.8-11.6 [facility] Leukocytes [#/volume] in Blo od by Automated countOrdered By: Rosanne Falcon on 01-16-2023 WBC (Bld) [#/Vol] 3.4 10*3/uL Low 3.8-11.6 [facility] Comment on above: Order Comment: Reaso n for Exam Hypertension Performed By: #### T SH3 wRFLX, [id number], DIFF CBC, CMP #### [facility] [address] [place] [address] [place] Lymphocytes Auto (Bld) [#/Vo l]Ordered By: Rosanne Curtisc on 01-16-2023 Lymphocytes (Bld) [#/Vol] N/A [facility] Lymphocytes/100 WBC Auto (Bl d)Ordered By: Rosanne Curtisc on 01-16-2023 Lymphocytes/100 WBC (Bld) N/A [facility] Lymphocytes/100 leukocytes i n Blood by Manual countOrdered By: Rosanne Falcon on 01-16-2023 Lymphocytes/100 WBC (Bld) 49 % High 18-42 [facility] Comment on above: Order Comment: Reaso n for Exam Hypertension Performed By: #### T SH3 wRFLX, [id number], DIFF CBC, CMP #### [facility] [address] MCH [Entitic mass] by Automa [place]ip[place] countOrdered By: Rosanne Falcon on 01-16-2023 MCH (RBC) [Entitic mass] 33.4 pg Normal 24.7-34.3 [facility] Comment on above: Order Comment: Reaso n for Exam Hypertension Performed By: #### T SH3 wRFLX, [id number], DIFF CBC, CMP #### [facility] [address] MCHC Auto (RBC) [Mass/Vol]Or dered By: Rosanne Falcon on 01-16-2023 MCHC (RBC) [Mass/Vol] 33.9 g/dL 32.0-35.0 [facility] MCV [Entitic volume] by Auto mated countOrdered By: Rosanne Falcon on 01-16-2023 MCV (RBC) [Entitic vol] 98.5 fL Normal 80-100 [facility] Comment on above: Order Comment: Reaso n for Exam Hypertension Performed By: #### T SH3 wRFLX, [id number], DIFF CBC, CMP #### [facility] [address] Manual blood segmented neutr ophils/100 leukocytesOrdered By: Rosanne Falcon on 01-16-2023 Segmented neutrophils/100 WBC (Bld) 37 % Low 50-70 [facility] Comment on above: Order Comment: Reaso n for Exam Hypertension Performed By: #### T SH3 wRFLX, [id number], DIFF CBC, CMP #### [facility] [address] Monocytes Auto (Bld) [#/Vol] Ordered By: Rosanne Falcon on 01-16-2023 Monocytes (Bld) [#/Vol] N/A [facility] Monocytes/100 WBC Auto (Bld) Ordered By: Rosanne Falcon on 01-16-2023 Monocytes/100 WBC (Bld) N/A [facility] Monocytes/100 leukocytes in Blood by Manual countOrdered By: Rosanne Falcon on 01-16-2023 Monocytes/100 WBC (Bld) 3 % Normal 2-11 [facility] Comment on above: Order Comment: Reaso n for Exam Hypertension Performed By: #### T SH3 wRFLX, [id number], DIFF CBC, CMP #### [facility] [address] Neutrophils Auto (Bld) [#/Vo l]Ordered By: Rosanne Falcon on 01-16-2023 Neutrophils (Bld) [#/Vol] N/A [facility] Neutrophils/100 WBC Auto (Bl d)Ordered By: Rosanne Falcon on 01-16-2023 Neutrophils/100 WBC (Bld) N/A [facility] No Panel InformationOrdered By: Rosanne Falcon on 01-16-2023 Estimated GFR (CKD-EPI) > 60.0 mL/Min [facility] Creatinine Clearance (Chem N/A [facility] Nucleated erythrocytes [Pres ence] in Blood by Automated countOrdered By: Rosanne Falcon on 01-16-2023 Nucleated RBC Auto Ql (Bld) N/A [facility] Platelet adequacy [Presence] in Blood by Light microscopyOrdered By: Rosanne Falcon on 01-16-2023 Platelets LM Ql (Bld) Normal Normal [facility] Platelet mean volume [Entiti c volume] in Blood by Automated countOrdered By: Rosanne Falcon on 01-16-2023 Platelet mean volume (Bld) [Entitic vol] 8.7 fL Normal 6.3-10.7 [facility] Comment on above: Order Comment: Reaso n for Exam Hypertension Performed By: #### T SH3 wRFLX, [id number], DIFF CBC, CMP #### [facility] [address] [place] [id number] [facility] Platelet morphology finding [Identifier] in BloodOrdered By: Rosanne Falcon on 01-16-2023 Platelet morphology finding Nom (Bld) Normal Normal [facility] Platelets [#/volume] in Bloo d by Automated countOrdered By: Rosanne Falcon on 01-16-2023 Platelets (Bld) [#/Vol] 180 10*3/uL Normal 150-450 [facility] Comment on above: Order Comment: Reaso n for Exam Hypertension Performed By: #### T SH3 wRFLX, [id number], DIFF CBC, CMP #### [facility] [address] [place] [address] [place] Potassium [Moles/volume] in Serum or PlasmaOrdered By: Rosanne Falcon on 01-16-2023 Potassium [Moles/Vol] 4.3 mmol/L Normal 3.5-5.1 [facility] Comment on above: Order Comment: Reaso n for Exam Hypertension Reason for Exam Vitamin D deficiency, unspecified Performed By: #### T SH3 wRFLX, [id number], DIFF CBC, CMP #### [facility] [address] [place] [id number] [place] Protein [Mass/volume] in Ser um or PlasmaOrdered By: Rosanne Falcon on 01-16-2023 Protein [Mass/Vol] 7.4 g/dL Normal 6.4-8.9 [facility] Comment on above: Order Comment: Reaso n for Exam Hypertension Reason for Exam Vitamin D deficiency, unspecified Performed By: #### T SH3 wRFLX, [id number], DIFF CBC, CMP #### [facility] [address] [place] [address] [place] RBC morphologyOrdered By: Kayleen Falcon on 01-16-2023 RBC morphology finding Nom (Bld) Normal Normal Normal [facility] Comment on above: Order Comment: Reaso n for Exam Hypertension Performed By: #### T SH3 wRFLX, [id number], DIFF CBC, CMP #### [facility] [facility] [address] [id number] [place] Serum globulin measurement b y calculation (mass/volume)Ordered By: Rosanne Falcon on 01-16-2023 Globulin (S) [Mass/Vol] 3.1 g/dL Normal [facility] Comment on above: Order Comment: Reaso n for Exam Hypertension Reason for Exam Vitamin D deficiency, unspecified Performed By: #### T SH3 wRFLX, [id number], DIFF CBC, CMP #### [facility] [address] Serum or plasma albumin/glob ulin mass ratioOrdered By: Rosanne Falcon on 01-16-2023 Albumin/Globulin [Mass ratio] 1.4 {ratio} Normal [facility] Comment on above: Order Comment: Reaso n for Exam Hypertension Reason for Exam Vitamin D deficiency, unspecified Performed By: #### T SH3 wRFLX, [id number], DIFF CBC, CMP #### [facility] [address] Serum or plasma anion gap de terminationOrdered By: Rosanne Falcon on 01-16-2023 Anion gap [Moles/Vol] 11.7 mmol/L Normal 6.0-15.0 [facility] Comment on above: Order Comment: Reaso n for Exam Hypertension Reason for Exam Vitamin D deficiency, unspecified Performed By: #### T SH3 wRFLX, [id number], DIFF CBC, CMP #### [facility] [address] [place] [address] Sodium [Moles/volume] in Ser um or PlasmaOrdered By: Rosanne Falcon on 01-16-2023 Sodium [Moles/Vol] 137 mmol/L Normal 136-145 [facility] Comment on above: Order Comment: Reaso n for Exam Hypertension Reason for Exam Vitamin D deficiency, unspecified Performed By: #### T SH3 wRFLX, [id number], DIFF CBC, CMP #### [facility] [address] Thyroid Stim Hormone w/Rflxo n 01-16-2023 Thyroid Stim Hormone w/Rflx 3.01 u[iU]/mL Normal 0.45-5.33 [facility] Comment on above: Order Comment: Reaso n for Exam Hypertension Reason for Exam Vitamin D deficiency, unspecified Performed By: #### T SH3 wRFLX, [id number], DIFF CBC, CMP #### [facility] [address] [id number] [facility] Thyrotropin [Units/volume] i n Serum or PlasmaOrdered By: Rosanne Falcon on 01-16-2023 TSH Qn 3.01 m[IU]/L 0.45-5.33 [facility] Urea nitrogen [Mass/volume] in Serum or PlasmaOrdered By: Rosanne Falcon on 01-16-2023 Urea nitrogen [Mass/Vol] 12 mg/dL Normal 7-25 [facility] Comment on above: Order Comment: Reaso n for Exam Hypertension Reason for Exam Vitamin D deficiency, unspecified Performed By: #### T SH3 wRFLX, [id number], DIFF CBC, CMP #### [facility] [address] [place] [address] [place] Variant lymphocytes/100 WBC Manual cnt (Bld)Ordered By: Rosanne Falcon on 01-16-2023 Variant lymphocytes/100 WBC (Bld) 3 % 0-12 [facility] Vitamin D 25 Hydroxy Totalon 01-16-2023 Vitamin D 25 Hydroxy Total 32.5 ng/mL Normal 30-100 [facility] Comment on above: Order Comment: [...] practice guideline. JCEM. 2010; 96(7):1911-30. PERFORMED BY: [place] [address] PATHOLOGIST [employer] TRINI PINON M.D. Performed By: #### T SH3 wRFLX, [id number], DIFF CBC, CMP #### [facility] [address] [id number] [facility] Vitamin D+Metabolites [Mass/ volume] in Serum or PlasmaOrdered By: Rosanne Falcon on 01-16-2023 Vitamin D+Metabolites [Mass/Vol] 32.5 ng/mL 30-100 [facility] Comment on above: VITAMIN D STATUS 25( [place])VITAMIN D RANGE (ng/mL) Deficient <20 Insufficient 20 to <30Sufficient 30 to 100Reference: Helen MF,Vaishali NC, Arturo FARRIS, et al. Evaluation,treatment, and prevention of vitamin D deficiency; an Endocrine Society clinical practice guideline. JCEM. 2010; 96(7):1911-30. Albumin [Mass/volume] in Ser um or PlasmaOrdered By: Rosanne Falcon on 05-14-2022 Albumin [Mass/Vol] 3.8 g/dL 3.2-5.5 [facility] Basophils Auto (Bld) [#/Vol] Ordered By: Rosanne Falcon on 05-14-2022 Basophils (Bld) [#/Vol] 0.0 10*3/uL 0.0-0.2 [facility] Basophils/100 WBC Auto (Bld) Ordered By: Rosanne Falcon on 05-14-2022 Basophils/100 WBC (Bld) 0.8 % . [facility] biopsyOrdered By: Rosanne moore on 05-14-2022 Transferrin [Mass/Vol] 216 mg/dL 180-380 [facility] Creatinine and Glomerular fi ltration rate.predicted panel (S/P/Bld)Ordered By: Rosanne Falcon on 05-14-2022 Creatinine [Mass/Vol] 0.82 mg/dL 0.44-1.03 [facility] Eosinophils Auto (Bld) [#/Vo l]Ordered By: Rosanne Falcon on 05-14-2022 Eosinophils (Bld) [#/Vol] 0.2 10*3/uL 0.0-0.45 [facility] Eosinophils/100 WBC Auto (Bl d)Ordered By: Rosanne Falcon on 05-14-2022 Eosinophils/100 WBC (Bld) 4.0 % . [facility] Erythrocyte distribution wid th Auto (RBC) [Ratio]Ordered By: Rosanne Falcon on 05-14-2022 Erythrocyte distribution width (RBC) [Ratio] 12.9 % 11.9-15.3 [facility] Estimated glomerular filtrat ion rate (GFR) non- AmericanOrdered By: Rosanne Falcon on 05-14-2022 GFR/1.73 sq M.predicted among non-blacks MDRD (S/P/Bld) [Vol rate/Area] > 60 mL/Min [facility] Globulin Calc (S) [Mass/Vol] Ordered By: Rosanne Falcon on 05-14-2022 Globulin (S) [Mass/Vol] 3.4 g/dL [facility] Hematocrit Auto (Bld) [Volum e fraction]Ordered By: Rosanne Falcon on 05-14-2022 Hematocrit (Bld) [Volume fraction] 37.1 % 34.0-46.4 [facility] Hemoglobin [Mass/volume] in BloodOrdered By: Rosanne Falcon on 05-14-2022 Hemoglobin (Bld) [Mass/Vol] 12.5 g/dL 11.8-15.4 [facility] Iron [Mass/volume] in Serum or PlasmaOrdered By: Rosanne Falcon on 05-14-2022 Iron [Mass/Vol] 79 ug/dL 40-150 [facility] Iron binding capacity [Mass/ volume] in Serum or PlasmaOrdered By: Rosanne Falcon on 05-14-2022 Iron binding capacity [Mass/Vol] 302 ug/dL 255-450 [facility] Iron saturation [Mass Fracti on] in Serum or PlasmaOrdered By: Rosanne Falcon on 05-14-2022 Iron saturation [Mass fraction] 26.2 % 20-50 [facility] Leukocytes [#/volume] correc [place] for nucleated erythrocytes in Blood by Automated counOrdered By: Rosanne Falcon on 05-14-2022 WBC corrected for nucl RBC Auto (Bld) [#/Vol] 4.4 10*3/uL 3.8-11.6 [facility] Lymphocytes Auto (Bld) [#/Vo l]Ordered By: Rosanne Falcon on 05-14-2022 Lymphocytes (Bld) [#/Vol] 2.2 10*3/uL 1.00-4.8 [facility] Lymphocytes/100 WBC Auto (Bl d)Ordered By: Rosanne Falcon on 05-14-2022 Lymphocytes/100 WBC (Bld) 49.3 % . [facility] MCH Auto (RBC) [Entitic mass ]Ordered By: Rosanne Faclon on 05-14-2022 MCH (RBC) [Entitic mass] 33.0 pg 24.7-34.3 [facility] MCHC Auto (RBC) [Mass/Vol]Or dered By: Rosanne Falcon on 05-14-2022 MCHC (RBC) [Mass/Vol] 33.6 g/dL 32.0-35.0 [facility] MCV Auto (RBC) [Entitic vol] Ordered By: Rosanne Falcon on 05-14-2022 MCV (RBC) [Entitic vol] 98.2 fL 80-100 [facility] Monocytes Auto (Bld) [#/Vol] Ordered By: Rosanne Falcon on 05-14-2022 Monocytes (Bld) [#/Vol] 0.3 10*3/uL 0.0-0.8 [facility] Monocytes/100 WBC Auto (Bld) Ordered By: Rosanne Falcon on 05-14-2022 Monocytes/100 WBC (Bld) 7.0 % . [facility] Neutrophils Auto (Bld) [#/Vo l]Ordered By: Rosanne Falcon on 05-14-2022 Neutrophils (Bld) [#/Vol] 1.7 10*3/uL 1.8-7.7 [facility] Neutrophils/100 WBC Auto (Bl d)Ordered By: Rosanne Falcon on 05-14-2022 Neutrophils/100 WBC (Bld) 38.9 % . [facility] No Panel InformationOrdered By: Rosanne Falcon on 05-14-2022 25-Hydroxy Vitamin D Total 74.8 ng/mL 30-100 [facility] Comment on above: VITAMIN D STATUS 25( [place])VITAMIN D RANGE (ng/mL) Deficient <20 Insufficient 20 to <30Sufficient 30 to 100Reference: Helen MF,Vaishali GRIGGS, Arturo FARRIS, et al. Evaluation,treatment, and prevention of vitamin D deficiency; an Endocrine Society clinical practice guideline. JCEM. 2010; 96(7):1911-30. Estimated GFR () > 60 mL/Min [facility] Comment on above: GFR estimated refere nce range: According to KDOQI guidelines, <60 ml/min/1.73m2 is sufficient to diagnose a patient with chronic kidney disease. Pharmacy Creatinine Clearance (Chem N/A [facility] Nucleated erythrocytes [Pres ence] in Blood by Automated countOrdered By: Rosanne Falcon on 05-14-2022 Nucleated RBC Auto Ql (Bld) 0.1 /100{WBC} 0-0.5 [facility] Platelet mean volume Auto (B ld) [Entitic vol]Ordered By: Rosanne Falcon on 05-14-2022 Platelet mean volume (Bld) [Entitic vol] 8.2 fL 6.3-10.7 [facility] Platelets Auto (Bld) [#/Vol] Ordered By: Rosanne Falcon on 05-14-2022 Platelets (Bld) [#/Vol] 231 10*3/uL 150-450 [facility] Protein [Mass/volume] in Ser um or PlasmaOrdered By: Rosanne Falcon on 05-14-2022 Protein [Mass/Vol] 7.2 g/dL 6.1-7.9 [facility] RBC Auto (Bld) [#/Vol]Ordere d By: Rosanne Falcon on 05-14-2022 RBC (Bld) [#/Vol] 3.78 10*6/uL 3.60-5.00 [facility] Serum or plasma alanine andersen otransferase measurement without P-5'-P (enzymatic activiOrdered By: Rosanne Falcon on 05-14-2022 ALT No additional P-5'-P [Catalytic activity/Vol] 15 U/L 10-60 [facility] Serum or plasma albumin/glob ulin mass ratioOrdered By: Rosanne Falcon on 05-14-2022 Albumin/Globulin [Mass ratio] 1.1 {ratio} [facility] Serum or plasma alkaline lori sphatase measurement (enzymatic activity/volume)Ordered By: Rosanne Falcon on 05-14-2022 ALP [Catalytic activity/Vol] 78 U/L 32-92 [facility] Serum or plasma anion gap de terminationOrdered By: Rosanne Falcon on 05-14-2022 Anion gap [Moles/Vol] 10.6 mmol/L 6.0-15.0 [facility] Serum or plasma aspartate am inotransferase measurement (enzymatic activity/volume)Ordered By: Rosanne Falcon on 05-14-2022 AST [Catalytic activity/Vol] 19 U/L 10-42 [facility] Serum or plasma calcium tristian urement (mass/volume)Ordered By: Rosanne Falcon on 05-14-2022 Calcium [Mass/Vol] 9.9 mg/dL 8.2-10.2 [facility] Serum or plasma chloride ceferino surement (moles/volume)Ordered By: Rosanne Falcon on 05-14-2022 Chloride [Moles/Vol] 101 mmol/L 95-114 [facility] Serum or plasma glucose tristian urement (mass/volume)Ordered By: Rosanne Falcon on 05-14-2022 Glucose [Mass/Vol] 74 mg/dL 70-100 [facility] Comment on above: ADA recommended refe rence rangeRandom Glucose Reference Range is dependent on time and content of last meal. Glucose of more than 200 mg/dL in a nonstressed, ambulatory subject supports the diagnosis of Diabetes Mellitus. Serum or plasma potassium me asurement (moles/volume)Ordered By: Rosanne Falcon on 05-14-2022 Potassium [Moles/Vol] 3.7 mmol/L 3.5-5.1 [facility] Serum or plasma sodium measu rement (moles/volume)Ordered By: Rosanne Falcon on 05-14-2022 Sodium [Moles/Vol] 138 mmol/L 136-146 [facility] Serum or plasma total biliru bin measurement (mass/volume)Ordered By: Rosanne Falcon on 05-14-2022 Bilirubin [Mass/Vol] 0.5 mg/dL 0.3-1.2 [facility] Serum or plasma total carbon dioxide measurement (moles/volume)Ordered By: Rosanne Falcon on 05-14-2022 CO2 [Moles/Vol] 30.1 mmol/L 22.0-30.0 [facility] Serum or plasma urea nitroge n measurement (mass/volume)Ordered By: Rosanne Falcon on 05-14-2022 Urea nitrogen [Mass/Vol] 12 mg/dL 9-23 [facility] WBC Auto (Bld) [#/Vol]Ordere d By: Rosanne Falcon on 05-14-2022 WBC (Bld) [#/Vol] 4.4 10*3/uL 3.8-11.6 [facility] Amphetamine Screen Ql (U)Ord ered By: Philip Taveras on 01-09-2022 Amphetamines Ql (U) Negative Negative [facility] Barbiturates [Presence] in U rineOrdered By: Philip Taveras on 01-09-2022 Barbiturates Ql (U) Negative Negative [facility] Benzodiazepines [Presence] i n UrineOrdered By: Philip Taveras on 01-09-2022 Benzodiazepines Ql (U) Negative Negative [facility] Cannabinoids [Presence] in U rine by Screen methodOrdered By: Philip Taveras on 01-09-2022 Cannabinoids Screen Ql (U) Positive Negative [facility] Comment on above: These are unconfirme d results and should not be used for legal purposes. Drug Cut-Off Concentration: AMPH 1000 ng/mL PATRICE 200 ng/mL BRUNO 200 ng/mL COCM 300 ng/mL OP 300 ng/mL PCP 25 ng/mL THC 20 ng/mL Laboratory - Drug toxicology Ordered By: Philip Taveras on 01-09-2022 Opiates Ql (U) Negative Negative [facility] Phencyclidine Screen Ql (U)O rdered By: Philip Taveras on 01-09-2022 Phencyclidine Ql (U) Negative Negative [facility] Urine cocaine detectionOrder ed By: Philip Taveras on 01-09-2022 Cocaine Ql (U) Positive Negative [facility] COVID-19 SOFIAOrdered By: Kayleen Taveras on 01-07-2022 SARS-CoV+SARS-CoV-2 (COVID-19) Ag IA.rapid Ql (Resp) Negative Negative [facility] Comment on above: This is a duplicate Joy SARS Antigen (CHRISTINA) result to be used for statistical tracking purpose only. No Panel InformationOrdered By: Philip Taveras on 01-07-2022 SARS Antigen (LFIA) [facility] COVID-19 Positive/NegativeOr dered By: Philip Taveras on 12-04-2021 SARS-CoV-2 (COVID-19) N gene RICKY+probe Ql (Resp) Negative Negative [facility] Comment on above: Testing for SARS-CoV -2 by RT-PCR This test was developed and its performance characteristics determined by [employer] ([employer]) and validated at the [facility]. This test has not been FDA cleared [...] developed and its performance characteristics determined by [employer] ([employer]) and validated at the [facility]. This test has not been FDA cleared [...] on 10-26-2021 Albumin [Mass/Vol] 3.7 g/dL 3.2-5.5 [facility] Basophils Auto (Bld) [#/Vol] Ordered By: Rosanne Falcon on 10-26-2021 Basophils (Bld) [#/Vol] 0.0 10*3/uL 0.0-0.2 [facility] Basophils/100 WBC Auto (Bld) Ordered By: Rosanne Falcon on 10-26-2021 Basophils/100 WBC (Bld) 0.6 % . [facility] Blood acanthocytes detection by light microscopyOrdered By: Rosanne Falcon on 10-26-2021 Acanthocytes LM Ql (Bld) Few [facility] Blood hemoglobin measurement (mass/volume)Ordered By: Rosanne Falcon on 10-26-2021 Hemoglobin (Bld) [Mass/Vol] 13.5 g/dL 11.8-15.4 [facility] Blood leukocytes automated c ount (number/volume)Ordered By: Rosanne Falcon on 10-26-2021 WBC (Bld) [#/Vol] 4.4 10*3/uL 4.5-11.[address] [facility] [address] biopsyOrdered By: Rosanne moore on 10-26-2021 Transferrin [Mass/Vol] 234 mg/dL 180-380 [facility] Cholesterol [Mass/volume] in Serum or PlasmaOrdered By: Rosanne Falcon on 10-26-2021 Cholesterol [Mass/Vol] 152 mg/dL 140-200 [facility] Comment on above: Chol less than 200 m g/dl low risk Chol 201-239 mg/dl borderline risk Chol 240 mg/dl and greater high risk Chol less than 200 m g/dl low riskChol 201-239 mg/dl borderline riskChol 240 mg/dl and greater high risk Cholesterol in LDL Calc [Mas s/Vol]Ordered By: Rosanne Falcon on 10-26-2021 Cholesterol in LDL [Mass/Vol] 73 mg/dL 0-100 [facility] Comment on above: LDL ATP III CLASSIFI [...] 10-26-2021 Cholesterol in VLDL [Mass/Vol] 8 mg/dL [facility] Creatine kinase [Enzymatic a ctivity/volume] in Serum or PlasmaOrdered By: Rosanne Falcon on 10-26-2021 CK [Catalytic activity/Vol] 111 U/L 22 [facility] Creatinine and Glomerular fi ltration rate.predicted panel (S/P/Bld)Ordered By: Rosanne Falcon on 10-26-2021 Creatinine [Mass/Vol] 0.86 mg/dL 0.44-1.03 [facility] Eosinophils Auto (Bld) [#/Vo l]Ordered By: Rosanne Falcon on 10-26-2021 Eosinophils (Bld) [#/Vol] 0.2 10*3/uL 0.0-0.45 [facility] Eosinophils/100 WBC Auto (Bl d)Ordered By: Rosanne Falcon on 10-26-2021 Eosinophils/100 WBC (Bld) 3.7 % . [facility] Erythrocyte distribution wid th Auto (RBC) [Ratio]Ordered By: Rosanne Falcon on 10-26-2021 Erythrocyte distribution width (RBC) [Ratio] 13.1 % 11.9-15.3 [facility] Estimated glomerular filtrat ion rate (GFR) non- AmericanOrdered By: Rosanne Falcon on 10-26-2021 GFR/1.73 sq M.predicted among non-blacks MDRD (S/P/Bld) [Vol rate/Area] > 60 mL/Min [facility] Globulin Calc (S) [Mass/Vol] Ordered By: Rosanne Falcon on 10-26-2021 Globulin (S) [Mass/Vol] 3.0 g/dL [facility] Glucose mean value [Mass/vol ume] in Blood Estimated from glycated hemoglobinOrdered By: Rosanne Falcon on 10-26-2021 Average glucose Estimated from glycated hemoglobin (Bld) [Mass/Vol] 105 mg/dL [facility] HIV 1 and HIV-2 antibody ass ay with HIV-1 p24 antigen detectionOrdered By: Rosanne Falcon on 10-26-2021 HIV 1+2 Ab+HIV1 p24 Ag IA Ql Non-Reactive Non Reactive [facility] Comment on above: HIV Negative HIV-1/HIV-2 antibodies and HIV-1 p24 antigen were NOT detected. There is no laboratory evidence of HIV infection. Performed at: [facility] [address] [address] Title [address] Director: Lopez Mcwilliams PhD, Phone: [phone] HIV NegativeHIV-1/HI V-2 antibodies and HIV-1 p24 antigen were NOTdetected. There is no laboratory evidence of HIV infection.Performed at: [facility] [address] [id number] Director: Lopez Mcwilliams PhD, Phone: [phone] Hematocrit Auto (Bld) [Volum e fraction]Ordered By: Rosanne Falcon on 10-26-2021 Hematocrit (Bld) [Volume fraction] 39.8 % 34.0-46.4 [facility] Hemoglobin A1c percentageOrd ered By: Rosanne Falocn on 10-26-2021 HbA1c (Bld) [Mass fraction] 5.3 % 4.3-5.6 [facility] Comment on above: Increased risk for d iabetes: 5.7 - 6.4 diabetes: >6.4 glycemic control for adults with diabetes: <7.0 Increased risk for d iabetes: 5.7 - 6.4diabetes: >6.4glycemic control for adults with diabetes: <7.0 Hepatitis B virus surface Ag [Presence] in Serum or Plasma by ImmunoassayOrdered By: Rosanne Falcon on 10-26-2021 HBV surface Ag IA Ql Negative Negative [facility] Hepatitis C virus RNA [Units /volume] (viral load) in Serum or Plasma by RICKY with probOrdered By: Rosanne Falcon on 10-26-2021 HCV RNA RICKY+probe Qn N/A [facility] Hepatitis C virus RNA [log u nits/volume] (viral load) in Serum or Plasma by RICKY withOrdered By: Rosanne Falcon on 10-26-2021 HCV RNA RICKY+probe [Log units/Vol] N/A [facility] Iron [Mass/volume] in Serum or PlasmaOrdered By: Rosanne Falcon on 10-26-2021 Iron [Mass/Vol] 63 ug/dL 40-150 [facility] Iron binding capacity [Mass/ volume] in Serum or PlasmaOrdered By: Rosanne Falcon on 10-26-2021 Iron binding capacity [Mass/Vol] 328 ug/dL 255-450 [facility] Iron saturation [Mass Fracti on] in Serum or PlasmaOrdered By: Rosanne Falcon on 10-26-2021 Iron saturation [Mass fraction] 19.0 % 20-50 [facility] Laboratory - Hematology and Cell countsOrdered By: Rosanne Falcon on 10-26-2021 Nucleated RBC/100 WBC (Bld) [Ratio] 0.2 % 0-0.5 [facility] Lymphocytes Auto (Bld) [#/Vo l]Ordered By: Rosanne Falcon on 10-26-2021 Lymphocytes (Bld) [#/Vol] 3.0 10*3/uL 1.00-4.8 [facility] Lymphocytes/100 WBC Auto (Bl d)Ordered By: Rosanne Falcon on 10-26-2021 Lymphocytes/100 WBC (Bld) 66.6 % . [facility] MCH Auto (RBC) [Entitic mass ]Ordered By: Rosanne Falcon on 10-26-2021 MCH (RBC) [Entitic mass] 33.6 pg 24.7-34.3 [facility] MCHC Auto (RBC) [Mass/Vol]Or dered By: Rosanne Falcon on 10-26-2021 MCHC (RBC) [Mass/Vol] 34.0 g/dL 32.0-35.0 [facility] MCV Auto (RBC) [Entitic vol] Ordered By: Rosanne Falcon on 10-26-2021 MCV (RBC) [Entitic vol] 98.8 fL 80-100 [facility] Monocytes Auto (Bld) [#/Vol] Ordered By: Rosanne Falcon on 10-26-2021 Monocytes (Bld) [#/Vol] 0.2 10*3/uL 0.0-0.8 [facility] Monocytes/100 WBC Auto (Bld) Ordered By: Rosanne Falcon on 10-26-2021 Monocytes/100 WBC (Bld) 4.6 % . [facility] Neutrophils Auto (Bld) [#/Vo l]Ordered By: Rosanne Falcon on 10-26-2021 Neutrophils (Bld) [#/Vol] 1.1 10*3/uL 1.8-7.7 [facility] Neutrophils/100 WBC Auto (Bl d)Ordered By: Rosanne Falcon on 10-26-2021 Neutrophils/100 WBC (Bld) 24.5 % . [facility] No Panel InformationOrdered By: Rosanne Falcon on 10-26-2021 25-Hydroxy Vitamin D Total 58.9 ng/mL 30-100 [facility] Comment on above: VITAMIN D STATUS 25( [...] 96(7):1911-30. Estimated GFR () > 60 mL/Min [facility] Comment on above: GFR estimated refere nce range: According to KDOQI guidelines, <60 ml/min/1.73m2 is sufficient to diagnose a patient with chronic kidney disease. Hepatitis A IgM Antibody Negative Negative [facility] Hepatitis B Core IgM Antibody Negative Negative [facility] Hepatitis C Interpretation See comment . [facility] Comment on above: Negative Not infected with HCV, unless recent infection is suspected or other evidence exists to indicate HCV infection. Performed at: [facility] [id number] Title I Director: Lopez Mcwilliams PhD, Phone: [phone] NegativeNot infected with HCV, unless recent infection issuspected or other evidence exists to indicate HCVinfection.Performed at: [facility] [id number] Director: Lopez Mcwilliams PhD, Phone: [phone] Hepatitis C RNA Quantitative N/A [facility] Creatinine Clearance (Chem N/A [facility] Platelet Estimate Normal Normal [facility] Platelet Morphology Comment Normal Normal [facility] Platelet mean volume Auto (B ld) [Entitic vol]Ordered By: Rosanne Falcon on 10-26-2021 Platelet mean volume (Bld) [Entitic vol] 8.6 fL 6.3-10.7 [facility] Platelets Auto (Bld) [#/Vol] Ordered By: Rosanne Falcon on 10-26-2021 Platelets (Bld) [#/Vol] 230 10*3/uL 150-450 [facility] Protein [Mass/volume] in Ser um or PlasmaOrdered By: Rosanne Falcon on 10-26-2021 Protein [Mass/Vol] 6.7 g/dL 6.1-7.9 [facility] RBC Auto (Bld) [#/Vol]Ordere d By: Rosanne Falcon on 10-26-2021 RBC (Bld) [#/Vol] 4.03 10*6/uL 3.60-5.00 [facility] RBC morphologyOrdered By: Kayleen Falcon on 07-22-2022 RBC morphology finding Nom (Bld) Normal [facility] Serum or plasma C reactive p rotein measurement (mass/volume)Ordered By: Rosanne Falcon on 10-26-2021 CRP [Mass/Vol] 0.6 mg/dL 0.0-1.0 [facility] Serum or plasma alanine andersen otransferase measurement without P-5'-P (enzymatic activiOrdered By: Rosanne Falcon on 10-26-2021 ALT No additional P-5'-P [Catalytic activity/Vol] 15 U/L 10-60 [facility] Serum or plasma albumin/glob ulin mass ratioOrdered By: Rosanne Falcon on 10-26-2021 Albumin/Globulin [Mass ratio] 1.2 {ratio} [facility] Serum or plasma alkaline lori sphatase measurement (enzymatic activity/volume)Ordered By: Rosanne Falcon on 10-26-2021 ALP [Catalytic activity/Vol] 63 U/L 32-92 [facility] Serum or plasma aspartate am inotransferase measurement (enzymatic activity/volume)Ordered By: Rosanne Falcon on 10-26-2021 AST [Catalytic activity/Vol] 18 U/L 10-42 [facility] Serum or plasma calcium tristian urement (mass/volume)Ordered By: Rosanne Falcon on 10-26-2021 Calcium [Mass/Vol] 10.2 mg/dL 8.2-10.2 [facility] Serum or plasma chloride ceferino surement (moles/volume)Ordered By: Rosanne Falcon on 10-26-2021 Chloride [Moles/Vol] 100 mmol/L 95-114 [facility] Serum or plasma glucose tristian urement (mass/volume)Ordered By: Rosanne Falcon on 10-26-2021 Glucose [Mass/Vol] 103 mg/dL 70-100 [facility] Comment on above: ADA recommended refe [...] IA [Rel units/Vol] <0.1 s/co ratio 0.0-0.9 [facility] Serum or plasma high density lipoprotein (HDL) cholesterol measurementOrdered By: Rosanne Falcon on 10-26-2021 Cholesterol in HDL [Mass/Vol] 71 mg/dL 35-85 [facility] Comment on above: HDL CHOL ATP-III CLA SSIFICATION Cardiovascular Risk HDL > or equal to 60 mg/dL LOW HDL < 40 mg/dL HIGH HDL CHOL ATP-III CLA SSIFICATION Cardiovascular RiskHDL > or equal to 60 mg/dL LOWHDL < 40 mg/dL HIGH Serum or plasma potassium me asurement (moles/volume)Ordered By: Rosanne Falcon on 10-26-2021 Potassium [Moles/Vol] 3.9 mmol/L 3.5-5.1 [facility] Serum or plasma prealbumin m easurement (mass/volume)Ordered By: Rosanne Falcon on 10-26-2021 Prealbumin [Mass/Vol] 20.0 mg/dL 18.0-38.0 [facility] Serum or plasma sodium measu rement (moles/volume)Ordered By: Rosanne Falcon on 10-26-2021 Sodium [Moles/Vol] 138 mmol/L 136-146 [facility] Serum or plasma total biliru bin measurement (mass/volume)Ordered By: Rosanne Falcon on 10-26-2021 Bilirubin [Mass/Vol] 0.8 mg/dL 0.3-1.2 [facility] Serum or plasma total carbon dioxide measurement (moles/volume)Ordered By: Rosanne Falcon on 10-26-2021 CO2 [Moles/Vol] 28.0 mmol/L 22.0-30.0 [facility] Serum or plasma total choles terol/high density lipoprotein (HDL) cholesterol mass ratOrdered By: Rosanne Falcon on 10-26-2021 Cholesterol.total/Choles terol in HDL [Mass ratio] 2.1 {ratio} <5.0 [facility] Serum or plasma urea nitroge n measurement (mass/volume)Ordered By: Rosanne Falcon on 10-26-2021 Urea nitrogen [Mass/Vol] 13 mg/dL 9- [facility] TSH DL <= 0.005 mIU/L QnOrde red By: Rosanne Falcon on 10-26-2021 TSH Qn 1.12 m[IU]/L 0.45-5.33 [facility] Thyroxine (T4) free [Mass/vo lume] in Serum or PlasmaOrdered By: Rosanne Falcon on 10-26-2021 Free T4 [Mass/Vol] 1.06 ng/dL 0.61-1.12 [facility] Triglyceride [Mass/volume] i n Serum or PlasmaOrdered By: Rosanne Falcon on 10-26-2021 Triglyceride [Mass/Vol] 42 mg/dL 35-149 [facility] Comment on above: TRIG ATP III [...] Bacteria identified Cx Nom (U) Escherichia coli [facility] Amphetamine Screen Ql (U)Ord ered By: Rosanne Falcon on 10-23-2021 Amphetamines Ql (U) Negative Negative [facility] Barbiturates [Presence] in U rineOrdered By: Rosanne Falcon on 10-23-2021 Barbiturates Ql (U) Negative Negative [facility] Benzodiazepines [Presence] i n UrineOrdered By: Rosanne Falcon on 10-23-2021 Benzodiazepines Ql (U) Negative [facility] Cannabinoids [Presence] in U rine by Screen methodOrdered By: Rosanne Falcon on 10-23-2021 Cannabinoids Screen Ql (U) Positive Negative [facility] Comment on above: These are unconfirme d [...] on 10-23-2021 Opiates Ql (U) Negative Negative [facility] Phencyclidine Screen Ql (U)O rdered By: Rosanne Falcon on 10-23-2021 Phencyclidine Ql (U) Negative Negative [facility] Urine cocaine detectionOrder ed By: Rosanne Falcon on 10-23-2021 Cocaine Ql (U) Positive Negative [facility] CNOVSPon 04-17-2021 CNOVSP Visit (SP) Office ([place]) RADHA PATTERSON ([id number]) 1960 F Date Time Provider Department 04/17/21 11:00 AM MARCELLO GONZALEZ During your visit today, we recorded the following information about you: Temperature Pulse Respiration Blood pressure 97.2 degrees 73/minute 16/minute 115/83 Weight Height 61.1 kg 1.729 m Marcello Gonzalez MD 04/17/2021 11:43 AM Signed PATIENT NAME: Radha Patterson CLINIC NO.: [id number] ATTENDING PHYSICIAN: Marcello Gonzalez MD DATE OF SERVICE: April 17, 2021 Deadeya Falcon, [facility] thank you for referring Miss Radha [...] lipid w (more content not included)... Normal [facility] Vital Signs Date Time Vital Sign Value Performing Clinician Faci lity 01-09-2022 12:59-0400 Body height 175.26 cm Services [facility] Work Phone: [facility] 01-09-2022 12:59-0400 Body temperature 98 [degF] Services [facility] Work Phone: [facility] 01-09-2022 12:59-0400 Body weight 58.96 kg Services [facility] Work Phone: [facility] 01-09-2022 12:59-0400 Diastolic blood pressure 104 mm[Hg] Services [facility] Work Phone: [facility] 01-09-2022 12:59-0400 Heart rate 61 /min Services [facility] Work Phone: [facility] 01-09-2022 12:59-0400 Respiratory rate 16 /min Services [facility] Work Phone: [facility] 01-09-2022 12:59-0400 SaO2% (BldA) [Mass fraction] 99 % Services [facility] Work Phone: [facility] 01-09-2022 12:59-0400 Systolic blood pressure 148 mm[Hg] Services [facility] Work Phone: [facility] Encounters Encounter Date Encounter Type Care Provider Facility Start: 01-02-2024 End: 01-02-2024 ambulatory Rosanne E Spasic Facility:[facility] Start: 07-31-2023 End: 07-31-2023 ambulatory Rosanne E Spasic [facility] Work Phone: Start: 07-31-2023 End: 07-31-2023 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 Rosanne Falcon Work Phone: [facility] Start: 04-11-2023 End: 04-11-2023 ambulatory Rosanne E Spasic Facility:[facility] Start: 01-28-2023 End: 01-28-2023 ambulatory [facility] Work Phone: [facility] Work Phone: Start: 01-28-2023 End: 01-28-2023 Departed Referred Services [facility] Work Phone: [facility] Start: 01-16-2023 End: 01-16-2023 ambulatory Services [facility] Facility[facility] Start: 01-16-2023 End: 01-16-2023 Departed Referred Services [facility] Work Phone: [facility] Start: 05-14-2022 End: 05-14-2022 ambulatory Services [facility] Work Phone: [facility] Work Phone: Start: 05-14-2022 End: 05-14-2022 Departed Referred Services [facility] Work Phone: [facility] Start: 04-12-2022 End: 04-12-2022 Patient encounter procedure [facility] Work [facility]: Start: 01-09-2022 End: 01-09-2022 Admission to same day surgery center Services [facility] Start: 01-09-2022 End: 01-09-2022 ambulatory Services [facility] Work Phone: [facility] Work Phone: Start: 01-07-2022 End: 01-07-2022 ambulatory Services [facility] Work Phone: [facility] Work Phone: Start: 01-07-2022 End: 01-07-2022 Patient encounter procedure Services [facility] Work Phone: [facility] Start: 12-04-2021 End: 12-04-2021 Patient encounter procedure Services [facility] Work Phone: [facility] Start: 10-26-2021 End: 10-26-2021 Departed Referred Services [facility] Work Phone: [facility] Start: 10-23-2021 End: 10-23-2021 Departed Referred Services [facility] Work Phone: [facility] Start: 04-16-2021 Chart abstracting Marcello luis MD Work Phone: Hematology/Oncology Procedures Date Procedure Procedure Detail Performing Clinician Start: 04-12-2022 Screening mammograph y of bilateral breasts Services [facility] Work Phone: SARS Antigen (LFIA) [facility] Work Phone: Urine culture [facility] Work Phone: Plan of Treatment Date Care Activity Detail Author Start: 01-28-2023 Superficial Wound Culture Superficial Wound Culture [facility] Start: 01-09-2022 [facility] Start: 01-09-2022 Colonoscopy DH Colonoscopy Diagnostic (Not Applicable) [facility] Start: 12-06-2020 Influenza vaccination INFLUENZA (#1) [facility] Start: 2009 SHINGRIX VACCINE (1 of 2) SHINGRIX VACCINE (1 of 2) [facility] Start: 2004 COLOGUARD (FIT-DNA) COLOGUARD (FIT-DNA) [facility] Start: 2004 Colonoscopy COLONOSCOPY [facility] Start: 2004 COLORECTAL CANCER SCREENING COLORECTAL CANCER SCREENING [facility] Start: [address] COLONOGRAPHY [facility] Start: 2004 DIABETES SCREEN DIABETES SCREEN [facility] Start: 2004 FECAL OCCULT BLOOD FECAL OCCULT BLOOD [facility] Start: 2004 LIPID SCREEN LIPID SCREEN [facility] Start: 2004 SIGMOIDOSCOPY SIGMOIDOSCOPY [facility] Start: 1999 Mammography MAMMOGRAM [facility] Start: 1989 HPV TESTING HPV TESTING [facility] Start: 1980 PAP TESTING PAP TESTING [facility] Start: 1978 Urine microalbumin profile DTAP,TDAP,TD (1 - Tdap) [facility] Start: 1977 HEPATITIS C SCREENING HEPATITIS C SCREENING [facility] Start: 1977 HIV SCREENING HIV SCREENING [facility] Start: 1971 Adult depression screening assessment DEPRESSION SCREENING [facility] Start: 1964 COVID-19 VACCINE (1) [facility] Atopobium vaginae DN A [Presence] in Vaginal fluid by RICKY with probe detection [facility] Bacteria identified in Unspecified specimen by Aerobe culture [facility] Bacterial vaginosis associated bacterium 2 DNA [Presence] in Vaginal fluid by RICKY with probe detection [facility] Chlamydia trachomati s rRNA [Presence] in Cervix by RICKY with probe detection [facility] Hepatitis A virus antibody, IgM type [facility] Work Phone: Hepatitis B core ant ibody measurement, IgM type [facility] Work Phone: Hepatitis B virus correa rface Ag [Presence] in Serum or Plasma by Immunoassay [facility] Work Phone: Hepatitis C virus Ab Signal/Cutoff in Serum or Plasma by Immunoassay [facility] Work Phone: Hepatitis C virus RN A [log units/volume] (viral load) in Serum or Plasma by RICKY with probe detection [facility] Work Phone: Hepatitis C virus RN A [Units/volume] (viral load) in Serum or Plasma by RICKY with probe detection [facility] Work Phone: HIV 1+2 Ab+HIV1 p24 Ag [Presence] in Serum or Plasma by Immunoassay [facility] Work Phone: Human papilloma viru s 16+18+31+33+35+39+45+51+5 2+56+58+59+66+68 DNA [Presence] in Cervix by Probe with signal amplification [facility] Human papilloma viru s 16+18+31+33+35+39+45+51+5 2+56+58+59+68 DNA [Presence] in Cervix by Probe with signal amplification [facility] Megasphaera sp type 1 DNA [Presence] in Vaginal fluid by RICKY with probe detection [facility] Neisseria gonorrhoea e rRNA [Presence] in Cervix by RICKY with probe detection [facility] Payers Date Payer Category Payer Medicaid [id number] 2023 Self-pay [id number] 2017 Medicaid [employer] [employer] [employer] MEDICAID [id number] 2017-Present [phone] [address] [place], [place] [address] Medicaid [id number] Unknown [id number] Unknown [id number] Unknown [id number] Unknown [id number] Unknown [id number] Social History Date Type Detail Facility [facility]: [facility] Start: 04-16-2021 Alcohol intake Current drinke r of alcohol (finding) [facility] Start: 1960 Sex Assigned At Not on file [facility] Start: 08-02-2017 Tobacco smoking stat [facility] Current some day smoker [facility] Start: 1960 Sex Assigned At Female [facility] Start: 01-09-2022 End: 01-09-2022 Tobacco smoking status [facility] Smoker (finding) [facility] Goals Date Patient Goal Desired Activity /State Progress note 04-17-2021 Note Date & Type Note Facility 04-17-2021 Note HNO ID: [id number] Author: Marcello Gonzalez MD Service: ? Author Type: Physician Type: Progress Notes Filed: 04/17/2021 11:43 AM Note Text: PATIENT NAME: Radha Patterson CLINIC NO.: [id number] ATTENDING PHYSICIAN: Marcello Gonzalez MD DATE OF SERVICE: April 17, [address] Rosanne Falcon, [facility] thank you for referring Miss Radha [...] Dear Dr. Vásquez (more content not included)... [facility] Evaluation note Note Date & Type Note Facility Evaluation note No assessment information [facility] Work Phone: Summary Purpose Family [...] or prosecute any alcohol or drug abuse patient.[facility] Care Teams (unrecognized sec tion and content) Team Status: Inactive Member Role Status Dates CHARISMA Hilton Attending Provider Active Team Status: Inactive Member Role Status Dates Services [facility] Primary Care Provider Active CHARISMA Hilton Attending Provider Active Director [employer] Relationship Specialty Start Date End Date Rosanne Falcon [address] [place] [address] PCP - General Family Practice 04/11/21 Team Status: Active Member Role Status Dates Services Family [facility] Primary Care Provider Active Team Status: Inactive Member Role Status Dates Services [facility] Primary Care Provider Active Philip Taveras MD Attending Provider Active Team Status: Inactive Member Role Status Dates CHARISMA Hilton Attending Provider Active Start: July 31, 2023 End: July 31, 2023 INFORMATION SOURCE (unrecogn ized section and content) DATE CREATED AUTHOR 06/28/2021 [facility] DATE CREATED AUTHOR AUTHOR'S ORGANIZ ATION 01/13/2024 [facility] Goals (unrecognized section and content) [...] BE BASED ON THE PRIMARY CLINICAL RECORDS. [facility] [employer] [facility]. provides no warranty or guarantee of the accuracy or completeness of information in this document.
--- NOTE | 2024-05-26 | XR_ITS ---
The [address] [address] Patient Name: MARCOS GARCIA MRN: [id number] date: 1960 Sex: F Assigned Patient Location: [facility] Current Patient Location: [facility] Accession/Order Number: [id number] Exam Date: 05/26/2024 09:26 Report Date: 05/26/2024 09:28 At the request of: ADI MILLER DPYfn Procedure: XR foot RT min 3V RIGHT WEIGHTBEARING FOOT - 3 views COMPARISON: 04/08/2024 CLINICAL DATA: Right foot pain. Previous first toe fusion AP, lateral and oblique views were obtained. There is redemonstration of fusion at the first metatarsal phalangeal joint with plate and screws, similar to the prior. There is also a screw at the head of the second metatarsal. There is no developing fracture or dislocation. A small plantar calcaneal spur is seen. There are no significant soft tissue abnormalities. XR/XR foot RT min 3V IMPRESSION: STABLE POSTOPERATIVE CHANGES. NO ACUTE BONY FINDINGS. Impression dictated by: Sisi Smith M.D.05/26/2024 9:28 AM Dictation Location: [facility] [employer] Electronically authenticated by: [id number] Y Date: 05/26/2024 09:28
--- OUTSIDE RECORDS SUMMARY | 2024-05-26 07:54 | XMS_ITS | CCD ---
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 Name Role Phone Rosanne Falcon Primary Care Provider [facility], Services Primary Care Provider [phone] Terrie CAMERA PERSONPadminiC Rosanne Liu Attending Provider MD Philip Taveras Attending Provider [phone] [facility], Services Primary Care Provider [phone] Terrie CAMERA PERSON-C Rosanne Liu Attending Provider [facility], Services Primary Care Provider [phone] Spasic, CAMERA PERSON-C Rosanne E Attending Provider Spasic CAMERA PERSON-C Rosanne E Attending Provider Spasic Rosanne E Attending Unavailable Spasic, Rosanne E Admitting Unavailable [facility], Services Primary Care Unavaila ble [...] 0.1 10*3/uL Normal 0.0-0.2 [facility] Comment on above: Result Comment: PERF ORMED BY: [place] [address] PATHOLOGIST WASHCLOTH FOLDER TRINI PINON M.D. Performed By: #### T SH3 wRFLX, [id number], DIFF CBC, CMP #### [facility] [address] Basophils/100 WBC (Bld) 1.5 % Normal . T amanda [facility] Comment on above: Performed By: #### T SH3 wRFLX, [id number], DIFF CBC, CMP #### [facility] [address] [place] [address] [place] Eosinophils (Bld) [#/Vol] 0.1 10*3/uL Normal 0.0-0.45 [facility] Comment on above: Performed By: #### T SH3 wRFLX, [id number], DIFF CBC, CMP #### [facility] [address] [place] [address] [place] Eosinophils/100 WBC (Bld) 2.8 % Normal . [facility] Comment on above: Performed By: #### T SH3 wRFLX, [id number], DIFF CBC, CMP #### [address] Erythrocyte distribution width (RBC) [Ratio] 13.8 % Normal 11.9-15.3 [facility] Comment on above: Performed By: #### T SH3 wRFLX, [id number], DIFF CBC, CMP #### [address] Hematocrit (Bld) [Volume fraction] 38.8 % Normal 34.0-46.4 [facility] Comment on above: Performed By: #### T SH3 wRFLX, [id number], DIFF CBC, CMP #### [address] Hemoglobin (Bld) [Mass/Vol] 13.0 g/dL Normal 11.8-15.4 [facility] Comment on above: Performed By: #### T SH3 wRFLX, [id number], DIFF CBC, CMP #### [address] Lymphocytes (Bld) [#/Vol] 2.1 10*3/uL Normal 1.00-4.8 [facility] Comment on above: Performed By: #### T SH3 wRFLX, [id number], DIFF CBC, CMP #### [address] Lymphocytes/100 WBC (Bld) 49.0 % Normal . [facility] Comment on above: Performed By: #### T SH3 wRFLX, [id number], DIFF CBC, CMP #### [address] MCH (RBC) [Entitic mass] 32.4 pg Normal 24.7-34.3 [facility] Comment on above: Performed By: #### T SH3 wRFLX, [id number], DIFF CBC, CMP #### [address] MCV (RBC) [Entitic vol] 96.5 fL Normal 80-100 T [facility] Comment on above: Performed By: #### T SH3 wRFLX, [id number], DIFF CBC, CMP #### [address] Mean Corpuscular HGB Conc 33.6 g/dL Normal 32.0-35.0 [facility] Comment on above: Performed By: #### T SH3 wRFLX, [id number], DIFF CBC, CMP #### [address] Monocytes (Bld) [#/Vol] 0.2 10*3/uL Normal 0.0-0.8 [facility] Comment on above: Performed By: #### T SH3 wRFLX, [id number], DIFF CBC, CMP #### [address] Monocytes/100 WBC (Bld) 4.7 % Normal . T amanda [facility] Comment on above: Performed By: #### T SH3 wRFLX, [id number], DIFF CBC, CMP #### [address] Neutrophils (Bld) [#/Vol] 1.8 10*3/uL Normal 1.8-7.7 [facility] Comment on above: Performed By: #### T SH3 wRFLX, [id number], DIFF CBC, CMP #### [address] Neutrophils/100 WBC (Bld) 42.0 % Normal . [facility] Comment on above: Performed By: #### T SH3 wRFLX, [id number], DIFF CBC, CMP #### [address] NRBC% 0.2 /100{WBC} Normal 0-0.5 [facility] Comment on above: Performed By: #### T SH3 wRFLX, [id number], DIFF CBC, CMP #### [address] Platelet mean volume (Bld) [Entitic vol] 8.6 fL Normal 6.3-10.7 [facility] Comment on above: Performed By: #### T SH3 wRFLX, [id number], DIFF CBC, CMP #### [address] Platelets (Bld) [#/Vol] 241 10*3/uL Normal 150-450 [facility] Comment on above: Performed By: #### T SH3 wRFLX, [id number], DIFF CBC, CMP #### [address] RBC (Bld) [#/Vol] 4.02 10*6/uL Normal 3.60-5.00 [facility] Comment on above: Performed By: #### T SH3 wRFLX, [id number], DIFF CBC, CMP #### [address] WBC (Bld) [#/Vol] 4.3 10*3/uL Normal 3.8-11.6 [facility] Comment on above: Performed By: #### T SH3 wRFLX, [id number], DIFF CBC, CMP #### [address] Comprehensive Metabolic Pane harriet 01-02-2024 Albumin [Mass/Vol] 4.1 g/dL Normal 3.5-5.7 [facility] Comment on above: Performed By: #### T SH3 wRFLX, [id number], DIFF CBC, CMP #### [address] Albumin/Globulin [Mass ratio] 1.4 {ratio} Normal [facility] Comment on above: Performed By: #### T SH3 wRFLX, [id number], DIFF CBC, CMP #### [address] ALP [Catalytic activity/Vol] 100 U/L Normal 34-104 [facility] Comment on above: Performed By: #### T SH3 wRFLX, [id number], DIFF CBC, CMP #### [address] ALT [Catalytic activity/Vol] 13 U/L Normal 7-52 [facility] Comment on above: Performed By: #### T SH3 wRFLX, [id number], DIFF CBC, CMP #### [address] Anion gap [Moles/Vol] 7.4 mmol/L Normal 6.0-15.0 [facility] Comment on above: Performed By: #### T SH3 wRFLX, [id number], DIFF CBC, CMP #### [address] AST [Catalytic activity/Vol] 15 U/L Normal 13-39 [facility] Comment on above: Performed By: #### T SH3 wRFLX, [id number], DIFF CBC, CMP #### [address] Bilirubin [Mass/Vol] 0.7 mg/dL Normal 0.3-1.0 [facility] Comment on above: Performed By: #### T SH3 wRFLX, [id number], DIFF CBC, CMP #### [address] Calcium [Mass/Vol] 9.9 mg/dL Normal 8.6-10.3 [facility] Comment on above: Performed By: #### T SH3 wRFLX, [id number], DIFF CBC, CMP #### [place] [address] [place] Chloride [Moles/Vol] 105 mmol/L Normal 98-107 [facility] Comment on above: Performed By: #### T SH3 wRFLX, [id number], DIFF CBC, CMP #### [place] [address] [place] CO2 [Moles/Vol] 32.3 mmol/L High 21.0-31.0 [facility] Comment on above: Performed By: #### T SH3 wRFLX, [id number], DIFF CBC, CMP #### [place] [address] [place] Creatinine [Mass/Vol] 0.75 mg/dL Normal 0.60-1.20 [facility] Comment on above: Performed By: #### T SH3 wRFLX, [id number], DIFF CBC, CMP #### [facility] [address] [place] [address] [place] GFR/1.73 sq M.predicted MDRD (S/P/Bld) [Vol rate/Area] mL/min/{1.73_m2} Normal [facility] Comment on above: Performed By: #### T SH3 wRFLX, [id number], DIFF CBC, CMP #### [facility] [address] [place] [address] [place] Globulin (S) [Mass/Vol] 3.0 g/dL Normal T [facility] Comment on above: Performed By: #### T SH3 wRFLX, [id number], DIFF CBC, CMP #### [facility] [address] Glucose [Mass/Vol] 81 mg/dL Normal 70-100 [facility] Comment on above: Result Comment: [facility] Glucose Reference Range is dependent on time and content of last meal. Glucose of more than 200 mg/dL in a nonstressed, ambulatory subject supports the diagnosis of Diabetes Mellitus. ADA recommended reference range Performed By: #### T SH3 wRFLX, [id number], DIFF CBC, CMP #### [facility] [address] Potassium [Moles/Vol] 3.7 mmol/L Normal 3.5-5.1 [facility] Comment on above: Performed By: #### T SH3 wRFLX, [id number], DIFF CBC, CMP #### [facility] [address] [place] [address] [place] Protein [Mass/Vol] 7.1 g/dL Normal 6.4-8.9 [facility] Comment on above: Performed By: #### T SH3 wRFLX, [id number], DIFF CBC, CMP #### [facility] [address] [place] [address] [place] Sodium [Moles/Vol] 141 mmol/L Normal 136-145 [facility] Comment on above: Performed By: #### T SH3 wRFLX, [id number], DIFF CBC, CMP #### [facility] [address] Urea nitrogen [Mass/Vol] 19 mg/dL Normal 7-25 [facility] Comment on above: Performed By: #### T SH3 wRFLX, [id number], DIFF CBC, CMP #### [facility] [address] Lipid Panelon 01-02-2024 Cholesterol [Mass/Vol] 155 mg/dL Normal 140-200 [facility] Comment on above: Result Comment: Chol less than 200 mg/dl low risk Chol 201-239 mg/dl borderline risk Chol 240 mg/dl and greater high risk Performed By: #### T SH3 wRFLX, [id number], DIFF CBC, CMP #### [facility] [address] Cholesterol in HDL [Mass/Vol] 75 mg/dL Normal 23-92 [facility] Comment on above: Result Comment: HDL CHOL ATP-III CLASSIFICATION Cardiovascular Risk HDL > or equal to 60 mg/dL LOW HDL < 40 mg/dL HIGH Performed By: #### T SH3 wRFLX, [id number], DIFF CBC, CMP #### [facility] [address] Cholesterol.total/Choles terol in HDL [Mass ratio] 2.1 {ratio} Normal <5.0 [facility] Comment on above: Performed By: #### T SH3 wRFLX, [id number], DIFF CBC, CMP #### [facility] [address] [place] [id number] [facility] LDL Cholesterol,Calculated 69 mg/dL Normal 0-100 [facility] Comment on above: Result Comment: LDL ATP III CLASSIFICATION LDL less than 100 mg/dL Optimal LDL 100-129 mg/dL Near or above optimal LDL 130-159 mg/dL Borderline high LDL 160-189 mg/dL High LDL greater than 189 mg/dL Very high Performed By: #### T SH3 wRFLX, [id number], DIFF CBC, CMP #### [address] Triglyceride w/Reflex 55 mg/dL Normal 0-149 [facility] Comment on above: Result Comment: TRIG ATP III CLASSIFICATION TRIG less than 150 mg/dL Normal TRIG 150-199 mg/dL Borderline high TRIG 200-500 mg/dL High TRIG greater than 500 mg/dL Very high Standard traceable to the Center for Disease Conrtrol and Prevention (CDC) test method. Performed By: #### T SH3 wRFLX, [id number], DIFF CBC, CMP #### [address] VLDL CHOLESTEROL 11 mg/dL Normal [facility] Comment on above: Performed By: #### T SH3 wRFLX, [id number], DIFF CBC, CMP #### [address] Thyroid Stim Hormone w/Rflxo n 01-02-2024 Thyroid Stim Hormone w/Rflx 0.69 u[iU]/mL Normal 0.45-5.33 [facility] Comment on above: Performed By: #### T SH3 wRFLX, [id number], DIFF CBC, CMP #### [address] Vitamin D 25 Hydroxy Totalon 01-02-2024 Vitamin D 25 Hydroxy Total 52.7 ng/mL Normal 30-100 [facility] Comment on above: Result Comment: PARAS MIN D STATUS 25(OH)VITAMIN D RANGE (ng/mL) Deficient <20 Insufficient 20 to <30 Sufficient 30 to 100 Reference: Helen MF,Vaishali NC, Arturo FARRIS, et al. Evaluation,treatment, and prevention of vitamin D deficiency; an Endocrine Society clinical practice guideline. JCEM. 2010; 96(7):1911-30. PERFORMED BY: [place] [address] PATHOLOGIST WASHCLOTH FOLDER TRINI PINON M.D. Performed By: #### T SH3 wRFLX, [id number], DIFF CBC, CMP #### [place] [address] [place] Alanine aminotransferase [En zymatic activity/volume] in Serum or PlasmaOrdered By: Rosanne Falcon on 07-31-2023 ALT [Catalytic activity/Vol] 14 U/L Normal 7-52 [facility] Comment on above: Order Comment: Reaso n for Exam Hypertension Reason for Exam Vitamin D deficiency, unspecified Performed By: #### T SH3 wRFLX, CBC, LIPID, [id number], CMP #### [facility] [address] [place] [address] [place] Albumin [Mass/volume] in Ser um or Plasma by Bromocresol green (BCG) dye binding methoOrdered By: Rosanne Falcon on 07-31-2023 Albumin BCG dye [Mass/Vol] 3.9 g/dL 3.5-5.7 [facility] Alkaline phosphatase [Enzyma tic activity/volume] in Serum or PlasmaOrdered By: Rosanne Falcon on 07-31-2023 ALP [Catalytic activity/Vol] 82 U/L Normal 34-104 [facility] Comment on above: Order Comment: Reaso n for Exam Hypertension Reason for Exam Vitamin D deficiency, unspecified Performed By: #### T SH3 wRFLX, CBC, LIPID, [id number], CMP #### [facility] [address] [place] [id number] [place] Aspartate aminotransferase [ Enzymatic activity/volume] in Serum or PlasmaOrdered By: Rosanne Falcon on 07-31-2023 AST [Catalytic activity/Vol] 16 U/L Normal 13-39 [facility] Comment on above: Order Comment: Reaso n for Exam Hypertension Reason for Exam Vitamin D deficiency, unspecified Performed By: #### T SH3 wRFLX, CBC, LIPID, [id number], CMP #### [facility] [address] [place] [address] [place] Automated basophil %Ordered By: Rosanne Falcon on 07-31-2023 Basophils/100 WBC (Bld) 0.6 % Normal . [facility] Comment on above: Order Comment: Reaso n for Exam Hypertension Performed By: #### T SH3 wRFLX, CBC, LIPID, [id number], CMP #### [facility] [address] [place] [id number] [place] Automated basophil countOrde red By: Rosanne Falcon on 07-31-2023 Basophils (Bld) [#/Vol] 0.0 10*3/uL Normal 0.0-0.2 [facility] Comment on above: Order Comment: Reaso n for Exam Hypertension Result Comment: PERF ORMED BY: [place] [address] PATHOLOGIST WASHCLOTH FOLDER TRINI PINON M.D. Performed By: #### T SH3 wRFLX, CBC, LIPID, [id number], CMP #### [facility] [address] [place] [address] Automated blood monocyte cou ntOrdered By: Rosanne Falcon on 07-31-2023 Monocytes (Bld) [#/Vol] 0.3 10*3/uL Normal 0.0-0.8 [facility] Comment on above: Order Comment: Reaso n for Exam Hypertension Performed By: #### T SH3 wRFLX, CBC, LIPID, [id number], CMP #### [facility] [address] [place] [address] Automated eosinophil %Ordere d By: Rosanne Falcon on 07-31-2023 Eosinophils/100 WBC (Bld) 2.6 % Normal . [facility] Comment on above: Order Comment: Reaso n for Exam Hypertension Performed By: #### T SH3 wRFLX, CBC, LIPID, [id number], CMP #### [facility] [address] [place] [address] Automated eosinophil countOr dered By: Rosanne Falcon on 07-31-2023 Eosinophils (Bld) [#/Vol] 0.1 10*3/uL Normal 0.0-0.45 [facility] Comment on above: Order Comment: Reaso n for Exam Hypertension Performed By: #### T SH3 wRFLX, CBC, LIPID, [id number], CMP #### [facility] [address] [place] [address] [place] Automated monocyte %Ordered By: Rosanne Curtisc on 07-31-2023 Monocytes/100 WBC (Bld) 5.8 % Normal . [facility] Comment on above: Order Comment: Reaso n for Exam Hypertension Performed By: #### T SH3 wRFLX, CBC, LIPID, [id number], CMP #### [facility] [address] [place] [id number] [facility] Automated neutrophil %Ordere d By: Rosanne Falcon on 07-31-2023 Neutrophils/100 WBC (Bld) 46.3 % Normal . [facility] Comment on above: Order Comment: Reaso n for Exam Hypertension Performed By: #### T SH3 wRFLX, CBC, LIPID, [id number], CMP #### [facility] [address] [place] [id number] [facility] Bilirubin.total [Mass/volume ] in Serum or PlasmaOrdered By: Rosanne Falcon on 07-31-2023 Bilirubin [Mass/Vol] 0.4 mg/dL Normal 0.3-1.0 [facility] Comment on above: Order Comment: Reaso n for Exam Hypertension Reason for Exam Vitamin D deficiency, unspecified Performed By: #### T SH3 wRFLX, CBC, LIPID, [id number], CMP #### [facility] [address] [place] [id number] [facility] Calcium [Mass/volume] in Ser um or PlasmaOrdered By: Rosanne Falcon on 07-31-2023 Calcium [Mass/Vol] 9.8 mg/dL Normal 8.6-10.3 [facility] Comment on above: Order Comment: Reaso n for Exam Hypertension Reason for Exam Vitamin D deficiency, unspecified Performed By: #### T SH3 wRFLX, CBC, LIPID, [id number], CMP #### [facility] [address] [place] [id number] [facility] Carbon dioxide, total [Moles /volume] in Serum or PlasmaOrdered By: Rosanne Falcon on 07-31-2023 CO2 [Moles/Vol] 31.7 mmol/L High 21.0-31.0 [facility] Comment on above: Order Comment: Reaso n for Exam Hypertension Reason for Exam Vitamin D deficiency, unspecified Performed By: #### T SH3 wRFLX, CBC, LIPID, [id number], CMP #### [facility] [address] [place] [address] [place] Chloride [Moles/volume] in [place] or PlasmaOrdered By: Rosanne Falcon on 07-31-2023 Chloride [Moles/Vol] 103 mmol/L Normal 98-107 [facility] Comment on above: Order Comment: Reaso n for Exam Hypertension Reason for Exam Vitamin D deficiency, unspecified Performed By: #### T SH3 wRFLX, CBC, LIPID, [id number], CMP #### [facility] [address] [place] [address] [place] Cholesterol [Mass/volume] in Serum or PlasmaOrdered By: Rosanne Falcon on 07-31-2023 Cholesterol [Mass/Vol] 124 mg/dL Low 140-200 [facility] Comment on above: Chol less than [...] By: #### T SH3 wRFLX, CBC, LIPID, [id number], CMP #### [facility] [address] [place] [address] [place] Cholesterol in LDL Calc [Mas s/Vol]Ordered By: Rosanne Falcon on 07-31-2023 Cholesterol in LDL [Mass/Vol] 63 mg/dL 0-100 [facility] Comment on above: LDL ATP III CLASSIFI CATIONLDL less than 100 mg/dL OptimalLDL 100-129 mg/dL Near or above optimalLDL 130-159 mg/dL Borderline highLDL 160-189 mg/dL HighLDL greater than 189 mg/dL Very high Cholesterol in VLDL Calc [Ma ss/Vol]Ordered By: Rosanne Falcon on 07-31-2023 Cholesterol in VLDL [Mass/Vol] 7 mg/dL [facility] Complete Blood Count Auto Di ffon 07-31-2023 Mean Corpuscular HGB Conc 34.3 g/dL Normal 32.0-35.0 [facility] Comment on above: Order Comment: Reaso n for Exam Hypertension Performed By: #### T SH3 wRFLX, CBC, LIPID, [id number], CMP #### [facility] [address] [place] [address] NRBC% 0.2 /100{WBC} Normal 0-0.5 [facility] Comment on above: Order Comment: Reaso n for Exam Hypertension Performed By: #### T SH3 wRFLX, CBC, LIPID, [id number], CMP #### [facility] [address] [place] [address] Comprehensive Metabolic Pane harriet 07-31-2023 Albumin [Mass/Vol] 3.9 g/dL Normal 3.5-5.7 [facility] Comment on above: Order Comment: Reaso n for Exam Hypertension Reason for Exam Vitamin D deficiency, unspecified Performed By: #### T SH3 wRFLX, CBC, LIPID, [id number], CMP #### [address] GFR/1.73 sq M.predicted MDRD (S/P/Bld) [Vol rate/Area] mL/min/{1.73_m2} Normal [facility] Comment on above: Order Comment: Reaso n for Exam Hypertension Reason for Exam Vitamin D deficiency, unspecified Performed By: #### T SH3 wRFLX, CBC, LIPID, [id number], CMP #### [address] Creatinine [Mass/volume] in Serum or PlasmaOrdered By: Rosanne Falcon on 07-31-2023 Creatinine [Mass/Vol] 0.74 mg/dL Normal 0.60-1.20 [facility] Comment on above: Order Comment: Reaso n for Exam Hypertension Reason for Exam Vitamin D deficiency, unspecified Performed By: #### T SH3 wRFLX, CBC, LIPID, [id number], CMP #### [facility] [address] [place] [address] Erythrocyte distribution wid th [Ratio] by Automated countOrdered By: Rosanne Falcon on 07-31-2023 Erythrocyte distribution width (RBC) [Ratio] 12.9 % Normal 11.9-15.3 [facility] Comment on above: Order Comment: Reaso n for Exam Hypertension Performed By: #### T SH3 wRFLX, CBC, LIPID, [id number], CMP #### [facility] [address] [place] [id number] [place] Erythrocytes [#/volume] in B lood by Automated countOrdered By: Rosanne Falcon on 07-31-2023 RBC (Bld) [#/Vol] 3.75 10*6/uL Normal 3.60-5.00 [facility] Comment on above: Order Comment: Reaso n for Exam Hypertension Performed By: #### T SH3 wRFLX, CBC, LIPID, [id number], CMP #### [facility] [address] [place] [id number] [place] Glucose [Mass/volume] in Ser um or PlasmaOrdered By: Rosanne Falcon on 07-31-2023 Glucose [Mass/Vol] 87 mg/dL Normal 70-100 [facility] Comment on above: ADA recommended refe rence rangeRandom Glucose Reference Range is dependent on time and content of last meal. Glucose of more than 200 mg/dL in a nonstressed, ambulatory subject supports the diagnosis of Diabetes Mellitus. Order Comment: Reaso n for Exam Hypertension Reason for Exam Vitamin D deficiency, unspecified Result Comment: [place] [facility] Glucose Reference Range is dependent on time and content of last meal. Glucose of more than 200 mg/dL in a nonstressed, ambulatory subject supports the diagnosis of Diabetes Mellitus. ADA recommended reference range Performed By: #### T SH3 wRFLX, CBC, LIPID, [id number], CMP #### [facility] [address] [place] [id number] [place] Hematocrit [Volume Fraction] of Blood by Automated countOrdered By: Rosanne Falcon on 07-31-2023 Hematocrit (Bld) [Volume fraction] 36.3 % Normal 34.0-46.4 [facility] Comment on above: Order Comment: Reaso n for Exam Hypertension Performed By: #### T SH3 wRFLX, CBC, LIPID, [id number], CMP #### [facility] [address] [place] [id number] [place] Hemoglobin [Mass/volume] in BloodOrdered By: Rosanne Falcon on 07-31-2023 Hemoglobin (Bld) [Mass/Vol] 12.5 g/dL Normal 11.8-15.4 [facility] Comment on above: Order Comment: Reaso n for Exam Hypertension Performed By: #### T SH3 wRFLX, CBC, LIPID, [id number], CMP #### [facility] [address] Leukocytes [#/volume] correc [place] for nucleated erythrocytes in Blood by Automated counOrdered By: Rosanne Falcon on 07-31-2023 WBC corrected for nucl RBC Auto (Bld) [#/Vol] 4.4 10*3/uL 3.8-11.6 [facility] Leukocytes [#/volume] in Blo od by Automated countOrdered By: Rosanne Falcon on 07-31-2023 WBC (Bld) [#/Vol] 4.4 10*3/uL Normal 3.8-11.6 [facility] Comment on above: Order Comment: Reaso n for Exam Hypertension Performed By: #### T SH3 wRFLX, CBC, LIPID, [id number], CMP #### [facility] [address] [place] [id number] [facility] Lipid Panelon 07-31-2023 LDL Cholesterol,Calculated 63 mg/dL Normal 0-100 [facility] Comment on above: Order Comment: Reaso n for Exam Hypertension Reason for Exam Vitamin D deficiency, unspecified Result Comment: LDL ATP III CLASSIFICATION LDL less than 100 mg/dL Optimal LDL 100-129 mg/dL Near or above optimal LDL 130-159 mg/dL Borderline high LDL 160-189 mg/dL High LDL greater than 189 mg/dL Very high Performed By: #### T SH3 wRFLX, CBC, LIPID, [id number], CMP #### [facility] [address] [place] [id number] [facility] Triglyceride w/Reflex 39 mg/dL Normal 0-149 [facility] Comment on above: Order Comment: [...] By: #### T SH3 wRFLX, CBC, LIPID, [id number], CMP #### [facility] [address] VLDL CHOLESTEROL 7 mg/dL Normal [facility] Comment on above: Order Comment: Reaso n for Exam Hypertension Reason for Exam Vitamin D deficiency, unspecified Performed By: #### T SH3 wRFLX, CBC, LIPID, [id number], CMP #### [facility] [address] Lymphocytes [#/volume] in Bl ood by Automated countOrdered By: Rosanne Falcon on 07-31-2023 Lymphocytes (Bld) [#/Vol] 1.9 10*3/uL Normal 1.00-4.8 [facility] Comment on above: Order Comment: Reaso n for Exam Hypertension Performed By: #### T SH3 wRFLX, CBC, LIPID, [id number], CMP #### [address] Lymphocytes/100 leukocytes i n Blood by Automated countOrdered By: Rosanne Falcon on 07-31-2023 Lymphocytes/100 WBC (Bld) 44.7 % Normal . [facility] Comment on above: Order Comment: Reaso n for Exam Hypertension Performed By: #### T SH3 wRFLX, CBC, LIPID, [id number], CMP #### [facility] [address] MCH [Entitic mass] by Automa [place] countOrdered By: Rosanne Falcon on 07-31-2023 MCH (RBC) [Entitic mass] 33.3 pg Normal 24.7-34.3 [facility] Comment on above: Order Comment: Reaso n for Exam Hypertension Performed By: #### T SH3 wRFLX, CBC, LIPID, [id number], CMP #### [address] MCHC Auto (RBC) [Mass/Vol]Or dered By: Rosanne Falcon on 07-31-2023 MCHC (RBC) [Mass/Vol] 34.3 g/dL 32.0-35.0 [facility] MCV [Entitic volume] by Auto mated countOrdered By: Rosanne Falcon on 07-31-2023 MCV (RBC) [Entitic vol] 96.9 fL Normal 80-100 [facility] Comment on above: Order Comment: Reaso n for Exam Hypertension Performed By: #### T SH3 wRFLX, CBC, LIPID, [id number], CMP #### [facility] [address] Neutrophils [#/volume] in Bl ood by Automated countOrdered By: Rosanne Falcon on 07-31-2023 Neutrophils (Bld) [#/Vol] 2.0 10*3/uL Normal 1.8-7.7 [facility] Comment on above: Order Comment: Reaso n for Exam Hypertension Performed By: #### T SH3 wRFLX, CBC, LIPID, [id number], CMP #### [facility] [address] No Panel InformationOrdered By: Rosanne Falcon on 07-31-2023 Estimated GFR (CKD-EPI) > 60.0 mL/Min [facility] Creatinine Clearance (Chem N/A [facility] Nucleated erythrocytes [Pres ence] in Blood by Automated countOrdered By: Rosanne Falcon on 07-31-2023 Nucleated RBC Auto Ql (Bld) 0.2 /100{WBC} 0-0.5 [facility] Platelet mean volume [Entiti c volume] in Blood by Automated countOrdered By: Rosanne Falcon on 07-31-2023 Platelet mean volume (Bld) [Entitic vol] 8.5 fL Normal 6.3-10.7 [facility] Comment on above: Order Comment: Reaso n for Exam Hypertension Performed By: #### T SH3 wRFLX, CBC, LIPID, [id number], CMP #### [facility] [address] [place] [address] [place] Platelets [#/volume] in Bloo d by Automated countOrdered By: Rosanne Falcon on 07-31-2023 Platelets (Bld) [#/Vol] 228 10*3/uL Normal 150-450 [facility] Comment on above: Order Comment: Reaso n for Exam Hypertension Performed By: #### T SH3 wRFLX, CBC, LIPID, [id number], CMP #### [facility] [address] [place] [id number] [facility] Potassium [Moles/volume] in Serum or PlasmaOrdered By: Rosanne Falcon on 07-31-2023 Potassium [Moles/Vol] 4.2 mmol/L Normal 3.5-5.1 [facility] Comment on above: Order Comment: Reaso n for Exam Hypertension Reason for Exam Vitamin D deficiency, unspecified Performed By: #### T SH3 wRFLX, CBC, LIPID, [id number], CMP #### [facility] [address] [place] [address] [place] Protein [Mass/volume] in Ser um or PlasmaOrdered By: Rosanne Falcon on 07-31-2023 Protein [Mass/Vol] 6.8 g/dL Normal 6.4-8.9 [facility] Comment on above: Order Comment: Reaso n for Exam Hypertension Reason for Exam Vitamin D deficiency, unspecified Performed By: #### T SH3 wRFLX, CBC, LIPID, [id number], CMP #### [facility] [address] [place] [id number] [facility] Serum globulin measurement b y calculation (mass/volume)Ordered By: Rosanne Falcon on 07-31-2023 Globulin (S) [Mass/Vol] 2.9 g/dL Normal [facility] Comment on above: Order Comment: Reaso n for Exam Hypertension Reason for Exam Vitamin D deficiency, unspecified Performed By: #### T SH3 wRFLX, CBC, LIPID, [id number], CMP #### [facility] [address] [place] [address] [place] Serum or plasma albumin/glob ulin mass ratioOrdered By: Rosanne Falcon on 07-31-2023 Albumin/Globulin [Mass ratio] 1.3 {ratio} Normal [facility] Comment on above: Order Comment: Reaso n for Exam Hypertension Reason for Exam Vitamin D deficiency, unspecified Performed By: #### T SH3 wRFLX, CBC, LIPID, [id number], CMP #### [facility] [address] Serum or plasma anion gap de terminationOrdered By: Rosanne Falcon on 07-31-2023 Anion gap [Moles/Vol] 10.5 mmol/L Normal 6.0-15.0 [facility] Comment on above: Order Comment: Reaso n for Exam Hypertension Reason for Exam Vitamin D deficiency, unspecified Performed By: #### T SH3 wRFLX, CBC, LIPID, [id number], CMP #### [facility] [address] Serum or plasma high density lipoprotein (HDL) cholesterol measurementOrdered By: Rosanne Falcon on 07-31-2023 Cholesterol in HDL [Mass/Vol] 53 mg/dL Normal 23-92 [facility] Comment on above: HDL CHOL ATP-III CLA [...] By: #### T SH3 wRFLX, CBC, LIPID, [id number], CMP #### [facility] [address] Serum or plasma total choles terol/high density lipoprotein (HDL) cholesterol mass ratOrdered By: Rosanne Falcon on 07-31-2023 Cholesterol.total/Choles terol in HDL [Mass ratio] 2.3 {ratio} Normal <5.0 [facility] Comment on above: Order Comment: Reaso n for Exam Hypertension Reason for Exam Vitamin D deficiency, unspecified Performed By: #### T SH3 wRFLX, CBC, LIPID, [id number], CMP #### [facility] [address] Sodium [Moles/volume] in Ser um or PlasmaOrdered By: Rosanne Falcon on 07-31-2023 Sodium [Moles/Vol] 141 mmol/L Normal 136-145 [facility] Comment on above: Order Comment: Reaso n for Exam Hypertension Reason for Exam Vitamin D deficiency, unspecified Performed By: #### T SH3 wRFLX, CBC, LIPID, [id number], CMP #### [facility] [address] Thyroid Stim Hormone w/Rflxo n 07-31-2023 Thyroid Stim Hormone w/Rflx 0.74 u[iU]/mL Normal 0.45-5.33 [facility] Comment on above: Order Comment: Reaso n for Exam Hypertension Reason for Exam Vitamin D deficiency, unspecified Performed By: #### T SH3 wRFLX, CBC, LIPID, [id number], CMP #### [facility] [address] Thyrotropin [Units/volume] i n Serum or PlasmaOrdered By: Rosanne Falcon on 07-31-2023 TSH Qn 0.74 m[IU]/L 0.45-5.33 [facility] Triglyceride [Mass/volume] i n Serum or PlasmaOrdered By: Rosanne Falcon on 07-31-2023 Triglyceride [Mass/Vol] 39 mg/dL 0-149 [facility] Comment on above: TRIG ATP III CLASSIF ICATIONTRIG less than 150 mg/dL NormalTRIG 150-199 mg/dL Borderline highTRIG 200-500 mg/dL High TRIG greater than 500 mg/dL Very highStandard traceable to the Center for Disease Conrtrol and Prevention (CDC) test method. Urea nitrogen [Mass/volume] in Serum or PlasmaOrdered By: Rosanne Falcon on 07-31-2023 Urea nitrogen [Mass/Vol] 17 mg/dL Normal 7-25 [facility] Comment on above: Order Comment: Reaso n for Exam Hypertension Reason for Exam Vitamin D deficiency, unspecified Performed By: #### T SH3 wRFLX, CBC, LIPID, [id number], CMP #### [facility] [address] [place] [id number] [facility] Vitamin D 25 Hydroxy Totalon 07-31-2023 Vitamin D 25 Hydroxy Total 69.7 ng/mL Normal 30-100 [facility] Comment on above: Order Comment: [...] practice guideline. JCEM. 2010; 96(7):1911-30. PERFORMED BY: [place] [address] PATHOLOGIST [employer] TRINI PINON M.D. Performed By: #### T SH3 wRFLX, [id number], DIFF CBC, CMP #### [address] Vitamin D+Metabolites [Mass/ volume] in Serum or PlasmaOrdered By: Rosanne Falcon on 07-31-2023 Vitamin D+Metabolites [Mass/Vol] 69.7 ng/mL 30-100 [facility] Comment on above: VITAMIN D STATUS 25( [place])VITAMIN D RANGE (ng/mL) Deficient <20 Insufficient 20 to <30Sufficient 30 to 100Reference: Vaishali Riddle, Arturo FARRIS, et al. Evaluation,treatment, and prevention of vitamin D deficiency; an Endocrine Society clinical practice guideline. JCEM. 2010; 96(7):1911-30. MM screening mammo BI w/CADo n 04-11-2023 MM screening mammo BI w/CAD [facility] Main [place] [address] [place], [place] [id number] Mammography Report Signed Patient: Radha Patterson MR#: [id number] : [id number] Acct:[id number] Age/Sex: 62 / F ADM Date: 04/11/23 Loc: [place] Room: Type: [facility] Attending Dr: Rosanne ZAFAR Copies to: [facility] Senior CHARISMA Hilton Ordering Provider: CHARISMA Hilton [...] Sisi Smith M.D.04/11/2023 2:22 PM Dictation Location: [facility] Transcribed By: [facility] 04/11/23 1422 Dictated By: Sisi Smith MD 04/11/23 1416 Signed By: 04/11/23 1422 Normal [facility] Superficial Wound Cultureon 01-28-2023 Superficial Wound Culture Reason for Exam Drainage from ear, left Ear, Right No Growth 2 Days PERFORMED BY: [place] [address] PATHOLOGIST [employer] TRINI PINON M.D. Normal [facility] Comment on above: Performed By: #### C USUP #### [address] Alanine aminotransferase [En zymatic activity/volume] in Serum or PlasmaOrdered By: Rosanne Falcon on 01-16-2023 ALT [Catalytic activity/Vol] 28 U/L Normal [facility] Comment on above: Order Comment: Reaso n for Exam Hypertension Reason for Exam Vitamin D deficiency, unspecified Performed By: #### T SH3 wRFLX, [id number], DIFF CBC, CMP #### [facility] [address] Albumin [Mass/volume] in Ser um or Plasma by Bromocresol green (BCG) dye binding methoOrdered By: Rosanne Falcon on 01-16-2023 Albumin BCG dye [Mass/Vol] 4.3 g/dL 3.5-5.7 [facility] Alkaline phosphatase [Enzyma tic activity/volume] in Serum or PlasmaOrdered By: Rosanne Falcon on 01-16-2023 ALP [Catalytic activity/Vol] 88 U/L Normal 34-104 [facility] Comment on above: Order Comment: Reaso n for Exam Hypertension Reason for Exam Vitamin D deficiency, unspecified Performed By: #### T SH3 wRFLX, [id number], DIFF CBC, CMP #### [facility] [address] [place] [address] [place] Aspartate aminotransferase [ Enzymatic activity/volume] in Serum or PlasmaOrdered By: Rosanne Falcon on 01-16-2023 AST [Catalytic activity/Vol] 19 U/L Normal 13-39 [facility] Comment on above: Order Comment: Reaso n for Exam Hypertension Reason for Exam Vitamin D deficiency, unspecified Performed By: #### T SH3 wRFLX, [id number], DIFF CBC, CMP #### [facility] [address] [place] [address] [place] Basophils Auto (Bld) [#/Vol] Ordered By: Rosanne Falcon on 01-16-2023 Basophils (Bld) [#/Vol] N/A [facility] Basophils/100 WBC Auto (Bld) Ordered By: Rosanne Falcon on 01-16-2023 Basophils/100 WBC (Bld) N/A [facility] Basophils/100 leukocytes in Blood by Manual countOrdered By: Rosanne Falcon on 01-16-2023 Basophils/100 WBC (Bld) 3 % High 0-2 [facility] Comment on above: Order Comment: Reaso n for Exam Hypertension Performed By: #### T SH3 wRFLX, [id number], DIFF CBC, CMP #### [facility] [address] [place] [address] [place] Bilirubin.total [Mass/volume ] in Serum or PlasmaOrdered By: Rosanne Falcon on 01-16-2023 Bilirubin [Mass/Vol] 0.6 mg/dL Normal 0.3-1.0 [facility] Comment on above: Order Comment: Reaso n for Exam Hypertension Reason for Exam Vitamin D deficiency, unspecified Performed By: #### T SH3 wRFLX, [id number], DIFF CBC, CMP #### [facility] [address] [place] [address] [place] Calcium [Mass/volume] in Ser um or PlasmaOrdered By: Rosanne Falcon on 01-16-2023 Calcium [Mass/Vol] 9.5 mg/dL Normal 8.6-10.3 [facility] Comment on above: Order Comment: Reaso n for Exam Hypertension Reason for Exam Vitamin D deficiency, unspecified Performed By: #### T SH3 wRFLX, [id number], DIFF CBC, CMP #### [facility] [address] [place] [address] [place] Carbon dioxide, total [Moles /volume] in Serum or PlasmaOrdered By: Rosanne Falcon on 01-16-2023 CO2 [Moles/Vol] 27.6 mmol/L Normal 21.0-31.0 [facility] Comment on above: Order Comment: Reaso n for Exam Hypertension Reason for Exam Vitamin D deficiency, unspecified Performed By: #### T SH3 wRFLX, [id number], DIFF CBC, CMP #### [facility] [address] [place] [address] [place] Chloride [Moles/volume] in S [place] or PlasmaOrdered By: Rosanne Falcon on 01-16-2023 Chloride [Moles/Vol] 102 mmol/L Normal 98-107 [facility] Comment on above: Order Comment: Reaso n for Exam Hypertension Reason for Exam Vitamin D deficiency, unspecified Performed By: #### T SH3 wRFLX, [id number], DIFF CBC, CMP #### [facility] [address] [place] [id number] [facility] Comprehensive Metabolic Pane harriet 01-16-2023 Albumin [Mass/Vol] 4.3 g/dL Normal 3.5-5.7 [facility] Comment on above: Order Comment: Reaso n for Exam Hypertension Reason for Exam Vitamin D deficiency, unspecified Performed By: #### T SH3 wRFLX, [id number], DIFF CBC, CMP #### [facility] [address] [place] [id number] [place] GFR/1.73 sq M.predicted MDRD (S/P/Bld) [Vol rate/Area] mL/min/{1.73_m2} Normal [facility] Comment on above: Order Comment: Reaso n for Exam Hypertension Reason for Exam Vitamin D deficiency, unspecified Performed By: #### T SH3 wRFLX, [id number], DIFF CBC, CMP #### [facility] [address] [place] [id number] [facility] Creatinine [Mass/volume] in Serum or PlasmaOrdered By: Rosanne Falcon on 01-16-2023 Creatinine [Mass/Vol] 0.95 mg/dL Normal 0.60-1.20 [facility] Comment on above: Order Comment: Reaso n for Exam Hypertension Reason for Exam Vitamin D deficiency, unspecified Performed By: #### T SH3 wRFLX, [id number], DIFF CBC, CMP #### [facility] [address] [place] [id number] [place] Diff and CBCon 01-16-2023 Eosinophils % (Auto) Normal . [facility] Comment on above: Order Comment: [...] indicated. Performed By: #### T SH3 wRFLX, [id number], DIFF CBC, CMP #### [facility] [address] [place] [id number] [place] Mean Corpuscular HGB Conc 33.9 g/dL Normal 32.0-35.0 [facility] Comment on above: Order Comment: Reaso n for Exam Hypertension Performed By: #### T SH3 wRFLX, [id number], DIFF CBC, CMP #### [facility] [address] [place] [address] [place] Platelet Estimate Normal Normal Normal [facility] Comment on above: Order Comment: Reaso n for Exam Hypertension Performed By: #### T SH3 wRFLX, [id number], DIFF CBC, CMP #### [facility] [address] Platelet Morphology Normal Normal Normal [facility] Comment on above: Order Comment: Reaso n for Exam Hypertension Result Comment: PERF ORMED BY: [place] [address] PATHOLOGIST [employer] TRINI PINON M.D. Performed By: #### T SH3 wRFLX, [id number], DIFF CBC, CMP #### [facility] [address] Reactive Lymphocytes 3 % Normal 0-12 [facility] Comment on above: Order Comment: Reaso n for Exam Hypertension Performed By: #### T SH3 wRFLX, [id number], DIFF CBC, CMP #### [facility] [address] [place] [id number] [place] Eosinophils Auto (Bld) [#/Vo l]Ordered By: Rosanne Falcon on 01-16-2023 Eosinophils (Bld) [#/Vol] N/A [facility] Eosinophils/100 WBC Auto (Bl d)Ordered By: Rosanne Falcon on 01-16-2023 Eosinophils/100 WBC (Bld) See comment . [facility] Comment on above: Absolute eosinophili a is [...] Eosinophils/100 WBC (Bld) 5 % High 1-3 [facility] Comment on above: Order Comment: Reaso n for Exam Hypertension Performed By: #### T SH3 wRFLX, [id number], DIFF CBC, CMP #### [facility] [address] Erythrocyte distribution wid th [Ratio] by Automated countOrdered By: Rosanne Falcon on 01-16-2023 Erythrocyte distribution width (RBC) [Ratio] 13.1 % Normal 11.9-15.3 [facility] Comment on above: Order Comment: Reaso n for Exam Hypertension Performed By: #### T SH3 wRFLX, [id number], DIFF CBC, CMP #### [facility] [address] [place] [address] [place] Erythrocytes [#/volume] in B lood by Automated countOrdered By: Rosanne Falcon on 01-16-2023 RBC (Bld) [#/Vol] 3.82 10*6/uL Normal 3.60-5.00 [facility] Comment on above: Order Comment: Reaso n for Exam Hypertension Performed By: #### T SH3 wRFLX, [id number], DIFF CBC, CMP #### [facility] [address] Glucose [Mass/volume] in Ser um or PlasmaOrdered By: Rosanne Falcon on 01-16-2023 Glucose [Mass/Vol] 93 mg/dL Normal 70-100 [facility] Comment on above: ADA recommended refe rence rangeRandom Glucose Reference Range is dependent on time and content of last meal. Glucose of more than 200 mg/dL in a nonstressed, ambulatory subject supports the diagnosis of Diabetes Mellitus. Order Comment: Reaso n for Exam Hypertension Reason for Exam Vitamin D deficiency, unspecified Result Comment: [place] om Glucose Reference Range is dependent on time and content of last meal. Glucose of more than 200 mg/dL in a nonstressed, ambulatory subject supports the diagnosis of Diabetes Mellitus. ADA recommended reference range Performed By: #### T SH3 wRFLX, [id number], DIFF CBC, CMP #### [facility] [address] Hematocrit [Volume Fraction] of Blood by Automated countOrdered By: Rosanne Falcon on 01-16-2023 Hematocrit (Bld) [Volume fraction] 37.6 % Normal 34.0-46.4 [facility] Comment on above: Order Comment: Reaso n for Exam Hypertension Performed By: #### T SH3 wRFLX, [id number], DIFF CBC, CMP #### [facility] [address] Hemoglobin [Mass/volume] in BloodOrdered By: Rosanne Falcon on 01-16-2023 Hemoglobin (Bld) [Mass/Vol] 12.8 g/dL Normal 11.8-15.4 [facility] Comment on above: Order Comment: Reaso n for Exam Hypertension Performed By: #### T SH3 wRFLX, [id number], DIFF CBC, CMP #### [facility] [address] Leukocytes [#/volume] correc [place] for nucleated erythrocytes in Blood by Automated counOrdered By: Rosanne Falcon on 01-16-2023 WBC corrected for nucl RBC Auto (Bld) [#/Vol] 3.4 10*3/uL 3.8-11.6 [facility] Leukocytes [#/volume] in Blo od by Automated countOrdered By: Rosanne Falcon on 01-16-2023 WBC (Bld) [#/Vol] 3.4 10*3/uL Low 3.8-11.6 [facility] Comment on above: Order Comment: Reaso n for Exam Hypertension Performed By: #### T SH3 wRFLX, [id number], DIFF CBC, CMP #### [facility] [address] [place] [address] [place] Lymphocytes Auto (Bld) [#/Vo l]Ordered By: Rosanne Curtisc on 01-16-2023 Lymphocytes (Bld) [#/Vol] N/A [facility] Lymphocytes/100 WBC Auto (Bl d)Ordered By: Rosanne Curtisc on 01-16-2023 Lymphocytes/100 WBC (Bld) N/A [facility] Lymphocytes/100 leukocytes i n Blood by Manual countOrdered By: Rosanne Falcon on 01-16-2023 Lymphocytes/100 WBC (Bld) 49 % High 18-42 [facility] Comment on above: Order Comment: Reaso n for Exam Hypertension Performed By: #### T SH3 wRFLX, [id number], DIFF CBC, CMP #### [facility] [address] MCH [Entitic mass] by Automa [place] countOrdered By: Rosanne Falcon on 01-16-2023 MCH (RBC) [Entitic mass] 33.4 pg Normal 24.7-34.3 [facility] Comment on above: Order Comment: Reaso n for Exam Hypertension Performed By: #### T SH3 wRFLX, [id number], DIFF CBC, CMP #### [facility] [address] MCHC Auto (RBC) [Mass/Vol]Or dered By: Rosanne Falcon on 01-16-2023 MCHC (RBC) [Mass/Vol] 33.9 g/dL 32.0-35.0 [facility] MCV [Entitic volume] by Auto mated countOrdered By: Rosanne Falcon on 01-16-2023 MCV (RBC) [Entitic vol] 98.5 fL Normal 80-100 [facility] Comment on above: Order Comment: Reaso n for Exam Hypertension Performed By: #### T SH3 wRFLX, [id number], DIFF CBC, CMP #### [facility] [address] Manual blood segmented neutr ophils/100 leukocytesOrdered By: Rosanne Falcon on 01-16-2023 Segmented neutrophils/100 WBC (Bld) 37 % Low 50-70 [facility] Comment on above: Order Comment: Reaso n for Exam Hypertension Performed By: #### T SH3 wRFLX, [id number], DIFF CBC, CMP #### [facility] [address] Monocytes Auto (Bld) [#/Vol] Ordered By: Rosanne Falcon on 01-16-2023 Monocytes (Bld) [#/Vol] N/A [facility] Monocytes/100 WBC Auto (Bld) Ordered By: Rosanne Falcon on 01-16-2023 Monocytes/100 WBC (Bld) N/A [facility] Monocytes/100 leukocytes in Blood by Manual countOrdered By: Rosanne Falcon on 01-16-2023 Monocytes/100 WBC (Bld) 3 % Normal 2-11 [facility] Comment on above: Order Comment: Reaso n for Exam Hypertension Performed By: #### T SH3 wRFLX, [id number], DIFF CBC, CMP #### [facility] [address] Neutrophils Auto (Bld) [#/Vo l]Ordered By: Rosanne Falcon on 01-16-2023 Neutrophils (Bld) [#/Vol] N/A [facility] Neutrophils/100 WBC Auto (Bl d)Ordered By: Rosanne Falcon on 01-16-2023 Neutrophils/100 WBC (Bld) N/A [facility] No Panel InformationOrdered By: Rosanne Falcon on 01-16-2023 Estimated GFR (CKD-EPI) > 60.0 mL/Min [facility] Creatinine Clearance (Chem N/A [facility] Nucleated erythrocytes [Pres ence] in Blood by Automated countOrdered By: Rosanne Falcon on 01-16-2023 Nucleated RBC Auto Ql (Bld) N/A [facility] Platelet adequacy [Presence] in Blood by Light microscopyOrdered By: Rosanne Falcon on 01-16-2023 Platelets LM Ql (Bld) Normal Normal [facility] Platelet mean volume [Entiti c volume] in Blood by Automated countOrdered By: Rosanne Falcon on 01-16-2023 Platelet mean volume (Bld) [Entitic vol] 8.7 fL Normal 6.3-10.7 [facility] Comment on above: Order Comment: Reaso n for Exam Hypertension Performed By: #### T SH3 wRFLX, [id number], DIFF CBC, CMP #### [facility] [address] [place] [id number] [facility] Platelet morphology finding [Identifier] in BloodOrdered By: Rosanne Falcon on 01-16-2023 Platelet morphology finding Nom (Bld) Normal Normal [facility] Platelets [#/volume] in Bloo d by Automated countOrdered By: Rosanne Falcon on 01-16-2023 Platelets (Bld) [#/Vol] 180 10*3/uL Normal 150-450 [facility] Comment on above: Order Comment: Reaso n for Exam Hypertension Performed By: #### T SH3 wRFLX, [id number], DIFF CBC, CMP #### [facility] [address] [place] [address] [place] Potassium [Moles/volume] in Serum or PlasmaOrdered By: Rosanne Falcon on 01-16-2023 Potassium [Moles/Vol] 4.3 mmol/L Normal 3.5-5.1 [facility] Comment on above: Order Comment: Reaso n for Exam Hypertension Reason for Exam Vitamin D deficiency, unspecified Performed By: #### T SH3 wRFLX, [id number], DIFF CBC, CMP #### [facility] [address] [place] [id number] [place] Protein [Mass/volume] in Ser um or PlasmaOrdered By: Rosanne Falcon on 01-16-2023 Protein [Mass/Vol] 7.4 g/dL Normal 6.4-8.9 [facility] Comment on above: Order Comment: Reaso n for Exam Hypertension Reason for Exam Vitamin D deficiency, unspecified Performed By: #### T SH3 wRFLX, [id number], DIFF CBC, CMP #### [facility] [address] [place] [address] [place] RBC morphologyOrdered By: Kayleen Falcon on 01-16-2023 RBC morphology finding Nom (Bld) Normal Normal Normal [facility] Comment on above: Order Comment: Reaso n for Exam Hypertension Performed By: #### T SH3 wRFLX, [id number], DIFF CBC, CMP #### [facility] [address] [place] [id number] [place] Serum globulin measurement b y calculation (mass/volume)Ordered By: Rosanne Falcon on 01-16-2023 Globulin (S) [Mass/Vol] 3.1 g/dL Normal [facility] Comment on above: Order Comment: Reaso n for Exam Hypertension Reason for Exam Vitamin D deficiency, unspecified Performed By: #### T SH3 wRFLX, [id number], DIFF CBC, CMP #### [facility] [address] Serum or plasma albumin/glob ulin mass ratioOrdered By: Rosanne Falcon on 01-16-2023 Albumin/Globulin [Mass ratio] 1.4 {ratio} Normal [facility] Comment on above: Order Comment: Reaso n for Exam Hypertension Reason for Exam Vitamin D deficiency, unspecified Performed By: #### T SH3 wRFLX, [id number], DIFF CBC, CMP #### [facility] [address] Serum or plasma anion gap de terminationOrdered By: Rosanne Falcon on 01-16-2023 Anion gap [Moles/Vol] 11.7 mmol/L Normal 6.0-15.0 [facility] Comment on above: Order Comment: Reaso n for Exam Hypertension Reason for Exam Vitamin D deficiency, unspecified Performed By: #### T SH3 wRFLX, [id number], DIFF CBC, CMP #### [facility] [address] [place] [address] Sodium [Moles/volume] in Ser um or PlasmaOrdered By: Rosanne Falcon on 01-16-2023 Sodium [Moles/Vol] 137 mmol/L Normal 136-145 [facility] Comment on above: Order Comment: Reaso n for Exam Hypertension Reason for Exam Vitamin D deficiency, unspecified Performed By: #### T SH3 wRFLX, [id number], DIFF CBC, CMP #### [facility] [address] Thyroid Stim Hormone w/Rflxo n 01-16-2023 Thyroid Stim Hormone w/Rflx 3.01 u[iU]/mL Normal 0.45-5.33 [facility] Comment on above: Order Comment: Reaso n for Exam Hypertension Reason for Exam Vitamin D deficiency, unspecified Performed By: #### T SH3 wRFLX, [id number], DIFF CBC, CMP #### [facility] [address] [place] [id number] [facility] Thyrotropin [Units/volume] i n Serum or PlasmaOrdered By: Rosanne Falcon on 01-16-2023 TSH Qn 3.01 m[IU]/L 0.45-5.33 [facility] Urea nitrogen [Mass/volume] in Serum or PlasmaOrdered By: Rosanne Falcon on 01-16-2023 Urea nitrogen [Mass/Vol] 12 mg/dL Normal 7-25 [facility] Comment on above: Order Comment: Reaso n for Exam Hypertension Reason for Exam Vitamin D deficiency, unspecified Performed By: #### T SH3 wRFLX, [id number], DIFF CBC, CMP #### [facility] [address] [place] [address] [place] Variant lymphocytes/100 WBC Manual cnt (Bld)Ordered By: Rosanne Falcon on 01-16-2023 Variant lymphocytes/100 WBC (Bld) 3 % 0-12 [facility] Vitamin D 25 Hydroxy Totalon 01-16-2023 Vitamin D 25 Hydroxy Total 32.5 ng/mL Normal 30-100 [facility] Comment on above: Order Comment: [...] practice guideline. JCEM. 2010; 96(7):1911-30. PERFORMED BY: [place] [address] PATHOLOGIST [employer] TRINI PINON M.D. Performed By: #### T SH3 wRFLX, [id number], DIFF CBC, CMP #### [facility] [address] [place] [id number] [facility] Vitamin D+Metabolites [Mass/ volume] in Serum or PlasmaOrdered By: Rosanne Falcon on 01-16-2023 Vitamin D+Metabolites [Mass/Vol] 32.5 ng/mL 30-100 [facility] Comment on above: VITAMIN D STATUS 25( [place])VITAMIN D RANGE (ng/mL) Deficient <20 Insufficient 20 to <30Sufficient 30 to 100Reference: Helen MF,Vaishali NC, Arturo FARRIS, et al. Evaluation,treatment, and prevention of vitamin D deficiency; an Endocrine Society clinical practice guideline. JCEM. 2010; 96(7):1911-30. Albumin [Mass/volume] in Ser um or PlasmaOrdered By: Rosanne Falcon on 05-14-2022 Albumin [Mass/Vol] 3.8 g/dL 3.2-5.5 [facility] Basophils Auto (Bld) [#/Vol] Ordered By: Rosanne Falcon on 05-14-2022 Basophils (Bld) [#/Vol] 0.0 10*3/uL 0.0-0.2 [facility] Basophils/100 WBC Auto (Bld) Ordered By: Rosanne Falcon on 05-14-2022 Basophils/100 WBC (Bld) 0.8 % . F [facility] CT biopsyOrdered By: Rosanne moore on 05-14-2022 Transferrin [Mass/Vol] 216 mg/dL 180-380 Fi [facility] Creatinine and Glomerular fi ltration rate.predicted panel (S/P/Bld)Ordered By: Rosanne Falcon on 05-14-2022 Creatinine [Mass/Vol] 0.82 mg/dL 0.44-1.03 [facility] Eosinophils Auto (Bld) [#/Vo l]Ordered By: Rosanne Falcon on 05-14-2022 Eosinophils (Bld) [#/Vol] 0.2 10*3/uL 0.0-0.45 [facility] Eosinophils/100 WBC Auto (Bl d)Ordered By: Rosanne Falcon on 05-14-2022 Eosinophils/100 WBC (Bld) 4.0 % . [facility] Erythrocyte distribution wid th Auto (RBC) [Ratio]Ordered By: Rosanne Falcon on 05-14-2022 Erythrocyte distribution width (RBC) [Ratio] 12.9 % 11.9-15.3 [facility] Estimated glomerular filtrat ion rate (GFR) non- AmericanOrdered By: Rosanne Falcon on 05-14-2022 GFR/1.73 sq M.predicted among non-blacks MDRD (S/P/Bld) [Vol rate/Area] > 60 mL/Min [facility] Globulin Calc (S) [Mass/Vol] Ordered By: Rosanne Falcon on 05-14-2022 Globulin (S) [Mass/Vol] 3.4 g/dL [facility] Hematocrit Auto (Bld) [Volum e fraction]Ordered By: Rosanne Falcon on 05-14-2022 Hematocrit (Bld) [Volume fraction] 37.1 % 34.0-46.4 [facility] Hemoglobin [Mass/volume] in BloodOrdered By: Rosanne Falcon on 05-14-2022 Hemoglobin (Bld) [Mass/Vol] 12.5 g/dL 11.8-15.4 [facility] Iron [Mass/volume] in Serum or PlasmaOrdered By: Rosanne Falcon on 05-14-2022 Iron [Mass/Vol] 79 ug/dL 40-150 [facility] Iron binding capacity [Mass/ volume] in Serum or PlasmaOrdered By: Rosanne Falcon on 05-14-2022 Iron binding capacity [Mass/Vol] 302 ug/dL 255-450 [facility] Iron saturation [Mass Fracti on] in Serum or PlasmaOrdered By: Rosanne Falcon on 05-14-2022 Iron saturation [Mass fraction] 26.2 % 20-50 [facility] Leukocytes [#/volume] correc [place] for nucleated erythrocytes in Blood by Automated counOrdered By: Rosanne Falcon on 05-14-2022 WBC corrected for nucl RBC Auto (Bld) [#/Vol] 4.4 10*3/uL 3.8-11.6 [facility] Lymphocytes Auto (Bld) [#/Vo l]Ordered By: Rosanne Falcon on 05-14-2022 Lymphocytes (Bld) [#/Vol] 2.2 10*3/uL 1.00-4.8 [facility] Lymphocytes/100 WBC Auto (Bl d)Ordered By: Rosanne Falcon on 05-14-2022 Lymphocytes/100 WBC (Bld) 49.3 % . [facility] MCH Auto (RBC) [Entitic mass ]Ordered By: Rosanne Falcon on 05-14-2022 MCH (RBC) [Entitic mass] 33.0 pg 24.7-34.3 [facility] MCHC Auto (RBC) [Mass/Vol]Or dered By: Rosanne Falcon on 05-14-2022 MCHC (RBC) [Mass/Vol] 33.6 g/dL 32.0-35.0 [facility] MCV Auto (RBC) [Entitic vol] Ordered By: Rosanne Falcon on 05-14-2022 MCV (RBC) [Entitic vol] 98.2 fL 80-100 [facility] Monocytes Auto (Bld) [#/Vol] Ordered By: Rosanne Falcon on 05-14-2022 Monocytes (Bld) [#/Vol] 0.3 10*3/uL 0.0-0.8 [facility] Monocytes/100 WBC Auto (Bld) Ordered By: Rosanne Falcon on 05-14-2022 Monocytes/100 WBC (Bld) 7.0 % . [facility] Neutrophils Auto (Bld) [#/Vo l]Ordered By: Rosanne Falcon on 05-14-2022 Neutrophils (Bld) [#/Vol] 1.7 10*3/uL 1.8-7.7 [facility] Neutrophils/100 WBC Auto (Bl d)Ordered By: Rosanne Falcon on 05-14-2022 Neutrophils/100 WBC (Bld) 38.9 % . [facility] No Panel InformationOrdered By: Rosanne Falcon on 05-14-2022 25-Hydroxy Vitamin D Total 74.8 ng/mL 30-100 [facility] Comment on above: VITAMIN D STATUS 25( [place])VITAMIN D RANGE (ng/mL) Deficient <20 Insufficient 20 to <30Sufficient 30 to 100Reference: Helen MF,Vaishali GRIGGS, Arturo FARRIS, et al. Evaluation,treatment, and prevention of vitamin D deficiency; an Endocrine Society clinical practice guideline. JCEM. 2010; 96(7):1911-30. Estimated GFR () > 60 mL/Min [facility] Comment on above: GFR estimated refere nce range: According to KDOQI guidelines, <60 ml/min/1.73m2 is sufficient to diagnose a patient with chronic kidney disease. Pharmacy Creatinine Clearance (Chem N/A [facility] Nucleated erythrocytes [Pres ence] in Blood by Automated countOrdered By: Rosanne Falcon on 05-14-2022 Nucleated RBC Auto Ql (Bld) 0.1 /100{WBC} 0-0.5 [facility] Platelet mean volume Auto (B ld) [Entitic vol]Ordered By: Rosanne Falcon on 05-14-2022 Platelet mean volume (Bld) [Entitic vol] 8.2 fL 6.3-10.7 [facility] Platelets Auto (Bld) [#/Vol] Ordered By: Rosanne Falcon on 05-14-2022 Platelets (Bld) [#/Vol] 231 10*3/uL 150-450 [facility] Protein [Mass/volume] in Ser um or PlasmaOrdered By: Rosanne Falcon on 05-14-2022 Protein [Mass/Vol] 7.2 g/dL 6.1-7.9 [facility] RBC Auto (Bld) [#/Vol]Ordere d By: Rosanne Falcon on 05-14-2022 RBC (Bld) [#/Vol] 3.78 10*6/uL 3.60-5.00 [facility] Serum or plasma alanine andersen otransferase measurement without P-5'-P (enzymatic activiOrdered By: Rosanne Falcon on 05-14-2022 ALT No additional P-5'-P [Catalytic activity/Vol] 15 U/L 10-60 [facility] Serum or plasma albumin/glob ulin mass ratioOrdered By: Rosanne Falcon on 05-14-2022 Albumin/Globulin [Mass ratio] 1.1 {ratio} [facility] Serum or plasma alkaline lori sphatase measurement (enzymatic activity/volume)Ordered By: Rosanne Falcon on 05-14-2022 ALP [Catalytic activity/Vol] 78 U/L 32-92 [facility] Serum or plasma anion gap de terminationOrdered By: Rosanne Falcon on 05-14-2022 Anion gap [Moles/Vol] 10.6 mmol/L 6.0-15.0 [facility] Serum or plasma aspartate am inotransferase measurement (enzymatic activity/volume)Ordered By: Rosanne Falcon on 05-14-2022 AST [Catalytic activity/Vol] 19 U/L 10-42 [facility] Serum or plasma calcium tristian urement (mass/volume)Ordered By: Rosanne Falcon on 05-14-2022 Calcium [Mass/Vol] 9.9 mg/dL 8.2-10.2 [facility] Serum or plasma chloride ceferino surement (moles/volume)Ordered By: Rosanne Falcon on 05-14-2022 Chloride [Moles/Vol] 101 mmol/L 95-114 [facility] Serum or plasma glucose tristian urement (mass/volume)Ordered By: Rosanne Falcon on 05-14-2022 Glucose [Mass/Vol] 74 mg/dL 70-100 [facility] Comment on above: ADA recommended refe rence rangeRandom Glucose Reference Range is dependent on time and content of last meal. Glucose of more than 200 mg/dL in a nonstressed, ambulatory subject supports the diagnosis of Diabetes Mellitus. Serum or plasma potassium me asurement (moles/volume)Ordered By: Rosanne Falcon on 05-14-2022 Potassium [Moles/Vol] 3.7 mmol/L 3.5-5.1 [facility] Serum or plasma sodium measu rement (moles/volume)Ordered By: Rosanne Falcon on 05-14-2022 Sodium [Moles/Vol] 138 mmol/L 136-146 [facility] Serum or plasma total biliru bin measurement (mass/volume)Ordered By: Rosanne Falcon on 05-14-2022 Bilirubin [Mass/Vol] 0.5 mg/dL 0.3-1.2 [facility] Serum or plasma total carbon dioxide measurement (moles/volume)Ordered By: Rosanne Falcon on 05-14-2022 CO2 [Moles/Vol] 30.1 mmol/L 22.0-30.0 [facility] Serum or plasma urea nitroge n measurement (mass/volume)Ordered By: Rosanne Falcon on 05-14-2022 Urea nitrogen [Mass/Vol] 12 mg/dL 9-23 [facility] WBC Auto (Bld) [#/Vol]Ordere d By: Rosanne Falcon on 05-14-2022 WBC (Bld) [#/Vol] 4.4 10*3/uL 3.8-11.6 [facility] Amphetamine Screen Ql (U)Ord ered By: Philip Taveras on 01-09-2022 Amphetamines Ql (U) Negative Negative [facility] Barbiturates [Presence] in U rineOrdered By: Philip Taveras on 01-09-2022 Barbiturates Ql (U) Negative Negative [facility] Benzodiazepines [Presence] i n UrineOrdered By: Philip Taveras on 01-09-2022 Benzodiazepines Ql (U) Negative Negative [facility] Cannabinoids [Presence] in U rine by Screen methodOrdered By: Philip Taveras on 01-09-2022 Cannabinoids Screen Ql (U) Positive Negative [facility] Comment on above: These are unconfirme d results and should not be used for legal purposes. Drug Cut-Off Concentration: AMPH 1000 ng/mL PATRICE 200 ng/mL BRUNO 200 ng/mL COCM 300 ng/mL OP 300 ng/mL PCP 25 ng/mL THC 20 ng/mL Laboratory - Drug toxicology Ordered By: Philip Taveras on 01-09-2022 Opiates Ql (U) Negative Negative [facility] Phencyclidine Screen Ql (U)O rdered By: Philip Taveras on 01-09-2022 Phencyclidine Ql (U) Negative Negative [facility] Urine cocaine detectionOrder ed By: Philip Taveras on 01-09-2022 Cocaine Ql (U) Positive Negative [facility] COVID-19 SOFIAOrdered By: Kayleen Taveras on 01-07-2022 SARS-CoV+SARS-CoV-2 (COVID-19) Ag IA.rapid Ql (Resp) Negative Negative [facility] Comment on above: This is a duplicate Joy SARS Antigen (CHRISTINA) result to be used for statistical tracking purpose only. No Panel InformationOrdered By: Philip Taveras on 01-07-2022 SARS Antigen (LFIA) [facility] COVID-19 Positive/NegativeOr dered By: Philip Taveras on 12-04-2021 SARS-CoV-2 (COVID-19) N gene RICKY+probe Ql (Resp) Negative Negative [facility] Comment on above: Testing for SARS-CoV -2 by RT-PCR This test was developed and its performance characteristics determined by [employer] & [employer] and validated at the [facility]. This test has not been FDA cleared [...] developed and its performance characteristics determined by [employer] ([place]) and validated at the [facility]. This test has not been FDA cleared [...] on 10-26-2021 Albumin [Mass/Vol] 3.7 g/dL 3.2-5.5 [facility] Basophils Auto (Bld) [#/Vol] Ordered By: Rosanne Falcon on 10-26-2021 Basophils (Bld) [#/Vol] 0.0 10*3/uL 0.0-0.2 [facility] Basophils/100 WBC Auto (Bld) Ordered By: Rosanne Falcon on 10-26-2021 Basophils/100 WBC (Bld) 0.6 % . [facility] Blood acanthocytes detection by light microscopyOrdered By: Rosanne Falcon on 10-26-2021 Acanthocytes LM Ql (Bld) Few [facility] Blood hemoglobin measurement (mass/volume)Ordered By: Rosanne Falcon on 10-26-2021 Hemoglobin (Bld) [Mass/Vol] 13.5 g/dL 11.8-15.4 [facility] Blood leukocytes automated c ount (number/volume)Ordered By: Rosanne Falcon on 10-26-2021 WBC (Bld) [#/Vol] 4.4 10*3/uL 4.5-11.[address] [facility] CT biopsyOrdered By: Rosanne moore on 10-26-2021 Transferrin [Mass/Vol] 234 mg/dL 180-380 [facility] Cholesterol [Mass/volume] in Serum or PlasmaOrdered By: Rosanne Falcon on 10-26-2021 Cholesterol [Mass/Vol] 152 mg/dL 140-200 [facility] Comment on above: Chol less than 200 m g/dl low risk Chol 201-239 mg/dl borderline risk Chol 240 mg/dl and greater high risk Chol less than 200 m g/dl low riskChol 201-239 mg/dl borderline riskChol 240 mg/dl and greater high risk Cholesterol in LDL Calc [Mas s/Vol]Ordered By: Rosanne Falcon on 10-26-2021 Cholesterol in LDL [Mass/Vol] 73 mg/dL 0-100 [facility] Comment on above: LDL ATP III CLASSIFI [...] 10-26-2021 Cholesterol in VLDL [Mass/Vol] 8 mg/dL [facility] Creatine kinase [Enzymatic a ctivity/volume] in Serum or PlasmaOrdered By: Rosanne Falcon on 10-26-2021 CK [Catalytic activity/Vol] 111 U/L 22 [facility] Creatinine and Glomerular fi ltration rate.predicted panel (S/P/Bld)Ordered By: Rosanne Falcon on 10-26-2021 Creatinine [Mass/Vol] 0.86 mg/dL 0.44-1.03 [facility] Eosinophils Auto (Bld) [#/Vo l]Ordered By: Rosanne Falcon on 10-26-2021 Eosinophils (Bld) [#/Vol] 0.2 10*3/uL 0.0-0.45 [facility] Eosinophils/100 WBC Auto (Bl d)Ordered By: Rosanne Falcon on 10-26-2021 Eosinophils/100 WBC (Bld) 3.7 % . [facility] Erythrocyte distribution wid th Auto (RBC) [Ratio]Ordered By: Rosanne Falcon on 10-26-2021 Erythrocyte distribution width (RBC) [Ratio] 13.1 % 11.9-15.3 [facility] Estimated glomerular filtrat ion rate (GFR) non- AmericanOrdered By: Rosanne Falcon on 10-26-2021 GFR/1.73 sq M.predicted among non-blacks MDRD (S/P/Bld) [Vol rate/Area] > 60 mL/Min [facility] Globulin Calc (S) [Mass/Vol] Ordered By: Rosanne Falcon on 10-26-2021 Globulin (S) [Mass/Vol] 3.0 g/dL [facility] Glucose mean value [Mass/vol ume] in Blood Estimated from glycated hemoglobinOrdered By: Rosanne Falcon on 10-26-2021 Average glucose Estimated from glycated hemoglobin (Bld) [Mass/Vol] 105 mg/dL [facility] HIV 1 and HIV-2 antibody ass ay with HIV-1 p24 antigen detectionOrdered By: Rosanne Falcon on 10-26-2021 HIV 1+2 Ab+HIV1 p24 Ag IA Ql Non-Reactive Non Reactive [facility] Comment on above: HIV Negative HIV-1/HIV-2 antibodies and HIV-1 p24 antigen were NOT detected. There is no laboratory evidence of HIV infection. Performed at: [facility] [place] [address] [employer] Specialist: Lopez Mcwilliams PhD, Phone: [phone] HIV NegativeHIV-1/HI V-2 antibodies and HIV-1 p24 antigen were NOTdetected. There is no laboratory evidence of HIV infection.Performed at: [facility] [address] [id number] Director: Lopez Mcwilliams PhD, Phone: [phone] Hematocrit Auto (Bld) [Volum e fraction]Ordered By: Rosanne Falcon on 10-26-2021 Hematocrit (Bld) [Volume fraction] 39.8 % 34.0-46.4 [facility] Hemoglobin A1c percentageOrd ered By: Rosanne Falcon on 10-26-2021 HbA1c (Bld) [Mass fraction] 5.3 % 4.3-5.6 [facility] Comment on above: Increased risk for d iabetes: 5.7 - 6.4 diabetes: >6.4 glycemic control for adults with diabetes: <7.0 Increased risk for d iabetes: 5.7 - 6.4diabetes: >6.4glycemic control for adults with diabetes: <7.0 Hepatitis B virus surface Ag [Presence] in Serum or Plasma by ImmunoassayOrdered By: Rosanne Falcon on 10-26-2021 HBV surface Ag IA Ql Negative Negative [facility] Hepatitis C virus RNA [Units /volume] (viral load) in Serum or Plasma by RICKY with probOrdered By: Roasnne Falcon on 10-26-2021 HCV RNA RICKY+probe Qn N/A [facility] Hepatitis C virus RNA [log u nits/volume] (viral load) in Serum or Plasma by RICKY withOrdered By: Rosanne Falcon on 10-26-2021 HCV RNA RICKY+probe [Log units/Vol] N/A [facility] Iron [Mass/volume] in Serum or PlasmaOrdered By: Rosanne Falcon on 10-26-2021 Iron [Mass/Vol] 63 ug/dL 40-150 [facility] Iron binding capacity [Mass/ volume] in Serum or PlasmaOrdered By: Rosanne Falcon on 10-26-2021 Iron binding capacity [Mass/Vol] 328 ug/dL 255-450 [facility] Iron saturation [Mass Fracti on] in Serum or PlasmaOrdered By: Rosanne Falcon on 10-26-2021 Iron saturation [Mass fraction] 19.0 % 20-50 [facility] Laboratory - Hematology and Cell countsOrdered By: Rosanne Falcon on 10-26-2021 Nucleated RBC/100 WBC (Bld) [Ratio] 0.2 % 0-0.5 [facility] Lymphocytes Auto (Bld) [#/Vo l]Ordered By: Rosanne Falcon on 10-26-2021 Lymphocytes (Bld) [#/Vol] 3.0 10*3/uL 1.00-4.8 [facility] Lymphocytes/100 WBC Auto (Bl d)Ordered By: Rosanne Falcon on 10-26-2021 Lymphocytes/100 WBC (Bld) 66.6 % . [facility] MCH Auto (RBC) [Entitic mass ]Ordered By: Rosanne Falcon on 10-26-2021 MCH (RBC) [Entitic mass] 33.6 pg 24.7-34.3 [facility] MCHC Auto (RBC) [Mass/Vol]Or dered By: Rosanne Falcon on 10-26-2021 MCHC (RBC) [Mass/Vol] 34.0 g/dL 32.0-35.0 [facility] MCV Auto (RBC) [Entitic vol] Ordered By: Rosanne Falcon on 10-26-2021 MCV (RBC) [Entitic vol] 98.8 fL 80-100 [facility] Monocytes Auto (Bld) [#/Vol] Ordered By: Rosanne Falcon on 10-26-2021 Monocytes (Bld) [#/Vol] 0.2 10*3/uL 0.0-0.8 [facility] Monocytes/100 WBC Auto (Bld) Ordered By: Rosanne Falcon on 10-26-2021 Monocytes/100 WBC (Bld) 4.6 % . [facility] Neutrophils Auto (Bld) [#/Vo l]Ordered By: Rosanne Falcon on 10-26-2021 Neutrophils (Bld) [#/Vol] 1.1 10*3/uL 1.8-7.7 [facility] Neutrophils/100 WBC Auto (Bl d)Ordered By: Rosanne Falcon on 10-26-2021 Neutrophils/100 WBC (Bld) 24.5 % . [facility] No Panel InformationOrdered By: Rosanne Falcon on 10-26-2021 25-Hydroxy Vitamin D Total 58.9 ng/mL 30-100 [facility] Comment on above: VITAMIN D STATUS 25( [...] 96(7):1911-30. Estimated GFR () > 60 mL/Min [facility] Comment on above: GFR estimated refere nce range: According to KDOQI guidelines, <60 ml/min/1.73m2 is sufficient to diagnose a patient with chronic kidney disease. Hepatitis A IgM Antibody Negative Negative [facility] Hepatitis B Core IgM Antibody Negative Negative [facility] Hepatitis C Interpretation See comment . [facility] Comment on above: Negative Not infected with HCV, unless recent infection is suspected or other evidence exists to indicate HCV infection. Performed at: [facility] [id number] Business Continuity Specialist: Lopez Mcwilliams PhD, Phone: [phone] NegativeNot infected with HCV, unless recent infection issuspected or other evidence exists to indicate HCVinfection.Performed at: [facility] [id number] Director: Lopez Mcwilliams PhD, Phone: [phone] Hepatitis C RNA Quantitative N/A [facility] Creatinine Clearance (Chem N/A [facility] Platelet Estimate Normal Normal [facility] Platelet Morphology Comment Normal Normal [facility] Platelet mean volume Auto (B ld) [Entitic vol]Ordered By: Rosanne Falcon on 10-26-2021 Platelet mean volume (Bld) [Entitic vol] 8.6 fL 6.3-10.7 [facility] Platelets Auto (Bld) [#/Vol] Ordered By: Rosanne Falcon on 10-26-2021 Platelets (Bld) [#/Vol] 230 10*3/uL 150-450 [facility] Protein [Mass/volume] in Ser um or PlasmaOrdered By: Rosanne Falcon on 10-26-2021 Protein [Mass/Vol] 6.7 g/dL 6.1-7.9 [facility] RBC Auto (Bld) [#/Vol]Ordere d By: Rosanne Falcon on 10-26-2021 RBC (Bld) [#/Vol] 4.03 10*6/uL 3.60-5.00 [facility] RBC morphologyOrdered By: Kayleen Falcon on 07-22-2022 RBC morphology finding Nom (Bld) Normal [facility] Serum or plasma C reactive p rotein measurement (mass/volume)Ordered By: Rosanne Falcon on 10-26-2021 CRP [Mass/Vol] 0.6 mg/dL 0.0-1.0 [facility] Serum or plasma alanine andersen otransferase measurement without P-5'-P (enzymatic activiOrdered By: Rosanne Falcon on 10-26-2021 ALT No additional P-5'-P [Catalytic activity/Vol] 15 U/L 10-60 [facility] Serum or plasma albumin/glob ulin mass ratioOrdered By: Rosanne Falcon on 10-26-2021 Albumin/Globulin [Mass ratio] 1.2 {ratio} [facility] Serum or plasma alkaline lori sphatase measurement (enzymatic activity/volume)Ordered By: Rosanne Falcon on 10-26-2021 ALP [Catalytic activity/Vol] 63 U/L 32-92 [facility] Serum or plasma aspartate am inotransferase measurement (enzymatic activity/volume)Ordered By: Rosanne Falcon on 10-26-2021 AST [Catalytic activity/Vol] 18 U/L 10-42 [facility] Serum or plasma calcium tristian urement (mass/volume)Ordered By: Rosanne Falcon on 10-26-2021 Calcium [Mass/Vol] 10.2 mg/dL 8.2-10.2 [facility] Serum or plasma chloride ceferino surement (moles/volume)Ordered By: Rosanne Falcon on 10-26-2021 Chloride [Moles/Vol] 100 mmol/L 95-114 [facility] Serum or plasma glucose tristian urement (mass/volume)Ordered By: Rsoanne Falcon on 10-26-2021 Glucose [Mass/Vol] 103 mg/dL 70-100 [facility] Comment on above: ADA recommended refe rence [...] IA [Rel units/Vol] <0.1 s/co ratio 0.0-0.9 [facility] Serum or plasma high density lipoprotein (HDL) cholesterol measurementOrdered By: Rosanne Falcon on 10-26-2021 Cholesterol in HDL [Mass/Vol] 71 mg/dL 35-85 [facility] Comment on above: HDL CHOL ATP-III CLA SSIFICATION Cardiovascular Risk HDL > or equal to 60 mg/dL LOW HDL < 40 mg/dL HIGH HDL CHOL ATP-III CLA SSIFICATION Cardiovascular RiskHDL > or equal to 60 mg/dL LOWHDL < 40 mg/dL HIGH Serum or plasma potassium me asurement (moles/volume)Ordered By: Rosanne Falcon on 10-26-2021 Potassium [Moles/Vol] 3.9 mmol/L 3.5-5.1 [facility] Serum or plasma prealbumin m easurement (mass/volume)Ordered By: Rosanne Falcon on 10-26-2021 Prealbumin [Mass/Vol] 20.0 mg/dL 18.0-38.0 [facility] Serum or plasma sodium measu rement (moles/volume)Ordered By: Rosanne Falcon on 10-26-2021 Sodium [Moles/Vol] 138 mmol/L 136-146 [facility] Serum or plasma total biliru bin measurement (mass/volume)Ordered By: Rosanne Falcon on 10-26-2021 Bilirubin [Mass/Vol] 0.8 mg/dL 0.3-1.2 [facility] Serum or plasma total carbon dioxide measurement (moles/volume)Ordered By: Rosanne Falcon on 10-26-2021 CO2 [Moles/Vol] 28.0 mmol/L 22.0-30.0 [facility] Serum or plasma total choles terol/high density lipoprotein (HDL) cholesterol mass ratOrdered By: Rosanne Falcon on 10-26-2021 Cholesterol.total/Choles terol in HDL [Mass ratio] 2.1 {ratio} <5.0 [facility] Serum or plasma urea nitroge n measurement (mass/volume)Ordered By: Rosanne Falcon on 10-26-2021 Urea nitrogen [Mass/Vol] 13 mg/dL 9- [facility] TSH DL <= 0.005 mIU/L QnOrde red By: Rosanne Falcon on 10-26-2021 TSH Qn 1.12 m[IU]/L 0.45-5.33 [facility] Thyroxine (T4) free [Mass/vo lume] in Serum or PlasmaOrdered By: Rosanne Falcon on 10-26-2021 Free T4 [Mass/Vol] 1.06 ng/dL 0.61-1.12 [facility] Triglyceride [Mass/volume] i n Serum or PlasmaOrdered By: Rosanne Falcon on 10-26-2021 Triglyceride [Mass/Vol] 42 mg/dL 35-149 [facility] Comment on above: TRIG ATP III [...] Bacteria identified Cx Nom (U) Escherichia coli [facility] Amphetamine Screen Ql (U)Ord ered By: Rosanne Falcon on 10-23-2021 Amphetamines Ql (U) Negative Negative [facility] Barbiturates [Presence] in U rineOrdered By: Rosanne Falcon on 10-23-2021 Barbiturates Ql (U) Negative Negative [facility] Benzodiazepines [Presence] i n UrineOrdered By: Rosanne Falcon on 10-23-2021 Benzodiazepines Ql (U) Negative [facility] Cannabinoids [Presence] in U rine by Screen methodOrdered By: Rosanne Falcon on 10-23-2021 Cannabinoids Screen Ql (U) Positive Negative [facility] Comment on above: These are unconfirme d results and should not be used for legal purposes. Drug Cut-Off Concentration: AMPH 1000 ng/mL PATRICE 200 ng/mL BRUNO 200 ng/mL COCM 300 ng/mL OP 300 ng/mL PCP 25 ng/mL THC 20 ng/mL These are unconfirme d results and should not be used for legal purposes. Drug Cut-Off Concentration: AMPH 1000 ng/mL PATRICE 200 ng/mL RBUNO 200 ng/mL COCM 300 ng/mL OP 300 ng/mL PCP 25 ng/mL THC 20 ng/mL Laboratory - Drug toxicology Ordered By: Rosanne Falcon on 10-23-2021 Opiates Ql (U) Negative Negative [facility] Phencyclidine Screen Ql (U)O rdered By: Rosanne Falcon on 10-23-2021 Phencyclidine Ql (U) Negative Negative [facility] Urine cocaine detectionOrder ed By: Rosanne Falcon on 10-23-2021 Cocaine Ql (U) Positive Negative [facility] CNOVSPon 04-17-2021 CNOVSP Visit (SP) Office ([place]) RADHA PATTERSON ([id number]) 1960 F Date Time Provider Department 04/17/21 11:00 AM MARCELLO GONZALEZ During your visit today, we recorded the following information about you: Temperature Pulse Respiration Blood pressure 97.2 degrees 73/minute 16/minute 115/83 Weight Height 61.1 kg 1.729 m Marcello Gonzalez MD 04/17/2021 11:43 AM Signed PATIENT NAME: Radha Patterson CLINIC NO.: [id number] ATTENDING PHYSICIAN: Marcello Gonzalez MD DATE OF SERVICE: April 17, 2021 Deadeya Falcon, [facility] thank you for referring Miss Radha Patterson [...] lipid w (more content not included)... Normal [facility] Vital Signs Date Time Vital Sign Value Performing Clinician Faci lity 01-09-2022 12:59-0400 Body height 175.26 cm Services [employer] Work Phone: [facility] 01-09-2022 12:59-0400 Body temperature 98 [degF] Services [facility] [employer] Work Phone: [facility] 01-09-2022 12:59-0400 Body weight 58.96 kg Services [facility] Work Phone: [facility] 01-09-2022 12:59-0400 Diastolic blood pressure 104 mm[Hg] Services [facility] Work Phone: [facility] 01-09-2022 12:59-0400 Heart rate 61 /min Services [facility] [employer] Work Phone: [facility] 01-09-2022 12:59-0400 Respiratory rate 16 /min Services [facility] Work Phone: [facility] 01-09-2022 12:59-0400 SaO2% (BldA) [Mass fraction] 99 % [facility] Work Phone: [facility] 01-09-2022 12:59-0400 Systolic blood pressure 148 mm[Hg] Services [facility] Work Phone: [facility] Encounters Encounter Date Encounter Type Care Provider Facility Start: 01-02-2024 End: 01-02-2024 ambulatory Rosanne E Spasic Facility:[facility] Start: 07-31-2023 End: 07-31-2023 ambulatory Rosanne E Spasic [facility] Work Phone: Start: 07-31-2023 End: 07-31-2023 Departed Referred [facility]ER[facility] PERSON-C Rosanne Falcon Work Phone: [facility] Start: 04-11-2023 End: 04-11-2023 ambulatory Rosanne E Spasic Facility:[facility] Start: 01-28-2023 End: 01-28-2023 ambulatory [facility] Work Phone: [facility] Work Phone: Start: 01-28-2023 End: 01-28-2023 Departed Referred [facility] Work Phone: [facility] Start: 01-16-2023 End: 01-16-2023 ambulatory [facility] Facility:[facility] Start: 01-16-2023 End: 01-16-2023 Departed Referred [facility] Work Phone: [facility] Start: 05-14-2022 End: 05-14-2022 ambulatory [facility] Work Phone: [facility] Work Phone: Start: 05-14-2022 End: 05-14-2022 Departed Referred Services [facility] Work Phone: [facility] Start: 04-12-2022 End: 04-12-2022 Patient encounter procedure [facility]: Start: 01-09-2022 End: 01-09-2022 Admission to same day surgery center [facility] Start: 01-09-2022 End: 01-09-2022 ambulatory [facility] Work Phone: [facility] Work Phone: Start: 01-07-2022 End: 01-07-2022 ambulatory [facility] Work Phone: [facility] Work Phone: Start: 01-07-2022 End: 01-07-2022 Patient encounter procedure [facility] Work Phone: [facility] Start: 12-04-2021 End: 12-04-2021 Patient encounter procedure [facility] Work Phone: [facility] Start: 10-26-2021 End: 10-26-2021 Departed Referred Services [facility] Work Phone: [facility] Start: 10-23-2021 End: 10-23-2021 Departed Referred Services [facility] Work Phone: [facility] Start: 04-16-2021 Chart abstracting Marcello luis MD Work Phone: Hematology/Oncology Procedures Date Procedure Procedure Detail Performing Clinician Start: 04-12-2022 Screening mammograph y of bilateral breasts [facility] Work Phone: SARS Antigen (LFIA) [facility] Work Phone: Urine culture [facility] Work Phone: Plan of Treatment Date Care Activity Detail Author Start: 01-28-2023 Superficial Wound Culture Superficial Wound Culture [facility] Start: 01-09-2022 [facility] Start: 01-09-2022 Colonoscopy DH Colonoscopy Diagnostic (Not Applicable) [facility] Start: 12-06-2020 Influenza vaccination INFLUENZA (#1) [facility] Start: 2009 SHINGRIX VACCINE (1 of 2) SHINGRIX VACCINE (1 of 2) [facility] Start: 2004 COLOGUARD (FIT-DNA) COLOGUARD (FIT-DNA) [facility] Start: 2004 Colonoscopy COLONOSCOPY [facility] Start: 2004 COLORECTAL CANCER SCREENING COLORECTAL CANCER SCREENING [facility] Start: [address] COLONOGRAPHY [facility] Start: 2004 DIABETES SCREEN DIABETES SCREEN [facility] Start: 2004 FECAL OCCULT BLOOD FECAL OCCULT BLOOD [facility] Start: 2004 LIPID SCREEN LIPID SCREEN [facility] Start: 2004 SIGMOIDOSCOPY SIGMOIDOSCOPY [facility] Start: 1999 Mammography MAMMOGRAM [facility] Start: 1989 HPV TESTING HPV TESTING [facility] Start: 1980 PAP TESTING PAP TESTING [facility] Start: 1978 Urine microalbumin profile DTAP,TDAP,TD (1 - Tdap) [facility] Start: 1977 HEPATITIS C SCREENING HEPATITIS C SCREENING [facility] Start: 1977 HIV SCREENING HIV SCREENING [facility] Start: 1971 Adult depression screening assessment DEPRESSION SCREENING [facility] Start: 1964 COVID-19 VACCINE (1) [facility] Atopobium vaginae DN A [Presence] in Vaginal fluid by RICKY with probe detection [facility] Bacteria identified in Unspecified specimen by Aerobe culture [facility] Bacterial vaginosis associated bacterium 2 DNA [Presence] in Vaginal fluid by RICKY with probe detection [facility] Chlamydia trachomati s rRNA [Presence] in Cervix by RICKY with probe detection [facility] Hepatitis A virus antibody, IgM type [facility] Work Phone: Hepatitis B core ant ibody measurement, IgM type [facility] Work Phone: Hepatitis B virus correa rface Ag [Presence] in Serum or Plasma by Immunoassay [facility] Work Phone: Hepatitis C virus Ab Signal/Cutoff in Serum or Plasma by Immunoassay [facility] Work Phone: Hepatitis C virus RN A [log units/volume] (viral load) in Serum or Plasma by RICKY with probe detection [facility] Work Phone: Hepatitis C virus RN A [Units/volume] (viral load) in Serum or Plasma by RICKY with probe detection [facility] Work Phone: HIV 1+2 Ab+HIV1 p24 Ag [Presence] in Serum or Plasma by Immunoassay [facility] Work Phone: Human papilloma viru s 16+18+31+33+35+39+45+51+5 2+56+58+59+66+68 DNA [Presence] in Cervix by Probe with signal amplification [facility] Human papilloma viru s 16+18+31+33+35+39+45+51+5 2+56+58+59+68 DNA [Presence] in Cervix by Probe with signal amplification [facility] Megasphaera sp type 1 DNA [Presence] in Vaginal fluid by RICKY with probe detection [facility] Neisseria gonorrhoea e rRNA [Presence] in Cervix by RICKY with probe detection [facility] Payers Date Payer Category Payer Medicaid [id number] 2023 Self-pay [id number] 2017 Medicaid [place] [employer] [employer] [id number] 2017-Present [phone] [address] [place], [place] [address] Medicaid [id number] Unknown [id number] Unknown [id number] Unknown [id number] Unknown [id number] Unknown [id number] Social History Date Type Detail Facility [facility]: [facility] Start: 04-16-2021 Alcohol intake Current drinke r of alcohol (finding) [facility] Start: 1960 Sex Assigned At Not on file [facility] Start: 08-02-2017 Tobacco smoking stat [facility] Current some day smoker [facility] Start: 1960 Sex Assigned At Female F [facility] Start: 01-09-2022 End: 01-09-2022 Tobacco smoking status [facility] Smoker (finding) [facility] Goals Date Patient Goal Desired Activity /State Progress note 04-17-2021 Note Date & Type Note Facility 04-17-2021 Note HNO ID: [id number] Author: Marcello Gonzalez MD Service: ? Author Type: Physician Type: Progress Notes Filed: 04/17/2021 11:43 AM Note Text: PATIENT NAME: Radha Patterson CLINIC NO.: [id number] ATTENDING PHYSICIAN: Marcello Gonzalez MD DATE OF SERVICE: April 17, [address] Rosanne Falcon, [facility] thank you for referring Miss Radha Patterson [...] Dear Dr. Vásquez (more content not included)... 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 [place] [address] PCP - General Family Practice 04/11/21 Team Status: Active Member Role Status Dates Services [facility] Primary Care Provider Active Team Status: Inactive Member Role Status Dates Services [facility] Primary Care Provider Active Philip Taveras MD Attending Provider Active Team Status: Inactive Member Role Status Dates CHARISMA Hilton Attending Provider Active Start: July 31, 2023 End: July 31, 2023 INFORMATION SOURCE (unrecogn ized section and content) DATE CREATED AUTHOR 06/28/[address] [facility] DATE CREATED AUTHOR AUTHOR'S ORGANIZ ATION 01/13/2024 [facility] Goals (unrecognized section and [...] BE BASED ON THE PRIMARY CLINICAL RECORDS. [facility]. provides no warranty or guarantee of the accuracy or completeness of information in this document.
== END 2024-05-26 07:49 | disposition home or self-care (01) ==
LOC: RAD 07:49
PROVIDERS: Visit Provider Podiatrist Foot & Ankle Surgery
DX: M79.671 Pain in right foot (principal); M24.674 Ankylosis, right foot
CPT/HCPCS: 73630